=== PATIENT | female | born 1935 | race Caucasian/White ===

== ENCOUNTER 2017-10-19 07:59 | Day surgery (SDC) | payer OTHER ==
[2017-10-14 09:35] LABS: Absolute Lymphocytes (CBC) 1.7 K/uL (0.7-4.9); Absolute Monocytes 0.5 K/uL (0.1-1.3); Absolute Neutrophil 4.8 K/uL (1.8-8.0); Basophils % 0.7 % (0-1.3); Hematocrit 38.2 % (36.0-45.0); Lymphocytes % 23.4 % (15.3-44.8); MCH 26.2 pg (27.0-35.0); MCV 82.8 fL (80-100); MPV 9.8 fL (7.6-11.3); Monocytes % 7.4 % (3.3-12.3); RBC Red Blood Cell Count 4.61 M/uL (3.86-4.86)
--- NOTE | 2017-10-14 10:21 | EKG ---
Test Date: 2017-10-14 Test Time: 09:15:04 Fly Tier: [place] MEASUREMENT RESULTS: Intervals: Rate: 65 [place]: 202 QRSD: 92 QT: 456 QTc: 474 [place]: P: 10 [place]: 202 QRS: -14 T: 128 INTERPRETIVE STATEMENTS: Normal sinus rhythm Nonspecific ST and T wave abnormality Prolonged QT Abnormal ECG Compared to ECG 07/10/2017 09:12:51 ST (T wave) deviation now present Prolonged QT interval now present Sinus arrhythmia no longer present Atrial premature complex(es) no longer present Ventricular premature complex(es) no longer present Left-axis deviation no longer present Left bundle-branch block no longer present Electronically Signed On 10-14-17 10:20:58 CDT by Hector Dash
[2017-10-19] MEDS ORDERED: CIPROFLOXACIN 400mg IV 400 MG/200 ML BAG IV ONE (08:28)
[2017-10-19] MEDS ORDERED: NA CHLORIDE 0.9% 1,000 ML ONE (08:28)
[2017-10-19] MEDS ORDERED: PROPOFOL 200 MG/20 ML VIAL IV ONE (08:29)
[2017-10-19] MEDS ORDERED: LIDOCAINE 2% MPF 5 ML VIAL ONE (08:29)
[2017-10-19] MEDS ORDERED: FENTANYL CITR 100 MCG/2 ML ONE (08:30)
--- NOTE | 2017-10-19 09:19 | P.BOP ---
Preoperative diagnosis: infected facial mass Postoperative diagnosis: same with abscess Primary procedure: Excisional biopsy of infected facial mass withh abscess drainage 3x2 cm Estimated blood loss: <10cc Specimen: mass ans culture Findings: mass with abscess Anesthesia: General Complications: None
[2017-10-19 09:58] VITALS: O2SAT 93
[2017-10-19 10:19] VITALS: TEMP 97.4
[2017-10-19 12:25] VITALS: BP 138/61
--- NOTE | 2017-10-19 22:09 | OP ---
Date of Procedure: 10/19/2017 Surgeon: Neftali Pratt MD Preoperative Diagnosis: Infected facial mass. Postoperative Diagnosis: Infected facial mass with abscess. Procedure: Excision and biopsy of infected facial mass with abscess drainage 3 x 2 cm. Estimated Blood Loss: Less than 10 cc. Specimen: Mass and culture of the abscess. Finding: Mass with deep abscess. Indications: This is the case of a female, who came to us with a facial mass. She was in the past a dvised to have it removed. She has been through a lot many personal issues and finally now that she decided to have it excised and she came to my office. It shows some erythema and she was advised to take antibiotics and she did not do because she forgot. She showed to the office with a draining mas s. So, we are still going to proceed with the excisional biopsy of infected mass with benefits, alte rnatives, and risks including, but not limited to infection, bleeding, damage to adjacent structures, anesthesia complication, nonhealing wound, MN, and even . She understands this may not relieve any symptoms. She might need more than one surgical intervention. She understands this will leave a scar and she will require dressing changes. She also took Xarelto last night even though it was ad vised not to do so. She once again forgot. Since the mass is infected, we are going to have to do t his under these conditions, but she was advised the importance of compliance. She signed the consent . Procedure In Detail: The patient's area was marked in the holding area. The patient was brought to the operating room and placed in supine position. Anesthesia was done without complication. The fac ial area was prepped and draped in a sterile fashion. Local anesthesia was applied followed by sharp incision of the skin in a wedge fashion. Incision was carried down to deep subcutaneous tissue. Th is went deep to the mass, there was an abscess collection that was after found whenever we removed th e mass with purulent discharge showing in that area. Loculations were explored and opened. The area was irrigated. Hemostasis was obtained. The area was packed with wet-to-dry dressing. The patient tolerated the procedure well. The patient was sent to recovery in stable condition. DISCHARGE SUMMARY Diagnosis: Infected facial mass with abscess. Procedure: Excisional biopsy of infected facial mass with abscess drainage. Disposition: Home. Activity: As tolerated. No heavy lifting. Followup: Follow up in my office in 1 week. Call for appointment [phone]. Medications: Include Tylenol No. 3 q.4 hours p.r.n. pain. I believe she will need home health agenc y to help her, so we are going to order that with normal saline prescription and Tylenol No. 3. The patient already has antibiotics that she did fill, but she forgot to take them. She will take them n ow. LARY/RHEA Voice ID: [id number] Report ID: [id number]
== END 2017-10-19 11:40 | disposition home health service (06) ==
LOC: OR 07:59
PROVIDERS: ATTEND Surgery
PROC: 0JB10ZZ Excision of Face Subcutaneous Tissue and Fascia, Open Approach (ICD-10-PCS; 2017-10-19)
PROC: 0J910ZZ Drainage of Face Subcutaneous Tissue and Fascia, Open Approach (ICD-10-PCS; principal; 2017-10-19 08:30)
DX: L72.0 Epidermal cyst (principal); L02.01 Cutaneous abscess of face; E11.9 Type 2 diabetes mellitus without complications; I10 Essential (primary) hypertension; I25.10 Atherosclerotic heart disease of native coronary artery without angina pectoris; J45.909 Unspecified asthma, uncomplicated; M19.90 Unspecified osteoarthritis, unspecified site; Z80.9 Family history of malignant neoplasm, unspecified; Z82.49 Family history of ischemic heart disease and other diseases of the circulatory system
CPT/HCPCS: 10060; 11443; 36415; 80048; 82962 ×2; 85025; 87070; 87075; 87205; 88304; 93005; J0744; J3010; J7030; 88305

== ENCOUNTER 2018-10-13 22:33 | Emergency (ER) | payer OTHER ==
[2018-10-14] MEDS ORDERED: HYDROCODONE/APAP 5/325 MG TAB ONE (00:44)
[2018-10-14] MEDS ORDERED: ONDANSETRON 4 MG (ODT) TAB ONE (01:52)
[2018-10-14] MEDS ORDERED: MORPHINE 4 MG/ML SYR ONE (01:52)
--- NOTE | 2018-10-14 02:16 | EDPHYS ---
Physician Documentation [facility] Name: Karen Edward Age: 83 yrs Sex: Female : 1935 Arrival Date: 10/13/2018 Time: 22:37 Bed 11 Private MD: Adriel Bennett C ED Physician Denis Mejia HPI: 10/14 01:46 This 83 yrs old Female presents to ER via Wheelchair with complaints of Hand jmm Injury. 01:46 The patient or guardian reports injury, pain. Onset: The symptoms/episode jmm began/occurred acutely, yesterday. Modifying factors: The symptoms are alleviated by nothing, the symptoms are aggravated by nothing. This is an 83 year old female with a history of CHF, DM, HLP, HTN that presents to the ED with complaints of left hand pain worsening today. Patient states she tripped and fell on an outstretched hand yesterday. Patient denies other injury. . Historical: - Allergies: 10/13 23:01 Naproxen; aa1 23:01 Reglan; aa1 23:01 Procardia; aa1 23:01 Rocephin; aa1 23:01 Clindamycin; aa1 - Home Meds: 23:01 atorvastatin 20 mg Oral tab 1 tab once daily [Active]; carvedilol 6.25 mg Oral tab 1 aa1 tab 2 times per day [Active]; citalopram 40 mg tab 1 tab once daily [Active]; gabapentin 300 mg Oral cap 1 cap twice a day [Active]; glipizide 10 mg Oral tab 1 tab once daily [Active]; levothyroxine 88 mcg tab 1 tab once daily [Active]; torsemide 20 mg Oral tab 1 tab once daily [Active]; Tradjenta 5 mg Oral tab 1 tab once daily [Active]; Xarelto 15 mg Oral tab daily [Active]; - PMHx: 23:01 Asthma; CHF; Diabetes - NIDDM; Hyperlipidemia; Hypertension; Hypothyroidism; aa1 - PSHx: 23:01 Cholecystectomy; brain surgery; shoulder surgery; wrist surgery; Knee surgery; partial aa1 hysterectomy; - Immunization history:: Flu vaccine is up to date. - Social history:: Smoking status: Patient/guardian denies using tobacco. - Ebola Screening: : No symptoms or risks identified at this time. ROS: 03/28 01:46 Constitutional: Negative for fever, chills, and weight loss, Cardiovascular: Negative jmm for chest pain, palpitations, and edema, Respiratory: Negative for shortness of breath, cough, wheezing, and pleuritic chest pain. MS/extremity: Positive for injury or acute deformity, pain. All other systems are negative. Exam: 01:46 Constitutional: This is a well developed, well nourished patient who is awake, alert, jmm and in no acute distress. Head/Face: atraumatic. Eyes: EOMI, no conjunctival erythema appreciated ENT: Moist Mucus Membranes Neck: Trachea midline, Supple Chest/axilla: Normal chest wall appearance and motion. Cardiovascular: Regular rate and rhythm. No edema appreciated Respiratory: Normal respirations, no respiratory distress appreciated Abdomen/GI: Non distended, soft Back: Normal ROM Skin: General appearance color normal 01:46 Musculoskeletal/extremity: pain localized to the 1st metacarpal of the left hand, < 2 sec dist cap refill, painful rom, compartments are soft, NVI. 01:46 Skin: Appearance: Color: normal in color. 01:46 Neuro: Orientation: is normal, Mentation: is normal, Memory: is normal. 01:46 Psych: Behavior/mood is pleasant, cooperative. Vital Signs: 10/13 23:01 BP 142 / 76; Pulse 88; Resp 18; Temp 97.8; Pulse Ox 95% on R/A; Weight 103.42 kg; aa1 Height 5 ft. 3 in. (160.02 cm); Pain 9/10; 10/14 00:39 BP 130 / 82; Pulse 84; Resp 16; Temp 98.6(O); Pulse Ox 100% on R/A; mt 02:25 BP 127 / 76; Pulse 81; Resp 16; Temp 98.5; Pulse Ox 99% on R/A; Pain 4/10; aa1 10/13 23:01 Body Mass Index 40.39 (103.42 kg, 160.02 cm) aa1 Procedures: 01:49 Splinting: Splint applied to left hand using thumb spica. applied by tech. Examined by tiffanie me, post splint application: neurovascular intact, 2+ distal pulses palpable, brisk capillary refill noted, Patient tolerated well. MDM: 00:52 Patient medically screened. jmm 01:49 Data reviewed: vital signs, nurses notes. Counseling: I had a detailed discussion with tiffanie the patient and/or guardian regarding: the historical points, exam findings, and any diagnostic results supporting the discharge/admit diagnosis, radiology results, the need for outpatient follow up, to return to the emergency department if symptoms worsen or persist or if there are any questions or concerns that arise at home. Response to treatment: the patient's symptoms have mildly improved after treatment. ED course: Patient is advised to follow up with hand surgery in 1 to 2 days for reevaluation. Patient given strict return precautions. Patient understood and agrees with the plan of care. . 10/13 23:03 Order name: Hand Left 3 View XRAY aa1 10/14 01:23 Order name: Thumb Spica Splint; Complete Time: 02:17 tiffanie Administered Medications: 00:35 Drug: [place] 5 mg-325 mg 1 tabs Route: PO; aa1 01:00 Follow up: Response: No adverse reaction; Pain is decreased aa1 01:45 Drug: morphine 4 mg Route: IM; Site: left deltoid; aa1 02:20 Follow up: Response: No adverse reaction; Pain is decreased aa1 01:45 Drug: Zofran 4 mg Route: PO; aa1 02:20 Follow up: Response: No adverse reaction aa1 Disposition: 05:28 Co-signature as Attending Physician, Denis Mejia MD. Disposition: 10/14/18 02:15 Discharged to Home. Impression: Fracture of first metacarpal bone. - Condition is Stable. - Discharge Instructions: Metacarpal Fracture. - Prescriptions for Ultracet 37.5- 325 mg Oral Tablet - take 1 tablet by ORAL route every 6 hours - for up to 5 days; do not exceed 8 tablets per day.; 12 tablet. - Medication Reconciliation Form, Thank You Letter, Antibiotic Education, Prescription Opioid Use form. - Follow up: Fredi Drake MD; When: 1 - 2 days; Reason: Recheck today's complaints, Continuance of care, Re-evaluation by your physician. Signatures: Dispatcher [employer] EDMS Maria Esther Vasquez RN RN aa1 Juan Kaba PA PA jmm Starr, Gregory, MD MD Corrections: (The following items were deleted from the chart) 02: 02:15 10/14/2018 02:15 Discharged to Home. Impression: Fracture of first metacarpal aa1 bone. Condition is Stable. Forms are Medication Reconciliation Form, Thank You Letter, Antibiotic Education, Prescription Opioid Use. Follow up: Fredi Drake; When: 1 - 2 days; Reason: Recheck today's complaints, Continuance of care, Re-evaluation by your physician. tiffanie
--- NOTE | 2018-10-14 02:16 | ER ---
Nurse's Notes [facility] Name: Karen Edward Age: 83 yrs Sex: Female : 1935 Arrival Date: 10/13/2018 Time: 22:37 Bed 11 Private MD: Adriel Bennett C Diagnosis: Fracture of first metacarpal bone Presentation: 10/13 22:54 Presenting complaint: Patient states: L hand pain since yesterday after trying to catch aa1 herself from falling. CMS intact. No obvious deformity noted. Transition of care: patient was not received from another setting of care. Onset of symptoms was October 12, 2018. Risk Assessment: Do you want to hurt yourself or someone else? Patient reports no desire to harm self or others. Initial Sepsis Screen: Does the patient meet any 2 criteria? No. Patient's initial sepsis screen is negative. Does the patient have a suspected source of infection? No. Patient's initial sepsis screen is negative. Care prior to arrival: None. 22:54 Method Of Arrival: Wheelchair aa1 22:54 Acuity: TOBY 4 aa1 Triage Assessment: 23:01 General: Appears in no apparent distress. comfortable, Behavior is calm, cooperative, aa1 appropriate for age. Pain: Complains of pain in left hand. Historical: - Allergies: 23:01 Naproxen; aa1 23:01 Reglan; aa1 23:01 Procardia; aa1 23:01 Rocephin; aa1 23:01 Clindamycin; aa1 - Home Meds: 23:01 atorvastatin 20 mg Oral tab 1 tab once daily [Active]; carvedilol 6.25 mg Oral tab 1 aa1 tab 2 times per day [Active]; citalopram 40 mg tab 1 tab once daily [Active]; gabapentin 300 mg Oral cap 1 cap twice a day [Active]; glipizide 10 mg Oral tab 1 tab once daily [Active]; levothyroxine 88 mcg tab 1 tab once daily [Active]; torsemide 20 mg Oral tab 1 tab once daily [Active]; Tradjenta 5 mg Oral tab 1 tab once daily [Active]; Xarelto 15 mg Oral tab daily [Active]; - PMHx: 23:01 Asthma; CHF; Diabetes - NIDDM; Hyperlipidemia; Hypertension; Hypothyroidism; aa1 - PSHx: 23:01 Cholecystectomy; brain surgery; shoulder surgery; wrist surgery; Knee surgery; partial aa1 hysterectomy; - Immunization history:: Flu vaccine is up to date. - Social history:: Smoking status: Patient/guardian denies using tobacco. - Ebola Screening: : No symptoms or risks identified at this time. Screenin/28 00:15 Abuse screen: Denies threats or abuse. Denies injuries from another. Nutritional aa1 screening: No deficits noted. Tuberculosis screening: No symptoms or risk factors identified. Fall Risk Fall in past 12 months (25 points). Assessment: 00:15 General: Appears in no apparent distress. comfortable, Behavior is calm, cooperative, aa1 appropriate for age. Pain: Complains of pain in left hand Pain began 1 day ago. Is continuous. Neuro: Level of Consciousness is awake, alert, obeys commands, Oriented to person, place, time, situation, Moves all extremities. Speech is normal. Cardiovascular: Pulses are 2+ in right radial artery and left radial artery. Respiratory: Airway is patent Respiratory effort is even, unlabored, Respiratory pattern is regular, symmetrical. GI: No signs and/or symptoms were reported involving the gastrointestinal system. : No signs and/or symptoms were reported regarding the genitourinary system. EENT: No signs and/or symptoms were reported regarding the EENT system. Derm: Skin is intact, is healthy with good turgor, Skin is pink, warm \T\ dry. Musculoskeletal: Circulation, motion, and sensation intact. Capillary refill Range of motion: limited in MCP of left thumb and CMC of left thumb. 01:00 Reassessment: Patient appears in no apparent distress at this time. Patient and/or aa1 family updated on plan of care and expected duration. Pain level reassessed. Patient is alert, oriented x 3, equal unlabored respirations, skin warm/dry/pink. Awaiting x-ray results. 02:25 Reassessment: Patient appears in no apparent distress at this time. Patient is alert, aa1 oriented x 3, equal unlabored respirations, skin warm/dry/pink. Discussed d/c \T\ f/u instructions with pt \T\ family; denies questions or concerns at this time Patient states feeling better. Vital Signs: 10/13 23:01 BP 142 / 76; Pulse 88; Resp 18; Temp 97.8; Pulse Ox 95% on R/A; Weight 103.42 kg; aa1 Height 5 ft. 3 in. (160.02 cm); Pain 9/10; 10/14 00:39 BP 130 / 82; Pulse 84; Resp 16; Temp 98.6(O); Pulse Ox 100% on R/A; mt 02:25 BP 127 / 76; Pulse 81; Resp 16; Temp 98.5; Pulse Ox 99% on R/A; Pain 4/10; aa1 10/13 23:01 Body Mass Index 40.39 (103.42 kg, 160.02 cm) aa1 ED Course: 10/13 22:37 Patient arrived in ED. es 22:37 Adriel Bennett MD is Private Physician. es 22:57 Triage completed. aa1 23:01 Arm band placed on right wrist. X-ray ordered. aa1 10/14 00:04 X-ray completed. Portable x-ray completed in exam room. Patient tolerated procedure kw well. 00:06 Juan Kaba PA is PHCP. jm 00:06 Denis Mejia MD is Attending Physician. jm 00:10 Hand Left 3 View XRAY In Process Unspecified. EDMS 00:15 Patient has correct armband on for positive identification. Bed in low position. Call aa1 light in reach. 00:30 Maria Esther Vasquez, JEANNETTE is Primary Nurse. aa1 02:14 Fredi Drake MD is Referral Physician. [facility] 02:25 No provider procedures requiring assistance completed. Patient did not have IV access aa1 during this emergency room visit. preformed thumb spica wrist splint applied to L wrist. Administered Medications: 00:35 Drug: [place] 5 mg-325 mg 1 tabs Route: PO; aa1 01:00 Follow up: Response: No adverse reaction; Pain is decreased aa1 01:45 Drug: morphine 4 mg Route: IM; Site: left deltoid; aa1 02:20 Follow up: Response: No adverse reaction; Pain is decreased aa1 01:45 Drug: Zofran 4 mg Route: PO; aa1 02:20 Follow up: Response: No adverse reaction aa1 Outcome: 02:15 Discharge ordered by . jm 02:25 Discharged to home via wheelchair, with family. aa1 02:25 Condition: good 02:25 Discharge instructions given to patient, family, Instructed on discharge instructions, follow up and referral plans. medication usage, Demonstrated understanding of instructions, follow-up care, medications, Prescriptions given X 1. 02:28 Patient left the ED. aa1 Signatures: Dispatcher [employer] Maria Esther Murphy RN RN aa1 Juan Kaba PA PA jmm Salyer, Edna es Whitley, Kimberlee kw Thompson [facility] [place]
[2018-10-14 04:43] VITALS: BP 130/82; TEMP 98.6; O2SAT 100
--- NOTE | 2018-10-14 08:19 | RAD REPORT ---
EXAM DESCRIPTION: RAD -Hand Left 3 View - 10/14/2018 12:05 am CLINICAL HISTORY: Left hand pain FINDINGS: No fracture or dislocation is seen. 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 Small erosions involve the third DIP indu nt.
== END 2018-10-14 02:28 | disposition home or self-care (01) ==
LOC: ER 22:33
DX: S62.202A Unspecified fracture of first metacarpal bone, left hand, initial encounter for closed fracture (principal); W01.0XXA Fall on same level from slipping, tripping and stumbling without subsequent striking against object, initial encounter; I11.0 Hypertensive heart disease with heart failure; I50.9 Heart failure, unspecified; E11.9 Type 2 diabetes mellitus without complications; E78.5 Hyperlipidemia, unspecified; E03.9 Hypothyroidism, unspecified; Z79.01 Long term (current) use of anticoagulants; Z88.6 Allergy status to analgesic agent; Z88.1 Allergy status to other antibiotic agents; Z88.8 Allergy status to other drugs, medicaments and biological substances
CPT/HCPCS: 96372; 99284

== ENCOUNTER 2019-06-23 13:43 | Inpatient (IN) | payer OTHER ==
--- OUTSIDE RECORDS SUMMARY | 2019-06-23 14:10 | XMS REPORT ---
:1935 Author Organization [facility] Address [address] [place] [address] Care Team Providers Name Role Phone Unavailable Unavailable Unavailable Payers Payer Name Policy Type Policy Number Effective Date Expiration Date Problems This patient has no known problems. Allergies, Adverse Reactions, Alerts This patient has no known allergies or adverse reactions. Medications This patient has no known medications. Results Test Description Test Time Test Comments Text Results Atomic Results Result Comments - MRI LW JNT W/O CONT RT 2018-12-01 09:49:00 Patient Name: RANDI CEVALLOS Unit No: [id number] EXAMS: CPT CODE: [id number] MRI [facility] W/[place] [id number] TECHNIQUE: Multiplanar, multisequence MRI of the right knee without contrast. COMPARISON: None available. FINDINGS: Exam limited by patient motion. Menisci: Complex medial meniscal tear is noted with maceration of the meniscal body, which is poorly demonstrated. The tear extends to the free edge of the posterior horn as well. Subtle irregularity of the free edge of the lateral meniscal body is also noted. Ligament and tendons: The ACL is attenuated with degenerative signal present. PCL is intact. The MCL is bowed but grossly intact. LCL is maintained. Extensor mechanism is intact. Cartilage/ bone: The patella is slightly laterally subluxated broad full-thickness cartilage loss is seen throughout the medial compartment with flattening of the articular surfaces and subchondral edema. Mild degenerative signal seen within the lateral compartment cartilage. Tricompartmental osteophytosis is present. No acute fracture. Other: Large joint effusion is visualized. Synovitis is present. No discrete intra-articular body. Mild atrophy of the medial head of the gastrocnemius muscle is incidentally noted. IMPRESSION: 1. Complex medial meniscal tear with maceration of the meniscal body. 2. Severe medial compartment cartilage degeneration. 3. Possible free edge tear of the lateral meniscal body. 4. Large joint effusion. at 0949 Reported and signed by: Toni Brown M.D. CC: Tacho Camacho MD Technologist: LLOYD MCINTYRE MRI Transcribed D/ ([id number]) Raymond [facility] NAME: RANDI CEVALLOS [address] [place] [address] PHYS: Tacho Briggs MD : 1935 AGE: 83 SEX: F [place] [address] LOC: Y.MRI PHONE #: [phone] EXAM DATE: 11/30/2018 STATUS: DEP CLI FAX #: [phone] RAD #: D/C DT PAGE 1 Signed Report Patient Name: RANDI CEVALLOS Unit No: [id number] EXAMS: CPT CODE: [id number] MRI LW JNT W/[place] [id number] <Continued> Orig Print D/T: S: 12/01/2018 (0952) [facility] NAME: RANDI CEVALLOS [address] [place] [address] PHYS: Tacho Briggs MD : 1935 AGE: 83 SEX: F [place] [address] LOC: Y.MRI PHONE #: [phone] EXAM DATE: 11/30/2018 STATUS: DEP CLI FAX #: [phone] RAD #: D/C DT PAGE 2 Signed Report
[2019-06-23 17:16] LABS: Urine Appearance CLOUDY; Urine Bilirubin NEGATIVE (NEG); Urine Blood NEGATIVE (NEG); Urine Color YELLOW; Urine Glucose NEGATIVE (NEG); Urine Protein NEGATIVE (NEG); Urine pH 5.5 (5.0-7.0)
--- NOTE | 2019-06-23 17:17 | RAD REPORT ---
EXAM DESCRIPTION: Vladimir Davison And Elaine (2 Views)06/23/2019 5:11 pm CLINICAL HISTORY: Cough COMPARISON: 2016 FINDINGS: Mild bilateral interstitial lung opacities The heart is mildly to moderately enlarged IMPRESSION: Mild CHF
[2019-06-23 17:32] LABS: Urine Microscopic Reflex ORDER UMIC
[2019-06-23 17:32] LABS: Absolute Lymphocytes (CBC) 1.2 K/uL (0.7-4.9); Basophils % 0.9 % (0-1.3); Hematocrit 33.8 % (36.0-45.0); Lymphocytes % 23.9 % (15.3-44.8); MPV 9.6 fL (7.6-11.3); RBC Red Blood Cell Count 4.08 M/uL (3.86-4.86)
[2019-06-23] MEDS: FUROSEMIDE 40 MG/4 ML VIAL IV SCH (17:50)
[2019-06-23 18:04] LABS: ALT/SGPT 17 U/L (12-78); AST/SGOT 11 U/L (15-37); Albumin 3.9 g/dL (3.4-5.0); Alkaline Phosphatase 88 U/L (45-117); BUN Blood Urea Nitrogen 24 mg/dL (7-18); Bicarbonate 31 mmol/L (21-32); Bilirubin Total 1.6 mg/dL (0.2-1.0); Glucose Level 80 mg/dL (74-106); Magnesium 2.1 mg/dL (1.8-2.4); NT PRO-BNP 3095 pg/mL (<450); Potassium 3.6 mmol/L (3.5-5.1); Protein, Total 7.2 g/dL (6.4-8.2); Sodium Level 141 mmol/L (136-145); Troponin I < 0.02 ng/mL (0.0-0.045)
[2019-06-23 18:28] LABS: Urine Amorphous Sediment 2+ /HPF (NONE SEEN); Urine Bacteria 20-50 /HPF (<20); Urine Culture Reflex Order NOT NEEDED; Urine RBC <5 /HPF (NONE SEEN)
[2019-06-23] MEDS: GABAPENTIN 300 MG CAP PO SCH (21:00)
[2019-06-23] MEDS: carvediloL 6.25 MG TAB PO SCH (21:00)
[2019-06-23] MEDS: ATORVASTATIN 20 MG TAB PO SCH (21:00)
[2019-06-24] MEDS: PANTOPRAZOLE 40MG TABLET PO SCH (05:52)
[2019-06-24] MEDS ORDERED: LEVOTHYROXINE SOD 0.075 MG TAB PO SCH (06:00)
[2019-06-24] MEDS: CITALOPRAM 10 MG TABLET PO SCH (08:48)
[2019-06-24] MEDS: carvediloL 6.25 MG TAB PO SCH ×2 (08:49→20:38)
[2019-06-24] MEDS: FUROSEMIDE 40 MG/4 ML VIAL IV SCH ×2 (08:49→18:05)
[2019-06-24] MEDS: GABAPENTIN 300 MG CAP PO SCH (08:51)
[2019-06-24] MEDS: RIVAROXABAN 15 MG TABLET PO SCH (08:52)
[2019-06-24] MEDS ORDERED: HOME MED 1 EA UNK (Linagliptin [Tradjenta] 5 MG) PO SCH (09:00)
[2019-06-24] MEDS ORDERED: MEMANTINE HCL 21 MG PO SCH (09:00)
--- NOTE | 2019-06-24 15:45 | ECHO ---
HEIGHT: 5 ft 4 in WEIGHT: 222 lb 11.2 oz DATE OF STUDY: 06/24/[address]: Harry Bennett MD 2-DIMENSIONAL: YES M.MODE: YES DOPPLER: YES COLOR FLOW: YES TDS: NO PORTABLE: NO DEFINITY: NO BUBBLE STUDY: NO DIAGNOSIS: CONGESTIVE HEART FAILURE CARDIAC HISTORY: CATHERIZATION: YES SURGERY: NO PROSTHETIC VALVE: NO PACEMAKER: NO MEASUREMENTS (cm) DIASTOLIC (NORMALS) SYSTOLIC (NORMALS) IVSd 1.0 (0.6-1.2) LA Diam 3.7 (1.9-4.0) LVEF 40-45% LVIDd 4.6 (3.5-5.7) LVIDs 3.2 (2.0-3.5) %FS 30% LVPWd 1.0 (0.6-1.2) Ao Diam 2.7 (2.0-3.7) 2 DIMENSIONAL ASSESSMENT: RIGHT ATRIUM: NORMAL LEFT ATRIUM: NORMAL RIGHT VENTRICLE: NORMAL LEFT VENTRICLE: NORMAL TRICUSPID VALVE: NORMAL MITRAL VALVE: NORMAL PULMONIC VALVE: NORMAL AORTIC VALVE: NORMAL PERICARDIAL EFFUSION: NONE AORTIC ROOT: NORMAL LEFT VENTRICULAR WALL MOTION: MILD GLOBAL HYPOKINESIS. DOPPLER/COLOR FLOW: MILD MITRAL AND TRICUSPID REGURGITATION. MILD PULMONARY HYPERTENSION. ESTIMATED RIGHT VENTRICULAR SYSTOLIC PRESSURE 48mmHg. COMMENTS: TECHNOLOGIST: CAMILLE LIU
--- NOTE | 2019-06-24 18:38 | PN ---
Date of Progress Note: 06/24/2019 Subjective: Patient was seen this morning for followup. Denies any chest pain. No paroxysmal noctu rnal dyspnea or orthopnea. Her son was present with her at bedside, who reports that the patient is still having shortness of breath with or without activity as he noted today. When I saw her, she was comfortable lying in bed not in distress, not having any difficulty breathing at that time. Objective: Vital Signs: Reviewed. HEENT: Unremarkable. Lungs: Clear to auscultation except very minimum basal rales noted significantly better today than y esterday. Heart: Sounds normal. Abdomen: Soft. Bowel sounds normal. No guarding, rigidity, tenderness, distention. Extremities: Leg edema present, but much better today than yesterday. Impression: 1.Congestive heart failure. 2.Hypertension. 3.Diabetes mellitus. Plan: We will go ahead and continue current IV Lasix. Echocardiogram was done this morning, result is pending. We will continue other current medical management and I will see her tomorrow for follow up. Possible discharge to go home over the weekend depending on the patient's condition. MIGUE/MODL Voice ID: [id number] Report ID: [id number]
[2019-06-24] MEDS: MEMANTINE HCL 10 MG TABLET PO SCH (20:39)
[2019-06-24] MEDS: ATORVASTATIN 20 MG TAB PO SCH (20:40)
[2019-06-24] MEDS: GABAPENTIN 300 MG PO SCH (20:41)
[2019-06-25 04:54] LABS: Potassium 3.7 mmol/L (3.5-5.1)
[2019-06-25] MEDS ORDERED: POTASSIUM CL SA 10 MEQ TAB PO ONE (05:42)
[2019-06-25] MEDS: PANTOPRAZOLE 40MG TABLET PO SCH (06:11)
[2019-06-25] MEDS: LEVOTHYROXINE 75 MCG PO SCH (06:11)
[2019-06-25 06:16] VITALS: BMI 38.0
[2019-06-25] MEDS: MEMANTINE HCL 10 MG TABLET PO SCH ×2 (08:43→20:38)
[2019-06-25] MEDS: CITALOPRAM 10 MG TABLET PO SCH (08:43)
[2019-06-25] MEDS: carvediloL 6.25 MG TAB PO SCH ×2 (08:44→20:39)
[2019-06-25] MEDS: FUROSEMIDE 40 MG/4 ML VIAL IV SCH ×2 (08:44→16:04)
[2019-06-25] MEDS: RIVAROXABAN 15 MG TABLET PO SCH (08:45)
[2019-06-25] MEDS: LINAGLIPTIN 5 MG PO SCH (08:45)
[2019-06-25] MEDS: GABAPENTIN 300 MG PO SCH ×2 (08:46→20:38)
[2019-06-25] MEDS: lisinopriL 5 MG TAB PO SCH (09:30)
[2019-06-25] MEDS ORDERED: ALPRAZOLAM 0.5 MG TABLET PO PRN (19:43)
[2019-06-25] MEDS: ATORVASTATIN 20 MG TAB PO SCH (20:38)
[2019-06-26] MEDS: PANTOPRAZOLE 40MG TABLET PO SCH (05:40)
[2019-06-26] MEDS: LEVOTHYROXINE 75 MCG PO SCH (05:40)
[2019-06-26 06:13] LABS: Basophils % 0.5 % (0-1.3); Hematocrit 33.1 % (36.0-45.0); Lymphocytes % 22.9 % (15.3-44.8); MPV 9.9 fL (7.6-11.3)
[2019-06-26 06:27] LABS: Magnesium 2.2 mg/dL (1.8-2.4); Potassium 3.8 mmol/L (3.5-5.1)
[2019-06-26] MEDS ORDERED: POTASSIUM CL SA 10 MEQ TAB PO ONE ×2 (06:30→09:00)
--- NOTE | 2019-06-26 08:21 | RAD REPORT ---
EXAM DESCRIPTION: RAD - Chest Pa And Lat (2 Views) - 06/26/2019 7:46 am CLINICAL HISTORY: CHF COMPARISON: June 23 TECHNIQUE: PA and lateral views of the chest were obtained. FINDINGS: The lungs are underinflated. No peripheral mass or consolidation. Left base assessment is limited due to shallow inspiration and body habitus affects. Cardiomegaly remains. Central vasculatu re is still prominent. Left base atelectasis is likely present. No pneumothorax or large pleural effu carl[place]. No acute bony finding noted. No aortic abnormality. IMPRESSION: Mild CHF/volume overload are still present but improved from June 23 imaging.
[2019-06-26] MEDS: CITALOPRAM 10 MG TABLET PO SCH (08:42)
[2019-06-26] MEDS: carvediloL 6.25 MG TAB PO SCH (08:43)
[2019-06-26] MEDS: FUROSEMIDE 40 MG/4 ML VIAL IV SCH (08:43)
[2019-06-26] MEDS: MEMANTINE HCL 10 MG TABLET PO SCH (08:43)
[2019-06-26] MEDS: lisinopriL 5 MG TAB PO SCH (08:43)
[2019-06-26] MEDS: RIVAROXABAN 15 MG TABLET PO SCH (08:44)
[2019-06-26] MEDS: LINAGLIPTIN 5 MG PO SCH (08:46)
[2019-06-26] MEDS: GABAPENTIN 300 MG PO SCH (08:47)
[2019-06-26 08:48] VITALS: BP 131/77
[2019-06-26 09:07] VITALS: TEMP 96.9
[2019-06-26 11:12] VITALS: O2SAT 93
--- NOTE | 2019-06-26 14:13 | PN ---
Date of Progress Note: 06/25/2019 Subjective: Patient was seen for followup in the morning. Her son was present with her at bedside. Objective: Vital Signs: Reviewed. HEENT: Unremarkable. Lungs: Minimum basal rales noted in both lower lung moralez. Not using accessory muscles of respirat ion. Heart: Sounds normal. Abdomen: Soft. Bowel sounds normal. No guarding, rigidity, tenderness, or distention. Extremities: Bilateral very trace leg edema present. Laboratory Data: Sodium 140, potassium 3.7, chloride 102, bicarb 33, BUN 24, creatinine 1.13, glucos e 117. Impression: 1.Congestive heart failure, chronic, systolic, with acute exacerbation. 2.Hypertension. 3.Type 2 diabetes mellitus. Plan: Yesterday's echocardiogram results reviewed with the patient and her son. We will go ahead an d start the patient on lisinopril 5 mg daily, and depending on how she responds, we will decide if we can go up on the dose as the time goes on. We will continue IV Lasix. We will see her tomorrow for followup and we will get a chest x-ray done tomorrow. Patient to ambulate today. Hopefully, we junior l be able to discharge her to go home tomorrow. MIGUE/MODL Voice ID: [id number] Report ID: [id number]
--- NOTE | 2019-06-27 03:05 | DS ---
Date of Discharge: 06/26/2019 History: Patient was seen for followup this morning. She is feeling much better. Her breathing is much better, ambulated very well without much difficulty yesterday and early this morning. Objective: Vital Signs: Reviewed. HEENT: Unremarkable. Lungs: Bilateral good equal air entry. Clear to auscultation. No rhonchi. No rales. Heart: Sounds normal. Abdomen: Soft. Bowel sounds normal. No guarding, rigidity, tenderness, distention. Extremities: No leg edema. Discharge Medications And Instructions: 1.Continue all prior home medications except discontinue torsemide. 2.Start furosemide 40 mg twice a day and lisinopril 5 mg p.o. daily. 3.Follow up at my office on 06/30/2019 and patient to call office for appointment. Laboratory Data Done During This Hospitalization: Initial sodium 141, potassium 3.6, chloride 104, b icarb 31, BUN 24, creatinine 1.03, glucose 80, magnesium 2.1. Liver function tests unremarkable. Pr oBNP 3095. TSH 3.25. Last chemistry today, sodium 143, potassium 3.8, chloride 104, bicarb 35, BUN 28, creatinine 1.08, glucose 142, magnesium 2.2. Initial white count 5, hemoglobin 11.2, platelets 1 18. Last white count today 4.4, hemoglobin 10.7, platelets 117. Chest x-ray showing changes of alex estive heart failure. Echocardiogram shows ejection fraction 40% to 45%. Final Diagnoses: 1.Congestive heart failure, chronic, systolic, with acute exacerbation. 2.Anemia, chronic, unspecified. 3.Thrombocytopenia. 4.Hypertension. 5.Hyperlipidemia. 6.Chronic obstructive pulmonary disease. 7.Paroxysmal atrial fibrillation. 8.Chronic anticoagulation therapy. 9.Osteoarthritis, multiple sites. Hospital Course: This 84-year-old female patient admitted to the hospital with shortness of breath p roblem. Please see dictated H and P for more information. Patient came into office with her isis ball and after she was evaluated, she was admitted to the hospital with acute exacerbation of her conges tive heart failure problem. After her admission to the hospital, routine blood work x-ray was done. Patient was started on IV Lasix and she responded very well. Intake and output records, daily weigh t were followed. She lost about 7 to 8 pounds during this hospitalization from the time of admission until today. Her condition has improved, shortness of breath has improved much better than before n ow, and she is ambulating with her walker. Overall, condition has improved and she is going to be di scharged in stable medical condition today with outpatient followup. MIGUE/RHEA Voice ID: [id number] Report ID: [id number]
== END 2019-06-26 13:05 | disposition home or self-care (01) | DRG 293 ==
LOC: 4TH 14:08
PROVIDERS: ADMIT Internal Medicine; ATTEND Internal Medicine
DX: I11.0 Hypertensive heart disease with heart failure (principal); I50.23 Acute on chronic systolic (congestive) heart failure; D64.9 Anemia, unspecified; D69.6 Thrombocytopenia, unspecified; E78.5 Hyperlipidemia, unspecified; J44.9 Chronic obstructive pulmonary disease, unspecified; I48.0 Paroxysmal atrial fibrillation; Z79.01 Long term (current) use of anticoagulants; M19.90 Unspecified osteoarthritis, unspecified site
CPT/HCPCS: 36415; 71046; 80048; 80053; 81003; 81015; 83735; 83880; 84443; 84484; 85025; 87086; 87088; 93306; J1940

== ENCOUNTER 2019-09-05 14:05 | Observation (INO) | payer OTHER ==
--- OUTSIDE RECORDS SUMMARY | 2019-09-05 14:27 | XMS REPORT ---
:1935 [facility] Address [address] [place] [address] Care Team Providers Name Role Phone Unavailable Unavailable Unavailable Payers Payer Name Policy Type Policy Number Effective Date Expiration Date Problems This patient has no known problems. Allergies, Adverse Reactions, Alerts This patient has no known allergies or adverse reactions. Medications This patient has no known medications. Results Test Description Test Time Test Comments Text Results Atomic Results Result Comments - MRI JNT W/O CONT RT 2018-12-01 09:49:00 Patient Name: RANDI CEVALLOS Unit No: [id number] EXAMS: CPT CODE: [id number] MRI [facility] [place] W/[place] [id number] TECHNIQUE: Multiplanar, multisequence MRI of the right [...] LLOYD MCINTYRE MRI Transcribed D/ (0949) [facility] NAME: RANDI CEVALLOS [address] [place] [address] PHYS: Tacho Briggs MD : 1935 AGE: 83 SEX: F [place] [id number] LOC: Y.MRI PHONE #: [phone] EXAM DATE: 11/30/2018 STATUS: DEP CLI FAX #: [phone] RAD #: D/C DT PAGE 1 Signed Report Patient Name: RANDI CEVALLOS Unit No: [id number] EXAMS: CPT CODE: [id number] MRI LW JNT W/[place] [id number] <Continued> Orig Print D/T: S: 12/01/2018 (0952) [facility] NAME: RANDI CEVALLOS [address] [place] [address] PHYS: Tacho Briggs MD : 1935 AGE: 83 SEX: F [place] [id number] LOC: Y.MRI PHONE #: [phone] EXAM DATE: 11/30/2018 STATUS: DEP CLI FAX #: [phone] RAD #: D/C DT PAGE 2 Signed Report
[2019-09-05 15:20] VITALS: BMI 37.8
[2019-09-05 15:52] LABS: Absolute Lymphocytes (CBC) 0.9 K/uL (0.7-4.9); Basophils % 0.7 % (0-1.3); Hematocrit 34.7 % (36.0-45.0); Lymphocytes % 15.3 % (15.3-44.8); MPV 9.9 fL (7.6-11.3); RBC Red Blood Cell Count 4.18 M/uL (3.86-4.86)
[2019-09-05 16:23] LABS: Albumin 3.6 g/dL (3.4-5.0); Bilirubin Total 0.7 mg/dL (0.2-1.0); Magnesium 2.2 mg/dL (1.8-2.4); Potassium 3.6 mmol/L (3.5-5.1); Protein, Total 7.1 g/dL (6.4-8.2); Thyroid Stimulating Hormone 1.26 uIU/mL (0.360-3.740)
--- NOTE | 2019-09-05 16:31 | RAD REPORT ---
EXAM DESCRIPTION: RAD - Chest Pa And Lat (2 Views) - 09/05/2019 4:24 pm CLINICAL HISTORY: COPD exacerbation Chest pain. COMPARISON: Chest Pa And Lat (2 Views) dated 06/26/2019; Chest Pa And Lat (2 Views) dated 06/23/2019; Chest Single View dated 07/09/2016; CHEST SINGLE VIEW dated 10/10/2012; Thorax Wo Con dated 08/14/2017; Liver Only dated 04/28/2018 FINDINGS: Emphysematous changes are present throughout the lungs. Airspace opacity is likely present in the lingula suspicious for aspiration or infiltrate. Small left pleural effusion is suspected. Th e heart is mildly enlarged in size. No displaced fractures.
[2019-09-05] MEDS ORDERED: ENOXAPARIN 40 MG/0.4 ML SQ SCH (17:00)
[2019-09-05] MEDS: METHYLPREDNISOLONE 40 MG INJ IV SCH ×2 (17:00→18:13)
[2019-09-05] MEDS: ALBUTEROL 2.5 MG/3 ML NEB SOL NEB SCH ×2 (17:30→19:40)
[2019-09-05] MEDS: IPRATROPIUM BROM 0.5MG/2.5ML NEB SCH ×2 (17:30→19:40)
[2019-09-05] MEDS ORDERED: POTASSIUM CL SA 10 MEQ TAB PO ONE (19:20)
[2019-09-05] MEDS ORDERED: ALBUTEROL SULFATE 90 MCG IH PRN (21:09)
[2019-09-05] MEDS ORDERED: Levofloxacin500mg IV 500 MG/100 ML BAG IV SCH (22:00)
[2019-09-06] MEDS: METHYLPREDNISOLONE 40 MG INJ IV SCH ×2 (00:04→08:06)
[2019-09-06] MEDS: IPRATROPIUM BROM 0.5MG/2.5ML NEB SCH ×2 (01:35→08:25)
[2019-09-06] MEDS: ALBUTEROL 2.5 MG/3 ML NEB SOL NEB SCH ×2 (01:35→08:25)
--- NOTE | 2019-09-06 02:05 | HP ---
Date of Admission: 09/05/2019 Chief Complaint: Shortness of breath. History Of Present Illness: This is an 84-year-old female patient, who called office today with complaints of shortness of breath and feeling anxious with this shortness of breath was given appointment to see me right away and she came into office with her son and after she was evaluated at the office she was admitted. The patient reported that last 3 days or so she is having increasing problem with shortness of breath, cough, chest congestion. Denies any chest pain. Last night, her breathing was bad enough that she could not sleep all night at all. After I saw her in the office, decision was made to admit her to the hospital for COPD exacerbation. She was treated with oral azithromycin for acute bronchitis symptoms about 2 different times within last month to month-and -half. Allergies: CEFTRIAXONE CAUSES CARDIAC ARREST. CLINDAMYCIN CAUSES NAUSEA. NIFEDIPINE CAUSES LEG SWELLING. REGLAN, DETAILS UNKNOWN. NAPROXEN, DETAILS UNKNOWN. Review of Systems: Respiratory: As mentioned above. All other systems reviewed and negative. Medications: 1. Tylenol with Codeine as needed for pain. 2. ProAir inhaler 2 puffs by mouth 4 times a day as needed for shortness of breath. 3. Alprazolam 0.5 mg 1 tablet at bedtime as needed for sleep. 4. Atorvastatin 20 mg 1 tablet daily with evening meal. 5. Carvedilol 3.125 mg 2 times a day. 6. Citalopram 40 mg, she takes 1 tablet p.o. daily. 7. Breo Ellipta 100 mcg inhaler 1 puff daily. 8. Furosemide 40 mg 2 times a day. 9. Gabapentin 300 mg 2 times a day. 10. Glipizide 10 mg daily with breakfast. 11. Levothyroxine 75 mcg p.o. daily. 12. Lisinopril 5 mg p.o. daily. 13. Meclizine 12.5 mg 3 times a day as needed. 14. Xarelto 20 mg p.o. daily with evening meal. 15. Januvia 100 mg p.o. daily. Past Medical History: Significant for chronic systolic congestive heart failure with ejection fraction 40% to 45%. as per last echocardiogram from June 24, 2018. Significant for hypertension, mixed hyperlipidemia, paroxysmal atrial fibrillation, chronic anticoagulation therapy, COPD, type 2 diabetes mellitus, hypothyroidism, osteoarthritis at multiple sites, anemia, CLL , insomnia, diverticulosis. Past Surgical History: Cataract surgery, cholecystectomy, hemorrhoidectomy, hysterectomy, knee surgery, ankle surgery. Family History: Father , had Alzheimer disease and coronary artery disease. Mother , had leukemia. Brother with throat cancer. Sister has hypertension and asthma. Social History: Prior history of smoking, not at present time. Use of alcohol : Occasional use of 1 or 2 beer. Physical Examination: Vital Signs: Temperature 98, pulse 90, respiratory rate 18, blood pressure 153/ 70, oxygen saturation 92%. Height 5 feet 4 inches, weight 220 pounds. General: Patient appears weaker than normal. HEENT: Head atraumatic, normocephalic. Conjunctivae nonerythematous. Sclerae white. Mouth, no thrush or edema noted. Ears/Nose, no mass, lesion, discharge noted. Neck: Supple. No JVD, lymph nodes, bruit, thyromegaly noted. Lungs: Bilateral scattered wheezing in all the lung moralez and the patient is in mild respiratory distress with tachypnea noted at the office. Heart: Normal heart sounds, no murmur or gallop. Abdomen: Soft, bowel sounds normal. No guarding, rigidity, tenderness, mass, hepatosplenomegaly, distention, or bruit noted. Extremities: No leg edema. No calf tenderness. Skin: No rash, ulcer, cellulitis. Lymphatics: No lymph node enlargement in neck, supraclavicular, infraclavicular region. Neuro: No focal neurological deficit. Chest: Unremarkable. External Genitalia: Deferred. Rectal: Deferred. Laboratory Data: After patient was admitted to the hospital, chest x-ray reveals presence of pneumonia. White count 5.8, hemoglobin 11, platelets 136. ProBNP 2744. Procalcitonin less than 0.05. TSH 1.26. Sodium 145, potassium 3.6, chloride 107, bicarb 32, BUN 21, creatinine 1.03, glucose 117. Liver function tests unremarkable. Impression: 1. Acute exacerbation of chronic obstructive pulmonary disease. 2. Pneumonia. 3. Chronic diastolic congestive heart failure. 4. Anemia, unspecified. 5. Thrombocytopenia. 6. Osteoarthritis, multiple sites. 7. Type 2 diabetes mellitus. 8. Hypertension. 9. Hyperlipidemia. 10. Paroxysmal atrial fibrillation. 11. Diverticulosis. Plan: Admit patient to hospital for further evaluation and management of this problem. Patient is appropriate for inpatient and is expected to spend 2 midnights in hospital. Home medications will be continued per order. We will give DVT prophylaxis per order. Give oxygen nebulizer treatment, IV steroid, antibiotics per order. Consult Physical Therapy to help ambulate the patient. I will see her tomorrow for followup, possible discharge to go home day after tomorrow depending on patient's condition. Details and plan of treatment discussed with the patient and her family in office today. MIGUE/RHEA Voice ID: [id number] [email or web address]
[2019-09-06] MEDS ORDERED: LEVOTHYROXINE 75 MCG PO SCH (06:00)
[2019-09-06] MEDS ORDERED: D50W 25 GM/50 ML SYRINGE IV PRN (07:38)
[2019-09-06] MEDS ORDERED: GLUCAGON 1 MG/VIAL IM PRN (07:38)
[2019-09-06 08:10] VITALS: BP 172/78
[2019-09-06 08:39] VITALS: TEMP 97.8
[2019-09-06] MEDS ORDERED: CARVEDILOL 6.25 MG PO SCH (09:00)
[2019-09-06] MEDS ORDERED: HOME MED 1 EA UNK (Gabapentin [Gabapentin] 300 MG) PO SCH (09:00)
[2019-09-06] MEDS ORDERED: HOME MED 1 EA UNK (Glipizide [Glipizide Er] 10 MG) PO SCH (09:00)
[2019-09-06] MEDS ORDERED: METHOCARBAMOL 500 MG PO SCH (09:00)
[2019-09-06] MEDS ORDERED: HOME MED 1 EA UNK (Fluticasone/Vilanterol [Breo Ellipta 100-25 Mcg Inh] 1 EACH) IH SCH (09:00)
[2019-09-06] MEDS ORDERED: HOME MED 1 EA UNK (Sitagliptin Phosphate [Januvia*] 100 MG) PO SCH (09:00)
[2019-09-06] MEDS ORDERED: CITALOPRAM 40 MG PO SCH (09:00)
[2019-09-06] MEDS ORDERED: LISINOPRIL 5 MG PO SCH (09:00)
[2019-09-06] MEDS ORDERED: carvediloL 3.125 MG TAB PO SCH (09:00)
[2019-09-06] MEDS ORDERED: HOME MED 1 EA UNK (Furosemide [Furosemide] 40 MG) PO SCH (09:00)
[2019-09-06] MEDS ORDERED: RIVAROXABAN 20 MG PO SCH (09:00)
--- NOTE | 2019-09-06 10:02 | EKG ---
Test Date: 2019-09-05 Test Time: 15:10:22 Boiling Tub Operator: MEGHAN MEASUREMENT RESULTS: Intervals: Rate: 93 MO: QRSD: 152 QT: 418 QTc: 519 [place]: P: MO: QRS: 216 T: 77 INTERPRETIVE STATEMENTS: Atrial fibrillation with premature ventricular or aberrantly conducted complexes Right superior axis deviation Nonspecific intraventricular block Abnormal ECG Compared to ECG 10/14/2017 09:15:04 Ventricular premature complex(es) now present Right superior axis now present Sinus rhythm no longer present ST (T wave) deviation no longer present Prolonged QT interval no longer present Electronically Signed On 09-06-19 10:00:28 MEAT SUPERVISOR by Dain Lara
[2019-09-06] MEDS ORDERED: INSULIN -REGULAR HUMAN 50 UNIT/0.5 ML ML SQ SCH (11:30)
[2019-09-06 15:13] VITALS: O2SAT 95
[2019-09-06] MEDS ORDERED: ATORVASTATIN CALCIUM 20 MG PO SCH (21:00)
--- NOTE | 2019-09-07 02:01 | DS ---
Date of Discharge: 09/06/2019 Disposition: Discharged to go home. Physical Examination: HEENT: Unremarkable. Lungs: Clear to auscultation. No rhonchi. No rales. Not in respiratory distress. Cardiac: Heart sounds normal. Abdomen: Soft bowel sounds normal. No guarding, rigidity, tenderness, distention. Extremities: No leg edema. Laboratory Data: Today, sodium 141, potassium 4, chloride 106, bicarb 27, BUN 19, creatinine 0.82, g lucose 218. TSH yesterday 1.26. Discharge Medications And Instructions: 1.Continue all prior home medications. 2.Take carvedilol 3.125 mg p.o. 2 times a day. 3.Take prednisone 10 mg daily for 5 days and Levaquin 500 mg daily for 7 days. 4.Follow up at my office on 09/13/2019. Hospital Course: 84-year-old female patient who was admitted to the hospital after she presented to office yesterday with complaints of shortness of breath. Please see dictated H and P for more inform ation. The patient was evaluated in the office and was admitted to the hospital. She was admitted w ith acute exacerbation of COPD and after she was admitted to the hospital chest x-ray did reveal pneu monia. She was started on IV antibiotic which was Levaquin, IV steroid, nebulizer treatment. This m orning when I saw her, she was sitting at bedside, feeling significantly better than yesterday. She did not appear tired at all, was happy smiling and reported that she was feeling significantly better and was ready to go home. Medically, she was stable for discharge. Her condition has improved lot more rapidly than expected and considering the significant improvement and stable medical condition I have agreed to discharge her to go home today with above-mentioned medications and instructions. Final Diagnoses: 1.Acute exacerbation of chronic obstructive pulmonary disease. 2.Pneumonia. 3.Chronic diastolic congestive heart failure. 4.Anemia, unspecified. 5.Thrombocytopenia. 6.Osteoarthritis, multiple sites. 7.Type 2 diabetes mellitus. 8.Hypertension. 9.Hyperlipidemia. 10.Paroxysmal atrial fibrillation. 11.Diverticulosis. MIGUE/MODL Voice ID: [id number] Report ID: [id number]
== END 2019-09-06 10:40 | disposition home or self-care (01) ==
LOC: 2ND 14:23 → INTOOBSV 14:23
PROVIDERS: ADMIT Internal Medicine; ATTEND Internal Medicine
DX: J44.0 Chronic obstructive pulmonary disease with (acute) lower respiratory infection (principal); J18.9 Pneumonia, unspecified organism; J44.1 Chronic obstructive pulmonary disease with (acute) exacerbation; I11.0 Hypertensive heart disease with heart failure; I50.32 Chronic diastolic (congestive) heart failure; E78.5 Hyperlipidemia, unspecified; I48.0 Paroxysmal atrial fibrillation; K57.90 Diverticulosis of intestine, part unspecified, without perforation or abscess without bleeding; E11.9 Type 2 diabetes mellitus without complications; D64.9 Anemia, unspecified; D69.6 Thrombocytopenia, unspecified; M19.90 Unspecified osteoarthritis, unspecified site
CPT/HCPCS: 93005; 85025; 80048; 36415; 83735; 82947; 84443; 80053; 84145; 83880; 71046; 94640; J1650; J2920 ×3; G0379; G0378 ×3

== ENCOUNTER 2019-09-29 03:44 | Inpatient (IN) | payer OTHER ==
--- OUTSIDE RECORDS SUMMARY | 2019-09-29 03:46 | XMS REPORT ---
:1935 [facility] Address [address] [place] [address] Care Team Providers Name Role Phone Unavailable [...] 09:49:00 Patient Name: RANDI CEVALLOS Unit No: [id number] EXAMS: CPT CODE: [id number] MRI [facility] [place] [id number] TECHNIQUE: Multiplanar, multisequence MRI of the right [...] Technologist: LLOYD MCINTYRE MRI Transcribed D/ (0949) [facility]YENIF[facility] NAME: RANDI CEVALLOS [address] [place] [address] PHYS: Tacho Briggs MD : 1935 AGE: 83 SEX: F [place] [address] LOC: Y.MRI PHONE #: [phone] EXAM DATE: 11/30/2018 STATUS: DEP CLI FAX #: [phone] RAD #: D/C DT PAGE 1 Signed Report Patient Name: ARNDI CEVALLOS Unit No: [id number] EXAMS: CPT CODE: [id number] MRI LW JNT W/[place] [id number] <Continued> Orig Print D/T: S: 12/01/2018 (0952) [facility] NAME: RANDI CEVALLOS [address] [place] [address] PHYS: Tacho Briggs MD : 1935 AGE: 83 SEX: F [place] [address] LOC: Y.MRI PHONE #: [phone] EXAM DATE: 11/30/2018 STATUS: DEP CLI FAX #: [phone] RAD #: D/C DT PAGE 2 Signed Report
[2019-09-29] MEDS ORDERED: NA CHLORIDE 0.9% 1,000 ML ONE (04:25)
[2019-09-29] MEDS ORDERED: DIGOXIN 0.25 MG/ML AMP ONE (04:25)
[2019-09-29] MEDS ORDERED: FAMOTIDINE 20 MG/2 ML VIAL IV ONE (04:25)
[2019-09-29] MEDS ORDERED: METOPROLOL TARTRATE 5 MG/5 ML INJ IV ONE ×2 (04:25→05:17)
[2019-09-29 04:28] LABS: Absolute Lymphocytes (CBC) 1.2 K/uL (0.7-4.9); Hematocrit 35.8 % (36.0-45.0); Lymphocytes % 16.4 % (15.3-44.8); MPV 10.2 fL (7.6-11.3); RBC Red Blood Cell Count 4.28 M/uL (3.86-4.86)
[2019-09-29] MEDS ORDERED: ONDANSETRON 4 MG/2 ML VIAL ONE (04:28)
[2019-09-29 04:29] LABS: Protime INR 1.5
[2019-09-29] MEDS ORDERED: METOPROLOL TAR 25 MG TAB ONE (05:17)
[2019-09-29] MEDS ORDERED: FUROSEMIDE 40 MG/4 ML VIAL ONE (05:39)
[2019-09-29 05:52] LABS: ALT/SGPT 30 U/L (12-78); Albumin 3.6 g/dL (3.4-5.0); Alkaline Phosphatase 94 U/L (45-117); BUN Blood Urea Nitrogen 14 mg/dL (7-18); Bicarbonate 28 mmol/L (21-32); Bilirubin Direct 0.3 mg/dL (0-0.2); Glucose Level 211 mg/dL (74-106); Lipase 142 U/L (73-393); NT PRO-BNP 4661 pg/mL (<450); Protein, Total 7.3 g/dL (6.4-8.2); Sodium Level 140 mmol/L (136-145); Troponin (Emerg Dept Use Only) < 0.02 ng/mL (0.0-0.045)
[2019-09-29 05:58] LABS: AST/SGOT 31 U/L (15-37); Magnesium 2.1 mg/dL (1.8-2.4); Potassium 4.4 mmol/L (3.5-5.1)
--- NOTE | 2019-09-29 06:19 | ER ---
Nurse's Notes [facility] Name: Karen Edward Age: 84 yrs Sex: Female : 1935 Arrival Date: 09/29/2019 Time: 03:49 Bed 3 Private MD: Diagnosis: Chest pain, unspecified;Atrial fibrillation and flutter-WITH RVR;Type 2 diabetes mellitus;Unspecified combined systolic (congestive) and diastolic (congestive) heart failure;Essential (primary) hypertension Presentation: 09/28 03:45 Chief complaint: EMS states: Pt has complained on left sided sternal chest pain since 1800. It kept her awake. She now has some nausea. EMS reports vitals as 138/92, HR 100-123, 93%. Coronavirus screen: The patient has NOT traveled to a country currently being monitored by the CDC within the last 14 days. The patient has NOT had contact with any known and/or suspected case of coronavirus. Ebola Screen: No symptoms or risks identified at this time. Initial Sepsis Screen: Does the patient meet any 2 criteria? No. Patient's initial sepsis screen is negative. Does the patient have a suspected source of infection? No. Patient's initial sepsis screen is negative. Risk Assessment: Do you want to hurt yourself or someone else? Patient reports no desire to harm self or others. 03:45 Method Of Arrival: EMS: [facility] 03:45 Acuity: TOBY 3 07:33 Onset of symptoms is unknown. Historical: - Allergies: 04:11 Clindamycin; 04:11 Naproxen; 04:11 Procardia; 04:11 Reglan; 04:11 Rocephin; - Home Meds: 07:32 atorvastatin Oral [Active]; carvedilol 6.25 mg Oral tab 1 tab 2 times per day [Active]; Centrum Silver Oral daily [Active]; Calcium Carbonate Oral daily [Active]; citalopram 40 mg tab 1 tab once daily [Active]; - PMHx: 04:11 Asthma; CHF; Diabetes - NIDDM; Hyperlipidemia; Hypertension; Hypothyroidism; ah - Immunization history:: Flu vaccine is up to date. - Family history:: not pertinent. - Social history:: Smoking status: Patient denies any tobacco usage or history of. Screenin:26 Abuse screen: Denies threats or abuse. Nutritional screening: No deficits noted. Tuberculosis screening: No symptoms or risk factors identified. Fall Risk None identified. Assessment: 04:00 General: Appears uncomfortable, Behavior is cooperative, anxious. Pain: Complains of pain in anterior aspect of left upper chest Pain does not radiate. Pain currently is 6 out of 10 on a pain scale. Quality of pain is described as stabbing, Pain began 1800 Is intermittent. 04:00 Neuro: Level of Consciousness is awake, alert, Oriented to person, place, time. Cardiovascular: Reports chest pain, shortness of breath, Heart tones S1 S2 present Capillary refill < 3 seconds Patient's skin is warm and dry. Pulses are palpable in right radial artery and left radial artery Rhythm is atrial fibrillation. Respiratory: Airway is patent Respiratory effort is even, unlabored, Respiratory pattern is regular, symmetrical, Breath sounds are clear bilaterally. GI: Abdomen is non-distended, Bowel sounds present X 4 quads. Reports nausea. : No signs and/or symptoms were reported regarding the genitourinary system. EENT: No signs and/or symptoms were reported regarding the EENT system. Derm: Skin is intact, is healthy with good turgor. 05:00 Reassessment: Patient appears in no apparent distress at this time. Patient and/or family updated on plan of care and expected duration. Pain level reassessed. Patient is alert, oriented x 3, equal unlabored respirations, skin warm/dry/pink. Patient states feeling better. 06:15 Reassessment: Pt states that she needs to use the restroom. Bedside commode provided for Pt and assisted Pt. Pt was very weak and struggled to stand and pivot to get on toliet. Staff x2 assisted Pt back into bed. Pt became winded and wheezy. Dr. Nunez came to bedside and gave order to place mccarthy catheter. 07:15 Reassessment: Patient appears in no apparent distress at this time. Patient and/or family updated on plan of care and expected duration. Pain level reassessed. Patient is alert, oriented x 3, equal unlabored respirations, skin warm/dry/pink. Vital Signs: 03:45 BP 148 / 83; Pulse 116; Temp 98.3; Pulse Ox 94% ; Weight 97.52 kg; Height 5 ft. 3 in. (160.02 cm); Pain 6/10; 04:13 BP 148 / 83; Pulse 116; Resp 20; Temp 98.3; Pulse Ox 94% ; ah 05:00 BP 132 / 75; Pulse 93; Resp 21; Pulse Ox 98% ; ah 06:00 BP 120 / 87; Pulse 89; Resp 22; Pulse Ox 93% ; ah 07:00 BP 105 / 95; Pulse 81; Resp 16; Pulse Ox 96% on 2 lpm NC; hb 03:45 Body Mass Index 38.09 (97.52 kg, 160.02 cm) ED Course: 03:49 Patient arrived in ED. ds1 03:50 Vance Nunez MD is Attending Physician. mary jo 03:53 Rocio Dash RN is Primary Nurse. 04:09 Triage completed. ah 04:10 Initial lab(s) drawn, by ED staff, sent to lab. lp1 04:10 Missed attempt(s): 20 gauge in left antecubital area. Inserted saline lock: 22 gauge in lp1 left forearm, using aseptic technique. 05:27 Arm band placed on left wrist. ah 05:27 Patient has correct armband on for positive identification. Placed in gown. Bed in low ah position. Call light in reach. Side rails up X2. Adult w/ patient. 06:15 XRAY Chest (1 view) In Process Unspecified. EDMS 06:17 Adriel Bennett MD is Hospitalizing Provider. mary jo 06:40 Mccarthy cath inserted, using sterile technique, 16 Fr., by ky, balloon inflated, to ds4 gravity drainage, urine specimen collected. returned clear yellow urine. Patient tolerated well. 07:29 No provider procedures requiring assistance completed. Patient admitted, IV remains in hb place. Administered Medications: Discontinued: NS 0.9% 1000 ml IV at 125 ml/hr continuous 04:25 Drug: NS 0.9% 1000 ml Route: IV; Rate: 125 ml/hr; Site: left antecubital; 05:54 Follow up: IV Status: Order to discontinue infusion; IV Intake: 125ml 04:26 Drug: Lopressor 2.5 mg Route: IVP; Site: left antecubital; 05:57 Follow up: Response: No adverse reaction 04:30 Drug: Pepcid 20 mg Route: IVP; Site: left antecubital; ah 05:56 Follow up: Response: No adverse reaction ah 04:32 Drug: Zofran (Ondansetron) 4 mg Route: IVP; Site: left antecubital; ah 05:54 Follow up: Response: No adverse reaction; Nausea is decreased ah 04:34 Drug: Digoxin 0.5 mg Route: IVP; Site: left antecubital; ah 05:30 Follow up: Response: No adverse reaction ah 04:38 Drug: Lopressor 2.5 mg Route: IVP; Site: left antecubital; ah 05:56 Follow up: Response: No adverse reaction ah 05:16 Drug: Lopressor 2.5 mg Route: IVP; Site: left antecubital; ah 07:28 Follow up: Response: No adverse reaction; Other; HR is decreased ah 05:19 Drug: Lopressor 25 mg Route: PO; ah 06:17 Follow up: Response: No adverse reaction ah 05:40 Drug: Lasix 40 mg Route: IVP; Site: left antecubital; ah 06:40 Follow up: Response: No adverse reaction ah 06:26 Drug: Xopenex 1.25 mg Route: Inhalation; ah 07:27 Follow up: Response: No adverse reaction; Wheezing diminished ah 06:26 Drug: AtroVENT Aerosol 0.5 mg Route: Inhalation; ah 07:27 Follow up: Response: No adverse reaction; Wheezing diminished ah 06:40 Drug: SOLU-Medrol 125 mg Route: IVP; Site: left antecubital; ah 07:28 Follow up: Response: No adverse reaction ah 07:06 Drug: Levothroid 75 mcg Route: PO; 07:07 Drug: Coreg 6.25 mg Route: PO; Intake: 05:54 IV: 125ml; Total: 125ml. Outcome: 06:19 Decision to Hospitalize by Provider. [facility] 07:29 Admitted to Med/surg accompanied by tech, via stretcher, room 229, Report called to nicholas Dawkins RN 07:29 Condition: stable 07:29 Instructed on the need for admit, Demonstrated understanding of instructions. 07:41 Patient left the ED. nicholas Signatures: Dispatcher [employer] Vance Wall MD MD cha Sanford, Demi ds1 Anyi Moore RN RN lp1 Tex Whitney ds4 Leonor Adame RN RN Rocio Holly RN RN Corrections: (The following items were deleted from the chart) 07:24 07:00 BP 105 / 95; Pulse 81bpm; Resp 16bpm; Pulse Ox 96% RA; hb hb
--- NOTE | 2019-09-29 06:20 | EDPHYS ---
Physician Documentation [facility] [place] Name: Karen Edward Age: 84 yrs Sex: Female : 1935 Arrival Date: 09/29/2019 Time: 03:49 Bed 3 Private MD: ED Physician Vance Nunez HPI: 09/28 04:06 This 84 yrs old Female presents to ER via Unassigned with complaints of Chest mary jo Pain. 04:06 The patient or guardian reports chest pain that is located primarily in the substernal mary jo area. Onset: 1 day(s) ago. The pain does not radiate. Associated signs and symptoms: Pertinent positives: shortness of breath. The chest pain is described as a pressure. Modifying factors: The symptoms are alleviated by nothing. the symptoms are aggravated by nothing. Severity of pain: At its worst the pain was mild moderate in the emergency department the pain is unchanged. The patient has experienced similar episodes in the past, a few times. Historical: - Allergies: 04:11 Clindamycin; 04:11 Naproxen; 04:11 Procardia; 04:11 Reglan; 04:11 Rocephin; - Home Meds: 07:32 atorvastatin Oral [Active]; carvedilol 6.25 mg Oral tab 1 tab 2 times per day [Active]; ah Centrum Silver Oral daily [Active]; Calcium Carbonate Oral daily [Active]; citalopram 40 mg tab 1 tab once daily [Active]; - PMHx: 04:11 Asthma; CHF; Diabetes - NIDDM; Hyperlipidemia; Hypertension; Hypothyroidism; ah - Immunization history:: Flu vaccine is up to date. - Family history:: not pertinent. - Social history:: Smoking status: Patient denies any tobacco usage or history of. ROS: 04:07 Constitutional: Negative for fever, chills, and weight loss, Eyes: Negative for injury, mary jo pain, redness, and discharge, ENT: Negative for injury, pain, and discharge, Neck: Negative for injury, pain, and swelling, Abdomen/GI: Negative for abdominal pain, nausea, vomiting, diarrhea, and constipation, Back: Negative for injury and pain, : Negative for injury, bleeding, discharge, and swelling, MS/Extremity: Negative for injury and deformity, Skin: Negative for injury, rash, and discoloration, Neuro: Negative for headache, weakness, numbness, tingling, and seizure, Psych: Negative for depression, anxiety, suicide ideation, homicidal ideation, and hallucinations, Allergy/Immunology: Negative for hives, rash, and allergies, Endocrine: Negative for neck swelling, polydipsia, polyuria, polyphagia, and marked weight changes, Hematologic/Lymphatic: Negative for swollen nodes, abnormal bleeding, and unusual bruising. 04:07 Cardiovascular: Positive for chest pain. 04:07 Respiratory: Positive for shortness of breath. Exam: 04:07 Constitutional: This is a well developed, well nourished patient who is awake, alert, mary jo and in no acute distress. Head/Face: Normocephalic, atraumatic. Eyes: Pupils equal round and reactive to light, extra-ocular motions intact. Lids and lashes normal. Conjunctiva and sclera are non-icteric and not injected. Cornea within normal limits. Periorbital areas with no swelling, redness, or edema. ENT: Nares patent. No nasal discharge, no septal abnormalities noted. Tympanic membranes are normal and external auditory canals are clear. Oropharynx with no redness, swelling, or masses, exudates, or evidence of obstruction, uvula midline. Mucous membranes moist. Neck: Trachea midline, no thyromegaly or masses palpated, and no cervical lymphadenopathy. Supple, full range of motion without nuchal rigidity, or vertebral point tenderness. No Meningismus. Chest/axilla: Normal chest wall appearance and motion. Nontender with no deformity. No lesions are appreciated. Abdomen/GI: Soft, non-tender, with normal bowel sounds. No distension or tympany. No guarding or rebound. No evidence of tenderness throughout. Back: No spinal tenderness. No costovertebral tenderness. Full range of motion. Female : Normal external genitalia. Skin: Warm, dry with normal turgor. Normal color with no rashes, no lesions, and no evidence of cellulitis. MS/ Extremity: Pulses equal, no cyanosis. Neurovascular intact. Full, normal range of motion. Neuro: Awake and alert, GCS 15, oriented to person, place, time, and situation. Cranial nerves II-XII grossly intact. Motor strength 5/5 in all extremities. Sensory grossly intact. Cerebellar exam normal. Normal gait. Psych: Awake, alert, with orientation to person, place and time. Behavior, mood, and affect are within normal limits. 04:07 Cardiovascular: Rate: tachycardic, Rhythm: irregularly irregular, Pulses: Pulses are 4+ in bilateral radial, brachial, femoral, popliteal, posterior tibial and and dorsalis pedis arteries.. Edema: is not appreciated, JVD: is not appreciated. Vital Signs: 03:45 BP 148 / 83; Pulse 116; Temp 98.3; Pulse Ox 94% ; Weight 97.52 kg; Height 5 ft. 3 in. ah (160.02 cm); Pain 6/10; 04:13 BP 148 / 83; Pulse 116; Resp 20; Temp 98.3; Pulse Ox 94% ; ah 05:00 BP 132 / 75; Pulse 93; Resp 21; Pulse Ox 98% ; ah 06:00 BP 120 / 87; Pulse 89; Resp 22; Pulse Ox 93% ; ah 07:00 BP 105 / 95; Pulse 81; Resp 16; Pulse Ox 96% on 2 lpm NC; hb 03:45 Body Mass Index 38.09 (97.52 kg, 160.02 cm) MDM: 03:50 Patient medically screened. mary jo 03:51 Patient medically screened. [facility] 04:12 Data reviewed: vital signs, nurses notes, lab test result(s), EKG, radiologic studies, mary jo plain films. 09/28 04:05 Order name: Basic Metabolic Panel [facility] 09/28 04:05 Order name: CBC with Diff [facility] 09/28 04:05 Order name: LFT's [facility] 09/28 04:05 Order name: Magnesium [facility] 09/28 04:05 Order name: NT PRO-BNP [facility] 09/28 04:05 Order name: PT-INR [facility] 09/28 04:05 Order name: Troponin (emerg Dept Use Only) [facility] 09/28 04:05 Order name: Lipase [facility] 09/28 04:05 Order name: TSH [facility] 09/28 04:57 Order name: CBC with Automated Diff [facility] 09/28 04:57 Order name: Protime (+INR) [facility] 09/28 05:59 Order name: Basic Metabolic Panel [facility] 09/28 05:59 Order name: Liver (Hepatic) Function [facility] 09/28 05:59 Order name: Troponin (Emerg Dept Use Only) [facility] 09/28 04:05 Order name: XRAY Chest (1 view) [facility] 09/28 05:59 Order name: NT PRO-BNP [facility] 09/28 05:59 Order name: Magnesium [facility] 09/28 05:59 Order name: Lipase [facility] 09/28 05:59 Order name: Thyroid Stimulating Hormone [facility] 09/28 06:50 Order name: Urine Microscopic Only [facility] 09/28 06:52 Order name: Urine Dipstick--Ancillary (enter results) [facility] 09/28 07:07 Order name: Urine Dipstick-Ancillary [facility] 09/28 07:20 Order name: Urine Microscopic Only [facility] 09/28 04:05 Order name: EKG; Complete Time: 04:06 [facility] 09/28 04:05 Order name: Cardiac monitoring; Complete Time: 04:25 [facility] 09/28 04:05 Order name: EKG - Nurse/Tech; Complete Time: 04:25 [facility] 09/28 04:05 Order name: IV Saline Lock; Complete Time: 04:51 [facility] 09/28 04:05 Order name: Labs collected and sent; Complete Time: 04:51 [facility] 09/28 04:05 Order name: O2 Per Protocol; Complete Time: 04:25 [facility] 09/28 04:05 Order name: O2 Sat Monitoring; Complete Time: 04:25 [facility] 09/28 06:32 Order name: CONS Physician Consult [facility] Administered Medications: Discontinued: NS 0.9% 1000 ml IV at 125 ml/hr continuous 04:25 Drug: NS 0.9% 1000 ml Route: IV; Rate: 125 ml/hr; Site: left antecubital; 05:54 Follow up: IV Status: Order to discontinue infusion; IV Intake: 125ml 04:26 Drug: Lopressor 2.5 mg Route: IVP; Site: left antecubital; 05:57 Follow up: Response: No adverse reaction ah 04:30 Drug: Pepcid 20 mg Route: IVP; Site: left antecubital; ah 05:56 Follow up: Response: No adverse reaction ah 04:32 Drug: Zofran (Ondansetron) 4 mg Route: IVP; Site: left antecubital; ah 05:54 Follow up: Response: No adverse reaction; Nausea is decreased 04:34 Drug: Digoxin 0.5 mg Route: IVP; Site: left antecubital; 05:30 Follow up: Response: No adverse reaction ah 04:38 Drug: Lopressor 2.5 mg Route: IVP; Site: left antecubital; 05:56 Follow up: Response: No adverse reaction ah 05:16 Drug: Lopressor 2.5 mg Route: IVP; Site: left antecubital; 07:28 Follow up: Response: No adverse reaction; Other; HR is decreased ah 05:19 Drug: Lopressor 25 mg Route: PO; ah 06:17 Follow up: Response: No adverse reaction ah 05:40 Drug: Lasix 40 mg Route: IVP; Site: left antecubital; ah 06:40 Follow up: Response: No adverse reaction ah 06:26 Drug: Xopenex 1.25 mg Route: Inhalation; ah 07:27 Follow up: Response: No adverse reaction; Wheezing diminished ah 06:26 Drug: AtroVENT Aerosol 0.5 mg Route: Inhalation; ah 07:27 Follow up: Response: No adverse reaction; Wheezing diminished ah 06:40 Drug: SOLU-Medrol 125 mg Route: IVP; Site: left antecubital; 07:28 Follow up: Response: No adverse reaction ah 07:06 Drug: Levothroid 75 mcg Route: PO; ah 07:07 Drug: Coreg 6.25 mg Route: PO; Disposition: 09/29/19 06:19 Hospitalization ordered by Adriel Bennett for Inpatient Admission. Preliminary diagnosis are Chest pain, unspecified, Atrial fibrillation and flutter - WITH RVR, Type 2 diabetes mellitus, Unspecified combined systolic (congestive) and diastolic (congestive) heart failure, Essential (primary) hypertension. - Bed requested for Telemetry/MedSurg (Inpatient). - Status is Inpatient Admission. hb - Condition is Fair. - Problem is new. - Symptoms have improved. Signatures: Dispatcher [employer] EDMS Vance Nunez MD MD cha Lasagna, Tonya, RN RN tl1 Leonor Adame RN RN hb Harris, Amy, RN RN Corrections: (The following items were deleted from the chart) 06:56 06:19 Hospitalization Ordered by Adriel Bennett MD for Inpatient Admission. Preliminary tl1 diagnosis is Chest pain, unspecified; Atrial fibrillation and flutter - WITH RVR; Type 2 diabetes mellitus; Unspecified combined systolic (congestive) and diastolic (congestive) heart failure; Essential (primary) hypertension. Bed requested for Telemetry/MedSurg (Inpatient). Status is Inpatient Admission. Condition is Fair. Problem is new. Symptoms have improved. mary jo 07:41 06:56 09/29/2019 06:19 Hospitalization Ordered by A Sabrina ESPINOZA for Inpatient Admission. hb Preliminary diagnosis is Chest pain, unspecified; Atrial fibrillation and flutter - WITH RVR; Type 2 diabetes mellitus; Unspecified combined systolic (congestive) and diastolic (congestive) heart failure; Essential (primary) hypertension. Bed requested for Telemetry/MedSurg (Inpatient). Status is Inpatient Admission. Condition is Fair. Problem is new. Symptoms have improved. tl1
[2019-09-29] MEDS ORDERED: LEVALBUTEROL 1.25 MG/3 ML NEB ONE (06:24)
[2019-09-29] MEDS ORDERED: IPRATROPIUM BROM 0.5MG/2.5ML ONE (06:24)
[2019-09-29] MEDS ORDERED: METHYLPREDNISOLONE 125 MG INJ ONE (06:24)
[2019-09-29] MEDS ORDERED: carvediloL 6.25 MG TAB ONE (06:55)
[2019-09-29 07:07] LABS: Urine Blood NEGATIVE (NEG); Urine Glucose NEGATIVE (NEG); Urine Protein NEGATIVE (NEG); Urine Specific Gravity 1.025 (1.005-1.030); Urine pH 6.5 (5.0-7.0)
[2019-09-29] MEDS ORDERED: LEVOTHYROXINE SOD 0.075 MG TAB ONE (07:07)
[2019-09-29 07:20] LABS: Urine Bacteria <20 /HPF (<20); Urine Culture Reflex Order REFLEXED; Urine RBC <5 /HPF (NONE SEEN)
[2019-09-29] MEDS ORDERED: DIGOXIN 0.25 MG/ML AMP IV SCH (07:49)
[2019-09-29] MEDS ORDERED: MORPHINE 2 MG/ML SYR IV PRN (07:49)
[2019-09-29] MEDS ORDERED: ONDANSETRON 4 MG/2 ML VIAL IV PRN (07:49)
[2019-09-29] MEDS ORDERED: ACETAMINOPHEN 500 MG TAB PO PRN (07:49)
[2019-09-29] MEDS: IPRATROPIUM BROM 0.5MG/2.5ML NEB SCH ×3 (08:15→20:25)
[2019-09-29] MEDS: LEVALBUTEROL 1.25 MG/3 ML NEB NEB SCH ×3 (08:15→20:25)
--- NOTE | 2019-09-29 08:28 | RAD REPORT ---
EXAM DESCRIPTION: Vladimir Single View09/29/2019 5:03 am CLINICAL HISTORY: Chest pain COMPARISON: August 2019 FINDINGS: Mild bilateral pulmonary opacities. Heart is mildly to moderately enlarged IMPRESSION: These findings may indicate mild CHF
--- NOTE | 2019-09-29 08:50 | EKG ---
Test Date: 2019-09-29 Test Time: 03:48:27 Category Director: JIMMIE MEASUREMENT RESULTS: Intervals: Rate: 116 NE: QRSD: 136 QT: 376 QTc: 522 [place]: P: NE: QRS: -62 T: 86 INTERPRETIVE STATEMENTS: Atrial fibrillation with rapid ventricular response Left axis deviation Nonspecific intraventricular block Cannot rule out Anteroseptal infarct, age undetermined Abnormal ECG Compared to ECG 09/05/2019 15:10:22 Left-axis deviation now present Myocardial infarct finding now present Ventricular premature complex(es) no longer present Right superior axis no longer present Electronically Signed On 09-29-19 08:50:13 CDT by Dain Lara
--- NOTE | 2019-09-29 08:50 | EKG ---
Test Date: 2019-09-29 Test Time: 03:59:03 Supervisor Fusing Room: ZOYA MEASUREMENT RESULTS: Intervals: Rate: 128 [place]: QRSD: 138 QT: 370 QTc: 540 [place]: P: [place]: QRS: -80 T: 90 INTERPRETIVE STATEMENTS: Atrial fibrillation with rapid ventricular response Left axis deviation Nonspecific intraventricular block Cannot rule out Anteroseptal infarct, age undetermined Abnormal ECG Compared to ECG 09/29/2019 03:48:27 No significant changes Electronically Signed On 09-29-19 08:50:11 CDT by Dain Lara
[2019-09-29] MEDS ORDERED: carvediloL 6.25 MG TAB PO SCH (09:00)
[2019-09-29] MEDS ORDERED: POTASSIUM 25 MEQ EFFERV TAB PO SCH (09:00)
[2019-09-29] MEDS ORDERED: FUROSEMIDE 20 MG/ 2ML VIAL IV SCH (09:00)
[2019-09-29] MEDS: FAMOTIDINE 20 MG/2 ML VIAL IV SCH ×2 (10:36→21:22)
[2019-09-29] MEDS: METHYLPREDNISOLONE 40 MG INJ IV SCH ×2 (10:37→16:26)
[2019-09-29 11:49] VITALS: BMI 38.0
--- NOTE | 2019-09-29 12:23 | ECHO ---
HEIGHT: 5 ft 3 in WEIGHT: 215 lb 0 oz DATE OF STUDY: 09/29/[address]: Vance Nunez MD 2-DIMENSIONAL: YES M.MODE: YES DOPPLER: YES COLOR FLOW: YES TDS: NO PORTABLE: NO DEFINITY: NO BUBBLE STUDY: NO DIAGNOSIS: CONGESTIVE HEART FAILURE CARDIAC HISTORY: CATHERIZATION: YES SURGERY: NO PROSTHETIC VALVE: NO PACEMAKER: NO MEASUREMENTS (cm) DIASTOLIC (NORMALS) SYSTOLIC (NORMALS) IVSd 1.2 (0.6-1.2) LA Diam 3.8 (1.9-4.0) LVEF 55-60% LVIDd 4.9 (3.5-5.7) LVIDs 4.0 (2.0-3.5) %FS % LVPWd 1.1 (0.6-1.2) Ao Diam 2.9 (2.0-3.7) 2 DIMENSIONAL ASSESSMENT: RIGHT ATRIUM: NORMAL LEFT ATRIUM: NORMAL RIGHT VENTRICLE: NORMAL LEFT VENTRICLE: NORMAL TRICUSPID VALVE: NORMAL MITRAL VALVE: MITRAL ANNULAR CALCIFICATION PULMONIC VALVE: NORMAL AORTIC VALVE: NORMAL PERICARDIAL EFFUSION: NONE AORTIC ROOT: NORMAL LEFT VENTRICULAR WALL MOTION: NORMAL DOPPLER/COLOR FLOW: MILD TRICUSPID REGURGITATION. SEVERE PULMONARY HYPERTENSION. COMMENTS: ATRIAL FIBNRILLATION, RATE CONTROLLED. NORMAL LEFT VENTRICULAR SIZE AND FUNCTION. NORMAL LEFT VENTRICULAR EJECTION FRACTION. MITRAL ANNULAR CALCIFICATION. MILD TRICUSPID REGURGITATION. RIGHT VENTRICULAR SYSTOLIC PRESSURE 61 mmHg. NO THROMBUS. TECHNOLOGIST: Debra DUNLAP
[2019-09-29 13:59] LABS: Arterial Blood Carboxyhemoglob 1.5 % (0-1.5); Blood Gas Oxyhemoglobin 91.7 % (94-97); Blood O2 Saturation 93.9 % (92-98.5)
[2019-09-29] MEDS ORDERED: RIVAROXABAN 15 MG TABLET PO SCH (17:00)
[2019-09-29] MEDS: carvediloL 6.25 MG TAB PO SCH (18:00)
[2019-09-30] MEDS: METHYLPREDNISOLONE 40 MG INJ IV SCH (00:07)
[2019-09-30] MEDS: IPRATROPIUM BROM 0.5MG/2.5ML NEB SCH ×4 (02:15→20:02)
[2019-09-30] MEDS: LEVALBUTEROL 1.25 MG/3 ML NEB NEB SCH ×4 (02:15→20:02)
--- NOTE | 2019-09-30 05:24 | CON ---
Date of Consultation: 09/29/2019 Reason For Consultation: Chest pain, congestive heart failure, and atrial fibrillation with rapid ve ntricular response. History Of Present Illness: Ms. Edward is an 84-year-old woman, has had a history of asthma, diabe franklin, dyslipidemia, hypertension, and hypothyroidism before. She also has a history of diastolic aelx estive heart failure in the past. Came in with symptoms consistent with congestive heart failure exa cerbation, atypical chest pain, mid epigastric, radiating to the left anterior wall without any nause a, vomiting, diaphoresis. She was also noted to be in atrial fibrillation with rapid ventricular res ponse. Denied any syncope. She has had some PND and pedal edema. Denied any fever or chills. Past Medical History: As stated above. Allergies: TO NAPROSYN, PROCARDIA, CLINDAMYCIN. Review of Systems: Negative. Social History: Negative. Family History: Noncontributory. Medications: At home include inhalers, Celexa, Lipitor, Lasix, Neurontin, glipizide , Synthroid, lis inopril, Januvia, carvedilol, and Xarelto. Physical Examination: General: By the time I saw Ms. Edward, she was chest pain-free. Her breathing has improved. She remained in atrial fibrillation; however, her ventricular response was moderate. Vital Signs: She was afebrile. HEENT: Negative. Neck: Supple without any bruit, lymphadenopathy, JVD, or thyromegaly. Chest: Revealed some fine rales at both bases. Cardiac: Revealed atrial fibrillation. No murmurs, gallops, or rubs. Abdomen: Obese but benign. Extremities: Revealed 1+ edema. Neurologic: She was nonfocal. Skin: Intact. Diagnostic Data: Glucose of 211. Her BNP was 4661. EKG showed atrial fibrillation. Impression And Plan: 1.Atrial fibrillation with rapid response, on carvedilol and Xarelto. I would look for rate control with Coreg and maybe we will have to increase it. Continue her Xarelto and echocardiogram is pendin g. 2.Acute on chronic diastolic congestive heart failure, has improved with diuresis. We will see if t he echocardiogram shows any new changes. 3.Atypical chest pain. We may want to consider an outpatient Lexiscan after she gets discharged. I will discuss that further with Dr. Bennett. 4.Diabetes, fairly well controlled. 5.Dyslipidemia. 6.Hypertension, well controlled. 7.Hypothyroidism. 8.Neuropathy. I will continue to follow Ms. Edward with Dr. Bennett. ANA/MODL Voice ID: [id number] Report ID: [id number]
[2019-09-30] MEDS: carvediloL 6.25 MG TAB PO SCH ×2 (05:59→18:00)
[2019-09-30 06:13] LABS: Absolute Lymphocytes (CBC) 0.5 K/uL (0.7-4.9); Basophils % 0.3 % (0-1.3); Hematocrit 34.4 % (36.0-45.0); Lymphocytes % 6.1 % (15.3-44.8); MPV 10.1 fL (7.6-11.3); RBC Red Blood Cell Count 4.18 M/uL (3.86-4.86)
[2019-09-30 06:36] LABS: Potassium 4.2 mmol/L (3.5-5.1)
[2019-09-30 07:56] LABS: Blood Morphology Comment NOT SEEN (NOT SEEN); Platelet Estimate ADEQ
--- NOTE | 2019-09-30 08:12 | RAD REPORT ---
EXAM DESCRIPTION: RAD - Chest Single View - 09/30/2019 5:41 am CLINICAL HISTORY: Chest Pain COMPARISON: Portable chest September 28 TECHNIQUE: AP portable chest image was obtained 09/30/2019 5:41 am . FINDINGS: Lung volumes are low. Left pleural effusion is seen. Cardiomegaly is present. Vascular eng orgement and prominent central interstitial thickening present. No pneumothorax. No acute bony abnorm ality seen. No acute aortic findings suspected. IMPRESSION: Mild to moderate CHF/ volume overload.
[2019-09-30] MEDS ORDERED: D50W 25 GM/50 ML SYRINGE/VIAL IV PRN (08:25)
[2019-09-30] MEDS ORDERED: GLUCAGON 1 MG/VIAL IM PRN (08:25)
[2019-09-30] MEDS: GABAPENTIN 300 MG CAP PO SCH ×2 (09:49→20:26)
[2019-09-30] MEDS: CITALOPRAM 10 MG TABLET PO SCH (09:49)
[2019-09-30] MEDS: GLIPIZIDE S.A. 5 MG TAB PO SCH (09:49)
[2019-09-30] MEDS: SITAGLIPTIN PHOS 100 MG TAB PO SCH (09:49)
[2019-09-30] MEDS: lisinopriL 5 MG TAB PO SCH (09:49)
[2019-09-30] MEDS: FAMOTIDINE 20 MG/2 ML VIAL IV SCH (09:50)
[2019-09-30] MEDS: INSULIN -REGULAR HUMAN 50 UNIT/0.5 ML ML SQ SCH ×3 (11:30→20:27)
--- NOTE | 2019-09-30 12:25 | PN ---
Ms. Edward was seen because of congestive heart failure, possible COPD exacerbation. She has atria l fibrillation that is chronic. She has been running in the 70s or 80s. Since she has been here, he r last blood pressure is 125/58. She is on Xarelto and Coreg for her atrial fibrillation. She is al so receiving inhalers and Pepcid. She is improving. Her echocardiogram showed right ventricular sys tolic pressure of 61 mmHg with normal ejection fraction. No wall motion abnormalities. I would cont inue her present regimen. She can go home whenever it is okay with Dr. Bennett. ANA/RHEA Voice ID: [id number] Report ID: [id number]
--- NOTE | 2019-09-30 12:31 | EKG ---
Test Date: 2019-09-30 Test Time: 11:15:54 Grain Trader: MEGHAN MEASUREMENT RESULTS: Intervals: Rate: 87 [place]: QRSD: 134 QT: 400 QTc: 481 [place]: P: NV: QRS: -85 T: 107 INTERPRETIVE STATEMENTS: Atrial fibrillation with premature ventricular or aberrantly conducted complexes Left axis deviation Nonspecific intraventricular block Cannot rule out Septal infarct, age undetermined Abnormal ECG Compared to ECG 09/29/2019 03:59:03 Ventricular premature complex(es) now present Myocardial infarct finding still present Electronically Signed On 09-30-19 12:30:43 CDT by Dain Lara
--- NOTE | 2019-09-30 13:58 | HP ---
Date of Admission: 09/29/2019 Chief Complaint: Chest pain and shortness of breath. History Of Present Illness: This is an 84-year-old pleasant female patient who has a history of atri al fibrillation and multiple other comorbidities, was watching some news regarding coronavirus and sh saeid got upset after watching news and then subsequently started to have chest pain associated with some shortness of breath, so she came into the emergency room. After she arrived in the emergency room, she was found to have atrial fibrillation with rapid ventricular rate and congestive heart failure, a nd she was treated with Lasix, digoxin, Lopressor, and I was contacted requesting admission to the [facility]. When I saw her in the emergency room in the morning, she was actually feeling better compare d to earlier when she came into ER. Medications: List reviewed. Review of Systems: Cardiovascular: As mentioned above Respiratory: As mentioned above. All other systems reviewed and negative. Allergies: TO CEFTRIAXONE CAUSING CARDIAC ARREST; CLINDAMYCIN CAUSING NAUSEA; NIFEDIPINE CAUSING LEG SWELLING; REGLAN, DETAILS UNKNOWN; NAPROXEN, DETAILS UNKNOWN. Past Medical History: Significant for chronic systolic congestive heart failure with ejection fracti on around 40% to 45%, hypertension, mixed hyperlipidemia, paroxysmal atrial fibrillation, chronic ant icoagulation therapy, COPD, type 2 diabetes mellitus, hypothyroidism, osteoarthritis at multiple site s, anemia, CLL, insomnia, diverticulosis. Past Surgical History: Cataract surgery, cholecystectomy, hemorrhoidectomy, hysterectomy, knee repla cement surgery, and ankle surgery. Family History: Father , had Alzheimer disease, coronary artery disease. Mother , had leuke jeff. Brother with throat cancer. Sister has hypertension and asthma. Social History: Prior history of smoking, not at present time. Use of alcohol, occasional use of 1- 2 beers. Physical Examination: VITAL SIGNS: When she first arrived, temperature 98.3, pulse 116, blood pressure 148/83, oxygen satu ration 94%. Height 5 feet 3 inches, weight 215 pounds. General: Awake, alert, oriented, not in distress. HEENT: Head atraumatic, normocephalic. Conjunctivae nonerythematous. Sclerae white. Mouth, no thr ush or edema noted. Ears/Nose, no mass, lesion, discharge noted. Neck: Supple. No JVD, lymph nodes, bruit, thyromegaly noted. Lungs: Presence of rales noted in bilateral lower lung moralez. Heart: Normal heart sounds, no murmur or gallop. Abdomen: Soft, bowel sounds normal. No guarding, rigidity, tenderness, mass, hepatosplenomegaly, dis tention, or bruit noted. Extremities: No leg edema. No calf tenderness. Skin: No rash, ulcer, cellulitis. Lymphatics: No lymph node enlargement in neck, supraclavicular, infraclavicular region. Neuro: No focal neurological deficit. Chest: Unremarkable. External Genitalia: Deferred. Rectal: Deferred. Laboratory Data: White count 7.2, hemoglobin 11.1, platelets 137. Sodium 140, potassium 4.4, chlori de 105, bicarb 28, BUN 14, creatinine 1.01, glucose 211, magnesium 2.1. SGOT 31, SGPT 30, alkaline p hosphatase 94. Troponin less than 0.02. ProBNP 4661. TSH 2.98. Urinalysis negative. Chest x-ray: Findings of congestive heart failure. Electrocardiogram: Atrial fibrillation with rapid ventricular rate. Impression: 1.Congestive heart failure, chronic, systolic, with acute exacerbation. 2.Atrial fibrillation with rapid ventricular rate. 3.Anemia, unspecified. 4.Hypertension. 5.Mixed hyperlipidemia. 6.Type 2 diabetes mellitus. 7.Chronic obstructive pulmonary disease. 8.Osteoarthritis, multiple sites. 9.Hypothyroidism. 10.Diverticulosis. Plan: Admit patient to hospital for further evaluation and management of this problem. Patient is a ppropriate for inpatient and is expected to spend 2 midnights in hospital. We will consult Cardiolog y. Continue home medications per order including her anticoagulation therapy, Xarelto. We will cons ult Physical Therapy. At home, she takes carvedilol 3.125 mg 2 times a day, but we will increase dos e to 6.25 mg 2 times a day. Oxygen nebulizer treatment will be given. Diuretic medications will be given. Patient has a Diaz catheter, which we will remove it. When I saw her, her heart rate was we ll controlled with heart rate around 80 per minute. Patient will have echocardiogram and will follow up on that and details and plan of treatment discussed with her. MIGUE/MODL Voice ID: [id number]
[2019-09-30] MEDS: RIVAROXABAN 20 MG TABLET PO SCH (17:00)
[2019-09-30] MEDS: FUROSEMIDE 40 MG/4 ML VIAL IV ONE (17:58)
[2019-09-30] MEDS: ATORVASTATIN 20 MG TAB PO SCH (20:27)
[2019-09-30] MEDS ORDERED: ESZOPICLONE 1 MG TAB PO ONE (20:44)
--- NOTE | 2019-09-30 22:45 | PN ---
Date of Progress Note: 09/30/2019 Subjective: The patient was seen this afternoon for followup. Her son was present with her at bedside. Yesterday, she had some confusion and blood gas was done, results reviewed. Today, she is better. Her appetite is fair. No new complaints or problems reported by her. Objective: Vital Signs: Reviewed. HEENT: Unremarkable. Lungs: Bilateral rales noted in lower lung moralez, slightly better today than yesterday. Heart: Sounds normal. Abdomen: Soft, bowel sounds normal. No guarding, rigidity, tenderness, distention. Extremities: No leg edema. Laboratory Data: Reviewed. Chest x-ray results reviewed. Impression: 1. Congestive heart failure, chronic, systolic, with acute exacerbation. 2. Atrial fibrillation. 3. Chronic anticoagulation therapy. 4. Hypertension. Plan: We will go ahead and give her Lasix 40 mg IV x1 dose today. We will reassess tomorrow. Continue her carvedilol at 6.25 mg twice a day and Xarelto 20 mg daily. Details and plan of treatment discussed with the patient and her son. It is becoming obvious that the patient is having increasing memory problem and we are not sure if she is taking her medications correctly or not and that may actually create a problem with health problems if she is not taking medications correctly. We did talk about confusion that she is having, rather increased confusion while in the hospital. I am concerned that she probably has some underlying dementia problem and hospitalization will unfortunately cause increased confusion and she should do better once she gets out of the hospital. I gave my recommendation that it is important for her to consider to go into assisted care facility and we talked about local assisted care facility and her son will look into that and other important recommendation given to the patient that she should not drive her car also. MIGUE/MODL Voice ID: [id number] Report ID: [id number] CARRIE
[2019-10-01] MEDS: IPRATROPIUM BROM 0.5MG/2.5ML NEB SCH ×4 (01:49→19:35)
[2019-10-01] MEDS: LEVALBUTEROL 1.25 MG/3 ML NEB NEB SCH ×4 (01:49→19:35)
[2019-10-01] MEDS: LEVOTHYROXINE SOD 0.075 MG TAB PO SCH (05:11)
[2019-10-01] MEDS: carvediloL 6.25 MG TAB PO SCH ×2 (05:12→17:33)
[2019-10-01] MEDS: INSULIN -REGULAR HUMAN 50 UNIT/0.5 ML ML SQ SCH ×4 (07:30→21:00)
[2019-10-01] MEDS: GLIPIZIDE S.A. 5 MG TAB PO SCH (08:40)
[2019-10-01] MEDS: GABAPENTIN 300 MG CAP PO SCH ×2 (08:40→21:16)
[2019-10-01] MEDS: SITAGLIPTIN PHOS 100 MG TAB PO SCH (08:40)
[2019-10-01] MEDS: CITALOPRAM 10 MG TABLET PO SCH (08:40)
[2019-10-01] MEDS: lisinopriL 5 MG TAB PO SCH (09:00)
[2019-10-01] MEDS ORDERED: FUROSEMIDE 40 MG/4 ML VIAL IV ONE (09:00)
[2019-10-01] MEDS: Levofloxacin500mg IV 500 MG/100 ML BAG IV SCH (09:12)
--- NOTE | 2019-10-01 12:14 | PN ---
Date of Progress Note: 10/01/2019 Ms. Edward had been followed for chronic atrial fibrillation, initially with rapid ventricular resp onse. She has improved after doubling the Coreg. Her heart rate is remaining in the 70s. She has i mproved dramatically from a pulmonary standpoint. Echocardiogram shows severe pulmonary hypertension with a right ventricular systolic pressure 61 mmHg. Today, she is asymptomatic. She is in chronic AFib, rate of 72, O2 saturations are adequate on room air. No edema. No rales. I think she can go home whenever it is okay with Dr. Bennett. She is already on chronic anticoagulation at home. ANA/RHEA Voice ID: [id number] Report ID: [id number]
--- NOTE | 2019-10-01 13:14 | PN ---
Date of Progress Note: 10/01/2019 Subjective: Patient was seen this morning for followup. No new complaints or problems reported by h er. She was sitting in the chair at bedside. Denied any new complaints this morning. Objective: Vital signs: Reviewed. HEENT: Unremarkable. Lungs: Bilateral good equal air entry except diminished air entry in the lung bases with some rales noted in both sides. Heart: Sounds normal. Abdomen: Soft. Bowel sounds normal. No guarding, rigidity, tenderness, or distention. Extremities: No leg edema. Laboratory Data: Urine culture is growing 3+ known beta-hemolytic strep. Sensitivity results pendin g. Impression: 1.Congestive heart failure, chronic, systolic, with acute exacerbation. 2.Atrial fibrillation. 3.Urinary tract infection. Plan: We will go ahead and start the patient on Levaquin while waiting on culture and sensitivity re sults. Lasix 40 mg IV will be given again this morning. Ambulation was encouraged. I will see her tomorrow for followup, possible discharge tomorrow depending on her condition. Continue current anti coagulation medication as well as carvedilol. MIGUE/MODL Voice ID: [id number] Report ID: [id number]
[2019-10-01] MEDS: RIVAROXABAN 20 MG TABLET PO SCH (17:25)
[2019-10-01] MEDS: ATORVASTATIN 20 MG TAB PO SCH (21:16)
[2019-10-02] MEDS: IPRATROPIUM BROM 0.5MG/2.5ML NEB SCH ×3 (01:00→14:10)
[2019-10-02] MEDS: LEVALBUTEROL 1.25 MG/3 ML NEB NEB SCH ×3 (01:00→14:10)
[2019-10-02] MEDS: LEVOTHYROXINE SOD 0.075 MG TAB PO SCH (05:16)
[2019-10-02] MEDS: carvediloL 6.25 MG TAB PO SCH (05:16)
[2019-10-02 06:57] LABS: Absolute Lymphocytes (CBC) 1.2 K/uL (0.7-4.9); Basophils % 0.9 % (0-1.3); Lymphocytes % 20.3 % (15.3-44.8); MPV 9.3 fL (7.6-11.3); RBC Red Blood Cell Count 4.19 M/uL (3.86-4.86)
[2019-10-02 07:01] LABS: Magnesium 2.2 mg/dL (1.8-2.4); Potassium 3.5 mmol/L (3.5-5.1)
[2019-10-02] MEDS: INSULIN -REGULAR HUMAN 50 UNIT/0.5 ML ML SQ SCH ×2 (07:30→11:30)
[2019-10-02 09:06] VITALS: O2SAT 95
[2019-10-02] MEDS: GLIPIZIDE S.A. 5 MG TAB PO SCH (09:50)
[2019-10-02] MEDS: CITALOPRAM 10 MG TABLET PO SCH (09:51)
[2019-10-02] MEDS: Levofloxacin500mg IV 500 MG/100 ML BAG IV SCH (09:51)
[2019-10-02] MEDS: GABAPENTIN 300 MG CAP PO SCH (09:51)
[2019-10-02] MEDS: SITAGLIPTIN PHOS 100 MG TAB PO SCH (09:51)
[2019-10-02 10:37] LABS: Urine Appearance CLEAR; Urine Bilirubin NEGATIVE (NEG); Urine Blood NEGATIVE (NEG); Urine Color YELLOW; Urine Glucose NEGATIVE (NEG); Urine Protein NEGATIVE (NEG); Urine Specific Gravity 1.015 (1.005-1.030); Urine Urobilinogen 0.2 mg/dL (0.2-1.0)
[2019-10-02 10:48] LABS: Urine Bacteria <20 /HPF (<20); Urine Culture Reflex Order NOT NEEDED; Urine RBC <5 /HPF (NONE SEEN)
--- NOTE | 2019-10-02 10:49 | RAD REPORT ---
EXAM DESCRIPTION: RAD - Chest Pa And Lat (2 Views) - 10/02/2019 10:33 am CLINICAL HISTORY: CHF COMPARISON: Chest exam September 29 TECHNIQUE: Frontal and lateral views of the chest were obtained. FINDINGS: The lungs are slightly underinflated. Left base is hazy. Right base atelectasis is present . Heart size is normal and central vasculature is within normal limits. Vascular engorgement and in terstitial edema pattern has improved. No pneumothorax or large pleural effusion. No acute bony findi ng noted. No aortic abnormality. IMPRESSION: CHF/volume overload findings have improved. Left base is hazy but doubtful as pneumonia.
[2019-10-02] MEDS ORDERED: FUROSEMIDE 40 MG/4 ML VIAL IV ONE (11:00)
[2019-10-02] MEDS ORDERED: POTASSIUM CL SA 10 MEQ TAB PO ONE (11:00)
[2019-10-02 14:27] VITALS: BP 127/72; TEMP 97
--- NOTE | 2019-10-17 21:34 | DS ---
Date of Discharge: 10/02/2019 Disposition: Discharged to go home. Physical Examination: HEENT: Unremarkable. Lungs: Clear to auscultation. Heart: Sounds normal. Abdomen: Soft. Bowel sounds normal. No guarding, rigidity, tenderness, or distention. Extremities: No leg edema. Discharge Medications And Instructions: 1.Continue all prior home medications except stop lisinopril. 2.Change carvedilol 3.125 mg and the patient to take 2 pills 2 times a day until you run out and the n roving changer prescription to 6.25 mg one pill 2 times a day. 3.Start potassium chloride 10 mEq one tablet p.o. 2 times a day. 4.Follow up at my office on 10/06/2019. Hospital Course: This is an 84-year-old pleasant female patient, admitted to the hospital with chest pain and shortness of breath. Please see dictated H and P for more information. After the patient was evaluated, she was admitted to the hospital with acute exacerbation of her congestive heart failu re problem. Her home medications were continued. She was treated with IV diuretic therapy. Physica l Therapy was consulted. She started ambulating well. She has history of low ejection fraction in t he past, but her ejection fraction has improved over a period of time. Her labs upon admission, whit e count 7.2, hemoglobin 11.1, platelets 137. Sodium 140, potassium 4.4, chloride 105, bicarb 28, BUN 14, creatinine 1.01, glucose 211, magnesium 2.1. Patient's condition improved over period of this h ospitalization. Shortness of breath improved and she was discharged to go home in stable condition. Final Diagnoses: 1.Congestive heart failure, chronic, systolic, with acute exacerbation. 2.Atrial fibrillation, with rapid ventricular rate. 3.Anemia, unspecified. 4.Hypertension. 5.Hyperlipidemia. 6.Type 2 diabetes mellitus. 7.Chronic obstructive pulmonary disease. 8.Osteoarthritis, multiple sites. 9.Hypothyroidism. 10.Diverticulosis. MIGUE/MODL Voice ID: [id number] Report ID: [id number]
== END 2019-10-02 15:49 | disposition home or self-care (01) | DRG 292 ==
LOC: ER 03:44 → ERHOLD 06:36 → 2ND 07:30
PROVIDERS: ADMIT Internal Medicine; ATTEND Internal Medicine
DX: I11.0 Hypertensive heart disease with heart failure (principal); I48.20 Chronic atrial fibrillation, unspecified; N39.0 Urinary tract infection, site not specified; I50.23 Acute on chronic systolic (congestive) heart failure; D64.9 Anemia, unspecified; E78.2 Mixed hyperlipidemia; E11.9 Type 2 diabetes mellitus without complications; J44.9 Chronic obstructive pulmonary disease, unspecified; M19.90 Unspecified osteoarthritis, unspecified site; E03.9 Hypothyroidism, unspecified; K57.90 Diverticulosis of intestine, part unspecified, without perforation or abscess without bleeding; Z79.01 Long term (current) use of anticoagulants; Z96.659 Presence of unspecified artificial knee joint
CPT/HCPCS: 36415; 51702; 71045; 71046; 80048; 80076; 81001; 81003; 81015; 82805; 82947; 83690; 83735; 83880; 84443; 84484; 85025; 85610; 87077; 87086; 87088; 87186; 93005; 93306; 94640; 96361; 96374; 96375; 97116; 97161; 97530; 99285; J1160; J1940; J2405; J2920; J2930; J7030

== ENCOUNTER 2020-01-09 19:38 | Inpatient (IN) | payer OTHER ==
--- OUTSIDE RECORDS SUMMARY | 2020-01-09 20:43 | XMS REPORT | Continuity of Care Document ---
:[address] [facility] t Address [address] [place] [address] Care Team Providers Name Role Phone Unavailable Unavailable Unavailable Payers Payer Name Policy Type Policy Number Effective Date Expiration Date S ource Problems This patient has no known problems. Allergies, Adverse Reactions, Alerts This patient has no known allergies or adverse reactions. Medications This patient has no known medications. Procedures This patient has no known procedures. Results Test Description Test Time Test Comments Results Result [facility] e Comments - [facility] 2018-12-01 Patient Name: CONT RT 09:49:00 RANDI CEVALLOS Unit No: [id number] EXAMS: CPT CODE: [id number] MRI [facility] [place] W/[place] [id number] TECHNIQUE: Multiplanar, multisequence MRI of the right [...] Technologist: LLOYD MCINTYRE MRI Transcribed D/ (0949) t.LOVE [facility] NAME: RANDI CEVALLOS [address] [place] [address] PHYS: Tacho Briggs MD : 1935 AGE: 83 SEX: F [place] [id number] LOC: Y.MRI PHONE #: [phone] EXAM DATE: 11/30/2018 STATUS: DEP CLI FAX #: [phone] RAD #: D/C DT PAGE 1 Signed Report Patient Name: RANDI CEVALLOS Unit No: [id number] EXAMS: CPT CODE: [id number] MRI LW JNT W/[place] [id number] <Continued> Orig Print D/T: S: 12/01/2018 (0952) [facility] NAME: RANDI CEVALLOS [address] [place] [address] PHYS: Tacho Briggs MD : 1935 AGE: 83 SEX: F [place] [id number] LOC: Y.MRI PHONE #: [phone] EXAM DATE: 11/30/2018 STATUS: DEP CLI FAX #: [phone] RAD #: D/C DT PAGE 2 Signed Report
[2020-01-09 21:06] VITALS: BMI 37.5
[2020-01-09 21:49] LABS: Albumin 3.9 g/dL (3.4-5.0); Bilirubin Total 1.3 mg/dL (0.2-1.0); Phosphorus 3.9 mg/dL (2.5-4.9); Protein, Total 7.5 g/dL (6.4-8.2)
[2020-01-09 21:56] LABS: Absolute Lymphocytes (CBC) 1.2 K/uL (0.7-4.9); Basophils % 0.2 % (0-1.3); Hematocrit 37.4 % (36.0-45.0); Lymphocytes % 21.7 % (15.3-44.8); MPV 9.9 fL (7.6-11.3); RBC Red Blood Cell Count 4.52 M/uL (3.86-4.86)
[2020-01-09 22:02] LABS: Potassium 2.8 mmol/L (3.5-5.1)
[2020-01-09 22:55] LABS: Blood Morphology Comment NOTED (NOT SEEN); Ovalocytes 1+; Platelet Estimate ADEQ; Polychromasia SLIGHT
[2020-01-09] MEDS ORDERED: KCL 20 MEQ/100 mL IVPB 20 MEQ/100 ML BAG IV ONE (23:45)
[2020-01-09] MEDS: KCL 20 MEQ/100 mL IVPB 20 MEQ/100 ML BAG IV SCH (23:45)
[2020-01-09] MEDS ORDERED: NA CHLORIDE 0.9% 250 ML ONE (23:46)
[2020-01-10 00:20] LABS: Urine Appearance CLEAR; Urine Bilirubin NEGATIVE (NEG); Urine Blood NEGATIVE (NEG); Urine Color YELLOW; Urine Glucose NEGATIVE (NEG); Urine Protein NEGATIVE (NEG); Urine pH 5.5 (5.0-7.0)
[2020-01-10 00:52] LABS: Urine Bacteria <20 /HPF (<20); Urine Culture Reflex Order REFLEXED; Urine RBC <5 /HPF (NONE SEEN); Urine Urothelial Cells <5 /HPF (NONE SEEN)
[2020-01-10] MEDS: KCL 20 MEQ/100 mL IVPB 20 MEQ/100 ML BAG IV SCH ×2 (02:00→04:21)
[2020-01-10] MEDS ORDERED: NA CHLORIDE 0.9% 500 ML ONE (02:47)
--- NOTE | 2020-01-10 03:02 | HP ---
Date of Admission: 01/09/2020 Chief Complaint: Feeling weak, confused, and jerking. History Of Present Illness: This is an 84-year-old female, who came into our office 1 week ago and at that time, she was walking like her normal self with a walker. When I saw her a week ago, she had gained weight. She was having bilateral leg edema and she had some rales in her lower lung region. Patient has been taking her diuretic medication. We decided to add Zaroxolyn 2.5 mg once a week, and she was advised to take 1 dose which will be her first dose day after she was at office last week. Today, she was brought into office by her son with concerns about her deteriorating health. Patient's son reported that in last few days, patient's condition has deteriorated. Today, she was brought into office in a wheelchair as she is not able to walk. She describes as feeling very weak. When tries to stand or walk, she feels like her legs are extremely weak that she might actually end up falling down. She is having some muscle jerking, arm and leg jerking type of movements when she is sitting or trying to do any activity. She is also having lot of confusion in last few days. Her balance is very poor and she is at high risk of fall and injury. No vomiting. No diarrhea. Her appetite is very poor and today all day, she did not eat or drink anything. She lives at [facility], which is an independent facility and yesterday she was at her next door neighbor's place and she did not know how to get back to her own apartment. She was talking to her son yesterday and when she was talking to her son on the phone, she told her son that he was wearing an ice blue jacket. After I evaluated her, decision was made to admit her to the hospital. Allergies: CEFTRIAXONE CAUSING CARDIAC ARREST, CLINDAMYCIN CAUSING NAUSEA, NIFEDIPINE CAUSING LEG SWELLING, REGLAN AND NAPROXEN. Medications: List reviewed. Review of Systems: Cardiovascular: As mentioned above. Musculoskeletal: As mentioned above. Constitutional: As mentioned above. Neurologic: As mentioned above. All other systems reviewed and negative. Past Medical History: Type 2 diabetes mellitus; COPD; hypertension; mixed hyperlipidemia; chronic systolic congestive heart failure; paroxysmal atrial fibrillation; diverticulosis; chronic kidney disease, stage 3; leg edema; osteoarthritis at multiple sites; CLL; anemia; insomnia; liver cyst; renal cyst. Past Surgical History: Cataract surgery, cholecystectomy, hemorrhoid surgery, hysterectomy, knee surgery, ankle surgery. Family History: Father had Alzheimer disease and coronary artery disease. Mother had leukemia. Brother had throat cancer. Sister with hypertension. Social History: Prior history of smoking, not at present time. Use of alcohol, occasional. Physical Examination: Vital Signs: Blood pressure 118/69, temperature 97.9, pulse 80, respiratory rate 16, height 64 inches. General: Patient appears weaker than normal. HEENT: Head atraumatic, normocephalic. Conjunctivae nonerythematous. Sclerae white. Mouth, no thrush or edema noted. Ears/Nose, no mass, lesion, discharge noted. Neck: Supple. No JVD, lymph nodes, bruit, thyromegaly noted. Lungs: Bilateral good equal air entry. Clear to auscultation. No rhonchi. No rales. Heart: Normal heart sounds, no murmur or gallop. Abdomen: Soft, bowel sounds normal. No guarding, rigidity, tenderness, mass, hepatosplenomegaly, distention, or bruit noted. Extremities: No leg edema. No calf tenderness. Skin: No rash, ulcer, cellulitis. Lymphatics: No lymph node enlargement in neck, supraclavicular, infraclavicular region. Neuro: Some myoclonic jerking was noted while she was sitting in the wheelchair. Chest: Unremarkable. External Genitalia: Deferred. Rectal: Deferred. Laboratory Data: WBC 5.6, hemoglobin 11.9, platelets 99. Sodium 137, potassium 2.8, chloride 93, bicarb 35, BUN 47, creatinine 1.97, glucose 130. Liver function tests unremarkable. Impression: 1. Altered mental status. 2. Myoclonic jerk/weakness. 3. Congestive heart failure, chronic, systolic. 4. Hypertension. 5. Paroxysmal atrial fibrillation. 6. Hyperlipidemia. 7. Osteoarthritis, multiple sites. 8. Chronic lymphocytic leukemia. 9. Chronic obstructive pulmonary disease. 10. Hypothyroidism. 11. Type 2 diabetes mellitus. 12. Hypokalemia. 13. Volume depletion. Plan: Admit patient to hospital for further evaluation and management of this problem. Patient is appropriate for inpatient and is expected to spend 2 midnights in hospital. We will go ahead and consult Physical Therapy. Fall precaution was ordered. Continue home medications per order. Concerns about electrolyte problems and dehydration explained to the patient's son and the patient. Patient was prescribed metolazone 2.5 mg to be taken once a week, and this was prescribed 1 week ago, so far she should have taken only 1 dose of this medication. Patient's son will go home and check on it to see if she accidentally took more medication than prescribed or not because that is my concern at this point. Regardless of whether she has taken metolazone as prescribed or has taken more than prescribed by mouth, this particular medication will be discontinued at present time. Patient is at high risk of fall and injury and it is okay for her to return back to independent living facility. Depending on her hospital course, further decision will be made regarding disposition. MIGUE/RHEA Voice ID: [id number] MTDD
[2020-01-10] MEDS: lisinopriL 5 MG TAB PO SCH (10:18)
[2020-01-10 11:24] LABS: Potassium 3.1 mmol/L (3.5-5.1)
[2020-01-10] MEDS ORDERED: POTASSIUM 25 MEQ EFFERV TAB PO ONE (12:12)
[2020-01-10] MEDS: RIVAROXABAN 20 MG TABLET PO SCH (16:36)
[2020-01-10] MEDS: ATORVASTATIN 20 MG TAB PO SCH (21:19)
[2020-01-10] MEDS: carvediloL 6.25 MG TAB PO SCH (21:19)
[2020-01-10] MEDS: GABAPENTIN 300 MG CAP PO SCH (21:19)
[2020-01-10] MEDS: ALPRAZOLAM 0.5 MG TABLET PO PRN (21:31)
[2020-01-10] MEDS ORDERED: POTASSIUM CL SA 10 MEQ TAB PO ONE (22:43)
--- NOTE | 2020-01-11 01:08 | PN ---
Date of Progress Note: 01/10/2020 Subjective: Patient was seen this morning for followup. No new complaints or problems reported by demarcus andrew. Lying in bed, not in distress. Objective: Vital Signs: Reviewed. HEENT: Unremarkable. Lungs: Clear to auscultation. Heart: Sounds normal. Abdomen: Soft. Bowel sounds normal. No guarding, rigidity, tenderness, or distention. Extremities: Leg edema. Impression: 1.Hypokalemia. 2.Volume depletion. 3.Chronic diastolic congestive heart failure. 4.Type 2 diabetes mellitus. Plan: Patient's potassium is being replaced with electrolyte replacement protocol. We will continue careful IV fluid hydration. Renal function is better. Potassium is still low, but better today amrit n yesterday. We will continue to replace it per protocol. We will repeat blood work tomorrow. Hemo globin A1c 6.8. Ambulation was encouraged with physical therapy and I will see her tomorrow for foll owup. MIGUE/MODL Voice ID: [id number] Report ID: [id number]
[2020-01-11] MEDS: LEVOTHYROXINE SOD 0.075 MG TAB PO SCH (05:10)
[2020-01-11 05:50] LABS: Potassium 3.6 mmol/L (3.5-5.1)
[2020-01-11] MEDS ORDERED: POTASSIUM CL SA 10 MEQ TAB PO ONE (07:32)
[2020-01-11] MEDS: GABAPENTIN 300 MG CAP PO SCH ×2 (08:27→22:05)
[2020-01-11] MEDS: carvediloL 6.25 MG TAB PO SCH ×2 (08:27→22:04)
[2020-01-11] MEDS: CITALOPRAM 10 MG TABLET PO SCH (08:28)
[2020-01-11] MEDS: SITAGLIPTIN PHOS 100 MG TAB PO SCH (08:28)
[2020-01-11] MEDS: lisinopriL 5 MG TAB PO SCH (08:28)
--- NOTE | 2020-01-11 12:04 | RAD REPORT ---
EXAM DESCRIPTION: RAD - Chest Single View - 01/09/2020 10:20 pm CLINICAL HISTORY: 84 years Female, CHF COMPARISON: None. FINDINGS: The heart and mediastinum are within normal limits. The lung moralez are remarkable for increased density at the left lung base suspicious for moderate si ze infiltrate and/or pleural effusion.. The pulmonary vascularity is unremarkable. No active pleural disease is present. IMPRESSION: 1. Findings suggestive of a moderate-sized left basilar infiltrate and/or pleural effusi on. Electronically signed by: Naseem Gunter MD 01/09/2020 10:28 PM CDT Due to temporary technical issues with the PACS/Fluency reporting system, reports are being signed by the in house radiologist without review as a courtesy to ensure prompt reporting. The interpreting r adiologist is fully responsible for the content of the report.
[2020-01-11] MEDS: RIVAROXABAN 20 MG TABLET PO SCH (16:30)
[2020-01-11] MEDS: ATORVASTATIN 20 MG TAB PO SCH (22:05)
[2020-01-11] MEDS: ALPRAZOLAM 0.5 MG TABLET PO PRN (22:05)
--- NOTE | 2020-01-12 00:54 | PN ---
Date of Progress Note: 01/11/2020 Subjective: Patient was seen this morning for followup. No new complaints or problems reported. She denies any shortness of breath. No chest pain. No abdominal pain, nausea, vomiting. Her muscle jerking problem has improved. Objective: Vital Signs: Reviewed. HEENT: Unremarkable. Lungs: Clear to auscultation. Heart: Sounds normal. Abdomen: Soft. Bowel sounds normal. No guarding, rigidity, tenderness, or distention. Extremities: No leg edema. Laboratory Data: Sodium 140, chloride 100, bicarb 36, BUN 32, creatinine 1.17, glucose 119. Impression: 1. Acute kidney injury. 2. Hypokalemia. 3. Chronic diastolic congestive heart failure. 4. Type 2 diabetes mellitus. Plan: We will continue current medication, physical therapy to continue to work with the patient. I have discussed details with the patient's son and he informed me that the patient only took 1 dose of Zaroxolyn, which was 2.5 mg and that actually resulted in all this problem of severe hypokalemia and acute kidney injury, so I have informed the patient's son that patient should not take this medication ever in future and it should be discontinued permanently and he will discard this medication. We also talked about disposition. Patient lives at independent facility. With her declining health, it is becoming increasingly difficult for her to stay there and also becoming a safety concern. I did talk to patient's son and family is in process of making arrangements for her to go to [facility] and Social Service consultation was requested and hopefully, we can plan to discharge her to go there tomorrow if all arrangements get completed. MIGUE/MODL Voice ID: [id number] Report ID: [id number] MTDD
[2020-01-12 04:56] LABS: Potassium 3.8 mmol/L (3.5-5.1)
[2020-01-12] MEDS: LEVOTHYROXINE SOD 0.075 MG TAB PO SCH (05:31)
[2020-01-12] MEDS: SITAGLIPTIN PHOS 100 MG TAB PO SCH (08:12)
[2020-01-12] MEDS: CITALOPRAM 10 MG TABLET PO SCH (08:12)
[2020-01-12] MEDS: GABAPENTIN 300 MG CAP PO SCH (08:12)
[2020-01-12] MEDS ORDERED: POTASSIUM 25 MEQ EFFERV TAB PO ONE (09:00)
[2020-01-12 09:44] VITALS: O2SAT 92
[2020-01-12] MEDS: lisinopriL 5 MG TAB PO SCH (10:02)
[2020-01-12] MEDS: carvediloL 6.25 MG TAB PO SCH (10:03)
[2020-01-12 13:07] VITALS: BP 107/66; TEMP 97
--- NOTE | 2020-01-13 01:14 | DS ---
Date of Discharge: 01/12/2020 Disposition: Discharged to go to long-term. Physical Examination: HEENT: Unremarkable. Lungs: Clear to auscultation. Cardiac: Heart sounds normal. Abdomen: Soft, bowel sounds normal. No guarding, rigidity, tenderness, distention. Extremities: No leg edema. Laboratory Data: White count 5.6, hemoglobin 11.9, platelets 99. Chemistry: Sodium 139, potassium 3.8, chloride 101, bicarb 32, BUN 26, creatinine 1.08, glucose 115 and this was done today. On admis carlton, sodium 137, potassium 2.8, chloride 93, bicarb 35, BUN 47, creatinine 1.97, glucose 130. Liver function tests unremarkable. Hemoglobin A1c 6.8. Hospital Course: 84-year-old female patient admitted to the hospital with complaints of feeling weak , confused, and jerky movements of her extremities. Please see dictated H and P for more information . After patient was evaluated at office, she was admitted to the hospital. Patient was recently sta rted on Zaroxolyn 2.5 mg once a week for her congestive heart failure problem and she took only 1 dos e as prescribed and unfortunately after taking 1 dose she ended up having all these symptoms. After I saw her, I was concerned about electrolyte problem as well as dehydration problem, so decision was made to admit her to hospital. Initial blood work did show she had hypokalemia and acute kidney inju ry with volume depletion problem. She was given careful IV fluid hydration. Potassium was corrected using electrolyte replacement protocol and we did not give any diuretic therapy during this hospital ization. The patient's son did verify her medications at home and confirmed that the patient has flor en only 1 dose of this Zaroxolyn as prescribed and she did not take any extra amount. So, the rene t's son was informed when I talked to him yesterday that Zaroxolyn should be discontinued permanently as the way she reacted like this after 1 dose she should not receive it in the future again. The radha pritchett's overall condition has been declining over period of time now to the extent that it is not saf e for her to leave at assisted care rather at independent living facility where she was living prior to this admission and the patient's family has made arrangements for her to go to [facility] in [place] and today she was discharged to go there in stable condition. Discharge Medications And Instructions: 1.Continue all prior home medication except do not use any Zaroxolyn any dose not even on the medica tion list at the hospital. Patient to continue her furosemide 40 mg twice a day and Breo inhaler 1 p uff daily. 2.Consult Physical Therapy and Occupational Therapy at long-term and fall precautions. Final Diagnoses: 1.Acute kidney injury. 2.Hypokalemia. 3.Volume depletion. 4.Myoclonic jerks. 5.Generalized weakness. 6.Congestive heart failure, chronic, systolic. 7.Type 2 diabetes mellitus. 8.Hypertension. 9.Paroxysmal atrial fibrillation. 10.Hyperlipidemia. 11.Osteoarthritis, multiple sites. 12.Chronic lymphocytic leukemia. 13.Chronic obstructive pulmonary disease. 14.Hypothyroidism. MIGUE/MODL Voice ID: [id number] Report ID: [id number]
== END 2020-01-12 14:56 | DRG 683 ==
LOC: 4TH 20:40 → 2ND 01-10 05:39
PROVIDERS: ADMIT Internal Medicine; ATTEND Internal Medicine
DX: N17.9 Acute kidney failure, unspecified (principal); I50.22 Chronic systolic (congestive) heart failure; I13.0 Hypertensive heart and chronic kidney disease with heart failure and stage 1 through stage 4 chronic kidney disease, or unspecified chronic kidney disease; C91.10 Chronic lymphocytic leukemia of B-cell type not having achieved remission; E87.6 Hypokalemia; E86.9 Volume depletion, unspecified; M19.90 Unspecified osteoarthritis, unspecified site; E03.9 Hypothyroidism, unspecified; I48.0 Paroxysmal atrial fibrillation; G25.3 Myoclonus; J44.9 Chronic obstructive pulmonary disease, unspecified; E11.22 Type 2 diabetes mellitus with diabetic chronic kidney disease; N18.3 Chronic kidney disease, stage 3 (moderate); T50.2X5A Adverse effect of carbonic-anhydrase inhibitors, benzothiadiazides and other diuretics, initial encounter; Z88.1 Allergy status to other antibiotic agents; Z90.49 Acquired absence of other specified parts of digestive tract; Z90.710 Acquired absence of both cervix and uterus; Z87.891 Personal history of nicotine dependence; Z11.59 Encounter for screening for other viral diseases; Z88.8 Allergy status to other drugs, medicaments and biological substances
CPT/HCPCS: 36415; 71045; 80048; 80053; 81001; 83036; 83735; 84100; 84132; 85025; 87086; 87088; 97116; 97161; 97530; J7030; J7040

== ENCOUNTER 2020-04-21 21:59 | Inpatient (IN) | payer OTHER ==
[2020-04-22 00:10] LABS: Protime INR 1.54
[2020-04-22 00:16] LABS: Absolute Lymphocytes (CBC) 1.1 K/uL (0.7-4.9); Basophils % 0.8 % (0-1.3); Hematocrit 32.1 % (36.0-45.0); MPV 9.9 fL (7.6-11.3); RBC Red Blood Cell Count 3.82 M/uL (3.86-4.86)
[2020-04-22 00:33] LABS: ALT/SGPT 19 U/L (12-78); AST/SGOT 11 U/L (15-37); Albumin 3.6 g/dL (3.4-5.0); Alkaline Phosphatase 94 U/L (45-117); BUN Blood Urea Nitrogen 12 mg/dL (7-18); Bicarbonate 25 mmol/L (21-32); Bilirubin Direct 0.7 mg/dL (0-0.2); Bilirubin Total 2.1 mg/dL (0.2-1.0); Glucose Level 156 mg/dL (74-106); Magnesium 2.1 mg/dL (1.8-2.4); NT PRO-BNP 7705 pg/mL (<450); Potassium 4.2 mmol/L (3.5-5.1); Protein, Total 7.4 g/dL (6.4-8.2); Sodium Level 142 mmol/L (136-145); Troponin (Emerg Dept Use Only) < 0.02 ng/mL (0.0-0.045)
--- NOTE | 2020-04-22 00:51 | ER ---
Nurse's Notes [facility] Name: Karen Edward Age: 85 yrs Sex: Female : 1935 Arrival Date: 04/21/2020 Time: 22:01 Bed 6 Private MD: Diagnosis: Chest Pain;CHF Exacerbation Presentation: 04/21 22:21 Chief complaint: Patient states: Chest pain over 1 week; states seeing Dr. Lara this lp1 week; Continued pain to chest intermittently, nausea, shortness of breath; relieved with rest. Coronavirus screen: Client denies travel out of the [place] in the last 14 days. At this time, the client does not indicate any symptoms associated with coronavirus-19. Ebola Screen: No symptoms or risks identified at this time. Initial Sepsis Screen: Does the patient meet any 2 criteria? No. Patient's initial sepsis screen is negative. Does the patient have a suspected source of infection? No. Patient's initial sepsis screen is negative. Risk Assessment: Do you want to hurt yourself or someone else? Patient reports no desire to harm self or others. Onset of symptoms was April 21, 2020. 22:21 Method Of Arrival: Wheelchair lp1 22:21 Acuity: TOBY 3 lp1 Historical: - Allergies: 22:25 Clindamycin; lp1 22:25 Naproxen; lp1 22:25 Procardia; lp1 22:25 Reglan; lp1 22:25 Rocephin; lp1 - PMHx: 22:25 Asthma; CHF; Diabetes - NIDDM; Hyperlipidemia; Hypertension; Hypothyroidism; lp1 - PSHx: 22:25 Cholecystectomy; Hysterectomy; lp1 - Immunization history:: Adult Immunizations up to date. - Social history:: Smoking status: Patient denies any tobacco usage or history of. Screenin:52 Abuse screen: Denies threats or abuse. Denies injuries from another. Nutritional rr5 screening: No deficits noted. Tuberculosis screening: No symptoms or risk factors identified. Fall Risk IV access (20 points). Total Gifford Fall Scale indicates No Risk (0-24 pts). Assessment: 04/22 00:00 General: General: Appears in no apparent distress. comfortable, Behavior is calm, rr5 cooperative, appropriate for age. 00:00 Pain: Complains of pain in chest Pain does not radiate. Pain currently is 0 out of 10 rr5 on a pain scale. Quality of pain is described as aching, Pain began gradually, Is intermittent. Neuro: Level of Consciousness is awake, alert, obeys commands, Oriented to person, place, time, situation. Cardiovascular: Reports chest pain, Capillary refill < 3 seconds Patient's skin is warm and dry. Edema. Respiratory: Reports shortness of breath Airway is patent Respiratory effort is even, unlabored, Respiratory pattern is regular, symmetrical. GI: Reports nausea. : No signs and/or symptoms were reported regarding the genitourinary system. EENT: No signs and/or symptoms were reported regarding the EENT system. Derm: Skin is intact, is healthy with good turgor, Skin temperature is warm. Musculoskeletal: Capillary refill < 3 seconds. 01:00 Reassessment: Patient appears in no apparent distress at this time. Patient is alert, rr5 oriented x 3, equal unlabored respirations, skin warm/dry/pink. Patient states symptoms have improved. 01:35 Reassessment: Patient appears in no apparent distress at this time. Patient is alert, rr5 oriented x 3, equal unlabored respirations, skin warm/dry/pink. transferred to room 219 awake alert oriented no complaints made, positive urine post lasix. Vital Signs: 04/21 22:21 BP 128 / 83; Pulse 107; Resp 20; Temp 98.6(O); Pulse Ox 94% on R/A; Weight 90.72 kg lp1 (R); Height 5 ft. 3 in. (160.02 cm); Pain 0/10; 04/22 00:35 BP 129 / 81; Pulse 98; Resp 23; Pulse Ox 96% on R/A; rv 01:40 BP 121 / 75; Pulse 90; Resp 20; Pulse Ox 97% ; rr5 04/21 22:21 Body Mass Index 35.43 (90.72 kg, 160.02 cm) lp1 ED Course: 04/21 22:01 Patient arrived in ED. ds1 22:23 Triage completed. lp1 22:23 Arm band placed on right wrist. lp1 23:33 Medardo Cote RN is Primary Nurse. rr5 23:36 Stef Martinez MD is Attending Physician. mh7 23:48 XRAY Chest (1 view) In Process Unspecified. EDNY 23:52 Patient has correct armband on for positive identification. Placed in gown. Bed in low rr5 position. Call light in reach. Side rails up X2. school bus monitor on. Pulse ox on. NIBP on. 23:52 No provider procedures requiring assistance completed. Inserted saline lock: 20 gauge rr5 in right hand, using aseptic technique. Blood collected. Patient maintains SpO2 saturation greater than 95% on room air. 04/22 00:50 Adriel Bennett MD is Hospitalizing Provider. [facility] 01:39 Patient admitted, IV remains in place. intact, No redness/swelling at site. rr5 Administered Medications: 00:46 Drug: Zofran (Ondansetron) 4 mg Route: IVP; Site: right hand; rr5 01:40 Follow up: Response: No adverse reaction rr5 00:56 Drug: Lasix 20 mg Route: IVP; Site: right hand; rr5 01:40 Follow up: Response: No adverse reaction rr5 Outcome: 00:51 Decision to Hospitalize by Provider. [facility] 01:39 Admitted to Med/surg accompanied by tech, via wheelchair, room 219, with chart, Report rr5 called to lily 01:39 Condition: stable 01:39 Instructed on the need for admit, called by live MACHADO 01:55 Patient left the ED. rr5 Signatures: Dispatcher [employer] [facility] Xavier Raven ds1 Anyi Moore, RN RN lp1 Odin Cee RN RN Medardo Banerjee RN RN rr5 Stef Martinez MD MD 7 Corrections: (The following items were deleted from the chart) 00:38 00:36 General: rv rr5
--- NOTE | 2020-04-22 00:51 | EDPHYS ---
Physician Documentation [facility] Name: Karen Edward Age: 85 yrs Sex: Female : 1935 Arrival Date: 04/21/2020 Time: 22:01 Bed 6 Private MD: ED Physician Stef Martinez HPI: 04/22 00:24 This 85 yrs old Female presents to ER via Wheelchair with complaints of Chest mh7 Pain, Shortness Of Breath, Leg Swelling. 00:24 The patient or guardian reports chest pain that is located primarily in the substernal mh7 area. Onset: 5 day(s) ago. The pain does not radiate. Associated signs and symptoms: Pertinent positives: lower extremity swelling, nausea, shortness of breath, Pertinent negatives: abdominal pain, cough, diaphoresis, dizziness, headache, lower extremity pain, lightheadedness, near syncope, palpitations, recent travel, syncope, vomiting. The chest pain is described as a heaviness. Duration: The patient or guardian reports multiple episodes, that are intermittent, that wax and wane, with no pattern. Modifying factors: The symptoms are alleviated by nothing. the symptoms are aggravated by exertion. Severity of pain: At its worst the pain was moderate 2 day(s) ago, in the emergency department the pain has improved moderately. Historical: - Allergies: 04/21 22:25 Clindamycin; lp1 22:25 Naproxen; lp1 22:25 Procardia; lp1 22:25 Reglan; lp1 22:25 Rocephin; lp1 - PMHx: 22:25 Asthma; CHF; Diabetes - NIDDM; Hyperlipidemia; Hypertension; Hypothyroidism; lp1 - PSHx: 22:25 Cholecystectomy; Hysterectomy; lp1 - Immunization history:: Adult Immunizations up to date. - Social history:: Smoking status: Patient denies any tobacco usage or history of. ROS: 04/22 00:24 Constitutional: Negative for fever, chills, and weight loss, Eyes: Negative for injury, mh7 pain, redness, and discharge, ENT: Negative for injury, pain, and discharge, Neck: Negative for injury, pain, and swelling, Back: Negative for injury and pain, : Negative for injury, bleeding, discharge, and swelling, MS/Extremity: Negative for injury and deformity, Skin: Negative for injury, rash, and discoloration, Neuro: Negative for headache, weakness, numbness, tingling, and seizure, Psych: Negative for depression, anxiety, suicide ideation, homicidal ideation, and hallucinations, Allergy/Immunology: Negative for hives, rash, and allergies, Endocrine: Negative for neck swelling, polydipsia, polyuria, polyphagia, and marked weight changes, Hematologic/Lymphatic: Negative for swollen nodes, abnormal bleeding, and unusual bruising. Exam: 00:24 Constitutional: This is a well developed, well nourished patient who is awake, alert, mh7 and in no acute distress. Head/Face: Normocephalic, atraumatic. Eyes: Pupils equal round and reactive to light, extra-ocular motions intact. Lids and lashes normal. Conjunctiva and sclera are non-icteric and not injected. Cornea within normal limits. Periorbital areas with no swelling, redness, or edema. Neck: Trachea midline, no thyromegaly or masses palpated, and no cervical lymphadenopathy. Supple, full range of motion without nuchal rigidity, or vertebral point tenderness. No Meningismus. Chest/axilla: Normal chest wall appearance and motion. Nontender with no deformity. No lesions are appreciated. 00:24 Abdomen/GI: Soft, non-tender, with normal bowel sounds. No distension or tympany. No guarding or rebound. No evidence of tenderness throughout. Back: No spinal tenderness. No costovertebral tenderness. Full range of motion. Skin: Warm, dry with normal turgor. Normal color with no rashes, no lesions, and no evidence of cellulitis. MS/ Extremity: Pulses equal, no cyanosis. Neurovascular intact. Full, normal range of motion. Neuro: Awake and alert, GCS 15, oriented to person, place, time, and situation. Cranial nerves II-XII grossly intact. Motor strength 5/5 in all extremities. Sensory grossly intact. Cerebellar exam normal. Normal gait. Psych: Awake, alert, with orientation to person, place and time. Behavior, mood, and affect are within normal limits. 00:24 Cardiovascular: Rate: tachycardic, Rhythm: regular, Pulses: no pulse deficits are appreciated, Heart sounds: normal, normal S1and S2, Edema: pedal edema, that is mild, JVD: is not appreciated. 00:24 Respiratory: the patient does not display signs of respiratory distress, Respirations: normal, Breath sounds: rales, that are mild, are located in both bases, Respiratory rate: 20 Vital Signs: 04/21 22:21 BP 128 / 83; Pulse 107; Resp 20; Temp 98.6(O); Pulse Ox 94% on R/A; Weight 90.72 kg lp1 (R); Height 5 ft. 3 in. (160.02 cm); Pain 0/10; 04/22 00:35 BP 129 / 81; Pulse 98; Resp 23; Pulse Ox 96% on R/A; rv 01:40 BP 121 / 75; Pulse 90; Resp 20; Pulse Ox 97% ; rr5 04/21 22:21 Body Mass Index 35.43 (90.72 kg, 160.02 cm) lp1 MDM: 00:00 Patient medically screened. [facility] 00:46 Differential diagnosis: abnormal EKG, acute myocardial infarction, acute pericarditis, 7 anxiety, coronary artery disease chest wall pain, congestive heart failure myocarditis, pericarditis, pleurisy, pneumonia, pneumothorax. HEART Score: History: Moderately Suspicious (1), ECG: Non specific repolarization disturbance / LBTB / PM (1), Age: > or = 65 years (2), Risk Factors: > or = 3 Risk factors for atherosclerotic disease (2), [Hypercholesterolemia] [Hypertension] [DM] Troponin: < or = 1 x Normal Limit (0), Total Score = 6. Data reviewed: vital signs, nurses notes, old medical records, lab test result(s), cardiac enzymes, CBC, electrolytes, urinalysis, EKG, radiologic studies, plain films. Data interpreted: Pulse oximetry: on room air is 96 %. Interpretation: normal. Counseling: I had a detailed discussion with the patient and/or guardian regarding: the historical points, exam findings, and any diagnostic results supporting the discharge/admit diagnosis, lab results, radiology results, the need for further work-up and treatment in the hospital. 00:49 Response to treatment: the patient's symptoms have mildly improved after treatment. [facility] 04/21 23:13 Order name: Basic Metabolic Panel; Complete Time: 00:40 1 04/21 23:13 Order name: CBC with Diff; Complete Time: 00:40 1 04/21 23:13 Order name: LFT's; Complete Time: 00:40 lp1 04/21 23:13 Order name: Magnesium; Complete Time: 00:40 lp1 04/21 23:13 Order name: NT PRO-BNP; Complete Time: 00:40 lp1 04/21 23:13 Order name: PT-INR; Complete Time: 00:40 lp1 04/21 23:13 Order name: Troponin (emerg Dept Use Only); Complete Time: 00:40 lp1 04/22 00:58 Order name: Basic Metabolic Panel EDMS 04/22 00:58 Order name: Basic Metabolic Panel EDMS 04/22 00:58 Order name: CBC with Automated Diff EDMS 04/22 00:58 Order name: CBC with Automated Diff EDMS 04/22 00:58 Order name: Troponin I EDMS 04/22 00:58 Order name: Troponin I EDMS 04/22 00:58 Order name: Troponin I EDMS 04/21 22:38 Order name: EKG - Nurse/Tech; Complete Time: 22:38 lp1 04/21 22:38 Order name: EKG; Complete Time: 22:38 lp1 04/21 23:13 Order name: XRAY Chest (1 view) lp1 04/21 23:13 Order name: Cardiac monitoring; Complete Time: 23:52 lp1 04/21 23:13 Order name: IV Saline Lock; Complete Time: 23:52 lp1 04/21 23:13 Order name: Labs collected and sent; Complete Time: 23:52 lp1 04/21 23:13 Order name: O2 Per Protocol; Complete Time: 23:52 lp1 04/22 00:58 Order name: CONS Physician Consult EDMS 04/22 00:58 Order name: Consistent Carb (ADA) 1800 Clem EDMS 04/22 00:58 Order name: EKG Electrocardiogram EDMS 04/22 00:58 Order name: EKG Electrocardiogram EDMS 04/22 00:58 Order name: EKG Electrocardiogram EDMS 04/22 00:58 Order name: EKG Electrocardiogram EDMS 04/22 01:17 Order name: COVID-19 rr5 04/21 23:13 Order name: O2 Sat Monitoring; Complete Time: 23:52 lp1 Administered Medications: 00:46 Drug: Zofran (Ondansetron) 4 mg Route: IVP; Site: right hand; rr5 01:40 Follow up: Response: No adverse reaction rr5 00:56 Drug: Lasix 20 mg Route: IVP; Site: right hand; rr5 01:40 Follow up: Response: No adverse reaction rr5 Disposition: 04/22/20 00:51 Hospitalization ordered by Adriel Bennett for Observation. Preliminary diagnosis are Chest Pain, CHF Exacerbation. - Bed requested for Telemetry/MedSurg (observation). - Status is Observation. rr5 - Condition is Stable. - Problem is an acute exacerbation. - Symptoms have improved. Signatures: Dispatcher [employer] EDMS Anyi Moore RN RN lp1 Lisa Ortega RN RN cg Medardo Cote RN RN rr5 Stef Martinez MD MD mh7 Corrections: (The following items were deleted from the chart) 01:13 00:51 Hospitalization Ordered by A Sabrina ESPINOZA for Observation. Preliminary diagnosis is cg Chest Pain; CHF Exacerbation. Bed requested for Telemetry/MedSurg (observation). Status is Observation. Condition is Stable. Problem is an acute exacerbation. Symptoms have improved. mh7 01:55 01:13 04/22/2020 00:51 Hospitalization Ordered by A Sabrina ESPINOZA for Observation. rr5 Preliminary diagnosis is Chest Pain; CHF Exacerbation. Bed requested for Telemetry/MedSurg (observation). Status is Observation. Condition is Stable. Problem is an acute exacerbation. Symptoms have improved. cg
[2020-04-22] MEDS ORDERED: ONDANSETRON 4 MG/2 ML VIAL ONE (00:53)
[2020-04-22] MEDS ORDERED: MORPHINE 2 MG/ML SYR IV PRN (00:54)
[2020-04-22] MEDS ORDERED: ACETAMINOPHEN 500 MG TAB PO PRN (00:54)
[2020-04-22] MEDS ORDERED: ONDANSETRON 4 MG/2 ML VIAL IV PRN (00:54)
[2020-04-22] MEDS ORDERED: FUROSEMIDE 20 MG/ 2ML VIAL ONE (01:00)
[2020-04-22] MEDS ORDERED: NA CHLORIDE 0.9% 500 ML ONE (01:55)
[2020-04-22] MEDS ORDERED: PIPER/TAZO/NS 3.375gm 3.375 GM/100 ML BAG ONE (01:55)
[2020-04-22] MEDS ORDERED: GLUCAGON 1 MG/VIAL IM PRN (08:18)
[2020-04-22] MEDS ORDERED: D50W 25 GM/50 ML SYRINGE/VIAL IV PRN (08:18)
[2020-04-22] MEDS: IPRATROPIUM BROM 0.5MG/2.5ML NEB SCH ×3 (08:45→20:35)
[2020-04-22] MEDS: ALBUTEROL 2.5 MG/3 ML NEB SOL NEB SCH ×3 (08:45→20:35)
[2020-04-22] MEDS ORDERED: FUROSEMIDE 40 MG/4 ML VIAL IV SCH (09:00)
[2020-04-22] MEDS: INSULIN -REGULAR HUMAN 50 UNIT/0.5 ML ML SQ SCH ×3 (11:30→21:00)
--- NOTE | 2020-04-22 11:35 | RAD REPORT ---
EXAM DESCRIPTION: RAD - Chest Single View - 04/21/2020 11:48 pm CLINICAL HISTORY: SOB Chest pain. COMPARISON: Chest Single View dated 01/09/2020; Chest Pa And Lat (2 Views) dated 10/02/2019; Chest Sin gle View dated 09/30/2019; Chest Single View dated 09/29/2019 FINDINGS: Portable technique limits examination quality. Mild bilateral pulmonary opacities are present suggesting mild pulmonary edema. The heart is moderate ly enlarged in size. Small left pleural effusion noted.No fracture seen.
[2020-04-22] MEDS ORDERED: carvediloL 6.25 MG TAB PO ONE (14:30)
[2020-04-22] MEDS: RIVAROXABAN 20 MG TABLET PO SCH (16:41)
[2020-04-22] MEDS: FUROSEMIDE 40 MG/4 ML VIAL IV SCH (16:41)
[2020-04-22] MEDS ORDERED: RIVAROXABAN 10 MG TABLET PO SCH (17:00)
[2020-04-22] MEDS ORDERED: RIVAROXABAN 15 MG TABLET PO SCH (17:00)
--- NOTE | 2020-04-22 21:10 | HP ---
Date of Admission: 04/22/2020 Chief Complaint: Chest pain, shortness of breath, leg swelling. History Of Present Illness: This is an 85-year-old female patient living at [facility], came into emergency room with above-mentioned complaints. After the patient was evaluated in the ER, she was admitted to the hospital with congestive heart failure. She was given 1 dose of Lasix 20 mg in the emergency room and 1 dose of antibiotic, Zosyn, in the emergency room and was admitted. ER physician contacted me requesting this admission to the hospital. When I saw her this morning, she was lying in bed, not in distress, appears weaker than normal, but did not answer much details or questions. She did follow simple commands, but has extreme generalized weakness. Allergies: SHE IS ALLERGIC TO CEFTRIAXONE AND IT CAUSE CARDIAC ARREST; CLINDAMYCIN CAUSE NAUSEA; NIFEDIPINE CAUSE LEG SWELLING; REGLAN, DETAILS UNKNOWN; NAPROXEN, DETAILS UNKNOWN; METOLAZONE CAUSE ACUTE KIDNEY INJURY, MYOCLONIC JERKING, AND HYPOKALEMIA. Medications: Tylenol with codeine No.3 she takes p.r.n., ProAir inhaler 2 puffs 4 times a day as needed for shortness of breath, alprazolam 0.5 mg at bedtime as needed for sleep, atorvastatin 20 mg daily in the evening with meals, carvedilol 6.25 mg 2 times a day, citalopram 40 mg daily, Breo Ellipta inhaler 1 puff daily, gabapentin 300 mg 2 times a day, furosemide 40 mg 2 times a day, glipizide 10 mg daily with breakfast, levothyroxine 75 mcg p.o. daily, potassium chloride 10 mEq p.o. 2 times a day, Xarelto 20 mg p.o. daily with evening meal, Januvia 100 mg p.o. daily. Review of Systems: Cardiovascular: As mentioned above. Respiratory: As mentioned above. All other systems reviewed and negative. Past Medical History: Significant for hypothyroidism, type 2 diabetes mellitus, COPD, hypertension, mixed hyperlipidemia, chronic systolic congestive heart failure, paroxysmal atrial fibrillation, diverticulosis, renal cyst, liver cyst, chronic kidney disease stage 3, leg edema, osteoarthritis at multiple sites, anemia, CLL, insomnia. Past Surgical History: Cataract surgery, cholecystectomy, hemorrhoid surgery, hysterectomy, knee surgery, ankle surgery. Family History: Father , had Alzheimer disease, coronary artery disease; mother , had leukemia; brother , had throat cancer; and sister with hypertension. Social History: Prior history of smoking, not at present time. Use of alcohol occasional. Physical Examination: Vital Signs: This morning when I saw her, temperature 97.3, pulse 110, respiratory rate 20, blood pressure 125/85, oxygen saturation 97%. Height 5 feet 3 inches and weight 227 pounds. General: The patient appears weaker than normal, not in any distress. HEENT: Head atraumatic, normocephalic. Conjunctivae nonerythematous. Sclerae white. Mouth, no thrush or edema noted. Ears/Nose, no mass, lesion, discharge noted. Neck: Supple. No JVD, lymph nodes, bruit, thyromegaly noted. Lungs: Bilateral rales noted in lower 2/3rd of both lung moralez. Heart: Normal heart sounds. No murmur or gallop. Abdomen: Soft. Bowel sounds normal. No guarding, rigidity, tenderness, mass, hepatosplenomegaly, distention, or bruit noted. Extremities: Bilateral grade 2 pedal edema. Skin: No rash, ulcer, cellulitis. Lymphatics: No lymph node enlargement in neck, supraclavicular, infraclavicular region. Neuro: No focal neurological deficit. Chest: Unremarkable. External Genitalia: Deferred. Rectal: Deferred. Laboratory Data: White count 5.6, hemoglobin 10.3, platelets 161. INR 1.54. Sodium 142, potassium 4.2, chloride 110, bicarb 25, BUN 12, creatinine 0.95, glucose 156. Total bilirubin 2.1, direct bilirubin 0.7, SGOT 11, SGPT 19, alkaline phosphatase 94. Troponin less than 0.02 x3. ProBNP 7705. Chest x-ray shows bilateral pulmonary opacity indicating pulmonary edema, heart moderately enlarged. Impression: 1. Congestive heart failure, chronic, systolic, with acute exacerbation. 2. Anemia, chronic. 3. Chronic kidney disease stage 3. 4. Hypothyroidism. 5. Type 2 diabetes mellitus. 6. Chronic obstructive pulmonary disease. 7. Hypertension. 8. Mixed hyperlipidemia. 9. Paroxysmal atrial fibrillation. 10. Chronic anticoagulation therapy. 11. Diverticulosis. 12. Osteoarthritis, multiple sites. 13. Insomnia. Plan: We will admit the patient to hospital for further evaluation and management of this problem. The patient is appropriate for inpatient and is expected to spend 2 midnights in the hospital. We will continue her home medications per order. We will continue her antihypertensive medications per order. We will go ahead and manage diabetes with sliding scale and at appropriate time, we will consider to restart oral hypoglycemic medication. Lasix 40 mg IV twice a day will be given. We will monitor electrolytes, renal function. Continue Xarelto per order and I will see her tomorrow for followup. Fall precautions and Physical Therapy consult were ordered. MIGUE/RHEA Voice ID: [id number] MTDD
[2020-04-22] MEDS: ATORVASTATIN 20 MG TAB PO SCH (21:50)
[2020-04-22] MEDS: carvediloL 6.25 MG TAB PO SCH (21:50)
[2020-04-22] MEDS: ALPRAZOLAM 0.25 MG TABLET PO SCH (21:50)
[2020-04-22] MEDS: GABAPENTIN 300 MG CAP PO SCH (21:50)
[2020-04-23] MEDS: ALBUTEROL 2.5 MG/3 ML NEB SOL NEB SCH ×4 (01:20→19:55)
[2020-04-23] MEDS: IPRATROPIUM BROM 0.5MG/2.5ML NEB SCH ×4 (01:20→19:55)
[2020-04-23 04:23] VITALS: BMI 39.0
[2020-04-23 04:41] LABS: Absolute Lymphocytes (CBC) 0.8 K/uL (0.7-4.9); Basophils % 0.6 % (0-1.3); Hematocrit 30.1 % (36.0-45.0); Lymphocytes % 20.2 % (15.3-44.8); RBC Red Blood Cell Count 3.56 M/uL (3.86-4.86)
[2020-04-23 05:14] LABS: Magnesium 2.1 mg/dL (1.8-2.4); Potassium 3.8 mmol/L (3.5-5.1); Thyroid Stimulating Hormone 0.907 uIU/mL (0.360-3.740)
[2020-04-23] MEDS: LEVOTHYROXINE SOD 0.075 MG TAB PO SCH (06:02)
[2020-04-23] MEDS: INSULIN -REGULAR HUMAN 50 UNIT/0.5 ML ML SQ SCH ×4 (07:30→21:00)
[2020-04-23] MEDS: CITALOPRAM 10 MG TABLET PO SCH (08:21)
[2020-04-23] MEDS: FUROSEMIDE 40 MG/4 ML VIAL IV SCH ×2 (08:21→17:13)
[2020-04-23] MEDS: carvediloL 6.25 MG TAB PO SCH ×2 (08:22→21:15)
[2020-04-23] MEDS: GABAPENTIN 300 MG CAP PO SCH ×2 (08:22→21:15)
[2020-04-23] MEDS: POTASSIUM CL SA 10 MEQ TAB PO SCH ×2 (08:22→21:15)
--- NOTE | 2020-04-23 09:32 | CON ---
Reason For Consultation: Ms. Edward is an 85-year-old who was admitted to Dr. Bennett on 04/22/2020 f or congestive heart failure. History Of Present Illness: The patient is an 85-year-old woman has a history of atrial fibrillation , hypothyroidism, hypertension, diabetes, dyslipidemia, COPD, and congestive heart failure, admitted with CHF exacerbation with a BNP of 7705. She was hypoxic with an O2 saturation of 84% on room air. She had a negative troponin. She did have some atypical chest pain with her presentation. Denied a ny nausea, vomiting, diaphoresis. She denied any palpitation or syncope. Denied any fever or chills or cough. Past Medical History: As stated above. Allergies: PROCARDIA, NAPROSYN, CEFTRIAXONE AND CLINDAMYCIN. Review of Systems: Negative. Social History: Negative. Family History: Noncontributory. Medications: At home include Lasix, Xanax, Lipitor, Neurontin, Synthroid, glipizide, Xarelto, Coreg, potassium, and Januvia. Physical Examination: General: Ms. Edward appeared to be feeling much better. She is not having any chest pain or short ness of breath. Vital Signs: Stable. She was in sinus rhythm. She was afebrile. HEENT: Negative. Neck: Supple. No bruit, lymphadenopathy, JVD, or thyromegaly. Chest: Clear to auscultation and percussion. Cardiac: Exam revealed a regular rhythm and rate with an S4 gallops and a tricuspid regurgitation murmur. No rubs. Abdomen: Benign. Extremities: Revealed 1+ edema. Diagnostic Data: As stated earlier. Echocardiogram in September 2019 showed an ejection fraction of 60% with pulmonary hypertension with a right ventricular systolic pressure of 61 mmHg. Impression And Plan: 1.Acute on chronic diastolic congestive heart failure. 2.Chest pain. 3.Diabetes. 4.Chronic obstructive pulmonary disease. 5.Hypertension. 6.Dyslipidemia. 7.Hypothyroidism. 8.Paroxysmal atrial fibrillation and sinus rhythm, on Xarelto. She is also on a beta-german. Assessment And Plan: Ms. Edward has improved since admission. I will continue her present regimen . I will discuss the case further with Dr. Bennett. Whenever she goes home, I will make sure she sees me in the office in the near future. Certainly did not require any cardiac intervention at this point . It would be reasonable for her to have an outpatient Lexiscan and I will make arrangements for amrit BETTENCOURT Voice ID: [id number] Report ID: [id number]
--- NOTE | 2020-04-23 10:46 | PN ---
Date of Progress Note: 04/23/2020 Subjective: The patient was seen this morning for followup. She was lying in bed, not in distress, easily arousable. Overall feels better. Objective: Vital Signs: Reviewed. Blood pressure this morning is 128/70 with pulse 89, temperature 97.8, respiratory rate 18, oxygen saturation 97%. HEENT: Examination unremarkable. Lungs: Bilateral rales present, but overall better today than yesterday. Not in any respiratory dis tress. Heart: Sounds normal. Abdomen: Soft. Bowel sounds normal. No guarding, rigidity, tenderness, or distention. Extremities: Bilateral leg edema present, but better than yesterday. Laboratory Data: White count 4, hemoglobin 9.5, platelets 156. Sodium 142, potassium 3.8, chloride 105, bicarb 33, BUN 12, creatinine 0.89, glucose 115. Hemoglobin A1c 6.2, LDL 58, triglyceride 103, total cholesterol 107, HDL 28, TSH 0.90, magnesium level 2.1. Impression: 1.Congestive heart failure, chronic, systolic, with acute exacerbation. 2.Anemia. 3.Atrial fibrillation. 4.Chronic anticoagulation therapy. 5.Generalized weakness. Plan: We will go ahead and continue current diuretic therapy. Physical therapy to help ambulate the patient. We will go ahead and write potassium replacement order. She takes potassium replacement o n a daily basis at home so we will restart that considering today's potassium value. Continue other current medications. Echocardiogram will be done today and I will evaluate her tomorrow. We will re peat blood work tomorrow. Depending on her blood work tomorrow, we will decide whether she is stable for discharge either tomorrow or day after tomorrow and details were dis cussed with her. MIGUE/MODL Voice ID: [id number] Report ID: [id number]
--- NOTE | 2020-04-23 14:39 | ECHO ---
HEIGHT: 5 ft 3 in WEIGHT: 220 lb 8 oz DATE OF STUDY: 04/23/[address]: Harry Bennett MD 2-DIMENSIONAL: YES M.MODE: YES DOPPLER: YES COLOR FLOW: YES TDS: NO PORTABLE: NO DEFINITY: NO BUBBLE STUDY: NO DIAGNOSIS: CONGESTIVE HEART FAILURE CARDIAC HISTORY: CATHERIZATION: YES SURGERY: NO PROSTHETIC VALVE: NO PACEMAKER: NO MEASUREMENTS (cm) DIASTOLIC (NORMALS) SYSTOLIC (NORMALS) IVSd 1.1 (0.6-1.2) LA Diam 4.3 (1.9-4.0) LVEF 30-35% LVIDd 5.1 (3.5-5.7) LVIDs 3.9 (2.0-3.5) %FS 23% LVPWd 1.2 (0.6-1.2) Ao Diam 2.6 (2.0-3.7) 2 DIMENSIONAL ASSESSMENT: RIGHT ATRIUM: NORMAL LEFT ATRIUM: ENLARGED RIGHT VENTRICLE: NORMAL LEFT VENTRICLE: DEPRESSED EJECTION FRACTION TRICUSPID VALVE: MODERATE TRICUSPID REGURGITATION MITRAL VALVE: MILD MITRAL REGURGITATION PULMONIC VALVE: NORMAL AORTIC VALVE: MILD AORTIC INSUFFICIENCY PERICARDIAL EFFUSION: NONE AORTIC ROOT: NORMAL LEFT VENTRICULAR WALL MOTION: ANTERIOR/ ANTEROSEPTAL AKINESIS. DOPPLER/COLOR FLOW: DIASTOLIC DYSFUNCTION COMMENTS: MODERATELY DEPRESSED LEFT VENTRICULAR EJECTION FRACTION 30-35%. ANTERIOR/ ANTEROSEPTAL WALL AKINESIS. DIASTOLIC DYSFUNCTION. MILD TRICUSPID REGURGITATION, MILD MITRAL REGURGITATION, MILD AORTIC INSUFFICIENCY. MODERATE TO SEVERE PULMONARY HYPERTENSION. RIGHT VENTRICULAR SYSTOLIC PRESSURE OF 55-60mmHg. TECHNOLOGIST: NORMA BOONE
[2020-04-23] MEDS: RIVAROXABAN 20 MG TABLET PO SCH (17:18)
[2020-04-23] MEDS: ALPRAZOLAM 0.25 MG TABLET PO SCH (21:15)
[2020-04-23] MEDS: ATORVASTATIN 20 MG TAB PO SCH (21:15)
[2020-04-24] MEDS: ALBUTEROL 2.5 MG/3 ML NEB SOL NEB SCH ×4 (01:25→19:35)
[2020-04-24] MEDS: IPRATROPIUM BROM 0.5MG/2.5ML NEB SCH ×4 (01:25→19:35)
[2020-04-24 04:41] LABS: Absolute Lymphocytes (CBC) 0.9 K/uL (0.7-4.9); Basophils % 0.7 % (0-1.3); Hematocrit 30.4 % (36.0-45.0); Lymphocytes % 20.6 % (15.3-44.8); MPV 9.5 fL (7.6-11.3); RBC Red Blood Cell Count 3.61 M/uL (3.86-4.86)
[2020-04-24 04:48] LABS: Magnesium 1.8 mg/dL (1.8-2.4); Potassium 3.6 mmol/L (3.5-5.1)
[2020-04-24] MEDS: LEVOTHYROXINE SOD 0.075 MG TAB PO SCH (06:06)
[2020-04-24] MEDS: INSULIN -REGULAR HUMAN 50 UNIT/0.5 ML ML SQ SCH ×4 (07:30→20:25)
--- NOTE | 2020-04-24 08:08 | RAD REPORT ---
EXAM DESCRIPTION: HUDSONYasmint Single View04/24/2020 5:16 am CLINICAL HISTORY: Shortness of breath COMPARISON: April 21 FINDINGS: Bilateral pulmonary opacities appear mostly resolved A small left pleural effusion The heart remains enlarged
[2020-04-24] MEDS: carvediloL 6.25 MG TAB PO SCH ×2 (08:10→20:21)
[2020-04-24] MEDS: POTASSIUM CL SA 10 MEQ TAB PO SCH ×2 (08:10→20:21)
[2020-04-24] MEDS: CITALOPRAM 10 MG TABLET PO SCH (08:10)
[2020-04-24] MEDS: GABAPENTIN 300 MG CAP PO SCH ×2 (08:10→20:21)
[2020-04-24] MEDS: FUROSEMIDE 40 MG/4 ML VIAL IV SCH ×2 (08:11→17:08)
[2020-04-24] MEDS: RIVAROXABAN 20 MG TABLET PO SCH (17:08)
[2020-04-24] MEDS: ALPRAZOLAM 0.25 MG TABLET PO SCH (20:21)
[2020-04-24] MEDS: ATORVASTATIN 20 MG TAB PO SCH (20:21)
--- NOTE | 2020-04-24 22:57 | PN ---
Date of Progress Note: 04/24/2020 Subjective: The patient was seen this morning for followup. No new complaints or problems reported by her. She was sleeping, easily arousable, not in distress. Overall reports that she is feeling mu ch better. Objective: Vital Signs: Reviewed. HEENT: Unremarkable. Lungs: Bilateral good equal air entry. Presence of minimum rales noted in the lower 1/3rd of both l ungs. Overall significantly better than before. Not in respiratory distress. Heart: Sounds normal. Abdomen: Soft. Bowel sounds normal. No guarding, rigidity, tenderness, or distention. Extremities: Bilateral leg edema present, about grade 1, significantly better than upon day of admis carlton. Laboratory Data: White count 4.4, hemoglobin 9.9, platelets 156. Sodium 143, potassium 3.6, chlorid e 103, bicarb 37, BUN 11, creatinine 0.91, glucose 106. Magnesium 1.8. Impression: 1.Chronic systolic congestive heart failure, with acute exacerbation. 2.Anemia, chronic. 3.Hypertension. 4.Type 2 diabetes mellitus. Plan: We will go ahead and continue current medications. Continue Lasix. Ambulation was encouraged . Chest x-ray done today shows significant improvement in her chest finding. Clinically, she is doi ng much better. I will see her tomorrow for followup with possibility of discharge tomorrow. Details were discussed with the patient. MIGUE/MODL Voice ID: [id number] Report ID: [id number]
[2020-04-25] MEDS: ALBUTEROL 2.5 MG/3 ML NEB SOL NEB SCH ×4 (01:05→20:10)
[2020-04-25] MEDS: IPRATROPIUM BROM 0.5MG/2.5ML NEB SCH ×4 (01:05→20:10)
[2020-04-25] MEDS: LEVOTHYROXINE SOD 0.075 MG TAB PO SCH (05:20)
[2020-04-25 07:06] LABS: Potassium 4.1 mmol/L (3.5-5.1)
[2020-04-25] MEDS: INSULIN -REGULAR HUMAN 50 UNIT/0.5 ML ML SQ SCH ×4 (07:30→20:56)
[2020-04-25] MEDS: SACUBITRIL/VALSARTAN 24/26 MG TAB PO SCH ×2 (09:14→21:09)
[2020-04-25] MEDS: GABAPENTIN 300 MG CAP PO SCH ×2 (09:14→21:09)
[2020-04-25] MEDS: POTASSIUM CL SA 10 MEQ TAB PO SCH ×2 (09:14→21:09)
[2020-04-25] MEDS: CITALOPRAM 10 MG TABLET PO SCH (09:15)
[2020-04-25] MEDS: carvediloL 6.25 MG TAB PO SCH ×2 (09:15→21:28)
[2020-04-25] MEDS: RIVAROXABAN 20 MG TABLET PO SCH (16:55)
[2020-04-25] MEDS: ATORVASTATIN 20 MG TAB PO SCH (21:09)
[2020-04-25] MEDS: ALPRAZOLAM 0.25 MG TABLET PO SCH (21:09)
--- NOTE | 2020-04-25 21:34 | PN ---
Date of Progress Note: 04/25/2020 Subjective: The patient was seen this morning for followup. She was sleeping, easily arousable, not in any distress. Objective: Vital Signs: Reviewed. HEENT: Unremarkable. Lungs: Clear to auscultation except minimum basal rales that were noted yesterday, have improved, an d lungs are almost completely clear now. Heart: Sounds normal. Abdomen: Soft. Bowel sounds normal. No guarding, rigidity, tenderness, or distention. Extremities: Trace leg edema, significantly better than before. Diagnostic Studies: 150, potassium 4.1, chloride 108, bicarb 36, BUN 16, creatinine 0.97, glucose 116, magnesium 2. Impression: 1.Congestive heart failure, chronic, systolic, with acute exacerbation. 2.Chronic obstructive pulmonary disease. 3.Hypoxia. 4.Type 2 diabetes mellitus. Plan: The patient's echocardiogram revealed ejection fraction 30% to 35%. We will go ahead and hold IV Lasix today considering her elevated sodium level. We will start her on Entresto. Her room air oxygen saturation was low and she qualifies for home oxygen. Social Service was consulted for home o xygen arrangements and now we will plan to discharge her to go home tomorrow after we repeat blood work. Provided her electrolytes, jimmy kennedy tomorrow. MIGUE/MODL Voice ID: [id number] Report ID: [id number]
--- OUTSIDE RECORDS SUMMARY | 2020-04-25 23:38 | XMS REPORT | Summary of Care ---
:1935 Author Organization [facility] Address [address] [place] [address] Care Team Providers Name Role Phone Arthur Herrera Callie Primary Care Provider Will Sy PAC Unavailable Reason for Visit Reason Comments Error Encounter Details Date Type Department Care Team Description 01/26/2020 Telephone [facility] Wiley tello, DEEDEE May [address] [place] [address] [place] [address] [phone] Allergies Active Allergy Reactions Severity Noted Date Comments Clindamycin Unknown - See comments 11/05/2016 Does not recall Naproxen Unknown - See comments 11/05/2016 Does not recall Nifedipine Unknown - See comments 11/05/2016 Doesn 't recall Metoclopramide Hcl Unknown - See comments 11/05/2016 Dose not recall Ceftriaxone Sodium Unknown - See comments 11/05/2016 Does not recall documented as of this encounter (statuses as of 01/27/2020) Medications Medication Sig Dispensed Refills Start Date End Date Status glipiZIDE 10 mg tablet TAKE ONE (1) 0 11/01/2016 Active TABLET(S) BY MOUTH ONCE A DAY. TRADJENTA 5 mg tablet TAKE ONE (1) 0 10/29/2016 Active TABLET(S) BY MOUTH ONCE A DAY. gabapentin 300 mg 0 10/26/2016 A ctive capsule NAMENDA XR 14 mg capsule TAKE ONE (1) 0 10/29/2016 Active CAPSULE(S) BY MOUTH ONCE A DAY. NAMENDA XR 7 mg capsule 0 09/24/2016 Active citalopram 40 mg tablet 0 10/26/2016 Active carvedilol 6.25 mg 0 10/26/2016 Active tablet cholestyramine 4 gram 0 10/06/2016 Active packet rivaroxaban (XARELTO) 15 Take 15 mg by 0 Active mg tablet mouth 2 (two) times daily. atorvastatin 20 mg Take 20 mg by 0 Active tablet mouth at bedtime. omeprazole 20 mg capsule Take 20 mg by 0 Active mouth daily. celecoxib (CELEBREX) 200 Take 200 mg by 0 Active mg capsule mouth daily. estradiol 0.05 mg/24 hr Apply 1 Patch to 0 Active twice weekly patch skin. Ekzjg-8-ZZU-EPA-Fish Oil Take by mouth. 0 Active (FISH OIL) 1,000 mg (120 mg-180 mg) Cap FOLIC Take by mouth. 0 Acti ve ACID/MULTIVIT-MIN/LUTEIN (CENTRUM SILVER ORAL) Ascorbate Take by mouth. 0 Acti ve Ts-Jboxccizc-Bgn (VITAMIN C) 1,000 mg PwEP CALCIUM Take by mouth. 0 Acti ve CARBONATE/VITAMIN D2 (CALCIUM 600 + D ORAL) traMADOL 50 mg tablet Take 1 tablet by 40 tablet 0 11/05/2016 Active mouth every 4 (four) hours as needed for Pain (scale 7-10). documented as of this encounter (statuses as of 01/27/2020) Active Problems Not on filedocumented as of this encounter (statuses as of 01/27/2020) Social History Tobacco Use Types Packs/Day Years Used Date Never Smoker Alcohol Use Drinks/Week oz/Week Comments No Sex Assigned at Date Recorded Not on file Job Start Date Occupation Industry Not on file Not on file Not on file Travel History Travel Start Travel End No recent travel history available. documented as of this encounter Last Filed Vital Signs Not on filedocumented in this encounter Plan of Treatment Health Maintenance Due Date Last Done Comments DTaP,Tdap,and Td Vaccines (1 - Tdap) 1944 Depression Screening 1945 Zoster Recombinant Vaccine (SHINGRIX) (1 of 2) 1983 Osteoporosis Screening 1998 PNEUMOCOCCAL VACCINES 65+ (1 of 2 - PCV13) 1998 INFLUENZA VACCINE (#1) 2020 documented as of this encounter Results Not on filedocumented in this encounter Insurance Payer Benefit Plan / Subscriber ID Effective Dates Phone Addre ss Type Group MEDICARE MEDICARE PART A xxxxxxxxxx 1998-Loree [phone] [address] [facility] Medicare & B t 82 [id number] [place] [address] AETNA AETNA INDEMNITY [id number] 2013-Loree Morejon t documented as of this encounter
--- OUTSIDE RECORDS SUMMARY | 2020-04-25 23:38 | XMS REPORT | Continuity of Care Document ---
:1935 Author Organization [facility] t Address [address] [place] [address] Care Team Providers Name Role Phone Gene MARK Attending Clinician Only, Test Attending Clinician Unavailable Juan ESPINOZA Attending Clinician Doctor Unassigned, Name Attending Clinician Unavailable Payers Payer Name Policy Type Policy Number Effective Date Expiration Date S ource Problems This patient has no known problems. Allergies, Adverse Reactions, Alerts This patient has no known allergies or adverse reactions. Medications This patient has no known medications. Procedures This patient has no known procedures. Encounters Start End Encounter Admission Attending Care Care Encounter Source Date/Time Date/Time Type Type Clinicians Facility Department ID 2020-01-26 2020-01-26 Telephone [facility]ira [facility] 1.2.840.114 [id number] 00:00:00 00:00:00 [facility] [id number] [facility] 4.2.7.2.686 UNIT [id number] 2020-01-20 2020-01-20 Laboratory Only, [facility] 1.2.840.114 [id number] 10:09:06 10:09:22 Only Test [place] 350.1.13.10 [place] 4.2.7.2.686 [facility] [id number] 2020-01-19 2020-01-19 [facility] EDUARDO Martinez 1.2.840.114 [id number] 08:50:00 23:59:00 Encounter Armen Ramos [id number] [facility] [id number] [id number] 2020-01-19 2020-01-19 Orders Doctor ELLIE [id number] 00:00:00 00:00:00 Only Unassigned, [place]AM[place] 350.1.13.10 [place] [address]2.686 [id number] Results Test Description Test Time Test Comments Results Result [facility] e Comments - MRI LW JNT W/O 2018-12-01 Patient Name: CONT RT 09:49:00 RANDI CEVALLOS Unit No: [id number] EXAMS: CPT CODE: [id number] MRI LW JNT W/[place] [id number] TECHNIQUE: Multiplanar, multisequence MRI of the right [...] CC: Tacho Camacho MD Technologist: LLOYD MCINTYRE Transcribed D/ (0949) [facility] NAME: RANDI CEVALLOS [address] [place] [address] PHYS: Tacho Briggs MD : 1935 AGE: 83 SEX: F [place] [address] LOC: Y.MRI PHONE #: [phone] EXAM DATE: 11/30/2018 STATUS: DEP CLI FAX #: [phone] RAD #: D/C DT PAGE 1 Signed Report Patient Name: RANDI CEVALLOS Unit No: [id number] EXAMS: CPT CODE: [id number] MRI LW JNT W/[place] [id number] <Continued> Orig Print D/T: S: 12/01/2018 (0952) [facility] NAME: RANDI CEVALLOS [address] [place] [address] PHYS: Tacho Briggs MD : 1935 AGE: 83 SEX: F [place] [address] LOC: Y.MRI PHONE #: [phone] EXAM DATE: 11/30/2018 STATUS: DEP CLI FAX #: [phone] RAD #: D/C DT PAGE 2 Signed Report
--- OUTSIDE RECORDS SUMMARY | 2020-04-25 23:39 | XMS REPORT | Summary of Care ---
:1935 Author Organization [facility] - Health Address [address] [place] [address] Care Team Providers Name Role Phone Arthur Herrera Callie Primary Care Provider Will Sy PAC Unavailable Encounter Details Date Type Department Care Team Description 01/19/2020 Orders Only [facility] Doctor Unassigned, No [address] [facility] [place] [address] [address] [place] [address] Allergies Active Allergy Reactions Severity Noted Date Comments Clindamycin Unknown - See comments 11/05/2016 Does not recall Naproxen Unknown - See comments 11/05/2016 Does not recall Nifedipine Unknown - See comments 11/05/2016 Doesn 't recall Metoclopramide Hcl Unknown - See comments 11/05/2016 Dose not recall Ceftriaxone Sodium Unknown - See comments 11/05/2016 Does not recall documented as of this encounter (statuses as of 01/30/2020) Medications Medication Sig Dispensed Refills Start Date [...] to 0 Active twice weekly patch skin. Otdqx-6-APJ-EPA-Fish Oil Take by mouth. 0 Active (FISH OIL) 1,000 mg (120 mg-180 mg) Cap FOLIC Take by mouth. 0 Acti ve ACID/MULTIVIT-MIN/LUTEIN (CENTRUM SILVER ORAL) Ascorbate Take by mouth. 0 Acti ve Ym-Wdcebndfn-Lzv (VITAMIN C) 1,000 mg PwEP CALCIUM Take by mouth. 0 Acti ve CARBONATE/VITAMIN D2 (CALCIUM 600 + D ORAL) traMADOL 50 mg tablet Take 1 tablet by 40 tablet 0 11/05/2016 Active mouth every 4 (four) hours as needed for Pain (scale 7-10). documented as of this encounter (statuses as of 01/30/2020) Active Problems Not on filedocumented as of this encounter (statuses as of 01/30/2020) Social History Tobacco Use Types Packs/Day Years [...] (#1) 2020 documented as of this encounter Procedures Procedure Name Priority Date/Time Associated Diagnosis Comme nts HOME HEALTH - OTHER Routine 01/19/2020 12:01 AM CDT documented in this encounter Results Not on filedocumented in this encounter Additional Health Concerns Infection Onset Date Last Indicated Resolved Time COVID-19 Rule Out 01/20/2020 01/19/2020 01/20/2020 8: 23 PM CDT documented as of this encounter Insurance Payer Benefit Plan / Subscriber ID Effective Dates Phone Addre ss Type Group MEDICARE MEDICARE PART A xxxxxxxxxx 1998-Loree [phone] [address] Medicare & B t 82 [id number] [place] [address] AETNA AETNA INDEMNITY [id number] 2013-Loree villegas documented as of this encounter
--- OUTSIDE RECORDS SUMMARY | 2020-04-25 23:39 | XMS REPORT | Summary of Care ---
:1935 Author Organization [facility] Address [address] [place] [address] Care Team Providers Name Role Phone Jaswinderscarlet Arthur Callie Primary Care Provider Will Sy PAC Unavailable Encounter Details Date Type Department Care Team Description 01/19/2020 Hospital Encounter [facility] LAB Specimen Armen Martinez, Marcia-Ira perez MD [address] [place] [id number] [place] [address] Allergies Active Allergy Reactions Severity Noted Date Comments Clindamycin Unknown - See comments 11/05/2016 Does not recall Naproxen Unknown - See comments 11/05/2016 Does not recall Nifedipine Unknown - See comments 11/05/2016 Doesn 't recall Metoclopramide Hcl Unknown - See comments 11/05/2016 Dose not recall Ceftriaxone Sodium Unknown - See comments 11/05/2016 Does not recall documented as of this encounter (statuses as of 04/11/2020) Medications Medication Sig Dispensed Refills Start Date [...] to 0 Active twice weekly patch skin. Sdiri-2-JNW-EPA-Fish Oil Take by mouth. 0 Active (FISH OIL) 1,000 mg (120 mg-180 mg) Cap FOLIC Take by mouth. 0 Acti ve ACID/MULTIVIT-MIN/LUTEIN (CENTRUM SILVER ORAL) Ascorbate Take by mouth. 0 Acti ve Wl-Cvvqriigw-Upz (VITAMIN C) 1,000 mg PwEP CALCIUM Take by mouth. 0 Acti ve CARBONATE/VITAMIN D2 (CALCIUM 600 + D ORAL) traMADOL 50 mg tablet Take 1 tablet by 40 tablet 0 11/05/2016 Active mouth every 4 (four) hours as needed for Pain (scale 7-10). documented as of this encounter (statuses as of 04/11/2020) Active Problems Not on filedocumented as of this encounter (statuses as of 04/11/2020) Social History Tobacco Use Types Packs/Day Years Used Date Never Smoker Alcohol Use Drinks/Week oz/Week Comments No Sex Assigned at Date Recorded Not on file documented as of this encounter Last Filed Vital Signs Not on filedocumented in this encounter Plan of Treatment Health Maintenance Due Date Last Done Comments Depression Screening 1945 DTaP,Tdap,and Td Vaccines (1 - Tdap) 1952 Zoster Recombinant Vaccine (SHINGRIX) (1 of 2) 1983 Medicare Wellness Visit 1998 Osteoporosis Screening 1998 PNEUMOCOCCAL VACCINES 65+ (1 of 1 - PPSV23) 1998 INFLUENZA VACCINE (#1) 2020 documented as of this encounter Results Not on filedocumented in this encounter Insurance Payer Benefit Plan / Subscriber ID Effective Dates Phone Addre ss Type Group MEDICARE MEDICARE PART A [id number] 1998-Loree [phone] [address] Medicare & B t 82 [id number] [place] [id number] AETNA AETNA INDEMNITY [id number] 2013-Loree villegas documented as of this encounter
[2020-04-26] MEDS: ALBUTEROL 2.5 MG/3 ML NEB SOL NEB SCH ×2 (01:15→08:14)
[2020-04-26] MEDS: IPRATROPIUM BROM 0.5MG/2.5ML NEB SCH ×2 (01:15→08:14)
[2020-04-26 04:40] LABS: Potassium 4.3 mmol/L (3.5-5.1)
[2020-04-26] MEDS: LEVOTHYROXINE SOD 0.075 MG TAB PO SCH (06:08)
[2020-04-26] MEDS: INSULIN -REGULAR HUMAN 50 UNIT/0.5 ML ML SQ SCH (07:30)
[2020-04-26 09:04] VITALS: O2SAT 98
[2020-04-26 09:44] VITALS: TEMP 97
[2020-04-26] MEDS: carvediloL 6.25 MG TAB PO SCH (10:32)
[2020-04-26] MEDS: GABAPENTIN 300 MG CAP PO SCH (10:32)
[2020-04-26] MEDS: SACUBITRIL/VALSARTAN 24/26 MG TAB PO SCH (10:32)
[2020-04-26] MEDS: POTASSIUM CL SA 10 MEQ TAB PO SCH (10:32)
[2020-04-26] MEDS: CITALOPRAM 10 MG TABLET PO SCH (10:32)
[2020-04-26] MEDS: FUROSEMIDE 40 MG/4 ML VIAL IV SCH (10:33)
[2020-04-26 10:44] VITALS: BP 120/60
== END 2020-04-26 11:01 | disposition home or self-care (01) | DRG 291 ==
LOC: ER 21:59 → OBSVTOIN 04-22 00:58 → INTOOBSV 04-22 00:58 → ERHOLD 04-22 00:58 → 2ND 04-22 01:34 → OBSVTOIN 04-22 22:10
PROVIDERS: ADMIT Internal Medicine; ATTEND Internal Medicine
DX: I13.0 Hypertensive heart and chronic kidney disease with heart failure and stage 1 through stage 4 chronic kidney disease, or unspecified chronic kidney disease (principal); I50.23 Acute on chronic systolic (congestive) heart failure; N18.30 Chronic kidney disease, stage 3 unspecified; E11.22 Type 2 diabetes mellitus with diabetic chronic kidney disease; E03.9 Hypothyroidism, unspecified; E78.2 Mixed hyperlipidemia; K57.90 Diverticulosis of intestine, part unspecified, without perforation or abscess without bleeding; I48.0 Paroxysmal atrial fibrillation; G47.00 Insomnia, unspecified; M19.90 Unspecified osteoarthritis, unspecified site; D64.9 Anemia, unspecified; J44.9 Chronic obstructive pulmonary disease, unspecified; Z90.49 Acquired absence of other specified parts of digestive tract; Z90.710 Acquired absence of both cervix and uterus; Z79.84 Long term (current) use of oral hypoglycemic drugs; Z79.890 Hormone replacement therapy; Z79.899 Other long term (current) drug therapy; Z88.8 Allergy status to other drugs, medicaments and biological substances; Z88.1 Allergy status to other antibiotic agents; Z87.891 Personal history of nicotine dependence; Z79.01 Long term (current) use of anticoagulants; Z20.828 Contact with and (suspected) exposure to other viral communicable diseases
CPT/HCPCS: 36415; 71045; 80048; 80061; 80076; 82947; 83036; 83735; 83880; 84443; 84484; 85025; 85610; 93005; 93306; 94640; 96374; 96375; 97116; 97161; 97530; 99285; J1940; J2405; J2543; J7040; U0002

== ENCOUNTER 2020-09-26 01:30 | Inpatient (IN) | payer OTHER ==
--- OUTSIDE RECORDS SUMMARY | 2020-09-26 01:32 | XMS REPORT | Continuity of Care Document ---
:1935 Author Organization [facility] t Address [address] [place] [address] Care Team Providers Name Role Phone Gene [...] ID 2020-01-26 2020-01-26 Telephone [facility] [place] 1.2.840.114 [id number] 00:00:00 00:00:00 [facility] 350.1.13.10 [facility] 4.2.7.2.686 UNIT [id number] 2020-01-20 2020-01-20 Laboratory Only, [facility] 1.2.840.114 [id number] 10:09:06 10:09:22 Only Test [place] 350.1.13.10 [place] 4.2.7.2.686 [place] [id number] 2020-01-19 2020-01-19 [facility] EDUARDO Martinez 1.2.840.114 7 [id number] 08:50:00 23:59:00 Encounter Armen Ramos 350.1.13.10 [facility] 4.2.7.2.686 [id number] 2020-01-19 2020-01-19 Orders Doctor ELLIE 1.2.840.114 [id number] 00:00:00 00:00:00 Only Unassigned, TAMI 350.1.13.10 [place] [id number] [id number] Results Test Description Test Time Test Comments Results Result [facility] e Comments - MRI LW JNT W/O 2018-12-01 Patient Name: CONT RT 09:49:00 RANDI CEVALLOS Unit No: [id number] EXAMS: CPT CODE: [id number] MRI LW JNT W/[place] [id number] TECHNIQUE: Multiplanar, multisequence MRI of the right [...] LLOYD MCINTYRE MRI Transcribed D/ (0949) [facility] NAME: RANDI CEVALLOS [address] [place] [address] PHYS: Tacho Briggs MD : 1935 AGE: 83 SEX: F [place] [address] LOC: Y.MRI PHONE #: [phone] EXAM DATE: 11/30/2018 STATUS: DEP CLI FAX #: [phone] RAD #: D/C DT PAGE 1 Signed Report Patient Name: RANDI CEVALLOS Unit No: [id number] EXAMS: CPT CODE: [id number] MRI LW JNT W/[place] [id number] <Continued> Orig Print D/T: S: 12/01/2018 (0952) [facility] NAME: RANDI CEVALLOS [address] [place] [address] PHYS: Tacho Briggs MD : 1935 AGE: 83 SEX: F [place] [address] LOC: Y.MRI PHONE #: [phone] EXAM DATE: 11/30/2018 STATUS: DEP CLI FAX #: [phone] RAD #: D/C DT PAGE 2 Signed Report
[2020-09-26] MEDS ORDERED: NA CHLORIDE 0.9% 1,000 ML ONE (02:10)
[2020-09-26 02:20] LABS: Basophils % 0.5 % (0-1.3); Hematocrit 32.3 % (36.0-45.0); Lymphocytes % 14.7 % (15.3-44.8); MPV 10.1 fL (7.6-11.3); RBC Red Blood Cell Count 3.84 M/uL (3.86-4.86)
[2020-09-26 02:24] LABS: Protime INR 1.2
[2020-09-26 02:38] LABS: BUN Blood Urea Nitrogen 20 mg/dL (7-18); Bicarbonate 25 mmol/L (21-32); Glucose Level 156 mg/dL (74-106); Potassium 4.4 mmol/L (3.5-5.1); Sodium Level 139 mmol/L (136-145)
[2020-09-26 02:39] LABS: ALT/SGPT 13 U/L (12-78); AST/SGOT 11 U/L (15-37); Albumin 3.5 g/dL (3.4-5.0); Alkaline Phosphatase 95 U/L (45-117); Amylase 29 U/L (25-115); Bilirubin Direct 0.5 mg/dL (0-0.2); Bilirubin Total 1.4 mg/dL (0.2-1.0); CKMB Creatine Kinase MB 1.2 ng/mL (0.3-3.6); Creatine Phosphokinase 110 U/L (26-192); Lipase 103 U/L (73-393); Protein, Total 7.1 g/dL (6.4-8.2); Troponin (Emerg Dept Use Only) < 0.02 ng/mL (0.0-0.045)
[2020-09-26 03:12] LABS: NT PRO-BNP 4218 pg/mL (<450)
[2020-09-26 03:13] LABS: Urine Blood TRACE (NEG); Urine Glucose NEGATIVE (NEG); Urine Protein NEGATIVE (NEG); Urine Specific Gravity 1.025 (1.005-1.030)
[2020-09-26 03:17] LABS: Urine Bacteria <20 /HPF (<20); Urine RBC <5 /HPF (NONE SEEN); Urine Urothelial Cells <5 /HPF (NONE SEEN)
[2020-09-26 03:31] LABS: SARS-COV-2 RT PCR NEGATIVE (NEGATIVE)
[2020-09-26] MEDS ORDERED: VANCOMYCIN 1 GM/VIAL ONE (03:38)
[2020-09-26] MEDS ORDERED: NA CHLORIDE 0.9% 250 ML ONE (03:38)
--- NOTE | 2020-09-26 04:30 | ER ---
Nurse's Notes [facility] Name: Karen Edward Age: 85 yrs Sex: Female : 1935 Arrival Date: 09/26/2020 Time: 01:32 Bed 2 Private MD: Diagnosis: Cellulitis-Right Foot;CHF Exacerbation;UTI Presentation: 09/26 01:33 Chief complaint: EMS states: she has fever and cough for few days, this morning she was mg2 at [facility] and was prescribed with bactrim for right foot cellulitis. was given xanax and tylenol at home by the family prior to arrival. Coronavirus screen: Client denies travel out of the [place] in the last 14 days. Client presents with at least one sign or symptom that may indicate coronavirus-19. Standard/surgical mask placed on the client. Provider contacted for isolation considerations. Ebola Screen: No symptoms or risks identified at this time. Initial Sepsis Screen: Does the patient meet any 2 criteria? Temp <36.0*C (96.8*F)) or > 38.3*C (100.9*F). Altered Mental Status. Does the patient have a suspected source of infection? Yes: Productive cough/pneumonia. Risk Assessment: Do you want to hurt yourself or someone else? Patient reports no desire to harm self or others. Onset of symptoms was September 26, 2020. 01:33 Method Of Arrival: EMS: [facility] mg2 01:33 Acuity: TOBY 2 mg2 Triage Assessment: 02:00 Neuro: Level of Consciousness is awake, alert, obeys commands. Cardiovascular: mg2 Capillary refill < 3 seconds Patient's skin is warm and dry. Respiratory: Reports cough that is. Respiratory: Airway is patent Respiratory effort is even, unlabored, Respiratory pattern is regular, symmetrical, Breath sounds with rhonchi. GI: No signs and/or symptoms were reported involving the gastrointestinal system. : No signs and/or symptoms were reported regarding the genitourinary system. Derm: Skin redness spreading to her right leg. Musculoskeletal: Capillary refill < 3 seconds. 05:35 General: Appears in no apparent distress. comfortable, Behavior is calm, cooperative. mg2 Pain: Denies pain. 05:35 EENT: No deficits noted. mg2 Historical: - Allergies: 02:22 Clindamycin; mg2 02:22 Naproxen; mg2 02:22 Procardia; mg2 02:22 Reglan; mg2 02:22 Rocephin; mg2 - PMHx: 02:22 Asthma; CHF; Diabetes - NIDDM; Hyperlipidemia; Hypertension; Hypothyroidism; mg2 - Immunization history:: Flu vaccine status is unknown. - Social history:: Smoking status: unknown. Screenin:05 Abuse screen: Denies threats or abuse. Denies injuries from another. Nutritional mg2 screening: No deficits noted. Tuberculosis screening: No symptoms or risk factors identified. Fall Risk None identified. IV access (20 points). Assessment: 02:53 General: Appears in no apparent distress. comfortable. mg2 Vital Signs: 01:33 BP 148 / 56; Pulse 86; Resp 18; Temp 100.9; Pulse Ox 97% on 2 lpm NC; mg2 02:16 Weight 99.79 kg; Height 5 ft. 3 in. (160.02 cm); mg2 04:24 BP 125 / 51; Pulse 78; Resp 18; Temp 98.4; Pulse Ox 99% on R/A; mg2 05:36 BP 125 / 64; Pulse 79; Resp 18; Pulse Ox 98% on 2 lpm NC; mg2 02:16 Body Mass Index 38.97 (99.79 kg, 160.02 cm) mg2 ED Course: 01:32 Patient arrived in ED. mw2 01:33 Stef Martinez MD is Attending Physician. mh7 01:37 Wes Poon, JEANNETTE is Primary Nurse. mg2 01:45 Inserted saline lock: 20 gauge in left wrist, using aseptic technique. Blood collected. mg2 02:19 Triage completed. mg2 02:23 Arm band placed on. mg2 02:35 Chest Single View XRAY In Process Unspecified. EDMS 02:35 Foot Right 3 View XRAY In Process Unspecified. EDMS 02:35 COVID swab sent to lab. Flu and/or RSV swab sent to lab. rr5 02:41 Urine collected: straight cath specimen, clear. rr5 04:28 Adriel Bennett MD is Hospitalizing Provider. mh7 05:06 No provider procedures requiring assistance completed. mg2 05:17 Patient has correct armband on for positive identification. mg2 05:17 Patient admitted, IV remains in place. mg2 08:10 Primary Nurse role handed off by Wes PoonJEANNETTE bd 09:27 Jaime Molina, RN is Primary Nurse. bp Administered Medications: 02:16 Drug: NS 0.9% (30 ml/kg) 30 ml/kg Route: IV; Rate: bolus; Site: left wrist; mg2 05:05 Follow up: Response: No adverse reaction; IV Status: Completed infusion; IV Intake: mg2 1000ml 02:27 CANCELLED (wrong order): Tylenol 1000 mg PO once mh7 03:26 Drug: vancoMYCIN 1 grams Route: IVPB; Infused Over: 2 hrs; Site: left wrist; mg2 05:56 Follow up: IV Status: Completed infusion; IV Intake: 250ml mg2 05:00 Drug: Lasix 20 mg Route: IVP; Site: left wrist; mg2 05:56 Follow up: Response: No adverse reaction mg2 05:30 Drug: LevaQUIN 500 mg Volume: 100 ml; Route: IVPB; Infused Over: 60 mins; Site: left mg2 wrist; Intake: 05:05 IV: 1000ml; Total: 1000ml. mg2 05:56 IV: 250ml; Total: 1250ml. mg2 Outcome: 04:30 Decision to Hospitalize by Provider. 7 05:17 Condition: good mg2 11:43 Patient left the ED. bp Signatures: Dispatcher [employer] EDMS bonitabirdieTaisha bd Jaime Molina RN RN bp Daniela Cook mw2 Wes Poon RN RN mg2 Medardo Cote RN RN rr5 Stef Martinez MD MD 7 Corrections: (The following items were deleted from the chart) 05:17 05:16 Inserted mg2 mg2 05:35 02:40 Inserted saline lock: 20 gauge in left wrist, using aseptic technique. Blood mg2 collected. mg2 06:35 02:00 Respiratory: Airway is patent Respiratory effort is even, unlabored, Respiratory mg2 pattern is regular, symmetrical, Breath sounds are clear mg2
--- NOTE | 2020-09-26 04:31 | EDPHYS ---
Physician Documentation [facility] Name: Karen Edward Age: 85 yrs Sex: Female : 1935 Arrival Date: 09/26/2020 Time: 01:32 Bed 2 Private MD: ED Physician Stef Martinez HPI: 09/26 02:24 This 85 yrs old Female presents to ER via EMS with complaints of Fever. mh7 02:25 The patient reports fever, not measured (subjective). mh7 02:26 Onset: The symptoms/episode began/occurred 2 day(s) ago. Modifying factors: there are mh7 no obvious modifying factors. 02:27 Associated signs and symptoms: Pertinent positives: cough, that is dry, Right foot mh7 infection, Pertinent negatives: abdominal pain, arthralgias, backache, chest pain, chills, diarrhea, pulling at ears, earache, headache, hemoptysis, myalgias, nausea, night sweats, runny nose, sinus congestion, sinus drainage, skin rash, shortness of breath, sore throat, swelling, vomiting. Severity of symptoms: At their worst the symptoms were moderate today, in the emergency department the symptoms are unchanged. Seen at outside ED yesterday and treated for right foot cellulitis. Historical: - Allergies: 02:22 Clindamycin; mg2 02:22 Naproxen; mg2 02:22 Procardia; mg2 02:22 Reglan; mg2 02:22 Rocephin; mg2 - PMHx: 02:22 Asthma; CHF; Diabetes - NIDDM; Hyperlipidemia; Hypertension; Hypothyroidism; mg2 - Immunization history:: Flu vaccine status is unknown. - Social history:: Smoking status: unknown. ROS: 02:27 Eyes: Negative for injury, pain, redness, and discharge, ENT: Negative for injury, mh7 pain, and discharge, Neck: Negative for injury, pain, and swelling, Cardiovascular: Negative for chest pain, palpitations, and edema, Abdomen/GI: Negative for abdominal pain, nausea, vomiting, diarrhea, and constipation, Back: Negative for injury and pain, : Negative for injury, bleeding, discharge, and swelling, Neuro: Negative for headache, weakness, numbness, tingling, and seizure, Psych: Negative for depression, anxiety, suicide ideation, homicidal ideation, and hallucinations, Allergy/Immunology: Negative for hives, rash, and allergies, Endocrine: Negative for neck swelling, polydipsia, polyuria, polyphagia, and marked weight changes, Hematologic/Lymphatic: Negative for swollen nodes, abnormal bleeding, and unusual bruising. Exam: 02:27 Constitutional: This is a well developed, well nourished patient who is awake, alert, mh7 and in no acute distress. Head/Face: Normocephalic, atraumatic. Eyes: Pupils equal round and reactive to light, extra-ocular motions intact. Lids and lashes normal. Conjunctiva and sclera are non-icteric and not injected. Cornea within normal limits. Periorbital areas with no swelling, redness, or edema. Neck: Trachea midline, no thyromegaly or masses palpated, and no cervical lymphadenopathy. Supple, full range of motion without nuchal rigidity, or vertebral point tenderness. No Meningismus. Chest/axilla: Normal chest wall appearance and motion. Nontender with no deformity. No lesions are appreciated. 02:27 Abdomen/GI: Soft, non-tender, with normal bowel sounds. No distension or tympany. No guarding or rebound. No evidence of tenderness throughout. Back: No spinal tenderness. No costovertebral tenderness. Full range of motion. 02:27 Neuro: Awake and alert, GCS 15, oriented to person, place, time, and situation. Cranial nerves II-XII grossly intact. Motor strength 5/5 in all extremities. Sensory grossly intact. Cerebellar exam normal. Normal gait. Psych: Awake, alert, with orientation to person, place and time. Behavior, mood, and affect are within normal limits. 02:27 Respiratory: the patient does not display signs of respiratory distress, Respirations: normal, Breath sounds: rhonchi, that are mild, are scattered, Respiratory rate: 18 02:27 Musculoskeletal/extremity: Extremities: noted in the right foot: erythema, ROM: intact in all extremities. 02:27 Skin: cellulitis, that is moderate, on the right foot. Vital Signs: 01:33 BP 148 / 56; Pulse 86; Resp 18; Temp 100.9; Pulse Ox 97% on 2 lpm NC; mg2 02:16 Weight 99.79 kg; Height 5 ft. 3 in. (160.02 cm); mg2 04:24 BP 125 / 51; Pulse 78; Resp 18; Temp 98.4; Pulse Ox 99% on R/A; mg2 05:36 BP 125 / 64; Pulse 79; Resp 18; Pulse Ox 98% on 2 lpm NC; mg2 02:16 Body Mass Index 38.97 (99.79 kg, 160.02 cm) mg2 MDM: 04:27 Differential diagnosis: viral Infection, bacterial infection, pneumonia Cellulitis, mh7 CHF. Data reviewed: vital signs, nurses notes, EMS record, old medical records, lab test result(s), cardiac enzymes, CBC, electrolytes, urinalysis, EKG, radiologic studies, plain films. Data interpreted: Pulse oximetry: on room air is 99 %. Interpretation: normal. Counseling: I had a detailed discussion with the patient and/or guardian regarding: the historical points, exam findings, and any diagnostic results supporting the discharge/admit diagnosis, lab results, radiology results, the need for further work-up and treatment in the hospital. Response to treatment: the patient's symptoms have mildly improved after treatment. 04:30 Patient medically screened. mh7 09/26 01:38 Order name: Amylase, Serum mg2 09/26 01:38 Order name: Basic Metabolic Panel mg2 09/26 01:38 Order name: Blood Culture Adult (2) mg2 09/26 01:38 Order name: CBC with Diff mg2 09/26 01:38 Order name: Ckmb mg2 09/26 01:38 Order name: CPK mg2 09/26 01:38 Order name: Lactate mg2 09/26 01:38 Order name: LFT's mg2 09/26 01:38 Order name: Lipase mg2 09/26 01:38 Order name: Procalcitonin mg2 09/26 01:38 Order name: Protime (+inr) mg2 09/26 01:38 Order name: Ptt, Activated mg2 09/26 01:38 Order name: Troponin (emerg Dept Use Only); Complete Time: 03:52 mg2 09/26 01:38 Order name: Urine Microscopic Only; Complete Time: 03:52 mg2 09/26 01:38 Order name: Amylase; Complete Time: 03:52 EDMS 09/26 01:38 Order name: Basic Metabolic Panel; Complete Time: 03:52 EDMS 09/26 01:38 Order name: Blood Culture EDMS 09/26 01:38 Order name: CBC with Automated Diff; Complete Time: 02:54 EDMS 09/26 01:38 Order name: CKMB Creatine Kinase MB; Complete Time: 03:52 EDMS 09/26 01:38 Order name: Creatine Phosphokinase; Complete Time: 03:52 EDMS 09/26 01:38 Order name: Lactate; Complete Time: 02:54 EDMS 09/26 01:38 Order name: Liver (Hepatic) Function; Complete Time: 03:52 EDMS 09/26 01:38 Order name: Lipase; Complete Time: 03:52 EDMS 09/26 01:38 Order name: Procalcitonin; Complete Time: 02:54 EDMS 09/26 01:38 Order name: Protime (+INR); Complete Time: 02:54 EDMS 09/26 01:38 Order name: PTT, Activated Partial Thromb; Complete Time: 02:54 EDMS 09/26 02:22 Order name: Flu mg2 09/26 02:39 Order name: Urine Dipstick--Ancillary (enter results); Complete Time: 03:52 mw2 09/26 01:38 Order name: Chest Single View XRAY mg2 09/26 01:38 Order name: Accucheck; Complete Time: 05:16 mg2 09/26 01:38 Order name: Cardiac monitoring; Complete Time: 02:15 mg2 09/26 01:38 Order name: EKG - Nurse/Tech; Complete Time: 02:15 mg2 09/26 01:38 Order name: IV Saline Lock - Large Bore; Complete Time: 02:15 mg2 09/26 01:38 Order name: Labs collected and sent; Complete Time: 02:15 mg2 09/26 01:38 Order name: O2 Per Protocol; Complete Time: 02:15 mg2 09/26 01:38 Order name: O2 Sat Monitoring; Complete Time: 02:15 mg2 09/26 01:38 Order name: Urine Dipstick-Ancillary (obtain specimen); Complete Time: 02:53 mg2 09/26 02:10 Order name: Foot Right 3 View XRAY mh7 09/26 02:40 Order name: Straight Cath - Urine; Complete Time: 02:40 rr5 09/26 02:58 Order name: NT PRO-BNP; Complete Time: 03:52 EDMS 09/26 03:32 Order name: COVID-19/FLU A+B; Complete Time: 03:52 EDMS 09/26 04:46 Order name: Consistent Carb (ADA) 1800 Clem EDMS 09/26 04:46 Order name: Low Sodium EDMS 09/26 04:46 Order name: Basic Metabolic Panel EDMS 09/26 04:46 Order name: Basic Metabolic Panel EDMS 09/26 04:46 Order name: CBC with Automated Diff EDMS 09/26 04:46 Order name: CBC with Automated Diff EDMS 09/26 04:46 Order name: NT PRO-BNP EDMS 09/26 04:46 Order name: NT PRO-BNP EDMS 09/26 04:46 Order name: Troponin I EDMS 09/26 04:46 Order name: Troponin I EDMS 09/26 04:46 Order name: Troponin I EDMS 09/26 10:35 Order name: Uric Acid EDMS Administered Medications: 02:16 Drug: NS 0.9% (30 ml/kg) 30 ml/kg Route: IV; Rate: bolus; Site: left wrist; mg2 05:05 Follow up: Response: No adverse reaction; IV Status: Completed infusion; IV Intake: mg2 1000ml 02:27 CANCELLED (wrong order): Tylenol 1000 mg PO once 7 03:26 Drug: vancoMYCIN 1 grams Route: IVPB; Infused Over: 2 hrs; Site: left wrist; mg2 05:56 Follow up: IV Status: Completed infusion; IV Intake: 250ml mg2 05:00 Drug: Lasix 20 mg Route: IVP; Site: left wrist; mg2 05:56 Follow up: Response: No adverse reaction mg2 05:30 Drug: LevaQUIN 500 mg Volume: 100 ml; Route: IVPB; Infused Over: 60 mins; Site: left mg2 wrist; Disposition: 09/26/20 04:30 Hospitalization ordered by Adriel Bennett for Inpatient Admission. Preliminary diagnosis are Cellulitis-Right Foot, CHF Exacerbation, UTI. - Bed requested for Telemetry/MedSurg (Inpatient). - Status is Inpatient Admission. bp - Condition is Stable. - Problem is new. - Symptoms have improved. Signatures: Dispatcher [employer] EDMS Taisha Sandoval Cindy, Jaime Cazares RN, RN RN bp Gardose, Michele, RN RN mg2 Medardo Cote RN RN [id number] Stef Martinez MD MD 7 Corrections: (The following items were deleted from the chart) 02:27 02:23 Tylenol 1000 mg PO once ordered. [place] [id number] 02:36 02:23 Influenza Screen (A ordered. EDMI EDMS 02:42 02:16 CORONAVIRUS+MR.LAB.BRZ ordered. EDMI EDMS 02:58 02:57 PROBNP+C.LAB.BRZ ordered. [facility] EDMS 03:56 03:54 Urine Dipstick-Ancillary ordered. [place] [address] 05:26 04:30 Hospitalization Ordered by A Sabrina ESPINOZA for Inpatient Admission. Preliminary cg diagnosis is Cellulitis-Right Foot; CHF Exacerbation; UTI. Bed requested for Telemetry/MedSurg (Inpatient). Status is Inpatient Admission. Condition is Stable. Problem is new. Symptoms have improved. [facility] 09:11 05:26 09/26/2020 04:30 Hospitalization Ordered by A Sabrina ESPINOZA for Inpatient Admission. bd Preliminary diagnosis is Cellulitis-Right Foot; CHF Exacerbation; UTI. Bed requested for [facility] ER HOLD. Status is Inpatient Admission. Condition is Stable. Problem is new. Symptoms have improved. cg 11:43 09:11 09/26/2020 04:30 Hospitalization Ordered by A Sabrina ESPINOZA for Inpatient Admission. bp Preliminary diagnosis is Cellulitis-Right Foot; CHF Exacerbation; UTI. Bed requested for Telemetry/MedSurg (Inpatient). Status is Inpatient Admission. Condition is Stable. Problem is new. Symptoms have improved. bd
[2020-09-26] MEDS ORDERED: IPRATROPIUM BROM 0.5MG/2.5ML NEB PRN (04:35)
[2020-09-26] MEDS ORDERED: ONDANSETRON 4 MG/2 ML VIAL IV PRN (04:35)
[2020-09-26] MEDS ORDERED: ACETAMINOPHEN 325 MG TABLET PO PRN (04:35)
[2020-09-26] MEDS ORDERED: ALBUTEROL 2.5 MG/3 ML NEB SOL NEB PRN (04:35)
[2020-09-26] MEDS ORDERED: MORPHINE 4 MG/ML SYR IV PRN (04:35)
[2020-09-26] MEDS ORDERED: FUROSEMIDE 20 MG/ 2ML VIAL ONE ×2 (05:11→10:08)
[2020-09-26] MEDS ORDERED: Levofloxacin500mg IV 500 MG/100 ML BAG IV ONE (05:11)
[2020-09-26] MEDS ORDERED: VANCOMYCIN 750 MG in NA CHLORIDE 0.9% 150 ML IVPB ONE (06:15)
[2020-09-26 06:47] VITALS: BMI 38.9
[2020-09-26] MEDS ORDERED: MORPHINE 2 MG/ML SYR IV PRN (07:08)
[2020-09-26] MEDS ORDERED: Levofloxacin500mg IV 500 MG/100 ML BAG IV SCH (08:00)
[2020-09-26] MEDS ORDERED: GLUCAGON 1 MG/VIAL IM PRN (08:05)
[2020-09-26] MEDS ORDERED: D50W 25 GM/50 ML SYRINGE IV PRN (08:05)
[2020-09-26] MEDS: CITALOPRAM 10 MG TABLET PO SCH (09:00)
[2020-09-26] MEDS ORDERED: PNEUMOCOCCAL VACCINE 0.5 ML IMVAC ONE ×2 (09:00→10:10)
[2020-09-26] MEDS ORDERED: INFLUENZA VACCINE (for 3y+) 0.5 ML DOSE IMVAC ONE ×2 (09:00→10:09)
[2020-09-26] MEDS: POTASSIUM CL SA 10 MEQ TAB PO SCH ×2 (09:00→21:33)
[2020-09-26] MEDS: GABAPENTIN 300 MG CAP PO SCH ×2 (09:00→21:33)
[2020-09-26] MEDS: SITAGLIPTIN PHOS 100 MG TAB PO SCH (09:00)
[2020-09-26] MEDS: SACUBITRIL/VALSARTAN 24/26 MG TAB PO SCH ×2 (09:00→21:33)
[2020-09-26] MEDS: carvediloL 6.25 MG TAB PO SCH ×2 (09:00→21:33)
[2020-09-26] MEDS: FUROSEMIDE 20 MG/ 2ML VIAL IV SCH ×2 (09:00→18:06)
[2020-09-26] MEDS ORDERED: carvediloL 6.25 MG TAB ONE (10:08)
[2020-09-26] MEDS ORDERED: GABAPENTIN 300 MG CAP ONE (10:08)
[2020-09-26] MEDS ORDERED: POTASSIUM CL SA 10 MEQ TAB PO ONE (10:08)
--- NOTE | 2020-09-26 10:59 | RAD REPORT ---
EXAM DESCRIPTION: XR Foot Right 3 View CLINICAL HISTORY: PAIN TECHNIQUE: Three views of the right foot are submitted. COMPARISON: None available for comparison FINDINGS: Bones: No acute or remote fracture deformity. No osseous destruction or erosion. Tiny post erior and small inferior calcaneal enthesophytes. Joints: Mild multifocal degenerative changes. No dislocation. Developmental fusion at the 5th DIP art iculation. Soft tissues: Unremarkable IMPRESSION: No acute abnormality. Electronically signed by: Eddi Young MD 09/26/2020 3:15 AM DUST MILL OPERATOR Due to temporary technical issues with the PACS/Fluency reporting system, reports are being signed by the in house radiologist without review as a courtesy to ensure prompt reporting. The interpreting r adiologist is fully responsible for the content of the report.
--- NOTE | 2020-09-26 11:11 | RAD REPORT ---
EXAM DESCRIPTION: Chest Radiography COMPARISON: Chest radiograph January 09, 2020 CLINICAL HISTORY: [facility] MAIN COUGH FINDINGS: A single AP view of the chest demonstrates a mildly enlarged cardiomediastinal silhouette. No pneumothorax. Small pleural effusions are present. Bibasilar opacities are present with left basil ar consolidation. Osseous structures are intact. IMPRESSION: Multifocal pneumonia versus pulmonary edema with mild cardiomegaly. Electronically signed by: Joby Reeves MD 09/26/2020 3:23 AM MACHINE BASTER Due to temporary technical issues with the PACS/Fluency reporting system, reports are being signed by the in house radiologist without review as a courtesy to ensure prompt reporting. The interpreting r adiologist is fully responsible for the content of the report.
[2020-09-26] MEDS: INSULIN -REGULAR HUMAN 50 UNIT/0.5 ML ML SQ SCH ×3 (11:30→21:00)
[2020-09-26] MEDS: ALBUTEROL 2.5 MG/3 ML NEB SOL NEB SCH ×2 (13:37→21:30)
[2020-09-26] MEDS: IPRATROPIUM BROM 0.5MG/2.5ML NEB SCH ×2 (13:37→21:30)
[2020-09-26] MEDS ORDERED: VANCOMYCIN 1 GM in NA CHLORIDE 0.9% 500 ML IVPB SCH (14:00)
[2020-09-26] MEDS ORDERED: RIVAROXABAN 10 MG TABLET PO SCH (17:00)
[2020-09-26] MEDS ORDERED: D50W 25 GM/50 ML VIAL IV PRN (17:00)
[2020-09-26] MEDS ORDERED: VANCOMYCIN 1.75 GM in NA CHLORIDE 0.9% 500 ML IVPB SCH (19:00)
[2020-09-26] MEDS: ATORVASTATIN 20 MG TAB PO SCH (21:33)
[2020-09-27] MEDS: ALPRAZOLAM 0.5 MG TABLET PO PRN ×2 (00:02→21:17)
[2020-09-27] MEDS: IPRATROPIUM BROM 0.5MG/2.5ML NEB SCH ×4 (03:00→22:00)
[2020-09-27] MEDS: ALBUTEROL 2.5 MG/3 ML NEB SOL NEB SCH ×4 (03:00→22:00)
[2020-09-27 03:39] LABS: Absolute Lymphocytes (CBC) 1.1 K/uL (0.7-4.9); Basophils % 1.3 % (0-1.3); Hematocrit 31.6 % (36.0-45.0); Lymphocytes % 22.9 % (15.3-44.8); MPV 9.8 fL (7.6-11.3); RBC Red Blood Cell Count 3.77 M/uL (3.86-4.86)
[2020-09-27 03:57] LABS: Potassium 3.9 mmol/L (3.5-5.1)
[2020-09-27 04:20] LABS: Blood Morphology Comment NOT SEEN (NOT SEEN); Platelet Estimate DECR; White Blood Cell Scan OK (OK)
--- NOTE | 2020-09-27 05:15 | EKG ---
Test Date: 2020-09-26 Test Time: 02:03:50 Cathode Builder: MEASUREMENT RESULTS: Intervals: Rate: 86 [place]: QRSD: 152 QT: 436 QTc: 521 [place]: P: [place]: QRS: 204 T: 57 INTERPRETIVE STATEMENTS: Atrial fibrillation Right bundle branch block Anterior infarct, age undetermined Abnormal ECG Compared to ECG 04/22/2020 02:49:24 Right bundle-branch block now present Myocardial infarct finding now present Left-axis deviation no longer present Left bundle-branch block no longer present Electronically Signed On 09-27-20 05:11:39 SCREEN PRINTING INSPECTOR by Dain Lara
--- NOTE | 2020-09-27 06:38 | HP ---
Date of Admission: 09/26/2020 Chief Complaint: Fever. History Of Present Illness: This is an 85-year-old pleasant female patient, who lives at [facility], came into emergency room with complaints of fever and some redness of the skin involving right lower leg and right foot. No fall. No injury. No open wound. After she was e valuated in the ER, she was admitted to the hospital with cellulitis of right lower extremity. When I saw her, she was still in the emergency room. Denies any chest pain, shortness of breath, nausea, vomiting, diarrhea. Allergies: TO CEFTRIAXONE CAUSING CARDIAC ARREST, CLINDAMYCIN CAUSING NAUSEA, NIFEDIPINE CAUSING LEG SWELLING, REGLAN DETAILS UNKNOWN, NAPROXEN DETAILS UNKNOWN, METOLAZONE CAUSES ACUTE KIDNEY INJURY AN D SIGNIFICANT HYPOKALEMIA. Medications: Ventolin inhaler, alprazolam 0.5 mg at bedtime as needed, atorvastatin 20 mg daily in t he evening, carvedilol 6.25 mg b.i.d., citalopram 40 mg p.o. daily, Breo Ellipta inhaler daily, furos emide 40 mg 2 times a day, gabapentin 300 mg 2 times a day, levothyroxine 75 mcg p.o. daily, potassiu m chloride 10 mEq p.o. 2 times a day, Xarelto 20 mg daily in the evening with meal, Entresto 24/26 mg 1 tab 2 times a day, Januvia 100 mg daily. Review of Systems: Constitutional: As mentioned above. Dermatology: As mentioned above. All other systems reviewed and negative. Past Medical History: Significant for hypothyroidism, type 2 diabetes mellitus, COPD on continuous h ome oxygen, hypertension, mixed hyperlipidemia, chronic systolic congestive heart failure, paroxysmal atrial fibrillation, liver cyst, diverticulosis, renal cyst, chronic kidney disease, leg edema, oste oarthritis at multiple sites, CLL, anemia, insomnia. Past Surgical History: Cataract surgery, cholecystectomy, hemorrhoid surgery, hysterectomy, knee tripp rory, ankle surgery. Family History: Father had Alzheimer disease, coronary artery disease. Mother, leukemia. Brother h ad throat cancer. Sister, hypertension. Social History: Prior history of smoking, not at present time. Use of alcohol negative. Physical Examination: Vital Signs: When she came into emergency room blood pressure 148/56, pulse 86, respiratory rate 18, temperature 100.9 degree Fahrenheit, oxygen saturation 97%. Weight 99.79 kg, height 5 feet 3 inches . General: Awake, alert, oriented, not in distress. HEENT: Head atraumatic, normocephalic. Conjunctivae nonerythematous. Sclerae white. Mouth, no thr ush or edema noted. Ears/Nose, no mass, lesion, discharge noted. Neck: Supple. No JVD, lymph nodes, bruit, thyromegaly noted. Lungs: Bilateral good equal air entry. Clear to auscultation. No rhonchi. No rales. Heart: Normal heart sounds, no murmur or gallop. Abdomen: Soft, bowel sounds normal. No guarding, rigidity, tenderness, mass, hepatosplenomegaly, dis tention, or bruit noted. Extremities: Right lower leg and site foot area skin is pink, warm to touch with her minimal soft ti ssue edema. No open wound. Skin: No rash, ulcer, cellulitis. Lymphatics: No lymph node enlargement in neck, supraclavicular, infraclavicular region. Neuro: No focal neurological deficit. Chest: Unremarkable. External Genitalia: Deferred. Rectal: Deferred. Laboratory Data: Troponin less than 0.02. Liver function tests normal. BNP 4218. Procalcitonin le ss than 0.05. COVID-19 test negative. Influenza A and influenza B test negative. Urinalysis; trace leukocyte esterase, otherwise negative. White count 6.8, hemoglobin 10.3, platelets 104. Sodium 13 9, potassium 4.4, chloride 106, bicarb 25, BUN 20, creatinine 1.19, glucose 156. Impression: 1.Cellulitis, right lower extremity. 2.Urinary tract infection. 3.Anemia, unspecified. 4.Thrombocytopenia. 5.Chronic kidney disease, stage 3A. 6.Hypothyroidism. 7.Type 2 diabetes mellitus. 8.Hypertension. 9.Mixed hyperlipidemia. 10.Chronic systolic congestive heart failure. 11.Paroxysmal atrial fibrillation. 12.Chronic anticoagulation therapy. Plan: We will admit patient to hospital for further evaluation and management of this problem. The patient is appropriate for inpatient and is expected to spend 2 midnights in hospital. We will mauricio nue home medications per order. Antibiotic Levaquin will be started. We will follow up on culture r esults. We will repeat blood work tomorrow. I will see her tomorrow morning for followup. Continue her chronic anticoagulation therapy with Xarelto per order. Manage diabetes with medications per or chapis along with insulin sliding scale. We will consult Physical therapy to help ambulate the patient. Details and plan of treatment discussed with the patient. For her congestive heart failure and hype rtension problems are stable. We will continue medications per order. Anemia and thrombocytopenia w ill not require any intervention at this point except monitoring. MIGUE/MODL Voice ID: [id number]
[2020-09-27] MEDS: LEVOTHYROXINE SOD 0.075 MG TAB PO SCH (06:41)
[2020-09-27] MEDS: Levofloxacin500mg IV 500 MG/100 ML BAG IV SCH (06:42)
[2020-09-27] MEDS: INSULIN -REGULAR HUMAN 50 UNIT/0.5 ML ML SQ SCH ×4 (07:30→21:00)
[2020-09-27] MEDS: FUROSEMIDE 20 MG/ 2ML VIAL IV SCH ×3 (09:00→17:48)
[2020-09-27] MEDS: CITALOPRAM 10 MG TABLET PO SCH (10:23)
[2020-09-27] MEDS: SITAGLIPTIN PHOS 100 MG TAB PO SCH (10:23)
[2020-09-27] MEDS: SACUBITRIL/VALSARTAN 24/26 MG TAB PO SCH ×2 (10:23→21:17)
[2020-09-27] MEDS: carvediloL 6.25 MG TAB PO SCH ×2 (10:23→21:18)
[2020-09-27] MEDS: GABAPENTIN 300 MG CAP PO SCH ×2 (10:23→21:17)
[2020-09-27] MEDS: POTASSIUM CL SA 10 MEQ TAB PO SCH ×2 (10:23→21:17)
[2020-09-27] MEDS: RIVAROXABAN 20 MG TABLET PO SCH (17:48)
[2020-09-27] MEDS: ATORVASTATIN 20 MG TAB PO SCH (21:17)
[2020-09-28] MEDS: ALBUTEROL 2.5 MG/3 ML NEB SOL NEB SCH ×3 (02:10→13:14)
[2020-09-28] MEDS: IPRATROPIUM BROM 0.5MG/2.5ML NEB SCH ×3 (02:10→13:14)
[2020-09-28 03:58] VITALS: O2SAT 95
[2020-09-28] MEDS: LEVOTHYROXINE SOD 0.075 MG TAB PO SCH (05:51)
[2020-09-28] MEDS: Levofloxacin500mg IV 500 MG/100 ML BAG IV SCH (05:51)
[2020-09-28 07:26] VITALS: TEMP 96.8
[2020-09-28] MEDS: INSULIN -REGULAR HUMAN 50 UNIT/0.5 ML ML SQ SCH ×2 (07:30→11:30)
--- NOTE | 2020-09-28 08:21 | PN ---
Date of Progress Note: 09/27/2020 Subjective: The patient was seen this morning for followup. No new complaints or problems reported by patient. Lying in bed, not in any distress. Objective: Vital Signs: Reviewed. HEENT: Unremarkable. Lungs: Clear to auscultation. Heart: Sounds normal. Abdomen: Soft. Bowel sounds normal. No guarding, rigidity, tenderness, or distention. Extremities: Right lower leg and right foot exam, skin are slightly pink and warm to touch, no tende rness, this is unchanged from yesterday. No open wound. Laboratory Data: White count 4.7, hemoglobin 10.1, platelets 96. Sodium 140, potassium 3.9, chlorid e 107, bicarb 28, BUN 14, creatinine 1.05, glucose 114. Impression: 1.Cellulitis, right leg. 2.Chronic systolic congestive heart failure. 3.Anemia, chronic. 4.Thrombocytopenia. Plan: We will continue current medications. Continue home medications per order. We will go ahead and continue current antibiotic, which is Levaquin. Physical therapy to help ambulate the patient. I will see her tomorrow for followup. Possible discharge to go home tomorrow depending on her condit ion. MIGUE/MODL Voice ID: [id number] Report ID: [id number]
[2020-09-28] MEDS: POTASSIUM CL SA 10 MEQ TAB PO SCH (10:14)
[2020-09-28] MEDS: GABAPENTIN 300 MG CAP PO SCH (10:15)
[2020-09-28] MEDS: CITALOPRAM 10 MG TABLET PO SCH (10:15)
[2020-09-28] MEDS: SACUBITRIL/VALSARTAN 24/26 MG TAB PO SCH (10:15)
[2020-09-28] MEDS: RIVAROXABAN 20 MG TABLET PO SCH (10:15)
[2020-09-28] MEDS: FUROSEMIDE 20 MG/ 2ML VIAL IV SCH (10:16)
[2020-09-28] MEDS: carvediloL 6.25 MG TAB PO SCH (10:18)
[2020-09-28] MEDS: SITAGLIPTIN PHOS 100 MG TAB PO SCH (10:23)
--- NOTE | 2020-09-28 10:53 | RAD REPORT ---
EXAM DESCRIPTION: RAD - Skull >4 Views - 09/28/2020 10:12 am CLINICAL HISTORY: foreign body in skull Pain and swelling COMPARISON: No comparisons FINDINGS: Small surgical plate is seen along the right aspect of the calvarium. There is underlying round calvarial surgical defect seen. No unusual finding related to this.
[2020-09-28 12:50] VITALS: BP 99/50
--- NOTE | 2020-09-28 13:14 | RAD REPORT ---
EXAM DESCRIPTION: CT - Head Brain Wo Cont - 09/28/2020 12:48 pm CLINICAL HISTORY: Abnormal radiologic exam. Previous head trauma. COMPARISON: September 28, 2020 x-ray TECHNIQUE: Computed axial tomography of the head was obtained. IV contrast was not requested. All CT scans are performed using dose optimization technique as appropriate and may include automated exposure control or mA/KV adjustment according to patient size. FINDINGS: An intracranial bleed is not seen . The ventricles are normal in caliber. No extra-axial fluid collection is noted. A 24 millimeter plate overlies right frontal bone. Technique this is a 17 millimeter defect within th e skull. A portion of the plate protrudes through the scalp. Another portion of the plate does not co eleno the defect within the bone. Fluid within the sinuses/ mastoids is not seen. IMPRESSION: A 24 millimeter plate overlies right frontal bone. There is a 17 millimeter defect withi n the skull. A portion of the plate protrudes through the scalp. Another portion of the plate does no t cover the defect within the bone. Presumably the plate has moved since it has been inserted
--- NOTE | 2020-09-28 21:48 | DS ---
Date of Discharge: 09/28/2020 Disposition: Discharged to go home. Physical Examination: HEENT: Unremarkable except on the right frontal skull, she has an indented area which is covered with dark black scab type of material, but small miles color metal object is visible and palpable and the patient told me today that lately she has seen this hard metal type of object and she can feel it with her finger. Today is the first time she has informed me about this as normally she keeps it well covered with her hair and it is not visible. Says she has felt this metal object lately and has no pain, discharge or bleeding from this area. Lungs: Clear to auscultation. Heart: Sounds normal. Abdomen: Soft. Bowel sounds normal. No guarding, rigidity, tenderness, or distention. Extremities: No leg edema. Laboratory Data: Upon admission, white count 6.8, hemoglobin 10.3, platelets 104. Sodium 139, potassium 4.4, chloride 106, bicarb 25, BUN 20, creatinine 1.19, glucose 156. Troponin less than 0.02. Liver function tests unremarkable. Influenza A and B negative. COVID-19 test negative. Discharge Medications And Instructions: 1. Continue all prior home medication. 2. Take Levaquin 500 mg p.o. daily for 1 week. 3. Follow up at my office next week as per instruction. Final Diagnoses: 1. Cellulitis, right lower extremity. 2. Chronic obstructive pulmonary disease, on home oxygen. 3. Hypertension. 4. Mixed hyperlipidemia. 5. Chronic systolic congestive heart failure. 6. Paroxysmal atrial fibrillation. 7. Hypothyroidism. 8. Type 2 diabetes mellitus. 9. Anemia, unspecified. 10. Thrombocytopenia. 11. Chronic lymphocytic leukemia. 12. Chronic kidney disease stage 3A. Hospital Course: An 85-year-old pleasant female patient, admitted to the hospital with redness and pain in right foot and right lower leg, and she went to [place] emergency room from where she got prescription for oral antibiotic and she started taking it, but then she started to have fever, so she came into our emergency room. After she was evaluated, she was admitted to the hospital. She was started on Levaquin and cellulitis of right lower extremity has improved. She has tolerated this antibiotic without any problem. Today while I was visiting her, she informed me and wanted me to look at this area on her scalp that she feels like there is a hard metal coming out of the skin and this area is in the right frontal scalp region, well covered under her hair, so this is first time she asked me to look at this kind of problem. Upon further questioning, she reports that about 10-12 years ago while she was in [place], she fell down and had a head injury and required emergency surgery. When I examined this area, I was able to see and feel metal object. There is no evidence of any infection or no open wound. There is no discharge or bleeding. No sign of any infection or swelling. After I saw her and examined this, we obtained x-ray of the skull and result reviewed with radiologist, who informs me that this is about 2 cm skull plate and orientation appears normal according to radiologist. I have ordered a CAT scan of the brain with attention to skull bones and after that test is done, our plan is to discharge her to go home and I will have to refer her to a neurosurgeon on an outpatient basis. The patient reports noticing this and feeling this metal object for quite some time now. MIGUE/MODL Voice ID: [id number] Report ID: [id number] CARRIE
== END 2020-09-28 15:32 | disposition home or self-care (01) | DRG 603 ==
LOC: ER 01:30 → ERHOLD 04:33 → 2ND 11:09
PROVIDERS: ADMIT Internal Medicine; ATTEND Internal Medicine
DX: L03.115 Cellulitis of right lower limb (principal); I50.22 Chronic systolic (congestive) heart failure; N39.0 Urinary tract infection, site not specified; I13.0 Hypertensive heart and chronic kidney disease with heart failure and stage 1 through stage 4 chronic kidney disease, or unspecified chronic kidney disease; C91.10 Chronic lymphocytic leukemia of B-cell type not having achieved remission; N18.31 Chronic kidney disease, stage 3a; E11.22 Type 2 diabetes mellitus with diabetic chronic kidney disease; E03.9 Hypothyroidism, unspecified; M19.90 Unspecified osteoarthritis, unspecified site; E78.2 Mixed hyperlipidemia; D64.9 Anemia, unspecified; I48.0 Paroxysmal atrial fibrillation; D69.6 Thrombocytopenia, unspecified; J44.9 Chronic obstructive pulmonary disease, unspecified; Z88.1 Allergy status to other antibiotic agents; Z88.8 Allergy status to other drugs, medicaments and biological substances; Z79.02 Long term (current) use of antithrombotics/antiplatelets; Z79.01 Long term (current) use of anticoagulants; Z79.899 Other long term (current) drug therapy; Z99.81 Dependence on supplemental oxygen; Z90.49 Acquired absence of other specified parts of digestive tract; Z90.710 Acquired absence of both cervix and uterus; Z20.822 Contact with and (suspected) exposure to COVID-19; Z23 Encounter for immunization
CPT/HCPCS: 0240U; 36415; 70260; 70450; 71045; 80048; 80076; 81003; 81015; 82150; 82550; 82553; 82947; 83605; 83690; 83880; 84145; 84484; 84550; 85025; 85610; 85730; 87040; 90471; 90732; 93005; 96365; 96366; 96375; 97116; 97161; 97530; 99284; J1940; J3370; J7030; J7050; Q2035

== ENCOUNTER 2021-03-02 12:32 | Inpatient (IN) | payer OTHER ==
--- OUTSIDE RECORDS SUMMARY | 2021-03-02 12:35 | XMS REPORT | Continuity of Care Document ---
:1935 Author Organization [facility] t Address [address] [place] [address] Care Team Providers Name Role Phone Asked, Pcp Primary Care Physician Unavailable Yordan Barbour MD Attending Clinician Ashlie ESPINOZA, Mike Attending Clinician Portia ZULUAGA Attending Clinician MD YORDAN BARBOUR Attending Clinician Unavailable Gene MARK Attending Clinician Only, Test Attending Clinician Unavailable Juan ESPINOZA Attending Clinician Doctor Unassigned, Name Attending Clinician Unavailable ANGLE Admitting Clinician Unavailable MARGARETH ZHAO Admitting Clinician Unavailable Payers Payer Name Policy Type Policy Effective Date Expiration Date Sour ce Number MEDICAREMEDICARE PART [id number] 1998 Oh wai Morel AND 00:00:00 [facility] CncycmtlSH580/07/1997- ELIZABETH MenezesMedicare AETNAAETNA PPO OPEN [id number] 2000 [facility] [id number]/08/08 00:00:00 Hos pital -PPO Problems Condition Condition Condition Status Onset Resolution Last Treating Co mments Source Name Details Category Date Date Treatment Clinician Date Other 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 complicati 00:00: Ho spita on of on of 00 l other other specified specified internal internal prosthetic prosthetic devices, devices, implants implants and and grafts, grafts, initial initial encounter encounter Wound Wound Disease Active Methodi dehiscence dehiscence 10-16 00:00: Hospita 00 l Allergies, Adverse Reactions, Alerts Allergy Allergy Status Severity Reaction(s) Onset Inactive Treating Comm ents Source Name Type Date Date Clinician Naproxen Propensi Active Other (See Unknown M ethodi ty to Comments) 10-15 adverse 00:00: Hospita reaction 00 l s to drug Nifedipi Propensi Active Other (See Unknown M ethodi ne ty to Comments) 10-15 adverse 00:00: Hospita reaction 00 l s to drug Metoclop Propensi Active Other (See Unknown M ethodi ramide ty to Comments) 10-15 Hcl adverse 00:00: Hospita reaction 00 l s to drug Ceftriax Propensi Active Other (See Unknown M ethodi one ty to Comments) 10-15 adverse 00:00: Hospita reaction 00 l s to drug Clindamy Propensi Active Other (See Unknown M ethodi kelly ty to Comments) 10-15 adverse 00:00: Hospita reaction 00 l s to drug Metolazo Propensi Active Other (See Unknown M ethodi ne ty to Comments) 10-15 adverse 00:00: Hospita reaction 00 l s to drug Family History Family Member Diagnosis Comments Start Date Stop Date Source Natural father [facility] Social History Social Habit Start Date Stop Date Quantity Comments Source History of Cigarette Smoker Methodis t tobacco use Hospital History [facility] Drinks History [facility] Tobacco use and 2020-10-17 2020-10-17 Never used Taoist exposure 00:00:00 00:00:00 Hospital Alcohol intake 2020-10-17 2020-10-17 Lifetime Taoist 00:00:00 00:00:00 non-drinker Hospital (finding) Tobacco Comment 2020-10-16 2020-10-16 only smoke 4-5 Metho dist 00:00:00 00:00:00 cigarettes/day Hospital for one year and quit age [age] years old History SDOH 2020-10-15 2020-10-15 1 Taoist Alcohol Frequency 00:00:00 00:00:00 Hospita l Sex Assigned At [birth year] Taoist 00:00:00 00:00:00 Hospital Smoking Status Start Date Stop Date Source Former smoker 2020-10-17 00:00:00 2020-10-17 [facility] Ordered Filled Start Stop Current Ordering Indication Dosage Frequency Signature Comments Components Source Medication Medication Date Date Medication? Clinician (SIG) Name Name DOXYCYCLINE 1{capsu QD Take 1 Methodi CALCIUM -10-17 le} capsule by st ORAL 16:58: 00:00 mouth Hospita 58 :00 daily. l rivaroxaban No 20mg QD Take 20 mg Methodi (XARELTO) -10-[address] 20 mg 16:58: 00:00 every Hospita tablet 58 :00 evening. l ALPRAZolam Yes .5mg QD Take 0.5 Met hodi (XANAX) 0.5 3-[address] MG tablet 16:58: mouth Hospita 54 nightly as l needed for sleep. acetaminoph [place] [id number] 1{tbl} Q4H Take 1 M ethodi en-codeine 3-[address] (TYLENOL 16:58: mouth Hospita WITH 54 every 4 l CODEINE #3) (four) 300-30 mg hours as per tablet needed for moderate pain .acute pain. albuterol Yes 2.5mg Q6H Take 2.5 Met hodi (ACCUNEB) 3-[address] 2.5 mg /3 16:58: nebulizati Ho spita mL (0.083 54 on every 6 l %) (six) nebulizer hours as solution needed for wheezing. atorvastati Yes 20mg QD Take 20 mg Methodi n (LIPITOR) 3-[address] 20 mg 16:58: every Hospita tablet 54 evening. l Default OP ins carvediloL Yes 6.25mg Q.5D Take 6.25 Methodi (COREG) 3-[address] 6.25 MG 16:58: mouth 2 Hospita tablet 54 (two) l times a day with meals. citalopram Yes 40mg QD Take 40 mg M ethodi (CeleXA) 40 3-[address] MG tablet 16:58: daily. Hospit a 54 l furosemide 0 Yes 40mg Q.5D Take 40 mg M ethodi (LASIX) 40 3-[address] mg tablet 16:58: (two) Hospita 54 times a l day. gabapentin Yes 300mg Q.5D Take 300 Me thodi (NEURONTIN) 3-[address] 300 mg 16:58: mouth 2 Hospita capsule 54 (two) l times a day. levothyroxi Yes 75ug QD Take 75 Met hodi ne 3-[address] (SYNTHROID) 16:58: mouth Hospi ta 75 mcg 54 daily. l tablet nystatin Yes Q.5D Apply Methodi (MYCOSTATIN 3-[address] ) 100,000 16:58: 2 (two) Hospi ta unit/gram 54 times a l ointment day. Applied to skin potassium Yes 20meq Q.5D Take 20 Meth husam chloride 3-[address] (KLOR-CON) 16:58: mouth 2 Hosp ibis 10 MEQ CR 54 (two) l tablet times a day. sacubitriL- 0 Yes Q.5D Take by Met hodi valsartan 3-[address] (Entresto) 16:58: (two) Hospit a 24-26 mg 54 times a l tablet per day. tablet SITagliptin Yes 100mg QD Take 100 M ethodi (JANUVIA) 3-[address] 100 MG 16:58: mouth Hospita tablet 54 daily. l fluticasone Yes Inhale as M ethodi /vilanterol 3-[address] (BREO 16:58: Hospita ELLIPTA 54 l INHL) UNABLE TO Yes Med Name: Met hodi FIND 3-[address] 16:58: Antibiotic Hospita [address] mary Barbour) BID minocycline No 100mg Q.5D Take 1 Me thodi (DYNACIN) 10-17 04-[address] 100 MG 00:00: 04:59 (100 mg Hospita tablet 00 :00 total) by l mouth 2 (two) times a day for 14 [place] [address] 50mg Q6H Take 1 Metho di (Ultram) 50 10-17 04-11 tablet (50 s t mg tablet 00:00: 04:59 mg total) Ho spita 00 :00 by mouth l every 6 (six) hours as needed for moderate pain for up to 10 days .acute pain. Vital Signs Vital Name Observation Time Observation Value Comments Source Systolic blood 2020-10-17 13:29:09 114 mm[Hg] [facility] pressure Diastolic blood 2020-10-17 13:29:09 70 mm[Hg] [facility] pressure Heart rate 2020-10-17 13:29:09 67 /min [facility] Body temperature 2020-10-17 13:29:09 36.33 [facility] Respiratory rate 2020-10-17 13:29:09 18 /min [facility] Oxygen saturation in 2020-10-17 13:29:09 92 /min [facility] Arterial blood by Pulse oximetry Body height 2020-10-16 14:56:00 162.6 cm [facility] Body weight 2020-10-16 14:56:00 102.059 kg [facility] BMI 2020-10-16 14:56:00 38.62 kg/m2 [facility] Procedures Procedure Date / Time Performing Clinician Source Performed SURGICAL PATHOLOGY 2020-10-16 20:03:00 [facility] Yordan POC GLUCOSE 2020-10-16 18:38:00 Nadia Barbour bonnie Farr AEROBIC CULTURE 2020-10-16 17:34:00 [facility] ANAEROBIC CULTURE 2020-10-16 17:31:00 [facility] Yordan FUNGUS CULTURE 2020-10-16 17:31:00 Nadia Barbour Taoistlaura Farr AFB CULTURE 2020-10-16 17:31:00 Nadia Barbour GRAM STAIN 2020-10-16 17:31:00 Nadia Barbour AFB STAIN 2020-10-16 17:31:00 Nadia Barbour bonnie Farr TISSUE CULTURE 2020-10-16 17:31:00 Nadia Barbour CRANIOTOMY 2020-10-16 16:47:00 Nadia Barbour bonnie Farr ABO AND RH CONFIRMATION 2020-10-16 15:36:00 Nadia Barbour [facility] Yordan POC GLUCOSE 2020-10-16 15:34:00 Nadia Barbour ECG PRE/POST OP 2020-10-15 22:35:41 Nadia Barbour bonnie Farr HEMOGLOBIN A1C 2020-10-15 22:14:00 [facility] TYPE AND SCREEN 2020-10-15 21:25:00 Nadia Barbour bonnie Farr COVID-19 QUALITATIVE 2020-10-15 21:24:00 Nadia Barbour [facility] RT-PCR Yordan PARTIAL THROMBOPLASTIN 2020-10-15 21:21:00 [facility] Yordan PROTHROMBIN TIME WITH INR 2020-10-15 21:21:00 Nadia Barbour [facility] Yordan CBC HEMOGRAM 2020-10-15 21:21:00 [facility] BASIC METABOLIC PANEL 2020-10-15 21:21:00 Nadia Barbour [facility] Yordan ESTIMATED GFR 2020-10-15 21:21:00 Nadia Barbour [address]nie Farr [address] HEAD EXTERNAL STUDY 2020-09-28 18[facility]45[facility] EXTERNAL STUDY 2020-09-28 15:52:00 Darrian Barbourhan [facility] Plan of Care Planned Activity Planned Date Details Comments Source Future Scheduled Test DIABETES: RETINAL EYE [facility] EXAM [code = DIABETES: RETINAL EYE EXAM] Future Scheduled Test DIABETIC FOOT EXAM [facility] [code = DIABETIC FOOT EXAM] Future Scheduled Test URINE MICROALBUMIN [facility] [code = URINE MICROALBUMIN] Future Scheduled Test COVID-19 VACCINE (1) [facility] [code = COVID-19 VACCINE (1)] Future Scheduled Test SHINGLES VACCINES (#1) [facility] [code = SHINGLES VACCINES (#1)] Future Scheduled Test INFLUENZA VACCINE [code [facility] = INFLUENZA VACCINE] Encounters Start End Encounter Admission Attending Care Care Encounter Source Date/Time Date/Time Type Type Clinicians Facility Department ID 2020-10-16 2020-10-17 [facility] Angle 1.2.840.1 [id number] Methodi 07:43:00 11:58:00 Encounter Nadia 22240.1.1 192 s t Yordan 3.430.2.7 Hospi ta .3.008816 l .8 2020-10-16 2020-10-17 [facility] [id number] [place] [address] 00:00:00 00:00:00 NADIA Zepeda [facility] 2020-10-16 2020-10-16 [facility] 1.2.840.1 [id number] Methodi 12:20:00 15:20:00 Nadia Logan50.1.1 143 Yordan 3.430.2.7 Hospi ta .3.644728 l .8 2020-10-16 2020-10-16 Anesthesia Alban Dailey 1.2.840 .1 [id number] Methodi 11:49:00 12:58:00 Event Albina Pearce 69341.1.[address] 3.430.2.7 Hospit a .3.656994 l .8 2020-10-15 2020-10-15 Pre-Admiss Angle 1.2.840.1 [id number] Methodi 15:39:48 16:39:48 ion Nadia 88817.1.[address] Testing Yordan 3.430.2.7 Hospi ta .3.141116 l .8 2020-10-15 2020-10-15 Outpatient [facility] [id number] 00:00:00 00:00:[address] 2020-10-15 2020-10-15 Travel 1.2.840.1 1.2.879.443 [id number] Methodi 00:00:00 00:00:[address] 3.430.2.7 0.2.7.3.698 Ho spita .3.282275 084.8 l .8 2020-10-12 2020-10-12 Travel 1.2.840.1 1.2.704.688 [id number] Methodi 00:00:00 00:00:[address] 3.430.2.7 0.2.7.3.698 Ho spita .3.153459 084.8 l .8 2020-01-26 2020-01-26 Telephone [place] 1.2.840.114 [id number] 00:00:00 00:00:00 [facility] 350.1.13.[address] [facility] 4.2.7.2.686 UNIT [id number] 2020-01-20 2020-01-20 Laboratory Only, [facility] 1.2.840.114 7 [id number] 10:09:06 10:09:22 Only Test [place] 350.1.13.10 [place] 4.2.7.2.686 [place] [id number] 2020-01-19 2020-01-19 [facility] EDUADRO Martinez 1.2.840.114 7 [id number] 08:50:00 23:59:00 Encounter Armen Ramos 350.1.13.10 [facility] 4.2.7.2.686 [id number] 2020-01-19 2020-01-19 Orders Doctor ARGUETA 1.2.840.114 [id number] 00:00:00 00:00:00 Only Unassigned, TAMI 350.1.13.10 [facility] 4.2.7.2.686 [id number] Results Test Description Test Time Test Comments Results Result Comments Source AFB culture 2020-11-28 05:13:22 Test Item Value Reference Range Interpretation Comme nts AFB culture isolate (test code = 543-9) No growth after 6 weeks of incubation. [facility] [id number] 05:15:17 Test Item Value Reference Range Interpretation Comments Fungus culture isolate No growth after 4 (test code = 1441) weeks of incubation. [facility] [id number] 13:22:13 Test Item Value Reference Range Interpretation Comments Anaerobic culture No anaerobic organisms isolate (test code = isolated. 552) [facility] [id number] 15:58:09 Test Item Value Reference Range Interpretation Comments Fungus smear (test code = No fungi observed. 1443) [facility] [id number] 15:58:09 Test Item Value Reference Range Interpretation Comments AFB stain (test code = No acid fast bacilli 676-7) (AFB) seen. [facility] [id number] 15:58:09Gram stain isolateNo WBC'sFew Gram positive cocci in pairs Comment: Specimen InformationSpecimen Source: TissueSpecimen Site: Scalp: Scalp [facility] Surgical pathology [id number] 16:02:44 Test Item Value Reference Range Interpretation Comments Case number (test code = [id number]) Surgical pathology See link below for report (test code = PDF Lab Report 2255) Result status (test code This is Final Report = [id number]) for [id number] [facility] Pre/Post [id number] 18:32:42 Test Item Value Reference Range Interpretation Comments Ventricular rate (test code = 253) Atrial rate (test code = 255) QRSD interval (test code = 260) QT interval (test code = 264) QTC interval (test code = 265) QRS axis 1 (test code = 268) T wave axis (test code = 270) EKG impression (test Atrial Fibrillation-Left code = 273) axis deviation-Nonspecific intraventricular block-Possible Anterolateral infarct , age undetermined-Abnormal ECG-No previous ECGs available- [facility] Head External [id number] 14:05:35This exam was not acquired at a Taoist facility and has not been interpreted by a Taoist Provider. The exam was imported into our imaging system.[facility] Head External [id number] 14:03:25This exam was not acquired at a Taoist facility and has not been interpreted by a Taoist Provider. The exam was imported into our imaging system.[facility] ([facility] RNA [Presence] in Respiratory specimen by DUDLEY with probe [id number] 01:12:09 Test Item Value Reference Range Interpretation Comments SARS-CoV-2 (COVID-19) RNA Not detected Not-Detected [Presence] in Respiratory specimen by DUDLEY with probe detection (test code = 32566-3) SARS-COV2/RT-PCR ([facility])2020-01-10 04:05:00 Test Item Value Reference Range Interpretation Comments SARS-COV2/RT-PCR (test Not Detected Not Detected, Negative code = 0540013) SARS-COV-2 PERFORMING LAB [facility] (test code = 8405692) Negative results do not preclude SARS-CoV-2 infection and should not be used as the sole basis for patient management decisions. Negative results must be combined with clinical observations, patient history, and epidemiological information. A false negative result may occur if a specimen is improperly collected, transported or handled.The limit of detection for this assay is 250 copies/mL.This SARS CoV-2 test is a rapid, real-time RT-PCR test intended for the qualitative detection of nucleic acid from SARS-CoV-2 in a nasopharyngeal swab specimen collected from individuals suspected of COVID-19 by their healthcare provider.This test has not been Food and Drug Administration (FDA) cleared or approved and has been authorized by FDA under an Emergency Use Authorization (EUA). This EUA will be effective until the declaration that circumstances exist justifying the authorization of the emergency use of in vitro diagnostic tests for detection and/or diagnosis of COVID-19 is terminated under Section 564(b)(2) of the Act or the EUA is revoked under Section 564(g) of the Act.Fact Sheet for Healthcare Pro viders:https://www.innRoad.[employer] Thunder/Documents/Xpert%20Xpress%20SARS%20CoV-2/Fact%20Sh eets/302-3802%25TGVZ-TQA-0%20HEALTHCARE%20PROVIDERS%20FACT%20SHEET.pdfFact Sheet for Healthcare Patients:https://www.FitnessManager.[employer] Thunder/Documents/Xpert%20Xpress%20SARS%20CoV-2/Fact%20Sheets/302-3801%20SARS-COV -2%20PATIENT%20FACT%20SHEET.pdfPerforming Laboratory:[facility] [place] [address]- MRI LW JNT W/O CONT [id number] 09:49:00 Patient Name: RANDI CEVALLOS Unit No: [id number] EXAMS: CPT CODE: [id number] MRI LW JNT W/[place] [address] TECHNIQUE: Multiplanar, multisequence MRI of the right [...] 3. Possible free edge tear of the l ateral meniscal body. 4. Large joint effusion. at 0949 Reported and signed by: Toni Brown M.D. CC: Tacho Camacho MD Technologist: LLOYD MCINTYRE MRI Transcribed D/ (0949) [facility] NAME: RANDI CEVALLOS [address] [facility] PHYS: Tacho Briggs MD : 1935 AGE: 83 SEX: F [place] [address] LOC: Y.MRI PHONE #: [phone] EXAM DATE: 11/30/2018 STATUS: DEP CLI FAX #: [phone] RAD #: D/C DT PAGE 1 Signed Report Patient Name: RANDI CEVALLOS Unit No: [id number] EXAMS:CPT CODE: [id number] MRI LW JNT W/[place] [address] <Continued> Orig Print D/T: S: 12/01/2018 (0952) [facility] NAME: RANDI CEVALLOS [address] [place] [address] PHYS: Tacho Briggs MDDOB: 1935 AGE: 83 SEX: F [place] [address] LOC:Y.MRI PHONE #: [phone] EXAM DATE: 11/30/2018 STATUS: DIDI CLI FAX #: [phone] RAD #: D/C DT PAGE 2 Signed Report
--- NOTE | 2021-03-02 14:57 | RAD REPORT ---
EXAM DESCRIPTION: RAD - Tib Fib Left - 03/02/2021 2:24 pm CLINICAL HISTORY: Fall, leg pain COMPARISON: None. FINDINGS: No fracture is identified. There is no dislocation or periosteal reaction noted. Partially imaged right knee prosthesis shows no radiographic evidence for loosening. Fracture fixation hardwar e of the distal fibula is intact. Achilles and plantar spurring changes are present. Moderate-size contusion or soft tissue hematoma seen anterior to the proximal tibia. IMPRESSION: Hematoma or contusion changes to the proximal anterior leg. No acute bone or joint finding.
--- NOTE | 2021-03-02 14:59 | RAD REPORT ---
EXAM DESCRIPTION: RAD - Knee Left 3 View - 03/02/2021 2:24 pm CLINICAL HISTORY: PAIN, fall with leg pain COMPARISON: No comparisonsNo [id number] dated 09/06/2011No comparisons FINDINGS: No gross fracture deformity seen. There is no dislocation or periosteal reaction. Faint emilee cent line in the lateral tibial plateau is not seen on the other 2 projections. Probability of fractu re is felt to be low.No joint effusion seen. Right knee prosthesis in place with no radiographic evid ence for loosening. Contusion and edema changes are present in the soft tissues anterior and lateral aspect of the proximal lower leg. No foreign body. IMPRESSION: No fracture can be confirmed. No evidence for loosening or acute finding in the left kne e prosthesis. Contusion and edema changes are seen in the soft tissues of the proximal left lower leg. Repeat imaging in 7 days would be recommended to the patient remains symptomatic for fracture.
--- NOTE | 2021-03-02 15:01 | RAD REPORT ---
EXAM DESCRIPTION: RAD - Hip Left 2 View - 03/02/2021 2:24 pm CLINICAL HISTORY: PAIN COMPARISON: No comparisons FINDINGS: AP and frogleg views of the left hip were obtained. There is no fracture or dislocation. No acute or destructive bony process seen. No soft tissue abnormality. Detail is somewhat limited by technique and extent of overlying soft tissue affects. IMPRESSION: Negative left hip examination for acute or significant findings. Exam is technically limited. An acute process is not suspected. If patient has pelvic and hip symptom s out of proportion to the clinical and radiographic findings, CT imaging could be performed to exclu de possible occult fracture.
[2021-03-02 15:36] LABS: Absolute Lymphocytes (CBC) 1.3 K/uL (0.7-4.9); Basophils % 0.6 % (0-1.3); Hematocrit 36.5 % (36.0-45.0); Lymphocytes % 17.1 % (15.3-44.8); MPV 9.5 fL (7.6-11.3); RBC Red Blood Cell Count 4.26 M/uL (3.86-4.86)
[2021-03-02 15:49] LABS: Albumin 4.1 g/dL (3.4-5.0); Bilirubin Direct 0.2 mg/dL (0-0.2); Bilirubin Total 0.5 mg/dL (0.2-1.0); Potassium 4.3 mmol/L (3.5-5.1); Protein, Total 7.8 g/dL (6.4-8.2)
[2021-03-02] MEDS ORDERED: HYDROCODONE/APAP 5/325 MG TAB ONE ×2 (16:48→23:47)
[2021-03-02] MEDS ORDERED: VANCOMYCIN 1 GM/VIAL ONE (16:48)
[2021-03-02] MEDS ORDERED: TETANUS & DIPHTHERIA TOX,ADULT 0.5 ML VIAL ONE (16:48)
[2021-03-02] MEDS ORDERED: NA CHLORIDE 0.9% 250 ML ONE (16:51)
[2021-03-02] MEDS ORDERED: WATER FOR INJ,STERILE 20 ML ONE (16:53)
--- NOTE | 2021-03-02 17:12 | ER ---
Nurse's Notes [facility] Name: Karen Edward Age: 85 yrs Sex: Female : 1935 Arrival Date: 03/02/2021 Time: 12:35 Bed 10 Private MD: Diagnosis: Cutaneous abscess of back [any part, except buttock];Fall on same level, unspecified;Contusion of left lower leg Presentation: 03/02 13:41 Chief complaint: Patient states: Sent by Dr. Bennett for abscess to back and possible ss cellulitis. Upon arrival to ER in parking lot, patient fell. C/o pain to L hip and L lower leg. Large hematoma noted to L lower extremity. RJ wrap and ice pack placed. Strong pedal pulse noted. Coronavirus screen: Client denies travel out of the [place] in the last 14 days. Ebola Screen: Patient denies exposure to infectious person. Patient denies travel to an Ebola-affected area in the 21 days before illness onset. Initial Sepsis Screen: Does the patient meet any 2 criteria? No. Patient's initial sepsis screen is negative. Does the patient have a suspected source of infection? No. Patient's initial sepsis screen is negative. Risk Assessment: Do you want to hurt yourself or someone else? Patient reports no desire to harm self or others. Onset of symptoms is unknown. 13:41 Method Of Arrival: Wheelchair ss 13:41 Acuity: TOBY 3 ss Historical: - Allergies: 13:40 Clindamycin; ss 13:40 Naproxen; ss 13:40 Procardia; ss 13:40 Reglan; ss 13:40 Rocephin; ss - Home Meds: 19:42 atorvastatin Oral [Active]; Calcium Carbonate Oral daily [Active]; aspirin 81 mg Oral vg1 TbEC 1 tab once daily [Active]; carvedilol 6.25 mg Oral tab 1 tab 2 times per day [Active]; Centrum Silver Oral daily [Active]; citalopram 40 mg tab 1 tab once daily [Active]; dulera 100 mcg daily [Active]; estradiol 0.5 mg Oral tab 1 tab once daily [Active]; gabapentin 300 mg Oral cap 1 cap twice a day [Active]; glipizide 10 mg Oral tab 1 tab once daily [Active]; levothyroxine 88 mcg tab 1 tab once daily [Active]; omeprazole 20 mg Oral cpDR 1 cap once daily [Active]; Spiriva [Active]; Spironolactone Oral once daily [Active]; torsemide 20 mg Oral tab 1 tab once daily [Active]; Tradjenta 5 mg Oral tab 1 tab once daily [Active]; Xarelto 15 mg Oral tab daily [Active]; - PMHx: 13:40 Asthma; CHF; Diabetes - NIDDM; Hyperlipidemia; Hypertension; Hypothyroidism; ss - Immunization history:: Adult Immunizations up to date, Client reports receiving the 2nd dose of the Covid vaccine. - Social history:: Smoking status: Patient denies any tobacco usage or history of. Screenin:08 Abuse screen: Denies threats or abuse. Nutritional screening: No deficits noted. vg1 Tuberculosis screening: No symptoms or risk factors identified. Fall Risk Fall in past 12 months (25 points). No secondary diagnosis (0 pts). IV access (20 points). Ambulatory Aid- Crutches/Cane/Walker (15 pts). Gait- Normal/Bed Rest/Wheelchair (0 pts) Mental Status- Oriented to own ability (0 pts). Total Gifford Fall Scale indicates High Risk Score (45 or more points). Fall prevention measures have been instituted. Side Rails Up X 2 Placed Close to Nursing Station. Assessment: 16:15 General: Appears in no apparent distress. comfortable, Behavior is calm, cooperative. vg1 Pain: Complains of pain in right mid back and Left humphrey Pain currently is 9 out of 10 on a pain scale. Neuro: Level of Consciousness is awake, alert, obeys commands, Oriented to person, place, time, situation. Cardiovascular: Patient's skin is warm and dry. Respiratory: Airway is patent Respiratory effort is even, unlabored. GI: No signs and/or symptoms were reported involving the gastrointestinal system. : No signs and/or symptoms were reported regarding the genitourinary system. EENT: No signs and/or symptoms were reported regarding the EENT system. Derm: Bruising that is on blue, Left humphrey Abscess located on right mid back is pee size has no drainage, is red, is raised. Musculoskeletal: Circulation, motion, and sensation intact. 18:31 Reassessment: Patient appears in no apparent distress at this time. No changes from vg1 previously documented assessment. Patient and/or family updated on plan of care and expected duration. Pain level reassessed. Patient is alert, oriented x 3, equal unlabored respirations, skin warm/dry/pink. Vital Signs: 13:40 BP 122 / 58; Pulse 77; Resp 18; Temp 97.2(TE); Pulse Ox 99% on R/A; Weight 99.79 kg; ss Height 5 ft. 3 in. (160.02 cm); Pain 7/10; 17:24 BP 112 / 53; Pulse 72; Resp 18; Pulse Ox 97% ; vg1 13:40 Body Mass Index 38.97 (99.79 kg, 160.02 cm) ED Course: 12:35 Patient arrived in ED. mr 13:37 Alban Montoya NP is PHCP. pm1 13:37 Daniel Jimenez MD is Attending Physician. pm1 13:40 Arm band placed on right wrist. ss 13:43 Triage completed. ss 14:23 Hip Left 2 View XRAY In Process Unspecified. EDMS 14:23 Knee Left 3 View XRAY In Process Unspecified. EDMS 14:24 Tib Fib Left XRAY In Process Unspecified. EDMS 16:17 Abdomen Limited US In Process Unspecified. EDMS 16:20 Radha Ortega RN is Primary Nurse. vg1 16:43 Missed attempt(s): 24 gauge in left hand. Bleeding controlled, band aid applied, mb4 catheter tip intact. 17:00 Missed attempt(s): 22 gauge in right antecubital area. vg1 17:00 Second set of blood cultures drawn by tn. vg1 17:08 Patient has correct armband on for positive identification. Bed in low position. Call vg1 light in reach. Side rails up X2. 17:11 Adriel Bennett MD is Hospitalizing Provider. pm1 17:11 Inserted saline lock: 22 gauge in right wrist, using aseptic technique. ,using aseptic vg1 technique. completed by Jaime MACHADO. 18:31 COVID swab sent to lab. vg1 22:26 Report given to Esteban MACHADO. vg1 22:26 No provider procedures requiring assistance completed. Patient admitted, IV remains in vg1 place. 03/03 04:44 Primary Nurse role handed off by Radha Ortega RN mw2 09:53 Radha Ortega, RN is Primary Nurse. 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 Exp: vg1 10/18/2022. Lot #: [id number]. } Route: IM; Site: right deltoid; 17:57 Follow up: Response: No adverse reaction vg1 17:22 Drug: LevaQUIN (levofloxacin) 500 mg Volume: 100 ml; Route: IVPB; Infused Over: 60 vg1 mins; Site: right wrist; 18:31 Follow up: IV Status: Completed infusion; IV Intake: 100ml vg1 17:57 Drug: Lidocaine (1 %) 5 ml Volume: 5 ml; Route: Infiltration; vg1 18:31 Follow up: Response: No adverse reaction vg1 17:57 Drug: Marcaine (bupivacaine) (0.5 %) 10 ml Volume: 10 ml; Route: Infiltration; vg1 18:31 Follow up: Response: No adverse reaction vg1 18:40 Drug: vancoMYCIN 1 grams Route: IVPB; Infused Over: 2 hrs; Site: right wrist; vg1 21:09 Follow up: IV Status: Completed infusion; IV Intake: 250ml vg1 Intake: 18:31 IV: 100ml; Total: 100ml. vg1 21:09 IV: 250ml; Total: 350ml. vg1 Outcome: 17:11 Decision to Hospitalize by Provider. pm1 22:26 Admitted to ER Hold. Please see [facility] for further documentation. vg1 22:26 Condition: stable 22:26 Instructed on the need for admit. 03/03 13:48 Admitted to Tele accompanied by tech, via wheelchair, room 204, with chart, Report vg1 called to Bonita MACHADO 13:49 Patient left the ED. vg1 Signatures: Dispatcher [employer] Marlene Ramos Shelby, RN RN ss Alban Montoya, WELFARE ELIGIBILITY INTERVIEWER WELFARE ELIGIBILITY INTERVIEWER pm1 Daniela Cook mw2 Alisha Adame mb4 Radha Ortega RN RN vg1
--- NOTE | 2021-03-02 17:12 | EDPHYS ---
Physician Documentation [facility] Name: Karen Edward Age: 85 yrs Sex: Female : 1935 Arrival Date: 03/02/2021 Time: 12:35 Bed 10 Private MD: ED Physician Daniel Jimenez HPI: 03/02 14:20 This 85 yrs old Female presents to ER via Wheelchair with complaints of Fall pm1 Injury, Cellulitis on Back. 14:20 Details of fall: The patient fell from an upright position, while walking. Onset: The pm1 symptoms/episode began/occurred just prior to arrival, Slipped on wet surface due to rain. Associated injuries: The patient sustained lateral aspect of left calf and left humphrey. The patient has been recently seen by a physician: the patient's primary care provider, Dr. Bennett with different complaint(s), and apparently was diagnosed with Abscess and cellulitis of back. Patient was given a prescription for doxycycline for a lipoma on her back that has gotten infected. No improvement of cellulitis after 3 days of antibiotics and an abscess appears to be forming. Patient was seen today by her PCP and sent to the ER for further evaluation and treatment. Unfortunately as the patient was walking to the ER she slipped on the wet surface on the concrete due to the rain and fell. No head injury headache neck pain LOC. Patient with pain to left humphrey and lateral calf with swelling. Historical: - Allergies: 13:40 Clindamycin; ss 13:40 Naproxen; ss 13:40 Procardia; ss 13:40 Reglan; ss 13:40 Rocephin; ss - Home Meds: 19:42 atorvastatin Oral [Active]; Calcium Carbonate Oral daily [Active]; aspirin 81 mg Oral vg1 TbEC 1 tab once daily [Active]; carvedilol 6.25 mg Oral tab 1 tab 2 times per day [Active]; Centrum Silver Oral daily [Active]; citalopram 40 mg tab 1 tab once daily [Active]; dulera 100 mcg daily [Active]; estradiol 0.5 mg Oral tab 1 tab once daily [Active]; gabapentin 300 mg Oral cap 1 cap twice a day [Active]; glipizide 10 mg Oral tab 1 tab once daily [Active]; levothyroxine 88 mcg tab 1 tab once daily [Active]; omeprazole 20 mg Oral cpDR 1 cap once daily [Active]; Spiriva [Active]; Spironolactone Oral once daily [Active]; torsemide 20 mg Oral tab 1 tab once daily [Active]; Tradjenta 5 mg Oral tab 1 tab once daily [Active]; Xarelto 15 mg Oral tab daily [Active]; - PMHx: 13:40 Asthma; CHF; Diabetes - NIDDM; Hyperlipidemia; Hypertension; Hypothyroidism; ss - Immunization history:: Adult Immunizations up to date, Client reports receiving the 2nd dose of the Covid vaccine. - Social history:: Smoking status: Patient denies any tobacco usage or history of. ROS: 14:20 Constitutional: Negative for fever, chills, and weight loss, Cardiovascular: Negative pm1 for chest pain, palpitations, and edema, Respiratory: Negative for shortness of breath, cough, wheezing, and pleuritic chest pain, Abdomen/GI: Negative for abdominal pain, nausea, vomiting, diarrhea, and constipation. 14:20 Back: Negative for injury and pain. 14:20 Neuro: Negative for headache, weakness, numbness, tingling, and seizure. 14:20 MS/extremity: Positive for swelling, tenderness, of the Proximal lateral aspect of left calf and left humphrey, Negative for decreased range of motion, deformity. 14:20 Skin: Positive for abscess, cellulitis, of the right mid back. 14:20 All other systems are negative. Exam: 14:20 Constitutional: This is a well developed, well nourished patient who is awake, alert, pm1 and in no acute distress. Head/Face: Normocephalic, atraumatic. 14:20 Chest/axilla: Normal chest wall appearance and motion. Nontender with no deformity. No lesions are appreciated. 14:20 Eyes: Exam is negative for acute changes, Periorbital structures: appear normal, Extraocular movements: no acute changes, Conjunctiva: no acute changes, no injection. 14:20 ENT: Mouth: no acute changes, Lips: normal, Oral mucosa: normal, pink and intact, moist. 14:20 Neck: External neck: no acute changes, C-spine: vertebral tenderness, is not appreciated, ROM/movement: is normal, is supple, without pain, no range of motions limitations. 14:20 Cardiovascular: Exam negative for acute changes, Rate: normal, Rhythm: regular, Pulses: no pulse deficits are appreciated. 14:20 Respiratory: Exam negative for acute changes, respiratory distress, shortness of breath, Breath sounds: are clear throughout. 14:20 Abdomen/GI: Inspection: abdomen appears normal, Palpation: abdomen is soft and non-tender, in all quadrants. 14:20 Back: Exam negative for acute changes, normal spinal alignment noted, vertebral tenderness, is not appreciated. 14:20 Musculoskeletal/extremity: Extremities: grossly normal except: noted in the lateral aspect of left calf and left humphrey: ecchymosis, swelling, There is no evidence of decreased ROM, deformity, Circulation is intact in all extremities. 14:20 Skin: Appearance: normal except for affected area, abscess, that is small, Approximately 1 cm pointing abscess with fluctuance and surrounding area of cellulitis. Area of surrounding cellulitis approximately 10 cm diameter, of the right mid back. 14:20 Neuro: Exam negative for acute changes, Orientation: is normal, Mentation: is normal, Motor: is normal, moves all fours. Vital Signs: 13:40 BP 122 / 58; Pulse 77; Resp 18; Temp 97.2(TE); Pulse Ox 99% on R/A; Weight 99.79 kg; ss Height 5 ft. 3 in. (160.02 cm); Pain 7/10; 17:24 BP 112 / 53; Pulse 72; Resp 18; Pulse Ox 97% ; vg1 13:40 Body Mass Index 38.97 (99.79 kg, 160.02 cm) ss Procedures: 18:09 I \\T\\ D: Incision and drainage was performed for an abscess of the right mid back Prepped pm1 with Betadine, Anesthetized with Lidocaine 1% and Marcaine. Incised with #11 blade. Drained moderate amount Sebaceous material expressed Loculations removed. Cultures obtained. Abscess cavity explored. Packed with iodoform gauze, Dressing: sterile 4x4 gauze, the patient tolerated the procedure well. MDM: 14:20 Patient medically screened. pm1 16:03 ED course: Patient with allergies to penicillin, cephalosporins, and clindamycin. pm1 Therefore will cover the patient with vancomycin for MRSA coverage. 17:06 Data reviewed: vital signs. Data interpreted: Pulse oximetry: on room air is 99 %. pm1 Interpretation: normal. 17:06 Physician consultation: Adriel Bennett MD was contacted at 17:07, regarding admission, pm1 patient's condition, and will see patient would like further tests performed, Incision and drainage with wound culture, would like medications started, Levaquin 500 mg daily and vancomycin IV every 12 hours with dose adjustment from pharmacy, Hydrocodone 5 mg every 4 hours as needed for moderate pain and morphine 2 mg every 4 hours for severe pain. 17:06 Counseling: I had a detailed discussion with the patient and/or guardian regarding: the pm1 historical points, exam findings, and any diagnostic results supporting the discharge/admit diagnosis, lab results, radiology results, the need for further work-up and treatment in the hospital. 03/02 13:41 Order name: CBC with Diff pm1 03/02 13:41 Order name: Blood Culture Adult (2) pm1 03/02 13:41 Order name: BMP; Complete Time: 15:50 pm1 03/02 13:41 Order name: LFT's; Complete Time: 15:50 pm1 03/02 13:41 Order name: Procalcitonin; Complete Time: 16:01 pm1 03/02 13:41 Order name: Lactate; Complete Time: 16:01 pm1 03/02 13:42 Order name: CBC with Automated Diff; Complete Time: 15:42 EDMA 03/02 13:42 Order name: Blood Culture EDMA 03/02 16:48 Order name: COVID-19 : Document "Date of Symptom Onset" if Symptomatic. pm1 03/02 17:06 Order name: Wound Culture pm1 03/02 21:07 Order name: SARS-COV-2 RT PCR EDMA 03/02 22:44 Order name: Glucose, Ancillary Testing EDMA 03/03 04:01 Order name: Basic Metabolic Panel EDMA 03/03 04:08 Order name: CBC with Automated Diff EDMA 03/02 13:38 Order name: Hip Left 2 View XRAY; Complete Time: 15:13 pm1 03/02 13:38 Order name: Knee Left 3 View XRAY; Complete Time: 15:13 pm1 03/02 13:38 Order name: Tib Fib Left XRAY; Complete Time: 15:13 pm1 03/02 13:41 Order name: IV Saline Lock; Complete Time: 17:57 pm1 03/02 13:42 Order name: Ice pack; Complete Time: 13:43 pm1 03/02 15:38 Order name: Abdomen Limited US; Complete Time: 17:19 pm1 03/02 17:06 Order name: Incision \\T\\ Drainage Setup; Complete Time: 17:24 pm1 03/03 08:45 Order name: Glucose, Ancillary Testing EDMS 03/03 11:59 Order name: Glucose, Ancillary Testing EDMS Administered Medications: 16:38 Drug: [place] (HYDROcodone-acetaminophen) 5 mg-325 mg 1 tabs Route: PO; vg1 17:57 Follow up: Response: No adverse reaction vg1 16:40 Drug: Tetanus-Diphtheria Toxoid Adult 0.5 ml {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 Exp: vg1 10/18/2022. Lot #: [id number]. } Route: IM; Site: right deltoid; 17:57 Follow up: Response: No adverse reaction vg1 17:22 Drug: LevaQUIN (levofloxacin) 500 mg Volume: 100 ml; Route: IVPB; Infused Over: 60 vg1 mins; Site: right wrist; 18:31 Follow up: IV Status: Completed infusion; IV Intake: 100ml vg1 17:57 Drug: Lidocaine (1 %) 5 ml Volume: 5 ml; Route: Infiltration; vg1 18:31 Follow up: Response: No adverse reaction vg1 17:57 Drug: Marcaine (bupivacaine) (0.5 %) 10 ml Volume: 10 ml; Route: Infiltration; vg1 18:31 Follow up: Response: No adverse reaction vg1 18:40 Drug: vancoMYCIN 1 grams Route: IVPB; Infused Over: 2 hrs; Site: right wrist; vg1 21:09 Follow up: IV Status: Completed infusion; IV Intake: 250ml vg1 Disposition: 03/03 18:37 Co-signature as Attending Physician, Daniel Jimenez MD I agree with the assessment and tw4 plan of care. Disposition Summary: 03/02/21 17:11 Hospitalization Ordered Hospitalization Status: Inpatient Admission pm1 Provider: Adriel Bennett pmSree Condition: Stable pm1 Problem: new pm1 Symptoms: have improved pm1 Bed/Room Type: Standard pm1 Location: Telemetry/MedSurg (Inpatient)(03/03/21 13:07) dw Room Assignment: [facility][note 3](03/03/21 13:18) dw Diagnosis - Cutaneous abscess of back [any part, except buttock] pm1 - Fall on same level, unspecified pm1 - Contusion of left lower leg pm1 Forms: - Medication Reconciliation Form pm1 - SBAR form pm1 Signatures: Dispatcher [employer] EDMS Marissa Gregory RN RN mw Woody, Diana, RN Ragini Maldonado RN JEANNETTE ss Alban Montoya, MARKETING ANALYTICS LEAD MARKETING ANALYTICS LEAD pm1 Daniel Jimenez MD MD tw4 Radha Ortega RN RN vg1 Corrections: (The following items were deleted from the chart) 03/02 21:10 17:11 Telemetry/MedSurg (Inpatient) pm1 mw : 17:11 pm1 mw 03/03 13:07 03/02 21:10 [facility] ER HOLD mw 03/03 13:07 03/02 21:10 ERHOLD- mw 03/03 13:18 13:07 [address] [facility]
--- NOTE | 2021-03-02 17:18 | RAD REPORT ---
EXAM DESCRIPTION: US - Abdomen Exam Limited - 03/02/2021 4:17 pm CLINICAL HISTORY: back abscess cellulitis COMPARISON: <Comparisons> FINDINGS: Limited sonographic evaluation of the lower right back was performed. A 16 millimeter roun ded hypoechoic mass is present in superficial soft tissues with posterior acoustic enhancement. Surro unding tissues are edematous. Finding is consistent with an abscess. IMPRESSION: Approximately 16 millimeter focal abscess in the edematous soft tissues of the lower rig ht back.
[2021-03-02] MEDS: Levofloxacin 750mg IV 750 MG/150 ML BAG IV SCH (17:22)
[2021-03-02] MEDS ORDERED: Levofloxacin500mg IV 500 MG/100 ML BAG IV ONE (17:40)
[2021-03-02] MEDS ORDERED: LIDOCAINE 1% 20 ML MDV ONE (17:58)
[2021-03-02] MEDS ORDERED: LIDOCAINE 1% MPF 5 ML VIAL ONE ×2 (17:58→18:01)
[2021-03-02] MEDS ORDERED: BUPIVACAINE 0.5% PF 10 ML VIAL ONE ×2 (17:58→18:01)
[2021-03-02 21:11] VITALS: BMI 37.8
[2021-03-02] MEDS ORDERED: GLUCAGON 1 MG/VIAL IM PRN (21:12)
[2021-03-02] MEDS ORDERED: VANCOMYCIN/NS 1 gm 1 GM/250 ML BAG IVPB SCH (21:12)
[2021-03-02] MEDS ORDERED: D50W 25 GM/50 ML SYRINGE IV PRN (21:12)
[2021-03-02] MEDS ORDERED: MORPHINE 2 MG/ML SYR IV PRN (21:12)
[2021-03-02] MEDS: INSULIN -REGULAR HUMAN 50 UNIT/0.5 ML ML SQ SCH (21:12)
[2021-03-02] MEDS ORDERED: MORPHINE 2 MG/ML SYR ONE (21:41)
[2021-03-02] MEDS ORDERED: NA CHLORIDE 0.9% IVPB SCH (23:00)
[2021-03-02] MEDS ORDERED: VANCOMYCIN IVPB SCH (23:00)
[2021-03-02] MEDS: HYDROCODONE/APAP 5/325 MG TAB PO PRN (23:30)
[2021-03-03 03:35] LABS: Absolute Lymphocytes (CBC) 1.4 K/uL (0.7-4.9); Basophils % 0.6 % (0-1.3); Hematocrit 34.7 % (36.0-45.0); Lymphocytes % 16.7 % (15.3-44.8); MPV 9.1 fL (7.6-11.3); RBC Red Blood Cell Count 4.05 M/uL (3.86-4.86)
[2021-03-03] MEDS: HYDROCODONE/APAP 5/325 MG TAB PO PRN ×3 (03:48→22:22)
[2021-03-03 04:01] LABS: Potassium 4.4 mmol/L (3.5-5.1)
[2021-03-03] MEDS ORDERED: HYDROCODONE/APAP 5/325 MG TAB ONE (04:13)
[2021-03-03] MEDS: INSULIN -REGULAR HUMAN 50 UNIT/0.5 ML ML SQ SCH ×4 (07:30→21:00)
--- NOTE | 2021-03-03 13:19 | HP ---
Date of Admission: 03/02/2021 Chief Complaint: Back pain. History Of Present Illness: This is an 85-year-old pleasant female patient who came into office on 0 02/28/2021 with complaints of back pain. The patient had a painful area of swelling over the back. S he reports that the knot over her back has been present for a very long time which is nothing new, bu t 2 to 3 days before she came to see me, it started to become painful. At that time, she denied any drainage or any problems like that. No fever. No chills. The patient was evaluated at office, was diagnosed as having cellulitis of this area with some underlying either lipoma or sebaceous cyst. Th ere was no evidence of any abscess. She was started on doxycycline, which she started taking it and yesterday she called me and informed me that her pain has gotten so bad that she could not sleep at a ll previous night and at that time, she was advised to come to emergency room. She could not find an ybody to bring her to emergency room, so she decided to drive herself. She lives [facility] the [facility]. After she came to the emergency room, as she was walking from her car inside the emergency room, she lost her balance and fell down and as she fell down, she injured her left lower anterior leg where she has large area of hematoma, but there was no evidence of any op en wound. She did not have any head injury. She was evaluated in the ER and no fracture was found o n further testing. She had an ultrasound done on the back, which did reveal presence of small absces s of 16 mm size. Incision and drainage was done and she was admitted to the hospital. Her pain impr vik significantly after incision and drainage was done. I saw her this morning. Allergies: TO CEFTRIAXONE CAUSING CARDIAC ARREST; CLINDAMYCIN CAUSING NAUSEA; NIFEDIPINE CAUSING LEG SWELLING; REGLAN, DETAILS UNKNOWN; NAPROXEN, DETAILS UNKNOWN; METOLAZONE CAUSING HYPOKALEMIA, MYOCLO OUSMANE JERKING, AND ACUTE KIDNEY INJURY. Medications: Tylenol with codeine as prescribed by Pain Management physician. Ventolin inhaler 2 pu ffs every 4 hours as needed for shortness of breath. Alprazolam 0.5 mg at bedtime as needed for slee p. Atorvastatin 20 mg daily in the evening with meal. Carvedilol 6.25 mg 2 times a day, citalopram 40 mg daily, Breo Ellipta inhaler 1 puff daily and it is 100 mcg dose. Furosemide 40 mg 2 times a da y, gabapentin 300 mg 2 times a day, levothyroxine 75 mcg daily, nystatin cream topically 2 times a da y as needed for rash, potassium chloride 10 mEq 2 times a day, Xarelto 20 mg daily in the evening wit h meal, Entresto 24/26 mg 1 tablet by mouth 2 times a day, Januvia 100 mg daily. Review of Systems: Musculoskeletal: As mentioned above. Dermatology: As mentioned above. All other systems reviewed and negative. Past Medical History: Significant for hypothyroidism, type 2 diabetes mellitus, COPD, on continuous home oxygen, hypertension, hyperlipidemia which is mixed, chronic systolic congestive heart failure, paroxysmal atrial fibrillation, diverticulosis, renal cyst, liver cyst, osteoarthritis at multiple si [place], CLL, insomnia, leg edema. Past Surgical History: Cataract surgery, hysterectomy, cholecystectomy, hemorrhoid surgery, knee tripp rory, and ankle surgery. Family History: Father at Alzheimer disease and coronary artery disease. Mother at leukem ia. Brother at throat cancer, and sister has hypertension. Social History: Prior history of smoking, not at present time. Use of alcohol, occasional. Immunization History: Patient had her first dose of COVID-19 vaccine on August 03, 2020 and second dose on August 31, 2020. Physical Examination: Vital Signs: Last vital signs this morning. Temperature 97.9, pulse 100, respiratory rate 20, blood p ressure 106/79, oxygen saturation 96%. Height 5 feet 4 inches, weight 220 pounds. General: Awake, alert, oriented, not in distress. HEENT: Head atraumatic, normocephalic. Conjunctivae nonerythematous. Sclerae white. Mouth, no thr ush or edema noted. Ears/Nose, no mass, lesion, discharge noted. Neck: Supple. No JVD, lymph nodes, bruit, thyromegaly noted. Lungs: Bilateral good equal air entry. Clear to auscultation. No rhonchi. No rales. Heart: Normal heart sounds, no murmur or gallop. Abdomen: Soft, bowel sounds normal. No guarding, rigidity, tenderness, mass, hepatosplenomegaly, dis tention, or bruit noted. Extremities: No leg edema. No calf tenderness. Skin: The patient's right lower back has dressing present which is blood-stained. There was no acti ve bleeding noted. No discharge. She has about 1 cm open wound and this is result of incision and d rainage done in the emergency room. Surrounding skin is pink, warm, and tender to touch. The patien t has large area of induration around this open wound and this indurated area actually is bigger toda y compared to what it was when she was at office on February 28, 2021. Currently, this indurated area is approximately 7 to 10 cm in size. There is no fluctuation. Left lower anterior leg has large are a of hematoma involving at least 2/3rd of the anterior leg between knee and ankle and peripheral puls es are normal. No evidence of any compartment syndrome. Lymphatics: No lymph node enlargement in neck, supraclavicular, infraclavicular region. Neuro: No focal neurological deficit. Chest: Unremarkable. External Genitalia: Deferred. Rectal: Deferred. Laboratory Data: White count yesterday 7.5, hemoglobin 11.5, platelets 117. This morning, white cou nt 8.5, hemoglobin 11.3, platelets 137. Yesterday, sodium 140, potassium 4.3, chloride 106, bicarb 2 9, BUN 25, creatinine 1.32, glucose 124. Liver function tests unremarkable. Troponin less than 0. Procalcitonin less than 0.05. This morning, sodium 141, potassium 4.4, chloride 105, bicarb 32, BUN 2 2, creatinine 1.27, glucose 139. COVID-19 test negative. Ultrasound of back shows approximately 16 mm focal abscess. Left tibia-fibula shows evidence of hematoma of the left anterior leg. No acute b one or joint. Left knee x-ray, no evidence of fracture. Left knee x-ray was also negative for any a cute findings. Impression: 1.Abscess, back. 2.Sebaceous cyst. 3.Hematoma, left leg. 4.Generalized weakness. 5.Debility. 6.Hypothyroidism. 7.Type 2 diabetes mellitus. 8.Chronic obstructive pulmonary disease, oxygen-dependent. 9.Hypertension. 10.Mixed hyperlipidemia. 11.Chronic systolic congestive heart failure. 12.Paroxysmal atrial fibrillation. 13.Chronic anticoagulation therapy. 14.Diverticulosis. 15.Anemia. 16.Thrombocytopenia. 17.Chronic lymphocytic leukemia. 18.Chronic kidney disease, stage IIIB. We will go ahead and admit patient to hospital for further evaluation and management of this problem. The patient is appropriate for inpatient and is expected to spend 2 midnights in hospital. We will not give any anticoagulation therapy today and we will consider to start it as of tomorrow evening. We will continue home medications per order. We will give IV Levaquin and IV vancomycin. Consult James davenport for management of vancomycin dosing. Starting tomorrow, we will consult Physical Therapy to help ambulate the patient. We will also consult general surgeon tomorrow and I will keep her n.p.o. after midnight and I would like to have surgeon evaluate her for left leg hematoma as well as abscess with this infected sebaceous cyst to see if whether it will need further debridement or not and with that, we will keep her n.p.o. after midnight and do not give any anticoagulation yet at this point. I also talked to patient regarding advance directive and as per my discussion with her, she informed me that in the event of cardiopulmonary arrest, she does not want any heroic measures like CPR, defi brillation, and ventilator support and let the God and nature take its course and if something like t hat happens to her, we will write DNR order in the chart. After I saw her, the patient's son came to the hospital and I did go back and discuss all the details with him including the patient's decision regarding her advanced directive and he informed me that family agrees with her decision and we also discussed about disposition. The patient lives independently at [facility] and family really would like her to go to fdc facility and I agree with family that it would be best for he r to go to such facility because of her declining health and family will communicate with her remaini ng of this. I will see her tomorrow for followup. MIGUE/MODL Voice ID: [id number]
[2021-03-03] MEDS: ALBUTEROL 2.5 MG/3 ML NEB SOL NEB SCH (19:55)
[2021-03-03] MEDS: SACUBITRIL/VALSARTAN 24/26 MG TAB PO SCH (21:00)
[2021-03-03] MEDS: FUROSEMIDE 40 MG TABLET PO SCH (21:00)
[2021-03-03] MEDS: carvediloL 6.25 MG TAB PO SCH (21:00)
[2021-03-03] MEDS: POTASSIUM CL SA 10 MEQ TAB PO SCH (22:18)
[2021-03-03] MEDS: ATORVASTATIN 20 MG TAB PO SCH (22:18)
[2021-03-03] MEDS: GABAPENTIN 300 MG CAP PO SCH (22:19)
[2021-03-03] MEDS: ALPRAZOLAM 0.5 MG TABLET PO SCH (22:19)
[2021-03-04] MEDS: ALBUTEROL 2.5 MG/3 ML NEB SOL NEB SCH ×4 (02:00→21:50)
[2021-03-04] MEDS ORDERED: NA CHLORIDE 0.9% 500 ML ONE (05:39)
[2021-03-04] MEDS ORDERED: VANCOMYCIN 1 GM/VIAL ONE (05:39)
[2021-03-04] MEDS: VANCOMYCIN 1.75 GM in NA CHLORIDE 0.9% 500 ML IVPB SCH (06:00)
[2021-03-04] MEDS: LEVOTHYROXINE SOD 0.075 MG TAB PO SCH (06:11)
[2021-03-04] MEDS: INSULIN -REGULAR HUMAN 50 UNIT/0.5 ML ML SQ SCH ×4 (07:30→21:00)
[2021-03-04] MEDS: SACUBITRIL/VALSARTAN 24/26 MG TAB PO SCH ×2 (09:00→21:46)
[2021-03-04] MEDS ORDERED: propofoL 200 MG/20 ML VIAL IV ONE (10:27)
[2021-03-04] MEDS ORDERED: BUPIVACAINE 0.5% PF 10 ML VIAL ONE ×2 (10:28→10:46)
[2021-03-04] MEDS ORDERED: FENTANYL CITR 100 MCG/2 ML ONE (10:28)
[2021-03-04] MEDS ORDERED: LIDOCAINE 2% MPF 5 ML VIAL ONE (10:28)
[2021-03-04] MEDS ORDERED: NA CHLORIDE 0.9% 1,000 ML ONE (10:36)
[2021-03-04] MEDS ORDERED: ROCURONIUM 50 MG/5 ML VIAL IV ONE (10:51)
[2021-03-04] MEDS ORDERED: ONDANSETRON 4 MG/2 ML VIAL ONE (10:53)
[2021-03-04] MEDS ORDERED: Phenylephrine HCl 10 MG/ML 1 ML VIAL ONE (11:45)
[2021-03-04] MEDS ORDERED: NS 0.9% VIAL 10 ML ONE (11:46)
[2021-03-04] MEDS ORDERED: SUGAMMADEX SODIUM 200 MG/2 ML VIAL IV ONE (12:25)
--- NOTE | 2021-03-04 12:32 | P.OP ---
[facility] Teacher: Brandan ROE Preoperative diagnosis: Hematoma Left Leg, Infected Cyst Back Postoperative diagnosis: same Primary procedure: I and D Left leg hematoma with pulse irrigation Secondary procedure: Wide excision cyst on back 12x7 cm with layered closure Anesthesia: General Estimated blood loss: min Specimen: C&S Findings: as above Complications: None Drain(s): Wound drain Transferred to: Recovery Room Condition: Good
--- NOTE | 2021-03-04 13:23 | OP ---
Date of Procedure: 03/04/2021 Surgeon: Landry Forde MD Packing [employer] Final [employer] Supervisor: Brandan Begum, surgical nurse practitioner certified. Preoperative Diagnosis: Left leg hematoma and infected wound, cyst on the back. Postoperative Diagnosis: Left leg hematoma and infected wound, cyst on the back. Procedures: 1.Incision, drainage, and pulse irrigation of left leg hematoma. 2.Wide excision of back cyst 12 x 7 cm with layered closure. Estimated Blood Loss: Minimal. Specimen: Culture and sensitivity. Finding: As above. Anesthesia: General. Complications: None. Disposition: The patient tolerated the procedure in stable condition and taken to Recovery in good g eneral condition. Procedure In Detail: The patient was brought to the OR and placed in supine position. General anest hesia begun. The patient was prepped and draped in usual sterile fashion on the left anterior leg. Then, approximately a 4 cm incision was made in the bottom of the hematoma and then loculation broken up with blunt dissection. Pulse irrigation done. Large amount hematoma, clot evacuated. After pul se irrigation was done with approximately a liter and half with saline, there was no evidence of blee ding noted. Quarter-inch Heather drain x2 were placed and secured with 3-0 nylon. Then, a 2-0 chrom ic was used to approximate subcutaneous tissue and natalia were used to close the skin. A sterile dr essing was applied and the patient was placed in the right lateral position, and prepped and draped i n usual sterile fashion. Marcaine 0.5% was infiltrated locally. A 15-blade was used to make a 12 x 7 cm incision to excise the entire wall of this infected cyst. Subcutaneous tissue was divided and t he entire wall all down through the deep subcutaneous tissue. The cyst excised and cultures were don e and sent to Pathology. Wound was irrigated. Bleeding controlled with electrocautery. Flaps creat ed. Then, 0 chromic was used to approximate subcutaneous tissue. Quarter-inch Heather were placed 1 on the superior side and 1 on the inferior side and then 2-0 nylon was used to close the skin interr upted in nature. Sterile dressing applied. The patient was awakened and taken to Recovery in good g eneral condition. /MODL Voice ID: [id number] Report ID: [id number]
--- NOTE | 2021-03-04 14:50 | PREOPCON ---
Date of Consultation: 03/03/2021 Reason For Consultation: Infected wound of back and left leg hematoma. History Of Present Illness: The patient is an 85-year-old female, who went to see Dr. Bennett, complain ing of back pain last . She has swelling and redness and no drainage at that time. She was started on antibiotics and then pain got worse and she went to the emergency room and on the way to [facility] emergency room, she fell. After she losing her balance and injured her left anterior leg where stu breaux has a large hematoma, no history of any head injury. She was evaluated in the ER. There was no fr acture noted and she had I and D done in the ER, however, is still draining pus and it was a simple i ncision and drainage and still has a large amount of infected tissue in it. Her pain is slightly imp roved. She is on chronic anticoagulation. Xarelto was taken Thursday. No sore throat, runny nose, cough, headaches, or dizziness. No chest pain. No fever or chills. Review of Systems: Otherwise unremarkable. Past Medical History: Significant for hypothyroidism, type 2 diabetes, COPD on home oxygen, hyperten carlton, hyperlipidemia, chronic systolic congestive heart failure, atrial fibrillation, diverticulosis, CLL. Past Surgical History: Cataract surgery, hysterectomy, cholecystectomy, hemorrhoid surgery, knee tripp rory, and ankle surgery. Allergies: CEFTRIAXONE, CLINDAMYCIN, NIFEDIPINE, NAPROSYN, AND METOLAZONE. Social History: The patient used to smoke in the past currently does not and occasional use of alcoh ol. Family History: Significant for father with Alzheimer's and coronary artery disease, leukemia in the mother, brother had throat cancer, and sister had hypertension. Physical Examination: Vital Signs: Her vital signs are currently stable. She is afebrile. She is awake, alert. Head and Neck: No masses. Chest: Clear. Heart: S1 and S2. Abdomen: Soft. Extremities: Neurovascularly intact with a large anterior hematoma of the left leg anterior and medi al approximately 20 x 10 cm. Slightly warm to the touch. There is blistering of the skin on top of it approximately 4 cm in diameter. Back: On the back, there is an infected wound approximately 4 x 6 cm with a little bit of packing pr esent with pus pouring out. This sebaceous cyst that needs the wall that excised and infection evacu ated. Laboratory Data: White count is normal. There was left shift is improved. Chemistry reviewed. Assessment: Infected cyst to the back and hematoma left leg. Plan: N.p.o. IV fluid, IV antibiotics, and then to the OR for wide excision of the infected sebaceou s cyst and incision and drainage of the large hematoma with probable drain placement. The patient un derstands the risks, benefits, and alternatives and agrees to procedure. /MODL Voice ID: [id number] Report ID: [id number]
[2021-03-04] MEDS: CITALOPRAM 10 MG TABLET PO SCH (16:02)
[2021-03-04] MEDS: POTASSIUM CL SA 10 MEQ TAB PO SCH ×2 (16:03→21:46)
[2021-03-04] MEDS: FUROSEMIDE 40 MG TABLET PO SCH ×2 (16:03→21:46)
[2021-03-04] MEDS: GABAPENTIN 300 MG CAP PO SCH ×2 (16:03→21:46)
[2021-03-04] MEDS: carvediloL 6.25 MG TAB PO SCH ×2 (16:04→21:45)
--- NOTE | 2021-03-04 21:35 | PN ---
Date of Progress Note: 03/04/2021 Subjective: The patient was seen this morning for followup. No new complaints or problems reported. Feeling better. Objective: Vital Signs: Reviewed. HEENT: Unremarkable. Lungs: Clear to auscultation. Abdomen: Soft. Bowel sounds normal. No guarding, rigidity, tenderness, or distention. Extremities: Left leg, anterolateral left leg shows one hematoma. Impression: 1.Abscess, back. 2.Infected sebaceous cyst. 3.Hematoma, left leg. 4.Paroxysmal atrial fibrillation. 5.Chronic systolic congestive heart failure. Plan: We will go ahead and continue current medications. We will continue current antibiotics. Dr. Forde from General Surgery was consulted and he did debridement of infected sebaceous cyst from her back and this was with a drainage tube in place. He also evacuated left leg hematoma. We will start Xarelto as her anticoagulation, but Dr. Forde has given his okay to start Lovenox dose and we will s tart Lovenox 30 mg subcutaneous injection daily starting tonight. We will continue empiric antibioti cs and I will communicate with the patient's family regarding details. MIGUE/MODL Voice ID: [id number] Report ID: [id number]
[2021-03-04] MEDS: ALPRAZOLAM 0.5 MG TABLET PO SCH (21:46)
[2021-03-04] MEDS: ATORVASTATIN 20 MG TAB PO SCH (21:46)
[2021-03-04] MEDS: Levofloxacin 750mg IV 750 MG/150 ML BAG IV SCH ×2 (21:47→22:00)
[2021-03-04] MEDS: ENOXAPARIN 30 MG/0.3 ML SQ SCH (21:47)
[2021-03-05] MEDS ORDERED: levoFLOXacin 500 MG TAB PO ONE (00:46)
[2021-03-05] MEDS: ALBUTEROL 2.5 MG/3 ML NEB SOL NEB SCH ×4 (02:05→20:00)
[2021-03-05] MEDS: LEVOTHYROXINE SOD 0.075 MG TAB PO SCH (05:25)
[2021-03-05] MEDS: INSULIN -REGULAR HUMAN 50 UNIT/0.5 ML ML SQ SCH ×4 (07:30→21:00)
[2021-03-05] MEDS: CITALOPRAM 10 MG TABLET PO SCH (08:59)
[2021-03-05] MEDS: SACUBITRIL/VALSARTAN 24/26 MG TAB PO SCH ×3 (08:59→20:36)
[2021-03-05] MEDS: GABAPENTIN 300 MG CAP PO SCH ×2 (08:59→21:47)
[2021-03-05] MEDS: POTASSIUM CL SA 10 MEQ TAB PO SCH ×2 (08:59→21:00)
[2021-03-05] MEDS: FUROSEMIDE 40 MG TABLET PO SCH ×2 (09:00→20:36)
[2021-03-05] MEDS: carvediloL 6.25 MG TAB PO SCH ×2 (09:00→20:36)
[2021-03-05] MEDS: HYDROCODONE/APAP 7.5/325 MG TAB PO PRN (09:02)
[2021-03-05] MEDS ORDERED: NA CHLORIDE 0.9% 1,000 ML ONE ×2 (12:16→14:12)
[2021-03-05] MEDS ORDERED: NA CHLORIDE 0.9% 500 ML IV ONE ×2 (12:30)
--- NOTE | 2021-03-05 13:45 | PN ---
Date of Progress Note: 03/05/2021 Subjective: The patient is awake, alert. Says the leg feels much better. Back still hurts a little bit. Objective: Vital Signs: Stable. Afebrile. Extremities: Wound is clean, dry, intact. No sign of infection. The hematoma has not reaccumulated in the left leg. Assessment: Status post incision and drainage, left leg hematoma, and excision of infected cyst on t he back. Recommendations: Continue antibiotics as ordered, check cultures, adjust antibiotics. Wound care is ordered. The patient may benefit from rehab evaluation and physical therapy. Once the patient is a ble to ambulate, can be discharged to an appropriate facility. The patient is clinically doing christel LORENZ/RHEA Voice ID: [id number] Report ID: [id number]
[2021-03-05] MEDS: NA CHLORIDE 0.9% 1,000 ML IV SCH (14:21)
[2021-03-05] MEDS: VANCOMYCIN 1.75 GM in NA CHLORIDE 0.9% 500 ML IVPB SCH (17:48)
[2021-03-05] MEDS: VANCOMYCIN 2 GM in NA CHLORIDE 0.9% 500 ML IVPB SCH (18:00)
[2021-03-05] MEDS: ALPRAZOLAM 0.5 MG TABLET PO SCH (21:00)
[2021-03-05] MEDS: ATORVASTATIN 20 MG TAB PO SCH (21:47)
[2021-03-05] MEDS: ENOXAPARIN 30 MG/0.3 ML SQ SCH (21:47)
[2021-03-06] MEDS: ALBUTEROL 2.5 MG/3 ML NEB SOL NEB SCH ×4 (02:30→20:05)
[2021-03-06] MEDS: LEVOTHYROXINE SOD 0.075 MG TAB PO SCH (05:53)
[2021-03-06] MEDS: NA CHLORIDE 0.9% 1,000 ML IV SCH ×4 (05:53→20:21)
[2021-03-06] MEDS: HYDROCODONE/APAP 7.5/325 MG TAB PO PRN (06:22)
[2021-03-06 06:31] LABS: Absolute Lymphocytes (CBC) 1.4 K/uL (0.7-4.9); Basophils % 0.5 % (0-1.3); Hematocrit 28.6 % (36.0-45.0); Lymphocytes % 16.3 % (15.3-44.8); MPV 9.5 fL (7.6-11.3); RBC Red Blood Cell Count 3.31 M/uL (3.86-4.86)
[2021-03-06] MEDS: INSULIN -REGULAR HUMAN 50 UNIT/0.5 ML ML SQ SCH ×4 (07:30→21:16)
[2021-03-06] MEDS: carvediloL 6.25 MG TAB PO SCH ×2 (09:00→21:14)
[2021-03-06] MEDS: SACUBITRIL/VALSARTAN 24/26 MG TAB PO SCH ×2 (09:00→21:14)
[2021-03-06] MEDS: FUROSEMIDE 40 MG TABLET PO SCH ×2 (09:00→21:15)
[2021-03-06] MEDS: CITALOPRAM 10 MG TABLET PO SCH (09:07)
[2021-03-06] MEDS: POTASSIUM CL SA 10 MEQ TAB PO SCH ×2 (09:08→21:13)
[2021-03-06] MEDS: GABAPENTIN 300 MG CAP PO SCH ×2 (09:08→21:13)
[2021-03-06] MEDS: ENOXAPARIN 30 MG/0.3 ML SQ SCH (21:12)
[2021-03-06] MEDS: ATORVASTATIN 20 MG TAB PO SCH (21:13)
[2021-03-06] MEDS: ALPRAZOLAM 0.5 MG TABLET PO SCH ×2 (21:19→23:25)
[2021-03-06] MEDS: Levofloxacin 750mg IV 750 MG/150 ML BAG IV SCH (21:25)
[2021-03-07] MEDS: HYDROCODONE/APAP 7.5/325 MG TAB PO PRN (00:36)
[2021-03-07] MEDS: NA CHLORIDE 0.9% 1,000 ML IV SCH ×2 (01:39→16:33)
[2021-03-07] MEDS: ALBUTEROL 2.5 MG/3 ML NEB SOL NEB SCH ×4 (01:40→20:00)
[2021-03-07] MEDS: LEVOTHYROXINE SOD 0.075 MG TAB PO SCH (06:07)
[2021-03-07] MEDS: VANCOMYCIN 2 GM in NA CHLORIDE 0.9% 500 ML IVPB SCH (06:33)
[2021-03-07] MEDS: INSULIN -REGULAR HUMAN 50 UNIT/0.5 ML ML SQ SCH ×4 (07:30→21:00)
[2021-03-07 08:08] LABS: Absolute Lymphocytes (CBC) 1.2 K/uL (0.7-4.9); Basophils % 0.6 % (0-1.3); Hematocrit 24.3 % (36.0-45.0); Lymphocytes % 20.3 % (15.3-44.8); RBC Red Blood Cell Count 2.78 M/uL (3.86-4.86)
[2021-03-07 08:27] LABS: Magnesium 1.9 mg/dL (1.8-2.4); Potassium 4.3 mmol/L (3.5-5.1)
[2021-03-07] MEDS: FUROSEMIDE 40 MG TABLET PO SCH ×2 (09:00→21:00)
[2021-03-07] MEDS: carvediloL 6.25 MG TAB PO SCH ×2 (09:00→21:00)
[2021-03-07] MEDS: SACUBITRIL/VALSARTAN 24/26 MG TAB PO SCH ×2 (09:00→21:02)
[2021-03-07] MEDS: POTASSIUM CL SA 10 MEQ TAB PO SCH ×2 (09:31→21:03)
[2021-03-07] MEDS: GABAPENTIN 300 MG CAP PO SCH ×2 (09:31→21:05)
[2021-03-07] MEDS: CITALOPRAM 10 MG TABLET PO SCH (09:31)
[2021-03-07] MEDS: ENOXAPARIN 30 MG/0.3 ML SQ SCH (21:01)
[2021-03-07] MEDS: ALPRAZOLAM 0.5 MG TABLET PO SCH (21:02)
[2021-03-07] MEDS: ATORVASTATIN 20 MG TAB PO SCH (21:03)
[2021-03-08] MEDS: ALBUTEROL 2.5 MG/3 ML NEB SOL NEB SCH ×4 (02:15→19:25)
[2021-03-08] MEDS: NA CHLORIDE 0.9% 1,000 ML IV SCH ×3 (02:21→12:21)
[2021-03-08] MEDS: LEVOTHYROXINE SOD 0.075 MG TAB PO SCH (06:24)
[2021-03-08] MEDS: INSULIN -REGULAR HUMAN 50 UNIT/0.5 ML ML SQ SCH ×4 (07:30→21:00)
[2021-03-08 08:40] LABS: Magnesium 1.9 mg/dL (1.8-2.4); Potassium 4.4 mmol/L (3.5-5.1)
[2021-03-08 08:57] LABS: Basophils % 0.5 % (0-1.3); Hematocrit 25.9 % (36.0-45.0); Lymphocytes % 17.7 % (15.3-44.8); MPV 9.4 fL (7.6-11.3)
[2021-03-08] MEDS: POTASSIUM CL SA 10 MEQ TAB PO SCH ×2 (09:00→21:05)
[2021-03-08] MEDS: GABAPENTIN 300 MG CAP PO SCH ×2 (09:00→21:05)
[2021-03-08] MEDS: CITALOPRAM 10 MG TABLET PO SCH (09:00)
[2021-03-08] MEDS: SACUBITRIL/VALSARTAN 24/26 MG TAB PO SCH ×2 (09:00→21:05)
[2021-03-08] MEDS: FUROSEMIDE 40 MG TABLET PO SCH ×2 (09:00→21:06)
[2021-03-08] MEDS: carvediloL 6.25 MG TAB PO SCH ×2 (09:00→21:06)
--- NOTE | 2021-03-08 12:41 | PN ---
Date of Progress Note: 03/08/2021 Subjective: The patient is awake, alert. No new complaint. Objective: Vital Signs: Stable. Afebrile. Cultures reviewed, essentially just skin maria m. Examination of the back wound reveals to be clean dry and intact. Minimal drainage. There is some s erous drainage from the leg wound and there may be a small amount of serous fluid in the wound itself . There is also an area where the patient had blistering of the skin, appears with starting a necrot ic eschar approximately 2.5 cm region and it has not completely demarcated yet. Assessment: Status post excision of infected cyst on the back and incision and drainage of hematoma on the left leg. Recommendation: Check the H and H, if it is stable the patient can start on Xarelto. If not then we will need to hold it little longer and continue on Lovenox and upon discharge, patient can follow up with me in about 10 days to evaluate to see if the wound has demarcated completely and may need a li ttle debridement and I can take the drain out in the [facility] as well and plan of care was discus sed in detail with Dr. Sabrina Forde. /MODL Voice ID: [id number] Report ID: [id number]
[2021-03-08] MEDS: VANCOMYCIN 2 GM in NA CHLORIDE 0.9% 500 ML IVPB SCH (18:16)
[2021-03-08] MEDS: RIVAROXABAN 10 MG TABLET PO SCH (18:18)
[2021-03-08] MEDS ORDERED: NA CHLORIDE 0.9% 1,000 ML ONE (18:34)
[2021-03-08] MEDS: ATORVASTATIN 20 MG TAB PO SCH (21:06)
--- NOTE | 2021-03-08 21:51 | PN ---
Date of Progress Note: 03/05/2021 Subjective: The patient was seen this morning for followup. She was lying in bed, not in distress. Objective: Vital Signs: Reviewed. HEENT: Unremarkable. Lungs: Clear to auscultation. No rhonchi. No rales. Heart: Sounds normal. Abdomen: Soft. Bowel sounds normal. No guarding, rigidity, tenderness, or distention. Extremities: No leg edema. Impression: 1.Infected sebaceous cyst. 2.Abscess, back. 3.Hematoma, left leg. 4.Anemia, unspecified. 5.Thrombocytopenia. Plan: We will continue current empiric antibiotics that we are on. Cultures are negative so far. W e will continue to follow with Dr. Forde. After I saw the patient during the course of day today, ar spike noontime, the patient had episode of hypotension with blood pressure dropped to 70/38. At that time, she did not have IV access and subsequently nurse was able to establish the IV access and IV fl uid bolus was given and her blood pressure started to come up. Nurse was advised to order PICC line. I did go back in the evening time to check on the patient, and she was hemodynamically stable and r esting comfortably and she did communicate with me, denied any complaints. I will see her tomorrow. MIGUE/MODL Voice ID: [id number] Report ID: [id number]
--- NOTE | 2021-03-08 22:17 | PN ---
Date of Progress Note: 03/07/2021 Subjective: The patient was seen this morning for followup. She was lying in bed, not in any distre ss. She appears weak and also confused. When I entered her room, she was talking to herself. When I started talking to her and asked her if she recognized me, she told me my name and then next second she started talking to herself again. Objective: Vital Signs: Reviewed. HEENT Examination: Unremarkable. Lungs: Clear to auscultation. Heart: Sounds normal. Abdomen: Soft. Bowel sounds normal. No guarding, rigidity, tenderness, or distention. Extremities: No leg edema. Laboratory Data: White count 5.8, hemoglobin 7.6, platelets 121. Sodium 141, potassium 4.3, chlorid e 111, bicarb 26, BUN 13, creatinine 0.89, glucose 118, magnesium 1.9. Impression: 1.Abscess, back. 2.Infected sebaceous cyst. 3.Hematoma, left leg. 4.Chronic obstructive pulmonary disease. 5.Acute blood loss anemia. 6.Thrombocytopenia. 7.Chronic obstructive pulmonary disease. Plan: We will continue current medication. Continue current empiric antibiotic the patient is on, a nd we will monitor hemoglobin. If hemoglobin goes less than 7, we will consider blood transfusion. Meanwhile, we will continue to follow up with Dr. Forde. Continue physical therapy. The patient's s on came to office today and all the details were discussed with him, updates given to him as well. I f the patient does not qualify to go to inpatient rehab, then the patient will go to intermediate facility in [place] and family has initiated paperwork at that particular facility. MIGUE/MODL Voice ID: [id number] Report ID: [id number]
[2021-03-08] MEDS: Levofloxacin 750mg IV 750 MG/150 ML BAG IV SCH (22:25)
--- NOTE | 2021-03-08 22:26 | PN ---
Date of Progress Note: 03/08/2021 Subjective: The patient was seen this morning for followup. She was lying in bed. Once again when I entered her room, she was talking to herself. She did not communicate with me today. Appears very weak. Objective: Vital Signs: Reviewed. HEENT: Unremarkable. Lungs: Clear to auscultation. Heart: Sounds normal. Abdomen: Soft. Bowel sounds normal. No guarding, rigidity, tenderness, or distention. Extremities: No leg edema. Her surgical dressing from back and left leg was removed and examined th ose areas. She has multiple sutures on the back with drainage tube present. No evidence of any swel ling or any active discharge or bleeding from back. Skin around the surgical site appears normal. L eft leg has also multiple sutures present with drainage tube present. She has some serosanguineous f luid collection on the left lateral leg area and upon gentle pressure, I was able to notice some sero sanguineous discharge coming out from the drainage tube site. She also has an area of skin necrosis in the upper anterior leg away from the incision site. Skin is pink, warm, and tender over lateral h michael of the left leg. Laboratory Data: White count 5.7, hemoglobin 8.3, platelets 140. Sodium 141, potassium 4.4, chlorid e 112, bicarb 27, BUN 12, creatinine 0.86, glucose 131. Magnesium 1.9. Impression: 1.Cellulitis, left leg. 2.Hematoma, left leg. 3.Abscess, back. 4.Infected sebaceous cyst. 5.Anemia due to acute blood loss. 6.Thrombocytopenia. 7.Chronic obstructive pulmonary disease. 8.Chronic anticoagulation therapy. Plan: I did discuss details with Dr. Forde and he evaluated the patient. He has not suggested any f urther intervention. He has requested that the [facility] to [facility] after next on outpatient basis. Meanwhile, while in the hospital, I am going to continue to monitor this a kailash, continue this empiric antibiotic, she is on vancomycin. We will continue her vancomycin and Lev aquin. We will continue to monitor this left leg and back. Monitor the patient's hemoglobin, which appears slightly better today than yesterday and no need for any blood transfusion. Physical therapy to continue to work with the patient. The patient is really not doing much with therapy and unfortu nately she will not be able to go to rehab unless she improves over period of next couple of days, wh ich is over this weekend. I will continue to monitor her. I did discuss details with the patient's son and our plan is for the patient to go to snf facility on Thursday. We will repeat ileanao d work tomorrow morning. MIGUE/RHEA Voice ID: [id number] Report ID: [id number]
--- NOTE | 2021-03-08 22:41 | PN ---
Date of Progress Note: 03/06/2021 Subjective: The patient was seen for followup in the morning. No new complaints or problems reporte d by her. She was lying in bed, not in any distress, appears sleepy this morning. Objective: Vital Signs: Reviewed. HEENT: Examination unremarkable. Lungs: Clear to auscultation. Heart: Sounds normal. Abdomen: Soft. Bowel sounds normal. No guarding, rigidity, tenderness, or distention. Extremities: No leg edema. Dressing present over left lower extremity and back. Laboratory Data: White count 8.5, hemoglobin 9.2, platelets 122. Impression: 1.Abscess, back. 2.Infected sebaceous cyst. 3.Hematoma, left leg. 4.Thrombocytopenia. 5.Chronic obstructive pulmonary disease. Plan: We will go ahead and continue current empiric antibiotics. Continue IV fluid. We will have P hysical therapy continue to work with the patient and we will continue to follow with Dr. Forde. We will see her tomorrow for followup. We will get some blood work done tomorrow morning per order. MIGUE/MODL Voice ID: [id number] Report ID: [id number]
[2021-03-09] MEDS: ALBUTEROL 2.5 MG/3 ML NEB SOL NEB SCH ×4 (01:15→20:22)
[2021-03-09] MEDS: LEVOTHYROXINE SOD 0.075 MG TAB PO SCH (06:00)
[2021-03-09 06:59] LABS: Absolute Lymphocytes (CBC) 1.1 K/uL (0.7-4.9); Basophils % 1.2 % (0-1.3); Hematocrit 23.5 % (36.0-45.0); Lymphocytes % 16.8 % (15.3-44.8); MPV 9.4 fL (7.6-11.3); RBC Red Blood Cell Count 2.76 M/uL (3.86-4.86)
[2021-03-09 07:27] LABS: Magnesium 1.8 mg/dL (1.8-2.4); Potassium 4.3 mmol/L (3.5-5.1)
[2021-03-09] MEDS: INSULIN -REGULAR HUMAN 50 UNIT/0.5 ML ML SQ SCH ×4 (07:30→21:00)
[2021-03-09] MEDS: FUROSEMIDE 40 MG TABLET PO SCH ×2 (09:00→22:29)
[2021-03-09] MEDS: SACUBITRIL/VALSARTAN 24/26 MG TAB PO SCH ×2 (12:34→22:30)
[2021-03-09] MEDS: GABAPENTIN 300 MG CAP PO SCH ×2 (12:34→22:29)
[2021-03-09] MEDS: POTASSIUM CL SA 10 MEQ TAB PO SCH ×2 (12:34→22:29)
[2021-03-09] MEDS: CITALOPRAM 10 MG TABLET PO SCH (12:35)
[2021-03-09] MEDS: carvediloL 6.25 MG TAB PO SCH ×2 (12:36→22:29)
[2021-03-09] MEDS: SOD FERRIC GLUC COMPLX/SUCROSE 125 MG in NA CHLORIDE 0.9% 100 ML IV SCH (12:36)
[2021-03-09] MEDS: RIVAROXABAN 10 MG TABLET PO SCH (16:54)
--- NOTE | 2021-03-09 21:31 | PN ---
Date of Progress Note: 03/09/2021 Subjective: The patient was seen this morning for followup. She was lying in bed. When I walked in to room, she was found to be weak. She did recognize me as soon as I entered her room. Weaker than normal and continues to have confusion problem. Not in any respiratory distress. She is not partici pating with physical therapy and when I talked to her today regarding importance of physical therapy, she informed me that she is feeling just too weak and not able to do so. Objective: Vital Signs: Reviewed. HEENT: Unremarkable. Lungs: Clear to auscultation. Heart: Sounds normal. Abdomen: Soft. Bowel sounds normal. No guarding, rigidity, tenderness, or distention. Extremities: No leg edema. Left lower extremity examined, multiple natalia present with presence of drainage tube and I was able to get very small amount of serosanguineous discharge from the drainage tube upon gentle pressure and this is significantly less amount of discharge today compared to yeste rday. Skin over left lower extremity is slightly pink and warm to touch, tender, and unchanged from yesterday. Her back was also examined. She has multiple sutures with presence of drainage tube and there is no swelling, no discharge. The overlying dressing was soaked with clear fluid. There was n o bleeding. No redness of skin. Laboratory Data: White count 6.6, hemoglobin 7.6, platelets 153. Sodium 141, potassium 4.3, chlorid e 110, bicarb 24, BUN 11, creatinine 0.76, glucose 124, magnesium 1.8. Impression: 1.Cellulitis, left leg. 2.Hematoma, left leg. 3.Abscess, back. 4.Infected sebaceous cyst. 5.Chronic systolic congestive heart failure. 6.Anemia due to acute blood loss. Plan: We will go ahead and continue current medication. The patient is on Xarelto 10 mg daily. We will continue that. We will continue current empiric antibiotics and instead of providing dressing c hanges to back once a day, I have advised nurse to do dressing changes 2 times a day in order for us to try to keep this area dry. We will see her tomorrow for followup. We will start her on IV iron t herapy starting today and we will repeat hemoglobin tomorrow. I did call the patient's son and frannie fung were discussed with him. Plan is to discharge the [facility], which is day after tomorrow. MIGUE/MODL Voice ID: [id number] Report ID: [id number]
[2021-03-09] MEDS: ATORVASTATIN 20 MG TAB PO SCH (22:29)
[2021-03-10] MEDS: ALBUTEROL 2.5 MG/3 ML NEB SOL NEB SCH ×4 (02:25→19:25)
[2021-03-10] MEDS: CODEINE 30MG/APAP 300MG TAB PO PRN ×2 (02:32→20:44)
[2021-03-10] MEDS: VANCOMYCIN 2 GM in NA CHLORIDE 0.9% 500 ML IVPB SCH (05:59)
[2021-03-10] MEDS: LEVOTHYROXINE SOD 0.075 MG TAB PO SCH (05:59)
[2021-03-10 07:04] LABS: Hematocrit 22.5 % (36.0-45.0)
[2021-03-10] MEDS: INSULIN -REGULAR HUMAN 50 UNIT/0.5 ML ML SQ SCH ×4 (07:30→20:23)
[2021-03-10] MEDS: SOD FERRIC GLUC COMPLX/SUCROSE 125 MG in NA CHLORIDE 0.9% 100 ML IV SCH (09:00)
[2021-03-10] MEDS: GABAPENTIN 300 MG CAP PO SCH ×2 (09:13→20:21)
[2021-03-10] MEDS: SACUBITRIL/VALSARTAN 24/26 MG TAB PO SCH ×2 (09:13→20:21)
[2021-03-10] MEDS: CITALOPRAM 10 MG TABLET PO SCH (09:13)
[2021-03-10] MEDS: FUROSEMIDE 40 MG TABLET PO SCH ×2 (09:13→20:22)
[2021-03-10] MEDS: POTASSIUM CL SA 10 MEQ TAB PO SCH ×2 (09:13→20:22)
[2021-03-10] MEDS: carvediloL 6.25 MG TAB PO SCH ×2 (09:13→20:21)
--- NOTE | 2021-03-10 11:27 | PN ---
Date of Progress Note: 03/10/2021 Subjective: The patient is awake, alert. No complaints. Objective: Vital Signs: Stable. Afebrile. Laboratory Data: H and H are 7.3 and 22 essentially stable after Xarelto was started. Back wounds of appears to be clean, dry, and intact with minimal serous drainage. The left leg wound , however, has appeared with more serous or bloody drainage and at it appears that there may be some more fluid inside the wound, but there is no evidence of any infection and essentially the patient donald s minimal pain in the leg. Assessment: Status post excision of infected cyst on the back and incision and drainage of hematoma on the left leg. Recommendations: Continue present wound care. Discharge planning, hopefully discharge in a day or 2 and then follow up in the wound healing center and will remove the drain there. /MODL Voice ID: [id number] Report ID: [id number]
--- NOTE | 2021-03-10 13:30 | PN ---
Date of Progress Note: 03/10/2021 Subjective: The patient was seen this morning for followup. No new complaints or problems reported by her. Her mental status has improved significantly and now she is back to her normal self. She is awake, alert, oriented, answering all the questions appropriately, and asking lot of questions as we ll. Objective: Vital Signs: Reviewed. HEENT: Unremarkable. Lungs: Clear to auscultation. Heart: Sounds normal. Abdomen: Soft. Bowel sounds normal. No guarding, rigidity, tenderness, or distention. Extremity: No leg edema. Left leg natalia present with drainage tube. Very minimal amount of seros anguineous discharge was obtained with gentle pressure on the left leg. Area of cellulitis from left leg remains unchanged. Back: Shows multiple sutures present with drainage tube. There is no redness and no discharge. Laboratory Data: Hemoglobin today 7.3 and hematocrit 22.5. Impression: 1.Acute blood loss anemia. 2.Cellulitis, left leg. 3.Hematoma, left leg. 4.Abscess, back. 5.Infected sebaceous cyst. Plan: We will go ahead and transfuse her 1 unit of PRBC today. Continue current antibiotic treatmen t. Daily dressing changes will be provided. The patient to work with Physical Therapy and as we sta rted talking today, she informed me she wants to go back to her apartment. She lives at [facility], which is an independent facility and unfortunately she is not able to go back and live indepen dently at least at this point. The patient's family has been wanting to go to senior living for a mary ann g time and she had refused to do so. At this time, she is not going to be able to return back to [facility] because of the care she needs. She is not going to be able to take care of herself an d she also told me that she wants to go to her daughter's house and her daughter will help take care of her. When I told her that she will need 24-hour care and I am not sure whether her daughter will be able to provide this or not, but my recommendation was for her to go to [facility] a s her family has made arrangements for, but at the same time, she was not happy to go there and kept on insisting on going to her daughter's house. Ultimately, I told her that it will be her decision a nd her family's decision where she goes upon discharge, but my recommendation is for her to go to [facility]. After I saw her, I did call her son and discussed details and he informed me that going to her daughter's house is not option for her and she will be going to [facility] an d he will communicate with her today also. MIGUE/MODL Voice ID: [id number] Report ID: [id number]
[2021-03-10] MEDS: RIVAROXABAN 10 MG TABLET PO SCH (15:45)
[2021-03-10] MEDS: ATORVASTATIN 20 MG TAB PO SCH (20:21)
[2021-03-10 21:04] VITALS: O2SAT 93
[2021-03-10] MEDS: Levofloxacin 750mg IV 750 MG/150 ML BAG IV SCH (22:07)
[2021-03-11] MEDS: ALBUTEROL 2.5 MG/3 ML NEB SOL NEB SCH (00:55)
[2021-03-11] MEDS ORDERED: NA CHLORIDE 0.9% 100 ML ONE (02:32)
[2021-03-11 06:23] LABS: Basophils % 0.6 % (0-1.3); Hematocrit 29.7 % (36.0-45.0); Lymphocytes % 16.3 % (15.3-44.8); MPV 9.1 fL (7.6-11.3); RBC Red Blood Cell Count 3.52 M/uL (3.86-4.86)
[2021-03-11] MEDS: LEVOTHYROXINE SOD 0.075 MG TAB PO SCH (06:34)
[2021-03-11 06:40] LABS: Potassium 3.2 mmol/L (3.5-5.1)
[2021-03-11] MEDS ORDERED: POTASSIUM CL SA 10 MEQ TAB PO ONE (06:56)
[2021-03-11] MEDS: INSULIN -REGULAR HUMAN 50 UNIT/0.5 ML ML SQ SCH ×2 (07:30→11:30)
[2021-03-11] MEDS: SOD FERRIC GLUC COMPLX/SUCROSE 125 MG in NA CHLORIDE 0.9% 100 ML IV SCH (09:00)
[2021-03-11] MEDS: CITALOPRAM 10 MG TABLET PO SCH (09:39)
[2021-03-11] MEDS: GABAPENTIN 300 MG CAP PO SCH (09:39)
[2021-03-11] MEDS: POTASSIUM CL SA 10 MEQ TAB PO SCH (09:39)
[2021-03-11] MEDS: FUROSEMIDE 40 MG TABLET PO SCH (09:39)
[2021-03-11] MEDS: SACUBITRIL/VALSARTAN 24/26 MG TAB PO SCH (09:39)
[2021-03-11] MEDS: carvediloL 6.25 MG TAB PO SCH (09:40)
[2021-03-11 12:56] VITALS: BP 106/58; TEMP 98
[2021-03-11] MEDS ORDERED: BISACODYL 10 MG RECTAL SUPP PR ONE (14:39)
--- NOTE | 2021-03-12 08:36 | DS ---
Date of Discharge: 03/11/2021 Disposition: Discharged to go to alf. Physical Examination: HEENT: Unremarkable. Lungs: Clear to auscultation. Heart: Sounds normal. Abdomen: Soft. Bowel sounds normal. No guarding, rigidity, tenderness, or distention. Extremities: Right leg, no edema. Left leg, trace edema. Presence of natalia. Some pink, warm ski n around the left upper lateral leg, unchanged, and about 3-4 cm round area of dark black skin in the upper anterior leg. This is where she actually had a blister, which has dried up and this is due to fall and injury that resulted in large hematoma of the left leg. There is no discharge, no bleeding from the left leg drain site. Back Examination: She has multiple sutures with drain tube present. No discharge or bleeding. No s urrounding edema or redness, warmth, tenderness, etc. Laboratory Data: Upon admission; white count 8.5, hemoglobin 9.2, platelets 122, and today last whit e count 6.3, hemoglobin 9.8, platelets 200. Lowest hemoglobin was 7.3, [facility] was [facility]. CBC upon admission; white count was 7 .5, hemoglobin was 11.5, platelets 117. Last chemistry today; sodium 140, potassium 3.2, chloride 10 5, bicarb 31, BUN 12, creatinine 0.90, glucose 104. Upon admission; sodium 140, potassium 4.3, chlor kristy 106, bicarb 29, BUN 25, creatinine 1.32, glucose 124. Liver function tests unremarkable. Hospital Course: This is an 85-year-old female patient, admitted to the hospital with back pain. As she was walking into emergency room, she actually fell down and injured her left leg. Please see [facility] for more information. The patient was admitted to the hospital with abscess over her back and infected sebaceous cyst that resulted into this abscess over her back. She also had a large hematoma on the left leg. Dr. Forde from General Surgery was consulted and he took the patient to [facility], removed infected sebaceous cyst from the back and he did debridement of that abscess area and he performed primary closure with placement of drainage tube. He also evacuated her large hematoma from the left leg and placed drainage tube with primary closure there also. Postoperatively, the pat ient continued to receive empiric antibiotic. Her cultures did not grow any specific bacteria. Phys ical Therapy was consulted. The patient did not participate with the physical therapy at all. She h ad problems with confusion and hallucinations while she was in the hospital and it is very obvious th at she has unfortunately underlying dementia problem that is manifesting clearly while she is in the hospital. We discontinued her alprazolam and cyclobenzaprine type of medication that she was taking at home. We also reduced her pain medication dose to 2 times a day, which is Tylenol with Codeine tw ice a day as needed for the pain. Her hydrocodone that she was ordered to receive in the hospital wa s discontinued. Yesterday was the first day that she was completely clear back to her normal usual s elf, but then yesterday afternoon, she started having confusion again and this morning same problem w ith confusion was present. She does recognize me every time I go into her room, but otherwise she st ays confused with some hallucinations. Details were discussed with family and family made arrangemen ts for her to go to [facility] and today she was discharged to go to [facility] in stable condition. Final Diagnoses: 1.Abscess, back. 2.Infected sebaceous cyst. 3.Hematoma, left leg. 4.Cellulitis, left leg. 5.Generalized weakness. 6.Debility. 7.Acute blood loss anemia. 8.Hypothyroidism. 9.Type 2 diabetes mellitus. 10.Chronic obstructive pulmonary disease, oxygen dependent. 11.Hypertension. 12.Mixed hyperlipidemia. 13.Chronic systolic congestive heart failure. 14.Paroxysmal atrial fibrillation. 15.Chronic anticoagulation therapy. 16.Diverticulosis. 17.Thrombocytopenia. 18.CLL that is chronic lymphocytic leukemia. 19.Chronic kidney disease, stage 3B. Discharge Medications And Instructions: 1.Continue all prior home medication except stop alprazolam, stop cyclobenzaprine. 2.Reduce Tylenol with Codeine No.3, take 1 tablet 2 times a day as needed for pain. 3.Bactrim DS 1 tablet by mouth 2 times a day for 10 days. 4.Clean area over her back and left leg with normal saline and apply sterile dressing 2 times a day. 5.Follow up with [facility]. 6.Fall precautions. 7.Consult Physical Therapy and Occupational Therapy at alf. 8.The patient during this hospital stay. Do not resuscitate as per my discussion with he r at the time of admission. MIGUE/MODL Voice ID: [id number] Report ID: [id number]
== END 2021-03-11 15:29 | DRG 571 ==
LOC: ER 12:32 → ERHOLD 18:24 → 2ND 03-03 13:18
PROVIDERS: ADMIT Internal Medicine; ATTEND Internal Medicine
PROC: 0H96XZZ Drainage of Back Skin, External Approach (ICD-10-PCS; principal; 2021-03-02)
PROC: 0JB70ZZ Excision of Back Subcutaneous Tissue and Fascia, Open Approach (ICD-10-PCS; 2021-03-04)
PROC: 0J9P00Z Drainage of Left Lower Leg Subcutaneous Tissue and Fascia with Drainage Device, Open Approach (ICD-10-PCS; 2021-03-04)
PROC: 30233N1 Transfusion of Nonautologous Red Blood Cells into Peripheral Vein, Percutaneous Approach (ICD-10-PCS; 2021-03-11)
DX: L02.212 Cutaneous abscess of back [any part, except buttock and flank] (principal); I13.0 Hypertensive heart and chronic kidney disease with heart failure and stage 1 through stage 4 chronic kidney disease, or unspecified chronic kidney disease; I50.22 Chronic systolic (congestive) heart failure; D62 Acute posthemorrhagic anemia; L03.116 Cellulitis of left lower limb; L72.3 Sebaceous cyst; S80.12XA Contusion of left lower leg, initial encounter; E03.9 Hypothyroidism, unspecified; R53.1 Weakness; R53.81 Other malaise; E11.22 Type 2 diabetes mellitus with diabetic chronic kidney disease; N18.32 Chronic kidney disease, stage 3b; E78.2 Mixed hyperlipidemia; J44.9 Chronic obstructive pulmonary disease, unspecified; I48.0 Paroxysmal atrial fibrillation; K57.90 Diverticulosis of intestine, part unspecified, without perforation or abscess without bleeding; D69.6 Thrombocytopenia, unspecified; F03.90 Unspecified dementia, unspecified severity, without behavioral disturbance, psychotic disturbance, mood disturbance, and anxiety; W01.0XXA Fall on same level from slipping, tripping and stumbling without subsequent striking against object, initial encounter; Y92.481 Parking lot as the place of occurrence of the external cause; Z79.01 Long term (current) use of anticoagulants; Z85.6 Personal history of leukemia; Z99.81 Dependence on supplemental oxygen; Z20.822 Contact with and (suspected) exposure to COVID-19
CPT/HCPCS: 36415; 36430; 76705; 80048; 80076; 80202; 82947; 83605; 83735; 84145; 85014; 85018; 85025; 86850; 86900; 86901; 87040; 87070; 87205; 88304; 90471; 90714; 96365; 96366; 96367; 97110; 97112; 97116; 97161; 97530; 99285; J1650; J2270; J2370; J2405; J2704; J2916; J3010; J3370; J7030; J7040; J7050; P9016; U0003

== ENCOUNTER 2022-03-14 17:38 | Inpatient (IN) | payer OTHER ==
--- OUTSIDE RECORDS SUMMARY | 2022-03-14 17:41 | XMS REPORT | Continuity of Care Document ---
:1935 Author Organization [facility] t Address [address] [place] [address] Care Team Providers Name Role Phone Asked, No Pcp Primary Care Physician Unavailable Doctor Unassigned, [place] Attending Clinician Unavailable Nadia Barbour MD Attending Clinician [phone] Ashlie ESPINOZA, Alban Mckeon Attending Clinician [phone] Portia ZULUAGA, Albina Attending Clinician Yadira Spain Attending Clinician URSULA GANT Attending Clinician Unavailable Only, Adc Test Attending Clinician Unavailable Ursula Unger Attending Clinician Reese Young MD Attending Clinician REESE YOUNG Attending Clinician Unavailable NADIA BARBOUR Admitting Clinician Unavailable Payers Payer Name Policy Type Policy Effective Date Expiration Date Sour ce Number MEDICARE PART A \T\ B [id number] 1998 00:00:00 MEDICAREMEDICARE PART [id number] 1998 Me wai Morel AND 00:00:00 [facility] [id number] 1998[place] [id number] [facility] [id number] 00:00:00 Hos pital -PPO Problems Condition Condition [...] ents Source Name Type Date Date Clinician Clindamy Propensi Active Other (See Unknown M ethodi kelly ty to Comments) 10-15 adverse 00:00: Hospita reaction 00 l s to drug Metolazo Propensi Active Other (See Unknown M ethodi ne ty to Comments) 10-15 adverse 00:00: Hospita reaction 00 l s to drug Naproxen Propensi Active Other (See Unknown M [...] Hospita reaction 00 l s to drug CEFTRIAX DRUG Active Unknown-Cmnt Un rajiv ONE INGREDI 4- ity of SODIUM 00:00: [place] 00 Medical Branch Clindamy Propensi Active Unknown - Does not U nivers kelly ty to See comments 11-05 recall ity of adverse 00:00: [place] reaction 00 Medical s Branch Naproxen Propensi Active Unknown - Does not U nivers ty to See comments 4-19 recall ity of adverse 00:00: [place] reaction 00 Medical s Branch Nifedipi Propensi Active Unknown - Doesn't Un rajiv ne ty to See comments 4-19 recall ity of adverse 00:00: [place] reaction 00 Medical s Branch Metoclop Propensi Active Unknown - Dose not U nivers ramide ty to See comments 4-19 recall ity of Hcl adverse 00:00: [place] reaction 00 Medical s Branch Ceftriax Propensi Active Unknown - Does not U nivers one ty to See comments 4-19 recall ity of Sodium adverse 00:00: [place] reaction 00 Medical s Branch CLINDAMY DRUG Active Unknown-Cmnt Un rajiv KELLY INGREDI 4-19 ity of 00:00: [place] 00 Medical Branch NAPROXEN DRUG Active Unknown-Cmnt Un rajiv INGREDI 4-19 ity of 00:00: [place] 00 Medical Branch NIFEDIPI DRUG Active Unknown-Cmnt 0 Un rajiv NE INGREDI 4-19 ity of 00:00: [place] 00 Medical Branch METOCLOP DRUG Active Unknown-Cmnt 2016-0 Un rajiv RAMIDE INGREDI 4-19 ity of HCL 00:00: [place] 00 Medical Branch Family History Family Member Diagnosis Comments Start Date Stop Date Source Natural father Islam [facility] Natural mother Islam [facility] Social History Social Habit Start Date Stop Date Quantity Comments Source History of Cigarette Smoker Methodis t tobacco use Hospital History [facility] Drinks History [facility] Tobacco use and 2020-10-17 2020-10-17 Never used Islam exposure 00:00:00 00:00:00 Hospital Alcohol intake 2020-10-17 2020-10-17 Lifetime Islam 00:00:00 00:00:00 non-drinker Hospital (finding) Tobacco Comment 2020-10-16 2020-10-16 only smoke 4-5 [facility] 00:00:00 00:00:00 cigarettes/day Hospital for one year and quit age [age] years old History SDOH 2020-10-15 2020-10-15 1 Islam Alcohol Frequency 00:00:00 00:00:00 Hospita l Sex Assigned At 1935-04-141933-04-14 Islam 00:00:00 00:00:00 Hospital Smoking Status Start Date Stop Date Source Former smoker 2020-10-17 00:00:00 2020-10-17 00:00:00 [facility] Never smoker [facility] Medications Ordered Filled Start Stop Current Ordering Indication Dosage Frequency Signature Comments Components Source Medication Medication Date Date Medication? Clinician (SIG) Name Name DOXYCYCLINE 2020- No 1{capsu QD Take 1 Methodi CALCIUM 10-17 le} capsule by st ORAL 16:58: 00:00 mouth Hospita 58 :00 daily. l rivaroxaban 2020- No 20mg QD Take 20 mg Methodi (XARELTO) 10-[address] 20 mg 16:58: 00:00 every Hospita tablet 58 :00 evening. l ALPRAZolam Yes .5mg QD Take 0.5 Met hodi (XANAX) 0.5 3-[address] MG tablet 16:58: mouth Hospita 54 nightly as l needed for sleep. acetaminoph Yes 1{tbl} Q4H Take 1 M ethodi en-codeine [...] 16:58: daily. Hospit a 54 l furosemide Yes 40mg Q.5D Take 40 mg M [...] Hospita [address] mary Barbour) BID ALPRAZolam Yes .5mg QD Take 0.5 Met hodi (XANAX) 0.5 3-[address] MG tablet 11:58: mouth Hospita 54 nightly as l [place] [id number] 1{tbl} Q4H Take 1 M ethodi en-codeine 3-[address] (TYLENOL 11:58: mouth Hospita WITH 54 every 4 l CODEINE #3) (four) 300-30 mg hours as per tablet needed for moderate pain .acute pain. albuterol Yes 2.5mg Q6H Take 2.5 Met hodi (ACCUNEB) 3-[address] 2.5 mg /3 11:58: nebulizati Ho spita mL (0.083 54 on every 6 l %) (six) nebulizer hours as solution needed for wheezing. atorvastati Yes 20mg QD Take 20 mg Methodi n (LIPITOR) 3-[address] 20 mg 11:58: every Hospita tablet 54 evening. l Default OP ins carvediloL Yes 6.25mg Q.5D Take 6.25 Methodi (COREG) 3-[address] 6.25 MG 11:58: mouth 2 Hospita tablet 54 (two) l times a day with meals. citalopram Yes 40mg QD Take 40 mg M ethodi (CeleXA) 40 3-[address] MG tablet 11:58: daily. Hospit a 54 l furosemide Yes 40mg Q.5D Take 40 mg M ethodi (LASIX) 40 3-[address] mg tablet 11:58: (two) Hospita 54 times a l day. gabapentin Yes 300mg Q.5D Take 300 Me thodi (NEURONTIN) 3-[address] 300 mg 11:58: mouth 2 Hospita capsule 54 (two) l times a day. levothyroxi Yes 75ug QD Take 75 Met hodi ne 3-[address] (SYNTHROID) 11:58: mouth Hospi ta 75 mcg 54 daily. l tablet nystatin 0 Yes Q.5D Apply Methodi (MYCOSTATIN 3-[address] ) 100,000 11:58: 2 (two) Hospi ta unit/gram 54 times a l ointment day. Applied to skin potassium 0 Yes 20meq Q.5D Take 20 Meth husam chloride 3-[address] (KLOR-CON) 11:58: mouth 2 Hosp ibis 10 MEQ CR 54 (two) l tablet times a day. sacubitriL- Yes Q.5D Take by Met roberto valsartan 10-[address] (Entresto) 11:58: (two) Hospit a 24-26 mg 54 times a l tablet per day. tablet SITagliptin Yes 100mg QD Take 100 M ethodi (JANUVIA) [address] 100 MG 11:58: mouth Hospita tablet 54 daily. l fluticasone Yes Inhale as M ethodi /vilanterol 10-[address] (BREO 11:58: Hospita ELLIPTA 54 l INHL) UNABLE TO Yes Med Name: Met roberto SANTILLAN 10-[address] 11:58: Antibiotic Hospita [address] mary Barbour) BID minocycline 2020- No 100mg Q.5D Take 1 Me thodi (DYNACIN) 10-17-[address] 100 MG 00:00: 04:59 (100 mg Hospita tablet 00 :00 total) by l mouth 2 (two) times a day for 14 days. traMADoL 2020- No [id number] 50mg Q6H Take 1 Metho di (Ultram) 50 10-17 04-11 tablet (50 s t mg tablet 00:00: 04:59 mg total) Ho spita 00 :00 by mouth l every 6 (six) hours as needed for moderate pain for up to 10 days .acute pain. Ascorbate Yes Take by Ziipae rs Ca-Multivit 4-19 mouth. ity of s-Min 20:51: [place] (VITAMIN C) 20 Medical 1,000 mg Branch PwEP CALCIUM Yes Take by Univers CARBONATE/V 4-19 mouth. ity of ITAMIN D2 20:51: [place] (CALCIUM 20 Medical 600 + D Branch ORAL) Ascorbate Yes Take by Ziipae rs Ca-Multivit 4-19 mouth. ity of s-Min 20:51: [place] (VITAMIN C) 20 Medical 1,000 mg Branch PwEP CALCIUM Yes Take by Univers CARBONATE/V 4-19 mouth. ity of ITAMIN D2 20:51: [place] (CALCIUM 20 Medical 600 + D Branch ORAL) Ascorbate 2017 Yes Take by Unive rs Ca-Multivit 4-19 mouth. ity of s-Min 20:51: [place] (VITAMIN C) 20 Medical 1,000 mg Branch PwEP CALCIUM 0 Yes Take by Univers CARBONATE/V 4-19 mouth. ity of ITAMIN D2 20:51: [place] (CALCIUM 20 Medical 600 + D Branch ORAL) Ascorbate Yes Take by Unive rs Ca-Multivit 4-19 mouth. ity of s-Min 20:51: [place] (VITAMIN C) 20 Medical 1,000 mg Branch PwEP CALCIUM Yes Take by Univers CARBONATE/V 4-19 mouth. ity of ITAMIN D2 20:51: [place] (CALCIUM 20 Medical 600 + D Branch ORAL) omeprazole Yes 20mg Take 20 mg U nivers 20 mg 4-19 by mouth ity of capsule 20:51: daily. [place] 19 Medical Branch celecoxib Yes 200mg Take 200 Uni vers (CELEBREX) 4-19 mg by ity of 200 mg 20:51: mouth [place] capsule 19 daily. Medical Branch estradiol Yes 1{patch Apply 1 Un rajiv 0.05 mg/24 4-19 } Patch to ity o f hr twice 20:51: skin. [place] weekly 19 Medical patch Branch [place]-3-DHA Yes Take by Uni vers -EPA-Fish 4-19 mouth. ity of Oil (FISH 20:51: [place] OIL) 1,000 19 Medical mg (120 Branch mg-180 mg) Cap FOLIC Yes Take by Univers ACID/MULTIV 4-19 mouth. ity of IT-MIN/LUTE 20:51: [place] IN (CENTRUM 19 Medical SILVER Branch ORAL) omeprazole Yes 20mg Take 20 mg U nivers 20 mg 4-19 by mouth ity of capsule 20:51: daily. [place] 19 Medical Branch celecoxib Yes 200mg Take 200 Uni vers (CELEBREX) 4-19 mg by ity of 200 mg 20:51: mouth [place] capsule 19 daily. Medical Branch estradiol Yes 1{patch Apply 1 Un rajiv 0.05 mg/24 4-19 } Patch to ity o f hr twice 20:51: skin. [place] weekly 19 Medical patch Branch [place]-3-DHA 2017-0 Yes Take by Uni vers -EPA-Fish 4-19 mouth. ity of Oil (FISH 20:51: [place] OIL) 1,000 19 Medical mg (120 Branch mg-180 mg) Cap FOLIC 0 Yes Take by Univers ACID/MULTIV 4-19 mouth. ity of IT-MIN/LUTE 20:51: [place] IN ([facility] 19 Medical [place] Branch ORAL) omeprazole 2017 Yes 20mg Take 20 mg U nivers 20 mg 4-19 by mouth ity of capsule 20:51: daily. [place] [address] Medical Branch celecoxib Yes 200mg Take 200 Uni vers (CELEBREX) 4-19 mg by ity of 200 mg 20:51: mouth [place] capsule 19 daily. Medical Branch estradiol Yes 1{patch Apply 1 Un rajiv 0.05 mg/24 4-19 } Patch to ity o f hr twice 20:51: skin. weekly 19 Medical patch Branch [place]-3-DHA Yes Take by Uni vers -EPA-Fish 4-19 mouth. ity of Oil (FISH 20:51: [place] OIL) 1,000 19 Medical mg (120 Branch mg-180 mg) Cap FOLIC Yes Take by Univers ACID/MULTIV 4-19 mouth. ity of IT-MIN/LUTE 20:51: [place] IN ([facility] 19 [facility] ORAL) omeprazole Yes 20mg Take 20 mg U nivers 20 mg 4-19 by mouth ity of capsule 20:51: daily. [place] [address] Medical Branch celecoxib Yes 200mg Take 200 Uni vers (CELEBREX) 4-19 mg by ity of 200 mg 20:51: mouth [place] capsule 19 daily. Medical Branch estradiol Yes 1{patch Apply 1 Un rajiv 0.05 mg/24 4-19 } Patch to ity o f hr twice 20:51: skin. weekly 19 Medical patch Branch [place]-3-DHA Yes Take by Uni vers -EPA-Fish 4-19 mouth. ity of Oil (FISH 20:51: [place] OIL) 1,000 19 Medical mg (120 Branch mg-180 mg) Cap FOLIC 0 Yes Take by Univers ACID/MULTIV 4-19 mouth. ity of IT-MIN/LUTE 20:51: [place] IN ([facility] 19 [facility] Branch ORAL) rivaroxaban 2017 Yes 15mg Take 15 mg Univers (XARELTO) 4-19 by mouth 2 ity of 15 mg 20:51: (two) [place] tablet 18 times Medical daily. Branch atorvastati 2017 Yes 20mg Take 20 mg Univers n 20 mg 4-19 by mouth ity of tablet 20:51: at [place] 18 bedtime. Medical Branch rivaroxaban 2017 Yes 15mg Take 15 mg Univers (XARELTO) 4-19 by mouth 2 ity of 15 mg 20:51: (two) [place] tablet 18 times Medical daily. Branch atorvastati 2017 Yes 20mg Take 20 mg Univers n 20 mg 4-19 by mouth ity of tablet 20:51: at [place] 18 bedtime. Medical Branch rivaroxaban 2017 Yes 15mg Take 15 mg Univers (XARELTO) 4-19 by mouth 2 ity of 15 mg 20:51: (two) [place] tablet 18 times Medical daily. Branch atorvastati Yes 20mg Take 20 mg Univers n 20 mg 4-19 by mouth ity of tablet 20:51: at [place] 18 bedtime. Medical Branch rivaroxaban Yes 15mg Take 15 mg Univers (XARELTO) 4-19 by mouth 2 ity of 15 mg 20:51: (two) [place] tablet 18 times Medical daily. Branch atorvastati Yes 20mg Take 20 mg Univers n 20 mg 4-19 by mouth ity of tablet 20:51: at [place] 18 bedtime. Medical Branch Ascorbate Yes Take by Unive rs Ca-Multivit 4-19 mouth. ity of s-Min 15:51: [place] (VITAMIN C) 20 Medical 1,000 mg Branch PwEP CALCIUM Yes Take by Univers CARBONATE/V 4-19 mouth. ity of ITAMIN D2 15:51: [place] (CALCIUM 20 Medical 600 + D Branch ORAL) omeprazole Yes 20mg Take 20 mg U nivers 20 mg 4-19 by mouth ity of capsule 15:51: daily. [place] 19 Medical Branch celecoxib 20170 Yes 200mg Take 200 Uni vers (CELEBREX) 4-19 mg by ity of 200 mg 15:51: mouth [place] capsule 19 daily. Medical Branch estradiol 2017-0 Yes 1{patch Apply 1 Un rajiv 0.05 mg/24 4-19 } Patch to ity o f hr twice 15:51: skin. [place] weekly 19 Medical patch Branch [place]-3-DHA Yes Take by Uni vers -EPA-Fish -19 mouth. ity of Oil (FISH 15:51: [place] OIL) 1,000 19 Medical mg (120 Branch mg-180 mg) Cap FOLIC Yes Take by Univers ACID/MULTIV -19 mouth. ity of IT-MIN/LUTE 15:51: [place] IN (CENTRUM 19 Medical SILVER Branch ORAL) rivaroxaban Yes 15mg Take 15 mg Univers (XARELTO) 4-19 by mouth 2 ity of 15 mg 15:51: (two) [place] tablet 18 times Medical daily. Branch atorvastati Yes 20mg Take 20 mg Univers n 20 mg 4-19 by mouth ity of tablet 15:51: at [place] 18 bedtime. Medical Branch traMADOL 50 Yes 50mg Take 1 Univ ers mg tablet 4-19 tablet by ity o f 00:00: mouth [place] 00 every 4 Medical (four) Branch hours as needed for Pain (scale 7-10). traMADOL 50 Yes 50mg Take 1 Univ ers mg tablet 4-19 tablet by ity o f 00:00: mouth [place] 00 every 4 Medical (four) Branch hours as needed for Pain (scale 7-10). traMADOL 50 Yes 50mg Take 1 Univ ers mg tablet 4-19 tablet by ity o f 00:00: mouth [place] 00 every 4 Medical (four) Branch hours as needed for Pain (scale 7-10). traMADOL 50 Yes 50mg Take 1 Univ ers mg tablet 4-19 tablet by ity o f 00:00: mouth [place] 00 every 4 Medical (four) Branch hours as needed for Pain (scale 7-10). traMADOL 50 Yes 50mg Take 1 Univ ers mg tablet 4-19 tablet by ity o f 00:00: mouth [place] 00 every 4 Medical (four) Branch hours as needed for Pain (scale 7-10). glipiZIDE Yes TAKE ONE Univ ers 10 mg 4-15 (1) ity of tablet 00:00: TABLET(S) [place] 00 BY MOUTH Medical ONCE A Branch DAY. glipiZIDE Yes TAKE ONE Univ ers 10 mg 4-15 (1) ity of tablet 00:00: TABLET(S) [place] 00 BY MOUTH Medical ONCE A Branch DAY. glipiZIDE Yes TAKE ONE Univ ers 10 mg 4-15 (1) ity of tablet 00:00: TABLET(S) [place] 00 BY MOUTH Medical ONCE A Branch DAY. glipiZIDE Yes TAKE ONE Univ ers 10 mg 4-15 (1) ity of tablet 00:00: TABLET(S) [place] 00 BY MOUTH Medical ONCE A Branch DAY. glipiZIDE Yes TAKE ONE Univ ers 10 mg 4-15 (1) ity of tablet 00:00: TABLET(S) [place] 00 BY MOUTH Medical ONCE A Branch DAY. TRADJENTA 5 Yes TAKE ONE Un rajiv mg tablet 4-12 (1) ity of 00:00: TABLET(S) [place] 00 BY MOUTH Medical ONCE A Branch DAY. NAMENDA XR Yes TAKE ONE Uni vers 14 mg 4-12 (1) ity of capsule 00:00: CAPSULE(S) [place] 00 BY MOUTH Medical ONCE A Branch DAY. TRADJENTA 5 Yes TAKE ONE Un rajiv mg tablet 4-12 (1) ity of 00:00: TABLET(S) [place] 00 BY MOUTH Medical ONCE A Branch DAY. NAMENDA XR Yes TAKE ONE Uni vers 14 mg 4-12 (1) ity of capsule 00:00: [place]LE(S) [place] 00 BY MOUTH Medical ONCE A Branch DAY. TRADJENTA 5 Yes TAKE ONE Un rajiv mg tablet 4-12 (1) ity of 00:00: TABLET(S) [place] 00 BY MOUTH Medical ONCE A Branch DAY. NAMENDA XR Yes TAKE ONE Uni vers 14 mg 4-12 (1) ity of capsule 00:00: CAP[place]LE(S) [place] 00 BY MOUTH Medical ONCE A Branch DAY. TRADJENTA 5 Yes TAKE ONE Un rajiv mg tablet 4-12 (1) ity of 00:00: TABLET(S) [place] 00 BY MOUTH Medical ONCE A Branch DAY. NAMENDA XR Yes TAKE ONE Uni vers 14 mg 4-12 (1) ity of capsule 00:00: CAPSULE(S) [place] 00 BY MOUTH Medical ONCE A Branch DAY. TRADJENTA 5 Yes TAKE ONE Un rajiv mg tablet 4-12 (1) ity of 00:00: TABLET(S) [place] 00 BY MOUTH Medical ONCE A Branch DAY. NAMENDA XR Yes TAKE ONE Uni vers 14 mg 4-12 (1) ity of capsule 00:00: [place]LE(S) [place] 00 BY MOUTH Medical ONCE A Branch DAY. citalopram Yes Univers 40 mg 4-09 ity of tablet 00:00: [facility] carvedilol Yes Univers 6.25 mg 4-09 ity of tablet 00:00: [facility] gabapentin Yes Univers 300 mg 4-09 ity of capsule 00:00: [facility] citalopram Yes Univers 40 mg 4-09 ity of tablet 00:00: [facility] carvedilol Yes Univers 6.25 mg 4-09 ity of tablet 00:00: [address] [place] [address] gabapentin 2016-0 Yes Univers 300 mg 4-09 ity of capsule 00:00: [facility] citalopram Yes Univers 40 mg 4-09 ity of tablet 00:00: [facility] carvedilol Yes Univers 6.25 mg 4-09 ity of tablet 00:00: [address] [place] [address] gabapentin 2016-0 Yes Univers 300 mg 4-09 ity of capsule 00:00: [facility] citalopram 0 Yes Univers 40 mg 4-09 ity of tablet 00:00: [facility] carvedilol 2017-0 Yes Univers 6.25 mg 4-09 ity of tablet 00:00: [facility] gabapentin 2016-0 Yes Univers 300 mg 4-09 ity of capsule 00:00: [facility] citalopram 0 Yes Univers 40 mg 4-09 ity of tablet 00:00: [facility] carvedilol 0 Yes Univers 6.25 mg 4-09 ity of tablet 00:00: [address] [place] [address] gabapentin 0 Yes Univers 300 mg 4-09 ity of capsule 00:00: [facility] cholestyram 0 Yes Univer s ine 4 gram 3-20 ity of packet 00:00: [facility] cholestyram 2017-0 Yes Univer s ine 4 gram 3-20 ity of packet 00:00: [place] [facility] cholestyram 2017-0 Yes Univer s ine 4 gram 3-20 ity of packet 00:00: [place] [facility] cholestyram 2017-0 Yes Univer s ine 4 gram 3-20 ity of packet 00:00: [place] [facility] cholestyram 2017-0 Yes Univer s ine 4 gram 3-20 ity of packet 00:00: [place] [facility] NAMENDA XR 2017-0 Yes Univers 7 mg 3-08 ity of capsule 00:00: [place] [facility] NAMENDA XR 2017-0 Yes Univers 7 mg 3-08 ity of capsule 00:00: [place] [facility] NAMENDA XR 2017-0 Yes Univers 7 mg 3-08 ity of capsule 00:00: [place] [facility] NAMENDA XR 2017-0 Yes Univers 7 mg 3-08 ity of capsule 00:00: [place] [facility] NAMENDA XR 2017-0 Yes Univers 7 mg 3-08 ity of capsule 00:00: [place] [facility] Vital Signs Vital Name Observation Time Observation Value Comments Source Respiratory rate 2020-10-17 13:29:09 18 /min [facility] Oxygen saturation in 2020-10-17 13:29:09 92 /min [facility] Arterial blood by Pulse oximetry Systolic blood 2020-10-17 13:29:09 114 mm[Hg] [facility] pressure Diastolic blood 2020-10-17 13:29:09 70 mm[Hg] [facility] pressure Heart rate 2020-10-17 13:29:09 67 /min [facility] Body temperature 2020-10-17 13:29:09 36.33 [place] [facility] Body height 2020-10-16 14:56:00 162.6 cm [facility] Body weight 2020-10-16 14:56:00 102.059 kg [facility] BMI 2020-10-16 14:56:00 38.62 kg/m2 [facility] Procedures Procedure Date / Time Performing Clinician Source Performed HOME HEALTH - OTHER 2021-04-04 05:01:00 [facility] [place] [facility] SURGICAL PATHOLOGY 2020-10-16 20:03:00 [place], [facility] REQUEST Yordan POC GLUCOSE 2020-10-16 18:38:00 Nadia Barbour ospital [place] AEROBIC CULTURE 2020-10-16 17:34[facility] ANAEROBIC CULTURE 2020-10-16 17:31[facility] FUNGUS CULTURE 2020-10-16 17:31:00 Nadia Barbour ospital [place] AFB CULTURE 2020-10-16 17:31:[facility] [place] FUNGUS SMEAR 2020-10-16 17:31:00 Nadia Barbour ospital [place] AFB STAIN 2020-10-16 17:31:00 Nadia Barbour ospital [place] TISSUE CULTURE 2020-10-16 17:31:00 Nadia Barbour osnormantal [place] CRANIOTOMY 2020-10-16 16:47:[facility] [place] ABO AND RH CONFIRMATION 2020-10-16 15:36:00 Nadia Barbour [facility] Yordan POC GLUCOSE 2020-10-16 15:34:00 [facility] [place] ECG PRE/POST OP 2020-10-15 22:35:41 Nadia Barbour ospital [place] HEMOGLOBIN A1C 2020-10-15 22:14:00 [facility]EN 2020-10-15 21:25:00 [facility] COVID-19 QUALITATIVE 2020-10-15 21:24:00 Nadia Barbour [facility] RT-PCR Yordan PARTIAL THROMBOPLASTIN 2020-10-15 21:21:00 Nadia Barbour [facility] TIME (PTT) Yordan PROTHROMBIN TIME WITH INR 2020-10-15 21:21:00 Nadia Barbour [facility] Yordan CBC HEMOGRAM 2020-10-15 21:21:00 [facility] BASIC METABOLIC PANEL 2020-10-15 21:21:00 Nadia Barbour [facility] Yordan ESTIMATED GFR 2020-10-15 21:21:00 [facility]TERNAL STUDY 2020-09-28 18:45[facility]NAL STUD[facility] 2020-09-28 15:52:00 [facility] - OTHER 2020-01-19 05:01:00 Doctor Unassigned, [facility] [place] Plan of Care Planned Activity Planned Date Details Comments Source Future Scheduled 2022-03-09 COVID-19 VACCINE (#1) [facility] Test 04:50:51 [code = COVID-19 VACCINE (#1)] Future Scheduled 2022-03-09 SHINGLES VACCINES (1 [facility] Test 04:50:51 of 2) [code = SHINGLES VACCINES (1 of 2)] Future Scheduled 2022-03-09 HEPATITIS B VACCINES [facility] Test 04:50:51 (1 of 3 - Risk 3-dose series) [code = HEPATITIS B VACCINES (1 of 3 - Risk 3-dose series)] Future Scheduled 2022-03-09 65+ PNEUMOCOCCAL Methodi Hospital Test 04:50:51 VACCINE (2 - PCV) [code = 65+ PNEUMOCOCCAL VACCINE (2 - PCV)] Future Scheduled 2022-03-09 INFLUENZA VACCINE [facility] Test 04:50:51 [code = INFLUENZA VACCINE] Future Scheduled DIABETES: [facility] EXAM [code = DIABETES: RETINAL EYE EXAM] Future Scheduled DIABETIC FOOT EXAM [facility] Test [code = DIABETIC FOOT EXAM] Future [facility] [code = URINE MICROALBUMIN] Future Scheduled COVID-19 VACCINE (1) [facility] Test [code = COVID-19 VACCINE (1)] Future Scheduled [facility]IN[facility] (#[facility] [code = SHINGLES VACCINES (#1)] Future Scheduled INFLUENZA VACCINE [facility] Test [code = INFLUENZA VACCINE] Encounters Start End Encounter Admission Attending Care Care Encounter Source Date/Time Date/Time Type Type Clinicians Facility Department ID 2021-04-04 2021-04-04 Outpatient [facility] [id number] Univers 00:00:00 00:00:00 ity of [facility] 2021-04-04 2021-04-04 Orders Doctor ELLIE [id number] Univers 00:00:00 00:00:00 Only Unassigned, TAMI 350.1.13.10 ity of [place] [facility] [id number] Emanuel as [phone] [address] 2020-10-16 2020-10-17 Hospital [facility], 1.2.840.1 [id number] Methodi 07:43:00 11:58:00 Encounter Nadia [id number] 192 s t [place] 3.430.2.7 Hospi ta .3.372224 l .8 2020-10-16 2020-10-16 Surgery [facility], 1.2.840.1 [id number] Methodi 12:20:00 15:20:[address] [place] 3.430.2.7 Hospi ta .3.428536 l .8 2020-10-16 2020-10-16 Anesthesia Alban Dailey 1.2.840 .1 [id number] Methodi 11:49:00 12:58:00 Event Albina Pearce [address]1981.1.[address] 3.430.2.7 Hospit a .3.538389 l .8 2020-10-15 2020-10-15 Pre-Admiss [facility], 1.2.840.1 [id number] Methodi 15:39:48 16:39:48 ion Nadia 47478.1.[address] Testing [place] 3.430.2.7 Hospi ta .3.546769 l .8 2020-10-15 2020-10-15 Travel 1.2.840.1 [id number] [id number] Methodi 00:00:00 00:00:[address] 3.430.2.7 0.2.7.3.698 Ho spita .3.271892 084.8 l .8 2020-10-12 2020-10-12 Travel 1.2.840.1 1.2.978.879 [id number] Methodi 00:00:00 00:00:[address] 3.430.2.7 0.2.7.3.698 Ho spita .[id number] 084.8 l .8 2020-01-26 2020-01-26 Telephone Yadira Mills TRELL 1.2.840.114 [id number] 00:00:00 00:00:00 [facility] 350.1.13.10 HEALTH 4.2.7.2.686 UNIT [id number] 2020-01-26 2020-01-26 Telephone Yadira Mills TRELL 1.2.840.114 [id number] Univers 00:00:00 00:00:00 [facility] 350.1.13.10 it y of [place]2.[place] [id number] [address] 2020-01-20 2020-01-20 Outpatient R [facility] [id number] Univers 19:00:00 19:00:00 ity [facility] 2020-01-20 2020-01-20 [facility] [id number] Univers 19:00:00 19:00:00 [facility] 2020-01-20 Laboratory Only, [facility] 1.2.840.114 7 [id number] 10:09:06 10:09:22 Only Test [place] 350.1.13.10 [place] 4.2.7.2.686 [place] [id number] 2020-01-20 2020-01-20 Laboratory Only, [facility] Test [facility] 1.2.840. 114 [id number] Univers 10:09:06 10:09:22 Only Ursula Gant 350.1.13.10 [facility] 4.2.7.2.686 [facility] [id number] [facility] [address] 2020-01-19 2020-01-19 [facility] EDUARDO Young 1.2.840.114 7 [id number] 08:50:00 23:59:00 Encounter Reese H 350.1.13.10 BUILDING 4.2.7.2.686 [id number] 2020-01-19 2020-01-19 [facility] EDUARDO Young 1.2.840.114 7 [id number] [facility] 08:50:00 23:59:00 Encounter Reese H 350.1.13.10 ity of BUILDING 4.2.7.2.686 Emanuel as [id number] [facility] [address] 2020-01-19 2020-01-19 Outpatient R [facility]ECTOR [facility] ACO [id number] Univers 00:00:00 00:00:00 REESE itedson [facility] 2020-01-19 2020-01-19 Orders Doctor ELLIE Martin2.840.114 [id number] 00:00:00 00:00:00 Only Unassigned, TAMI 350.1.13.10 [facility] 4.2.7.2.686 [id number] 2020-01-19 2020-01-19 Orders Doctor ARGUETA 1.2.840.114 [id number] [facility] 00:00:00 00:00:00 Only Unassigned, TAMI 350.1.13.10 ity of [facility] 4.2.7.2.686 Emanuel as [id number] [address] Results Test Description Test Time Test Comments Results Result Comments Source AFB culture 2020-11-28 05:13:22 Test Item Value Reference Range Interpretation Comme nts AFB culture isolate (test code = 543-9) No growth after 6 weeks of incubation. [id number] 05:15:17 Test Item Value Reference Range Interpretation Comments Fungus culture isolate No growth after 4 (test code = 1441) weeks of incubation. [facility] [id number] 13:22:13 Test Item Value Reference Range Interpretation Comments Anaerobic culture No anaerobic organisms isolate (test code = isolated. 552) [facility] [id number] 15:58:09 Test Item Value Reference Range Interpretation Comments AFB stain (test code = No acid fast bacilli 676-7) (AFB) seen. [facility] [id number] 15:58:09 Test Item Value Reference Range Interpretation Comments Fungus smear (test code = No fungi observed. 1443) [facility] [id number] 15:58:09Gram stain isolateNo WBC'sFew Gram positive cocci in pairs Comment: Specimen InformationSpecimen Source: TissueSpecimen Site: Scalp: Scalp [facility] Surgical pathology [id number] 16:02:44 Test Item Value Reference Range Interpretation Comments Case number (test code = [id number]) Surgical pathology See link below for report (test code = PDF Lab Report 2255) Result status (test code This is Final Report = [id number]) for [id number] [facility] Pre/Post [id number] 18:32:42 Test Item Value Reference Range Interpretation [...] , age undetermined-Abnormal ECG-No previous ECGs available- [facility] Head External [id number] 14:05:35This exam was not acquired at a [facility] facility and has not been interpreted by a [facility] Provider. The exam was imported into our imaging system.[facility] Head External [id number] 14:03:25This exam was not acquired at a [facility] facility and has not been interpreted by a [facility] Provider. The exam was imported into our imaging system.[facility] ([facility])2020-01-10 04:05:00 Test Item Value Reference Range Interpretation Comments SARS-COV2/RT-PCR (test Not Detected Not Detected, Negative code = 8241947) SARS-COV-2 PERFORMING LAB [facility] (test code = 0705652) Negative results do not preclude SARS-CoV-2 infection [...] of the Act.Fact Sheet for Healthcare Pro viders:https://www.[employer]/Documents/Xpert%20Xpress%20SARS%20CoV-2/Fact%20Sh eets/302-3802%12GBNX-AMO-6%20HEALTHCARE%20PROVIDERS%20FACT%20SHEET.pdfFact Sheet for Healthcare Patients:https://www.[employer]/Documents/Xpert%20Xpress%20SARS%20CoV-2/Fact%20Sheets/302-3801%20SARS-COV -2%20PATIENT%20FACT%20SHEET.pdfPerforming Laboratory:[place] [address] [place] [address]- MRI LW JNT W/O CONT [id number] 09:49:00 Patient Name: RANDI CEVALLOS Unit No: [id number] EXAMS: CPT CODE: [id number] MRI LW JNT W/[place] [address] TECHNIQUE: Multiplanar, multisequence MRI of the right knee without contrast. COMPARISON: None available. FINDINGS: Exam limited by patient motion. Menisci: Complex medial meniscal tear is noted with maceration of the meniscal body, which is poorly demonstrated. The tear extends to the free edge of the posterior horn as well. Subtle irregularity of the free edge of the lateral meniscalbody is also noted. Ligament and tendons: The ACL is attenuated with degenerative signal present. PCL is intact. The MCL is bowed but grossly intact. LCL is maintained. Extensor mechanism is intact. Cartilage/ bone: The patella is slightly laterally subluxated broad full-thickness cartilage loss is seen throughout the medial compartment with flattening of the articular surfaces and subchondral edema.Mild degenerative signal seen within the lateral compartment cartilage. Tricompartmental osteophytosis is present. No acute fracture. Other: Large joint effusion is visualized. Synovitis is present. Nodiscrete intra-articular body. Mild atrophy of the medial [...] LLOYD MCINTYRE MRI Transcribed D/ (0949) [facility] NAME: RANDI CEVALLOS [address] [facility] PHYS: Tacho Briggs MD : 1935 AGE: 83 SEX: F [place], [place] [address] LOC: Y.MRI PHONE #: [phone] EXAM DATE: 11/30/2018 STATUS: DEP CLI FAX #: [phone] RAD #: D/C DT PAGE 1 Signed Report Patient Name: RANDI CEVALLOS Unit No: [id number] EXAMS: CPT CODE: [id number] [place] LW JNT W/[place] [address] (Continued) Orig Print D/T: S: 12/01/2018 (0952) [facility] NAME: RANDI CEVALLOS [address] [facility] HYS: Tacho Briggs MD : 1935 AGE: 83 SEX: F [place], [place] [address] LOC: Y.MRI PHONE #: [phone] EXAM DATE: 11/30/2018 STATUS: DEP CLI FAX #: [phone] RAD #: D/C DT PAGE 2 Signed Report
[2022-03-14 19:33] LABS: Absolute Lymphocytes (CBC) 1.4 K/uL (0.7-4.9); Hematocrit 34.9 % (36.0-45.0); Lymphocytes % 30.7 % (15.3-44.8); MCV 81.5 fL (80-100); MPV 9.9 fL (7.6-11.3); RBC Red Blood Cell Count 4.28 M/uL (3.86-4.86)
[2022-03-14 19:53] LABS: Albumin 3.8 g/dL (3.4-5.0); Bilirubin Direct 0.2 mg/dL (0-0.2); Bilirubin Total 0.5 mg/dL (0.2-1.0); Magnesium 1.9 mg/dL (1.8-2.4); Potassium 4.3 mmol/L (3.5-5.1); Protein, Total 7.3 g/dL (6.4-8.2); Troponin High Sensitivity 13.8 pg/mL (<58.9)
--- NOTE | 2022-03-14 20:10 | RAD REPORT ---
EXAM DESCRIPTION: RAD - Chest Single View - 03/14/2022 7:33 pm CLINICAL HISTORY: AMS COMPARISON: Portable 09/26/2020 TECHNIQUE: AP portable chest image was obtained 03/14/2022 7:33 pm . FINDINGS: Lung volumes are low. Under penetrated technique and large body habitus further accentuate the heart, vasculature and lung markings. Retrocardiac assessment is limited. No dense consolidation suspected. Heart, vasculature and lung markings are all prominent but not significantly different fr om the comparison. A mild failure or volume overload would be possible and can be correlated with cli nical presentation. No acute bony abnormality seen. No acute aortic findings suspected. IMPRESSION: Shallow inspiration portable imaging showing prominent heart, vasculature and lung eamon ngs. Mild failure or volume overload could be masked in this setting.
--- NOTE | 2022-03-14 20:21 | RAD REPORT ---
EXAM DESCRIPTION: CT - Head Brain Wo Cont - 03/14/2022 8:13 pm CLINICAL HISTORY: Mental status change, unknown cause COMPARISON: Head Brain Wo Cont dated 09/28/2020 TECHNIQUE: Axial 5 mm thick images of the head were obtained without IV contrast. All CT scans are performed using dose optimization technique as appropriate and may include automated exposure control or mA/KV adjustment according to patient size. FINDINGS: No intracranial hemorrhage, mass, edema or shift of mid-line structures. No acute infarcti on changes seen. No cortical edema or sulcal effacement. The patient has mild for age atrophy and chr onic ischemic change match the comparison. Ventricles are in proportion to volume loss. Mastoid air cells and visualized portions of the paranasal sinuses are clear. No acute bony findings. Focal round defect lateral right frontal bone is similar to prior imaging. Th is appears to be a surgical defect possibly from an old ventriculostomy tube. Finding is stable 2020. IMPRESSION: Negative non-contrast CT head examination for acute finding.
--- NOTE | 2022-03-14 20:34 | RAD REPORT ---
EXAM DESCRIPTION: CT - Abdomen Pelvis Wo Contrast - 03/14/2022 8:16 pm CLINICAL HISTORY: Abdominal pain, acute, nonlocalized COMPARISON: Abdomen Pelvis Wo Contrast dated 11/20/2021; Abdomen Pelvis Wo Contrast dated 07/09/20 16 TECHNIQUE: Axial [address] imaging of the abdomen and pelvis was performed without IV contrast. No IV contrast was given because of allergy, abnormal renal function, patient refusal or physician re quest. No oral contrast administered. All CT scans are performed using dose optimization technique as appropriate and may include automated exposure control or mA/KV adjustment according to patient size. FINDINGS: No suspicious findings in the lung bases. The liver, spleen and pancreas show no suspicious findings on non-contrast imaging. Small cyst in the posterior lower right lobe liver has not change from prior imaging. Cholecystectomy clips are presen t. No biliary tree dilatation. No hydronephrosis or suspicious renal mass. Left renal cyst is similar to prior imaging. No significa nt adrenal finding. Isodense renal masses and pyelonephritis cannot be excluded in the absence of IV contrast. The urinary bladder is without significant finding. Small hiatal hernia is present. No acute stomach or small bowel finding. Appendix is normal. Sigmoid diverticulosis is present without diverticulitis. No free air, free fluid or inflammatory stranding. No mass or bulky lymphadenopathy. Small fat only umbilical hernia is stable. No suspicious bony findings. Disc and bone degenerative changes are present. IMPRESSION: Non-contrast enhanced CT abdomen and pelvis imaging show no acute or emergent finding. No significant change from November 2021 comparison Full assessment is limited is the absence of IV contrast.
[2022-03-14] MEDS ORDERED: NA CHLORIDE 0.9% 250 ML ONE (20:36)
--- NOTE | 2022-03-14 21:00 | ER ---
Nurse's Notes [facility] Name: Karen Edward Age: 86 yrs Sex: Female : 1935 Arrival Date: 03/14/2022 Time: 17:41 Bed 14 Private MD: Adriel Bennett C Diagnosis: Acute kidney failure, unspecified;Weakness;Diarrhea, unspecified Presentation: 03/14 18:01 Chief complaint: Patient's son or daughter states: DISORIENTED AND UNSTEADY, TALKING TO bp RELATIVES. Coronavirus screen: At this time, the client does not indicate any symptoms associated with coronavirus-19. Ebola Screen: No symptoms or risks identified at this time. Initial Sepsis Screen: Does the patient meet any 2 criteria? No. Patient's initial sepsis screen is negative. Does the patient have a suspected source of infection? No. Patient's initial sepsis screen is negative. Risk Assessment: Do you want to hurt yourself or someone else? Patient reports no desire to harm self or others. Onset of symptoms is unknown. 18:01 Method Of Arrival: Wheelchair bp 18:01 Acuity: TOBY 2 bp Triage Assessment: 18:03 General: Appears in no apparent distress. comfortable, obese, well groomed, Behavior is bp cooperative, appropriate for age, CONFUSED. Pain: Denies pain. EENT: No deficits noted. Neuro: Level of Consciousness is awake, obeys commands, confused, Oriented to person, place. Cardiovascular: No deficits noted. Respiratory: No deficits noted. GI: Abdomen is non-distended. : No signs and/or symptoms were reported regarding the genitourinary system. Derm: No deficits noted. Musculoskeletal: No deficits noted. Historical: - Allergies: 18:03 Clindamycin; bp 18:03 Naproxen; bp 18:03 Procardia; bp 18:03 Reglan; bp 18:03 Rocephin; bp - Home Meds: 18:03 aspirin 81 mg Oral TbEC 1 tab once daily [Active]; atorvastatin Oral [Active]; Calcium bp Carbonate Oral daily [Active]; carvedilol 6.25 mg Oral tab 1 tab 2 times per day [Active]; Centrum Silver Oral daily [Active]; citalopram 40 mg tab 1 tab once daily [Active]; dulera 100 mcg daily [Active]; estradiol 0.5 mg Oral tab 1 tab once daily [Active]; gabapentin 300 mg Oral cap 1 cap twice a day [Active]; glipizide 10 mg Oral tab 1 tab once daily [Active]; levothyroxine 88 mcg tab 1 tab once daily [Active]; omeprazole 20 mg Oral cpDR 1 cap once daily [Active]; Spiriva [Active]; Spironolactone Oral once daily [Active]; torsemide 20 mg Oral tab 1 tab once daily [Active]; Tradjenta 5 mg Oral tab 1 tab once daily [Active]; Xarelto 15 mg Oral tab daily [Active]; - PMHx: 18:03 Asthma; CHF; Hypertension; Hypothyroidism; Hyperlipidemia; Diabetes - NIDDM; Gout; bp - Immunization history:: Adult Immunizations up to date. - Social history:: Smoking status: Patient denies any tobacco usage or history of. Screenin:07 Abuse screen: Denies threats or abuse. Denies injuries from another. Nutritional bp screening: No deficits noted. Tuberculosis screening: No symptoms or risk factors identified. Fall Risk No fall in past 12 months (0 pts). No secondary diagnosis (0 pts). Assessment: 18:07 General: SEE TRIAGE NOTE. bp 23:00 Reassessment: attempted report x3 with no one available to take it. ja4 23:15 Reassessment: report given to fanny. 4 Vital Signs: 18:01 BP 121 / 42; Pulse 70; Resp 16; Temp 98.2; Pulse Ox 92% ; bp 22:30 BP 113 / 50; Pulse 69; Resp 14; Pulse Ox 95% ; ja4 NIH Stroke Scale Scores: 18:03 NIHSS Score: 2 bp ED Course: 17:41 Patient arrived in ED. rg4 17:41 Adriel Bennett MD is Private Physician. rg4 17:53 Vance Castellano PA is PHCP. cp 17:53 Indra High MD is Attending Physician. cp 17:56 Jaime Molina, JEANNETTE is Primary Nurse. bp 18:03 Triage completed. bp 18:03 Arm band placed on. bp 18:07 Patient has correct armband on for positive identification. Bed in low position. Call bp light in reach. Side rails up X2. Adult w/ patient. 19:10 Inserted saline lock: 22 gauge in right wrist, using aseptic technique. Blood collected.bp 19:35 XRAY Chest (1 view) In Process Unspecified. EDMS 20:15 CT Head Brain wo Cont In Process Unspecified. EDMS 20:16 Abdomen In Process Unspecified. EDMS 20:50 Inserted saline lock: 22 gauge in left hand, using aseptic technique. ll3 20:58 Adriel Bennett MD is Hospitalizing Provider. cp 21:25 Urine Dipstick-Ancillary Sent. ll3 Administered Medications: 20:27 Drug: NS 0.9% 250 ml Route: IV; Rate: calculated rate; Site: right forearm; ja4 21:50 Drug: NS 0.9% 1000 ml Route: IV; Rate: 75 ml/hr; Site: left hand; ja4 Medication: 18:07 VIS not applicable for this client. bp Outcome: 20:59 Decision to Hospitalize by Provider. cp 23:38 Patient left the ED. ja4 NIH Stroke Scale - NIH Stroke Score Date: 03/14/2022 Time: 18:03 Total Score = 2 1a. Level of Consciousness (LOC) - 0(Alert) 1b. Level of Consciousness (LOC) (Month \T\ Age) - 0(Both) 1c. LOC Commands (Open \T\ Closes Eyes/Customer Service Associate) - 0(Both) 2. Best Gaze (Lateral Gaze Paresis) - 0(Normal) 3. Visual Field Loss - 0(No visual loss) 4. Facial Palsy - 0(Normal) 5a. Left Arm: Motor (10-second hold) - 0(No drift) 5b. Right Arm: Motor (10-second hold) - 0(No drift) 6a. Left Leg: Motor (5-second hold - always test supine) - 1(Drift) 6b. Right Leg: Motor (5-second hold - always test supine) - 1(Drift) 7. Limb Ataxia (finger/nose \T\ heel/humphrey - test with eyes open) - 0(Absent) 8. Sensory Loss (pinprick arms/legs/face) - 0(Normal) 9. Best Language: Aphasia (description/naming/reading) - 0(No aphasia) 10. Dysarthria (speech clarity - read or repeat words) - 0(Normal) 11. Extinction and Inattention (visual/tactile/auditory/spatial/personal) - 0(No abnormality) Initials: bp Signatures: Dispatcher [employer] EDMS Page, Vance, PA PA cp Jordan, Tresa rg4 Jaime Molina, RN RN bp Catie Zambrano RN RN ll3 Kade Martinez RN RN ja4
--- NOTE | 2022-03-14 21:00 | EDPHYS ---
Physician Documentation [facility] Name: Karen Edward Age: 86 yrs Sex: Female : 1935 Arrival Date: 03/14/2022 Time: 17:41 Bed 14 Private MD: Adriel Bennett C ED Physician Indra High HPI: 03/14 18:30 This 86 yrs old Female presents to ER via Wheelchair with complaints of Altered Mental cp Status. 18:30 The patient presents to the emergency department with diarrhea, that is continuous. cp Onset: The symptoms/episode began/occurred 8 day(s) ago. Possible causes: recently prescribed medications: Bactrim and Colchicine. The patient presents with confusion, son reports he observed patient speaking to spouse the other night. Associated signs and symptoms: Pertinent positives: abdominal pain, weakness, Pertinent negatives: chest pain, headache, vomiting, fever. Current symptoms: In the emergency department the patient's symptoms are unchanged from the initial presentation, despite home interventions. Patient's baseline: Neuro: alert and fully oriented, Motor: no deficits, Ambulation: walks without assistance, Speech: normal. Historical: - Allergies: 18:03 Clindamycin; bp 18:03 Naproxen; bp 18:03 Procardia; bp 18:03 Reglan; bp 18:03 Rocephin; bp - Home Meds: 18:03 aspirin 81 mg Oral TbEC 1 tab once daily [Active]; atorvastatin Oral [Active]; Calcium bp Carbonate Oral daily [Active]; carvedilol 6.25 mg Oral tab 1 tab 2 times per day [Active]; Centrum Silver Oral daily [Active]; citalopram 40 mg tab 1 tab once daily [Active]; dulera 100 mcg daily [Active]; estradiol 0.5 mg Oral tab 1 tab once daily [Active]; gabapentin 300 mg Oral cap 1 cap twice a day [Active]; glipizide 10 mg Oral tab 1 tab once daily [Active]; levothyroxine 88 mcg tab 1 tab once daily [Active]; omeprazole 20 mg Oral cpDR 1 cap once daily [Active]; Spiriva [Active]; Spironolactone Oral once daily [Active]; torsemide 20 mg Oral tab 1 tab once daily [Active]; Tradjenta 5 mg Oral tab 1 tab once daily [Active]; Xarelto 15 mg Oral tab daily [Active]; - PMHx: 18:03 Asthma; CHF; Hypertension; Hypothyroidism; Hyperlipidemia; Diabetes - NIDDM; Gout; bp - Immunization history:: Adult Immunizations up to date. - Social history:: Smoking status: Patient denies any tobacco usage or history of. ROS: 18:35 Constitutional: Negative for fever. cp 18:35 Eyes: Negative for injury, pain, redness, and discharge. cp 18:35 Cardiovascular: Positive for edema, Negative for chest pain, palpitations. 18:35 Respiratory: Negative for cough, shortness of breath, wheezing. 18:35 Abdomen/GI: Positive for diarrhea, abdominal cramps, Negative for vomiting, constipation, black/tarry stool, rectal bleeding. 18:35 Back: Negative for pain at rest, pain with movement. 18:35 Neuro: Positive for altered mental status, weakness, Negative for headache. 18:35 All other systems are negative. Exam: 18:40 Constitutional: The patient appears in no acute distress, alert, awake, cp non-diaphoretic, non-toxic, well developed, well nourished. 18:40 Head/Face: Normocephalic, atraumatic. cp 18:40 Eyes: Periorbital structures: appear normal, Pupils: equal, round, and reactive to light and accomodation, Extraocular movements: intact throughout, Conjunctiva: normal, no exudate, no injection, Sclera: no appreciated abnormality, Lids and lashes: appear normal, bilaterally. 18:40 ENT: External ear(s): are unremarkable, Nose: is normal, Mouth: Lips: dry, Oral mucosa: moist, Posterior pharynx: Airway: no evidence of obstruction, patent, swelling, is not appreciated, erythema, is not appreciated, exudate, is not appreciated. 18:40 Neck: ROM/movement: is normal, is supple, without pain, no range of motions limitations, no meningismus. 18:40 Chest/axilla: Inspection: normal, Palpation: is normal, no crepitus, no tenderness. 18:40 Cardiovascular: Rate: normal, Rhythm: irregular, Edema: is not appreciated, JVD: is not appreciated. 18:40 Respiratory: the patient does not display signs of respiratory distress, Respirations: normal, no use of accessory muscles, no retractions, labored breathing, is not present, Breath sounds: are clear throughout, no decreased breath sounds, no stridor, no wheezing. 18:40 Abdomen/GI: Inspection: abdomen appears normal, Bowel sounds: active, all quadrants, Palpation: soft, in all quadrants, mild abdominal tenderness, in the right lower quadrant and left lower quadrant, rebound tenderness, is not appreciated, involuntary guarding, is not appreciated. 18:40 Back: CVA tenderness, is absent. 18:40 Skin: no rash present. 18:40 Neuro: Orientation: to person, place \T\ time. Mentation: is normal, Motor: moves all fours, general weakness with no focal deficits, Sensation: is normal. 19:15 ECG was reviewed by the Attending Physician. cp Vital Signs: 18:01 BP 121 / 42; Pulse 70; Resp 16; Temp 98.2; Pulse Ox 92% ; bp 22:30 BP 113 / 50; Pulse 69; Resp 14; Pulse Ox 95% ; ja4 NIH Stroke Scale Scores: 18:03 NIHSS Score: 2 bp MDM: 18:03 Patient medically screened. cp 21:30 Data reviewed: vital signs, nurses notes, lab test result(s), EKG, radiologic studies, cp CT scan, plain films, and as a result, I will admit patient. 21:30 Test interpretation: by ED physician or midlevel provider: ECG, plain radiologic cp studies. Counseling: I had a detailed discussion with the patient and/or guardian regarding: the historical points, exam findings, and any diagnostic results supporting the discharge/admit diagnosis, lab results, radiology results, the need for further work-up and treatment in the hospital. Physician consultation: A Sabrina ESPINOZA was called at 20:50, was contacted at 20:50, regarding admission, to the medical/surgical unit. patient's condition. 03/14 18: Order name: Basic Metabolic Panel; Complete Time: 20:02 cp 03/14 20: Interpretation: GLUC 116; BUN 34; CRE 2.50; GFR 18. cp 03/14 18:25 Order name: CBC with Diff; Complete Time: 20:02 cp 03/14 18:25 Order name: LFT's; Complete Time: 20:02 cp 03/14 18:25 Order name: Magnesium; Complete Time: 20:02 cp 03/14 18:25 Order name: NT PRO-BNP; Complete Time: 20:02 cp 03/14 18:25 Order name: PT-INR; Complete Time: 19:39 cp 03/14 19:39 Interpretation: Reviewed. cp 03/14 18:25 Order name: Troponin HS; Complete Time: 20:02 cp 03/14 18:25 Order name: Urine Microscopic Only; Complete Time: 22:42 cp 03/14 22:42 Interpretation: Reviewed. 03/14 18:28 Order name: Ova And Parasites 03/14 18:28 Order name: Rotavirus Antigen 03/14 18:28 Order name: Stool Culture 03/14 18:28 Order name: CDIFF 03/14 20:16 Order name: SARS RAPID; Complete Time: 22:42 cp 03/14 21:25 Order name: Urine Dipstick-Ancillary EDKS 03/14 18:25 Order name: CT Head Brain wo Cont; Complete Time: 20:37 cp 03/14 18:25 Order name: XRAY Chest (1 view); Complete Time: 20:16 cp 03/14 20:16 Interpretation: Report review. 03/14 18:25 Order name: EKG; Complete Time: 18:25 cp 03/14 18:25 Order name: Cardiac monitoring; Complete Time: 19:14 cp 03/14 18:25 Order name: EKG - Nurse/Tech; Complete Time: 19:14 cp 03/14 18:25 Order name: IV Saline Lock; Complete Time: 19:14 cp 03/14 18:25 Order name: Labs collected and sent; Complete Time: 19:14 cp 03/14 18:25 Order name: O2 Per Protocol; Complete Time: 18:44 cp 03/14 20:16 Order name: Abdomen ; Complete Time: 20:37 EDMS 03/14 21:49 Order name: Basic Metabolic Panel EDMS 03/14 21:49 Order name: Basic Metabolic Panel EDMS 03/14 21:49 Order name: CBC with Automated Diff EDMS 03/14 21:49 Order name: CBC with Automated Diff EDMS 03/14 18:25 Order name: O2 Sat Monitoring; Complete Time: 18:44 cp EC:15 Rate is 72 beats/min. Rhythm is irregular. QRS interval is prolonged at 160 msec. QT cp interval is normal. Interpreted by me. Reviewed by me. Administered Medications: 20:27 Drug: NS 0.9% 250 ml Route: IV; Rate: calculated rate; Site: right forearm; ja4 21:50 Drug: NS 0.9% 1000 ml Route: IV; Rate: 75 ml/hr; Site: left hand; ja4 Disposition: 03/15 21:58 Co-signature as Attending Physician, Indra High MD I agree with the assessment and kdr plan of care. Disposition Summary: 03/14/22 20:59 Hospitalization Ordered Hospitalization Status: Inpatient Admission cp Provider: Adriel Bennett cp Location: Telemetry/MedSurg (Inpatient) cp Condition: Stable cp Problem: new cp Symptoms: are unchanged cp Bed/Room Type: Standard cp Room Assignment: 430(03/14/22 22:13) mw Diagnosis - Acute kidney failure, unspecified cp - Weakness cp - Diarrhea, unspecified cp Forms: - Medication Reconciliation Form cp - SBAR form cp NIH Stroke Scale - NIH Stroke Score Date: 03/14/2022 Time: 18:03 Total Score = 2 1a. Level of Consciousness (LOC) - 0(Alert) 1b. Level of Consciousness (LOC) (Month \T\ Age) - 0(Both) 1c. LOC Commands (Open \T\ Closes Eyes/Tappet Adjuster) - 0(Both) 2. Best Gaze (Lateral Gaze Paresis) - 0(Normal) 3. Visual Field Loss - 0(No visual loss) 4. Facial Palsy - 0(Normal) 5a. Left Arm: Motor (10-second hold) - 0(No drift) 5b. Right Arm: Motor (10-second hold) - 0(No drift) 6a. Left Leg: Motor (5-second hold - always test supine) - 1(Drift) 6b. Right Leg: Motor (5-second hold - always test supine) - 1(Drift) 7. Limb Ataxia (finger/nose \T\ heel/humphrey - test with eyes open) - 0(Absent) 8. Sensory Loss (pinprick arms/legs/face) - 0(Normal) 9. Best Language: Aphasia (description/naming/reading) - 0(No aphasia) 10. Dysarthria (speech clarity - read or repeat words) - 0(Normal) 11. Extinction and Inattention (visual/tactile/auditory/spatial/personal) - 0(No abnormality) Initials: bp Signatures: Dispatcher [employer] EDMS Marissa Gregory RN RN mw Rittger, Kevin, MD MD kdr Vance Castellano PA PA cp Peltier, Brian, RN RN bp Allen, Jeremy, RN RN jaFrancesco Corrections: (The following items were deleted from the chart) 03/14 20:16 18:32 Abdomen Pelvis W Con+[id number].RAD.BRZ ordered. EDMS EDMS 22:13 20:59 era gilbert
[2022-03-14 21:02] LABS: SARS-CoV-2 Antigen Rapid Res Negative (Negative)
[2022-03-14 21:24] LABS: Urine Blood Negative (Negative); Urine Glucose Negative (Negative); Urine Protein Negative (Negative); Urine Specific Gravity 1.015 (1.005-1.030); Urine pH 5.5 (5.0-7.0)
[2022-03-14] MEDS ORDERED: ONDANSETRON 4 MG/2 ML VIAL IV PRN (21:43)
[2022-03-14] MEDS ORDERED: ACETAMINOPHEN 500 MG TAB PO PRN (21:43)
[2022-03-14] MEDS: NA CHLORIDE 0.9% 1,000 ML IV SCH (22:00)
[2022-03-14 22:14] LABS: Urine Bacteria <20 /HPF (<20); Urine RBC <5 /HPF (None Seen)
[2022-03-15 00:55] VITALS: BMI 37.8
[2022-03-15 05:53] LABS: Absolute Lymphocytes (CBC) 1.4 K/uL (0.7-4.9); Hematocrit 34.3 % (36.0-45.0); MCV 82.2 fL (80-100); MPV 10.3 fL (7.6-11.3); RBC Red Blood Cell Count 4.17 M/uL (3.86-4.86)
[2022-03-15 06:04] LABS: Potassium 3.6 mmol/L (3.5-5.1)
[2022-03-15 07:14] LABS: Blood Morphology Comment NOT SEEN (NOT SEEN); Platelet Estimate DECR; Platelets, Giant FEW; White Blood Cell Scan OK (OK)
[2022-03-15] MEDS: carvediloL 6.25 MG TAB PO SCH ×2 (09:33→20:02)
[2022-03-15] MEDS ORDERED: D50W 25 GM/50 ML SYRINGE IV PRN (09:52)
[2022-03-15] MEDS ORDERED: GLUCAGON 1 MG/VIAL IM PRN (09:52)
[2022-03-15] MEDS ORDERED: PNEUMOCOCCAL VACCINE 0.5 ML IMVAC ONE (10:00)
[2022-03-15] MEDS ORDERED: HOME MED 1 EA UNK IH PRN (10:10)
[2022-03-15] MEDS: INSULIN -REGULAR HUMAN 50 UNIT/0.5 ML ML SQ SCH ×3 (11:30→21:00)
[2022-03-15] MEDS: NA CHLORIDE 0.9% 1,000 ML IV SCH (12:47)
--- NOTE | 2022-03-15 13:03 | HP ---
Date of Admission: 03/14/2022 Chief Complaint: Generalized weakness and fall. History Of Present Illness: This is an 86-year-old pleasant female patient who had a problem with he r right index finger. Initially, we thought it was cellulitis, and with oral antibiotic, she did not improve much, and then, we started raising possibility of gout and she was given 5-7 days of colchic ine and that actually has helped to resolve this right index finger pain and swelling that she had, b ut that caused diarrhea. She stopped taking colchicine over a week ago, and her diarrhea actually donald s stopped after stopping colchicine, but she is having increasing generalized weakness and she actual ly fell down and had head injury, so she came into emergency room. After she was evaluated, she was admitted to the hospital with acute kidney injury and volume depletion problem. This morning when I saw her, she denied any other specific complaints. Allergies: CEFTRIAXONE CAUSING CARDIAC ARREST. CLINDAMYCIN CAUSING NAUSEA. NIFEDIPINE CAUSING LEG SWELLING. REGLAN, DETAILS UNKNOWN. NAPROXEN, DETAILS UNKNOWN. METOLAZONE CAUSING HYPOKALEMIA, MYOC LONIC JERKING, AND ACUTE KIDNEY INJURY. Medications: List reviewed. Review of Systems: Constitutional: As mentioned above. Musculoskeletal: As mentioned above. 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 All other systems reviewed and negative. Medications: List reviewed. Past Medical History: Significant for hypothyroidism, type 2 diabetes mellitus, COPD on home oxygen, hypertension, hyperlipidemia which is mixed, chronic systolic heart failure, paroxysmal atrial fibri llation, diverticulosis, renal cyst, liver cyst, osteoarthritis at multiple sites, CLL, insomnia, and leg edema. Past Surgical History: Cataract surgery, hysterectomy, cholecystectomy, hemorrhoid surgery, knee tripp rory, and ankle surgery. Family History: Father , had Alzheimer disease and coronary artery disease. Mother , had le ukemia. Brother with throat cancer, and sister has hypertension. Social History: Prior history of smoking, not at present time. Use of alcohol occasional. Physical Examination: Vital Signs: This morning, temperature 96.5, pulse 68, respiratory rate 18, blood pressure 159/58, o xygen saturation 94%. Height 5 feet 4 inches, weight 220 pounds. General: Awake, alert, oriented, not in distress. HEENT: Head atraumatic, normocephalic. Conjunctivae nonerythematous. Sclerae white. Mouth, no thr ush or edema noted. Ears/Nose, no mass, lesion, discharge noted. Neck: Supple. No JVD, lymph nodes, bruit, thyromegaly noted. Lungs: Bilateral good equal air entry. Clear to auscultation. No rhonchi. No rales. Heart: Normal heart sounds, no murmur or gallop. Abdomen: Soft, bowel sounds normal. No guarding, rigidity, tenderness, mass, hepatosplenomegaly, dis tention, or bruit noted. Extremities: No leg edema. No calf tenderness. Skin: No rash, ulcer, cellulitis. Lymphatics: No lymph node enlargement in neck, supraclavicular, infraclavicular region. Neuro: No focal neurological deficit. Chest: Unremarkable. External Genitalia: Deferred. Rectal: Deferred. Laboratory Data: Yesterday, white count 4.7, hemoglobin 11.4, platelets 95. Today, white count 3.7, hemoglobin 11.7, platelets 88. Yesterday, sodium 139, potassium 4.3, chloride 103, bicarb 27, BUN 3 4, creatinine 2.50, glucose 116. Liver function tests unremarkable. ProBNP 1328. This morning, sod ium 141, potassium 3.6, chloride 106, bicarb 30, BUN 29, creatinine 1.79, glucose 112. Urinalysis ne gative. COVID-19 was negative. Stool for Clostridium difficile pending. CAT scan of abdomen and pe lvis without contrast was unremarkable for any acute findings. Chest x-ray and CT head without contr ast were also negative for any acute changes. Impression: 1.Acute kidney injury. 2.Volume depletion. 3.Pancytopenia. 4.Chronic lymphocytic leukemia. 5.Paroxysmal atrial fibrillation. 6.Chronic anticoagulation therapy. 7.Hypothyroidism. 8.Type 2 diabetes mellitus. 9.Chronic obstructive pulmonary disease. 10.Hypertension. 11.Hyperlipidemia, mixed. 12.Chronic systolic heart failure. 13.Diverticulosis. 14.Osteoarthritis, multiple sites. 15.Insomnia. We will admit the patient to hospital for further evaluation and management of this problem. The [facility] ient is appropriate for inpatient and is expected to spend 2 midnights in hospital. We will continue current IV fluid hydration using normal saline at 75 cc/hour. Home medications will be continued pe r order. We will repeat blood work tomorrow. Consult Physical therapy today. Fall precaution was o rdered. Continue current antihypertensive medication. Continue current anticoagulation therapy. Di abetes will be managed with sliding scale insulin. Details of plan of treatment discussed with the demarcus andrew. I will see her tomorrow for followup. Possible discharge to go home tomorrow. MIGUE/MODL Voice ID: [id number]
--- NOTE | 2022-03-15 15:19 | EKG ---
Test Date: 2022-03-14 Test Time: 19:13:00 Armor Officer: DICK MEASUREMENT RESULTS: Intervals: Rate: 72 WA: QRSD: 160 QT: 466 QTc: 510 [place]: P: WA: QRS: 260 T: 109 INTERPRETIVE STATEMENTS: Atrial fibrillation Nonspecific intraventricular block Possible Lateral infarct, age undetermined Abnormal ECG Compared to ECG 09/26/2020 02:03:50 Right bundle-branch block no longer present Myocardial infarct finding still present Electronically Signed On 03-15-22 15:18:26 CDT by Bryan Fonseca
[2022-03-15] MEDS ORDERED: RIVAROXABAN 15 MG TABLET PO SCH (17:00)
[2022-03-15] MEDS: SACUBITRIL/VALSARTAN 24/26 MG TAB PO SCH (20:01)
[2022-03-15] MEDS: GABAPENTIN 300 MG CAP PO SCH (20:01)
[2022-03-15] MEDS ORDERED: ATORVASTATIN 20 MG TAB PO SCH (21:00)
[2022-03-15] MEDS ORDERED: ALPRAZOLAM 0.25 MG TABLET PO PRN (21:00)
[2022-03-16] MEDS: NA CHLORIDE 0.9% 1,000 ML IV SCH (00:40)
[2022-03-16 06:25] LABS: Absolute Lymphocytes (CBC) 1.1 K/uL (0.7-4.9); Hematocrit 32.5 % (36.0-45.0); Lymphocytes % 35.5 % (15.3-44.8); MCV 81.9 fL (80-100); MPV 9.4 fL (7.6-11.3); RBC Red Blood Cell Count 3.97 M/uL (3.86-4.86)
[2022-03-16] MEDS ORDERED: LEVOTHYROXINE SOD 0.075 MG TAB PO SCH (06:30)
[2022-03-16 06:37] LABS: Potassium 3.6 mmol/L (3.5-5.1)
[2022-03-16] MEDS: INSULIN -REGULAR HUMAN 50 UNIT/0.5 ML ML SQ SCH ×2 (07:30→11:30)
[2022-03-16] MEDS: carvediloL 6.25 MG TAB PO SCH (08:03)
[2022-03-16] MEDS: SACUBITRIL/VALSARTAN 24/26 MG TAB PO SCH (08:04)
[2022-03-16] MEDS: GABAPENTIN 300 MG CAP PO SCH (08:04)
[2022-03-16] MEDS ORDERED: CITALOPRAM 10 MG TABLET PO SCH (09:00)
[2022-03-16 11:37] VITALS: O2SAT 96
[2022-03-16 12:27] VITALS: BP 113/55; TEMP 96.9
--- NOTE | 2022-03-16 14:55 | DS ---
Date of Discharge: 03/16/2022 Disposition: Discharged to go home. Physical Examination: HEENT: Unremarkable. Lungs: Clear to auscultation. Heart: Sounds normal. Abdomen: Soft. Bowel sounds normal. No guarding, rigidity, tenderness, or distention. Extremities: No leg edema. Laboratory Data: Today; white count 3.2, hemoglobin 10.9, platelets 85. Upon admission; white count 4.7, hemoglobin 11.4, platelets 95. Yesterday; white count 3.7, hemoglobin 11.7, platelets 88. Tod ay chemistry; sodium 142, potassium 3.6, chloride 108, bicarb 28, BUN 19, creatinine 1.02, glucose 10 5. Upon admission; BUN was 29, creatinine 1.79. Chest x-ray and CAT scan of the head without contra st done upon admission were negative for any acute changes. CAT scan of the abdomen and pelvis was a lso negative for any acute changes. Stool for C diff is still pending. COVID-19 test negative. Discharge Diagnoses: 1.Acute kidney injury. 2.Volume depletion. 3.Pancytopenia. 4.Paroxysmal atrial fibrillation. 5.Chronic anticoagulation therapy. 6.Hypothyroidism. 7.Type 2 diabetes mellitus. 8.Chronic obstructive pulmonary disease. 9.Hypertension. 10.Mixed hyperlipidemia. 11.Chronic systolic heart failure. 12.Diverticulosis. 13.Osteoarthritis, multiple sites. 14.CLL that is chronic lymphocytic leukemia. Hospital Course: An 86-year-old female patient admitted to the hospital after she came into emergenc y room with fall and generalized weakness. Please see dictated H and P for more information. The radha pritchett was evaluated in the emergency room and she was admitted to the hospital with acute kidney inju ry and volume depletion. Overall, her condition improved with IV fluid hydration. Home medications were continued and yesterday, nurse reported that the patient was having some confusion and Seroquel 25 mg p.o. x1 dose was ordered last night. This morning when I saw her, she reported that she slept very well last night. She is awake, alert like her normal usual self, answering all the questions ap propriately, and the patient will be discharged to go back home in stable condition. Discharge Medications And Instructions: 1.Continue all prior home medications. 2.Follow up at my office a week after. MIGUE/MODL Voice ID: [id number] Report ID: [id number]
[2022-03-16] MEDS ORDERED: QUETIAPINE 25 MG TAB PO SCH (21:00)
== END 2022-03-16 13:49 | disposition home or self-care (01) | DRG 683 ==
LOC: ER 17:38 → 4TH 21:41
PROVIDERS: ADMIT Internal Medicine; ATTEND Internal Medicine
DX: N17.9 Acute kidney failure, unspecified (principal); I50.22 Chronic systolic (congestive) heart failure; C91.10 Chronic lymphocytic leukemia of B-cell type not having achieved remission; D61.818 Other pancytopenia; E86.9 Volume depletion, unspecified; E03.9 Hypothyroidism, unspecified; E11.9 Type 2 diabetes mellitus without complications; J44.9 Chronic obstructive pulmonary disease, unspecified; I11.0 Hypertensive heart disease with heart failure; E78.2 Mixed hyperlipidemia; I48.0 Paroxysmal atrial fibrillation; K57.90 Diverticulosis of intestine, part unspecified, without perforation or abscess without bleeding; M15.9 Polyosteoarthritis, unspecified; G47.00 Insomnia, unspecified; Z99.81 Dependence on supplemental oxygen; Z79.01 Long term (current) use of anticoagulants; Z20.822 Contact with and (suspected) exposure to COVID-19
CPT/HCPCS: 36415; 70450; 71045; 74176; 80048; 80076; 81003; 81015; 82947; 83735; 83880; 84484; 85025; 85610; 87811; 93005; 96374; 99284; J7030; J7050